=== PATIENT | female | born 1940 | race Caucasian/White ===

== ENCOUNTER 2019-05-25 12:08 | Outpatient (CLI) | payer MEDICARE, SELFPAY ==
[2019-05-25 13:06] LABS: Basophils # 0.1 10^3/uL (0.0-0.1); Basophils % 0.7 %; Eosinophils # 0.2 10^3/uL (0.0-0.8); Eosinophils % 2.3 %; Hematocrit 44.3 % (37.0-47.0); Hemoglobin 14.4 g/dL (11.5-15.3); Lymphocytes # 1.8 10^3/uL (0.8-4.8); Lymphocytes % 23.7 %; Mean Corpuscular HGB Conc 32.5 g/dL (30.0-36.0); Mean Corpuscular Hemoglobin 28.6 pg (28.0-34.0); Mean Corpuscular Volume 88.1 fL (81-99); Monocytes # 0.6 10^3/uL (0.2-0.9); Monocytes % 8.7 %; Neutrophils # 4.8 10^3/uL (1.8-7.7); Neutrophils % 64.3 %; Nucleated Red Blood Cells % 0 %; Platelet Count 372 10^3/cmm (130-400); Red Blood Count 5.03 10^6/uL (4.1-5.3); Red Cell Distribution Width 14.5 % (12.1-15.1); White Blood Count 7.4 10^3/uL (4.0-10.0)
[2019-05-25 13:36] LABS: Alanine Aminotransferase 22 U/L (0-33); Albumin Level 4.2 g/dL (3.5-5.2); Alkaline Phosphatase 81 IU/L (35-105); Anion Gap 18.3 (5-19); Aspartate Amino Transferase 21 U/L (0-32); Blood Urea Nitrogen 23 mg/dL (8-23); Calcium 10.7 mg/dL (8.5-10.5); Carbon Dioxide 26 mmol/L (22-29); Chloride 97 mmol/L (98-107); Globulin 3.7 g/dL (1.3-4.6); Glucose 126 mg/dL (65-115); Potassium 4.3 mmol/L (3.5-5.1); Sodium 137 mmol/L (136-145); Total Bilirubin 0.3 mg/dL (0.15-1.2); Total Protein 7.9 g/dL (6.6-8.7)
[2019-05-25 14:44] LABS: 25 Hydroxy Vitamin D > 100 ng/mL (30-100)
--- NOTE | 2019-05-28 07:16 | ONC FU_ITS ---
Dr. Valdes Patient Follow-Up Note Patient: Zee Vaca Unit #: [id number]: [id number] Dicatated By: Otoniel Valdes M.D.Date of Visit:May 25, 2019 Onc Med Follow-up/Prog Note Chief Complaint: Breast cancer. 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 She had presented in May 2010 with an abnormal screening mammogram. She underwent excisional biopsy on 06/21/2010. Pathology showed grade 1 infiltrating ductal carcinoma measuring 0.9 x 1.0 cm. There was no involvement in the margins. The tumor was ER positive at 97% and FL positive at 89%. The HER-2/alice was 2+ by IHC, but negative by FISH with amplification ratio 1.32. She underwent axillary lymph node sampling on 06/22/2010. There was no involvement in 13 axillary lymph nodes. She had a favorable Oncotype DX with a recurrence score of 15. She completed radiation to the left breast in October 2010. She was given adjuvant hormonal therapy with Femara, which she started in January 2011. She stopped Femara in May 2016 after completing 5 years of treatment. Her other medical illnesses include hypertension, hypothyroidism, GERD, and fibromyalgia. She has mild asthma. She had evidence of osteoporosis on her Dexa scan in August 2017. During followup she has had occasional episodes of cellulitis in the left breast. There has been no evidence of recurrence of the breast cancer. She is seen for a scheduled visit. She has been feeling good generally. She has good energy, and her activity is normal. Appetite also is good. She has no fever. She has occasional hot flashes/sweating. She says her breathing could be better. She has occasional burning pain in the left chest wall area. She currently has no GI complaints, but she has had problems intermittently with diverticulitis. Bowel function has been adequate with prune juice. She has no complaints. She has no significant joint or pain. She does not complain of headaches. She has some light headedness. She had a few episodes of passing out. She thinks it was just due to dehydration. Her evaluation was unrevealing. She has no focal neurologic symptoms. Medications: ALPRAZolam 1 (0.25 mg) Tablet Oral daily PRN, Aspirin 1 (81 mg) Tablet Oral daily, Cinnamon 1 (500 mg) Tablet Oral daily, Co Q10 1 (100 mg) Tablet Oral daily, Fish Oil 1 (1000 mg) Capsule Oral daily, Levothyroxine Sodium 1 (100 mcg) Tablet Oral daily, Melatonin 1 (3 mg) Capsule Oral at bedtime, Multi-Vitamin 1 Tablet Oral daily, Norvasc 1 (10 mg) Tablet Oral daily, Restoril 1 (15 mg) Capsule Oral at bedtime, Spironolactone 1 (25 mg) Tablet Oral daily, Triamterene-HCTZ 1 (37.5-25 mg) Tablet Oral daily, Vitamin D3 1 (2500 IU) Tablet Oral b.i.d., Vitamin K2 1 (100 mcg) Capsule Oral daily Allergies: MSG, Tenormin, and Vicodin. Review of Systems: Constitutional - Her energy is pretty good generally. She has normal activity. Her appetite is good and her weight is up about 5 pounds. No fever or chills. She has occasional hot flashes and night sweats. ECOG score is 0, ENMT - No sinus congestion/drainage. No mouth sores. No sore throat or difficulty swallowing, Hematologic/Lymphatic - No abnormal bruising or bleeding, Respiratory - She has some shortness of breath with activity. No cough. No pleuritic pain or hemoptysis, Cardiovascular - She has sharp burning pain in her chest at times. No palpitations, Gastrointestinal - No nausea or vomiting. No heartburn or acid reflux. She has had problems with diverticulitis. She uses prune juice to help with her constipation. No blood in the stool or black stools, Genitourinary (F) - No dysuria or hematuria. No urinary frequency. No urgency or incontinence, Musculoskeletal - No joint or bone pain, Integumentary - No skin complications, Neurologic - No headache. She has some dizziness when she stands up too quickly. At one point she was having some spells where she was passing out. Her evaluation was unrevealing. She has no numbness/paresthesias or other focal neurologic symptoms, Psychiatric - She has some anxiety and depression. She uses a sleep aid at night. Vital Signs: Performed on May 25, 2019 13:51 Height - 61.00 in Weight - 173.2 lbs (HIGH) BSA - 1.78 sq.m BMI - 32.73 (HIGH) Temperature - 98.2 F (LOW) Pulse - 70 /min Respiration - 24 /min BP - 148/68 mm(hg) (HIGH) O2 Sat - 96 % Pain - 0 Physical Examination: Constitutional - She looks good generally, Eyes - Sclerae nonicteric. Conjunctivae clear, ENMT - No lesions noted in the oral cavity, Hematologic/Lymphatic - No cervical or clavicular adenopathy, Respiratory - Lungs sound clear, Cardiovascular - Heart rhythm is regular. There is a II/ systolic murmur. There is no gallop or rub noted, Breasts - There are no breast masses noted. There is no axillary adenopathy, Abdomen - Soft. Liver and spleen are not enlarged. There is no abdominal mass or ascites noted and there is no inguinal adenopathy, Extremities - No edema, Neurologic - No focal neurologic deficits noted. Lab/Imaging: Test performed on May 25, 2019 12:40 Sodium 137 mmol/L Vitamin D (25-Hydroxy), Total > 100 ng/mL Potassium 4.3 mmol/L Chloride 97 mmol/L CO2 26 mmol/L Anion Gap 18.3 BUN 23 mg/dL Creatinine 0.7 mg/dL Cr Clearance (Est) 83.47 mL/min Glucose 126 mg/dL Calcium 10.7 mg/dL Protein, Total 7.9 g/dL Albumin 4.2 g/dL Globulin 3.7 g/dL Bilirubin, Total 0.3 mg/dL ALT (SGPT) 22 U/L AST (SGOT) 21 U/L Alkaline Phosphatase 81 IU/L WBC 7.4 10 3/uL RBC 5.03 10 6/uL HGB 14.4 g/dL HCT 44.3 % MCV 88.1 fL MCH 28.6 pg MCHC 32.5 g/dL RDW 14.5 % Platelet Count 372 10 3/cmm MPV 10.0 fL Neutrophils 4.8 10 3/uL Lymphocytes 1.8 10 3/uL Monocytes 0.6 10 3/uL Eosinophils 0.2 10 3/uL Basophils 0.1 10 3/uL Neutrophil % 64.3 % Lymphocyte % 23.7 % Monocyte % 8.7 % Eosinophil % 2.3 % Basophils % 0.7 % Impression: 1. Patient with grade 1 infiltrating ductal carcinoma of the left breast, stage IA, ER/FL positive and HER-2/alice negative. Oncotype DX was favorable with a recurrence score of 15. 2. Her treatment included lumpectomy/axillary lymph node sampling and radiation, which she completed in October 2010. 3. She was then given adjuvant hormonal therapy with Femara. She stopped Femara as of May 2016 after completing 5 years of treatment. 4. During followup she has had several episodes of cellulitis in the left breast. Her other medical illnesses include: 5. Hypertension. 6. Hypothyroidism. 7. GERD. 8. Fibromyalgia. 9. Osteoporosis. 10. She has history of diverticulitis. Overall, she has been doing well. Thus far there has been no evidence of recurrence of her breast cancer. Plan: She remains on observation for the breast cancer. I will see her again in one year, or sooner as needed. Signed By: Otoniel Valdes M.D. <<Signature on File>>
== END 2019-05-25 12:09 | disposition home or self-care (01) ==
LOC: ONCMED 12:11
PROVIDERS: Family Provider Family Medicine; PCP Family Medicine; Visit Provider Internal Medicine Medical Oncology
DX: Z08 Encounter for follow-up examination after completed treatment for malignant neoplasm (principal); Z85.3 Personal history of malignant neoplasm of breast; I10 Essential (primary) hypertension; E03.9 Hypothyroidism, unspecified; K21.9 Gastro-esophageal reflux disease without esophagitis; M79.7 Fibromyalgia; M81.0 Age-related osteoporosis without current pathological fracture; J45.20 Mild intermittent asthma, uncomplicated; Z79.82 Long term (current) use of aspirin; Z79.899 Other long term (current) drug therapy; Z92.3 Personal history of irradiation; Z92.23 Personal history of estrogen therapy
CPT/HCPCS: 80053; 82306; 85025; G0463

== ENCOUNTER → 2019-09-23 09:21 | Outpatient (BNVA) | payer MEDICARE, SELFPAY | PROVIDERS: Family Provider Family Medicine; PCP Family Medicine; Referring Provider Family Medicine; Visit Provider Podiatrist Foot & Ankle Surgery | DX: M21.961 Unspecified acquired deformity of right lower leg (principal); M21.962 Unspecified acquired deformity of left lower leg | CPT/HCPCS: 73630 ==

== ENCOUNTER 2019-09-30 11:04 | Outpatient (CLI) | payer MEDICARE, SELFPAY ==
--- NOTE | 2019-09-30 11:47 | MM_ITS ---
WS: [id number] BILATERAL DIGITAL DIAGNOSTIC MAMMOGRAM MAMMOGRAPHY WITH CAD CLINICAL INFORMATION: HX OF BREAST CA COMPARISON: August 18, 2018 TECHNIQUE: Bilateral CC, MLO, and ML views. FINDINGS: Scattered fibroglandular densities bilaterally. Postoperative lumpectomy left breast parenchymal scar ring. Volume loss left breast. Treatment-related changes left breast with skin thickening. Right marie st is stable in appearance and unremarkable. Stable punctate and dystrophic calcifications left breas t. MM/[id number] IMPRESSION: BI-RADS: 2-Benign FOLLOW UP: 1 Year Follow-up Recommend return to annual diagnostic mammography.
== END 2019-09-30 11:05 | disposition home or self-care (01) ==
LOC: RADSHAW 11:13
PROVIDERS: PCP Family Medicine; Visit Provider Family Medicine
DX: Z85.3 Personal history of malignant neoplasm of breast (principal)
CPT/HCPCS: 77066

== ENCOUNTER 2019-10-27 13:08 | Outpatient (CLI) | payer MEDICARE, SELFPAY ==
--- NOTE | 2019-10-27 13:13 | XRR_ITS ---
PROCEDURE INFORMATION: Exam: XR Left Knee Exam date and time: 10/27/2019 1:32 PM Age: 79 years old Clinical indication: Condition or disease; Other: Folllow up with ortho; Patient HX: C/O left knee pain. HX of bunion surgery many years ago TECHNIQUE: Imaging protocol: XR Left knee. Views: 1 or 2 views. COMPARISON: CR Knee 3 views, LEFT* [id number] 05/10/2014 1:59 PM FINDINGS: Bones/joints: There is joint space narrowing in the medial compartment of the left knee. There is a small posterior osteophyte off the superior left patella. There is no evidence for acute fracture or malalignment. Soft tissues: Normal. XR/XR knees AP WB w LT lmt ORTH IMPRESSION: There is left knee osteoarthritis.
== END 2019-10-27 13:09 | disposition home or self-care (01) ==
PROVIDERS: PCP Family Medicine; Visit Provider Specialist
DX: M25.562 Pain in left knee (principal); M17.12 Unilateral primary osteoarthritis, left knee
CPT/HCPCS: 73560; 73565

== ENCOUNTER 2019-12-16 10:53 | Outpatient (RCR) | payer MEDICARE, SELFPAY | END 2020-01-12 23:59 | disposition home or self-care (01) | LOC: SPT 10:53 | PROVIDERS: PCP Family Medicine; Referring Provider Family Medicine; Visit Provider Family Medicine | DX: G89.29 Other chronic pain (principal); M54.2 Cervicalgia | CPT/HCPCS: 97110; 97161 ==

== ENCOUNTER 2020-01-13 06:00 | Outpatient (RCR) | payer MEDICARE, SELFPAY | END 2020-02-12 23:59 | disposition home or self-care (01) | LOC: SPT 06:00 | PROVIDERS: PCP Family Medicine; Referring Provider Family Medicine; Visit Provider Family Medicine | DX: G89.29 Other chronic pain (principal); M54.2 Cervicalgia | CPT/HCPCS: 97110 ==

== ENCOUNTER 2020-02-13 06:00 | Outpatient (RCR) | payer MEDICARE, SELFPAY | END 2020-03-13 23:59 | disposition home or self-care (01) | LOC: SPT 06:00 | PROVIDERS: PCP Family Medicine; Referring Provider Family Medicine; Visit Provider Family Medicine | DX: M54.2 Cervicalgia (principal); G89.29 Other chronic pain | CPT/HCPCS: 97110 ==

== ENCOUNTER 2020-06-15 10:29 | Outpatient (CLI) | payer MEDICARE, SELFPAY ==
--- NOTE | 2020-06-18 10:19 | ONC FU_ITS ---
Dr. Valdes Patient Follow-Up Note Patient: Zee Vaca Unit #: [id number]: [id number] Dicatated By: Otoniel Valdes M.D.Date of Visit:Jun 15, 2020 Onc Med Follow-up/Prog Note Chief Complaint: Breast cancer. History of Present Illness: This is a 79 year-old woman with grade 1 infiltrating ductal carcinoma of the left breast, stage IA (T1b, N0, M0), ER/CT positive and HER-2/alice negative. She had presented in May 2010 with an abnormal screening mammogram. She underwent excisional biopsy on 06/21/2010. Pathology showed grade 1 infiltrating ductal carcinoma measuring 0.9 x 1.0 cm. There was no involvement in the margins. The tumor was ER positive at 97% and CT positive at 89%. The HER-2/alice was 2+ by IHC, but negative by FISH with amplification ratio 1.32. She underwent axillary lymph node sampling on 06/22/2010. There was no involvement in 13 axillary lymph nodes. She had a favorable Oncotype DX with a recurrence score of 15. She completed radiation to the left breast in October 2010. She was given adjuvant hormonal therapy with letrozole 2.5 mg dialy, which she started in January 2011. She stopped letrozole in May 2016 after completing 5 years of treatment. Her other medical illnesses include hypertension, hypothyroidism, GERD, and fibromyalgia. She has mild asthma. She had evidence of osteoporosis on her Dexa scan in August 2017. During followup she has had occasional episodes of cellulitis in the left breast. There has been no evidence of recurrence of the breast cancer. She is seen for a scheduled visit. She has been feeling fairly good, though she has had some decline in her activity tolerance. Her ECOG score is 1. She has good appetite. She has not had fever or night sweats. She has just a little bit of hot flashes now. Her main complaint is that she recently has had a flareup of pain in her left wrist, which she thinks is gout. She has a little sinus drainage and cough. She does not complain of shortness of breath. She has had some soreness in her left rib area and in the left parasternal area, which I suspect is related to her previous breast radiation. She otherwise does not have chest pain. She has mild constipation, which he manages adequately with prune juice. She has no other GI or complaints. She currently is not having any other joint or bone pain. She does not complain of headache. She does complain that she has had a tendency to be off balance. She has no focal neurologic symptoms. Medications: ALPRAZolam 1 (0.25 mg) Tablet Oral daily PRN, Aspirin 1 (81 mg) Tablet Oral daily, Cinnamon 1 (500 mg) Tablet Oral daily, Co Q10 1 (100 mg) Tablet Oral daily, Fish Oil 1 (1000 mg) Capsule Oral daily, Levothyroxine Sodium 1 (100 mcg) Tablet Oral daily, Melatonin 1 (3 mg) Capsule Oral at bedtime, Multi-Vitamin 1 Tablet Oral daily, Norvasc 1 (10 mg) Tablet Oral daily, Restoril 1 (15 mg) Capsule Oral at bedtime, Spironolactone 1 (25 mg) Tablet Oral daily, Triamterene-HCTZ 1 (37.5-25 mg) Tablet Oral daily, Vitamin D3 1 (2500 IU) Tablet Oral b.i.d., Vitamin K2 1 (100 mcg) Capsule Oral daily Allergies: MSG, Tenormin, and Vicodin. Vital Signs: Performed on Jun 15, 2020 10:40 Height - 61.00 in Weight - 179.8 lbs (HIGH) BSA - 1.81 sq.m BMI - 33.97 (HIGH) Temperature - 98.2 F (LOW) Pulse - 86 /min Respiration - 18 /min BP - 151/88 mm(hg) (HIGH) O2 Sat - 97 % Pain - 7 Fatigue - 0 Physical Examination: Constitutional - She looks good generally, Eyes - Sclerae nonicteric. Conjunctivae clear, ENMT - No lesions noted in the oral cavity, Hematologic/Lymphatic - No cervical or clavicular adenopathy, Respiratory - Lungs sound clear, Cardiovascular - Heart rhythm is regular. There is a II/ systolic murmur. There is no gallop or rub noted, Breasts - There are no breast masses noted. There is no axillary adenopathy, Abdomen - Soft. Liver and spleen are not enlarged. There is no abdominal mass or ascites noted and there is no inguinal adenopathy, Extremities - No edema, Neurologic - No focal neurologic deficits noted. Problem List: 1. Grade 1 infiltrating ductal carcinoma of the left breast, stage IA, ER/CT positive and HER-2/alice negative. Oncotype DX was low risk with a recurrence score of 15. 2. During followup she has had several episodes of cellulitis in the left breast. 3. Hypertension. 4. Hypothyroidism. 5. GERD. 6. Fibromyalgia. 7. Osteoporosis. 9. She has history of diverticulitis. 10. History of gout. Problems Addressed with this Encounter and Plan: 1. Patient with grade 1 infiltrating ductal carcinoma of the left breast, stage IA, ER/CT positive and HER-2/alice negative. Oncotype DX was favorable with a recurrence score of 15. Her treatment included lumpectomy/axillary lymph node sampling and radiation, which she completed in October 2010. She was then given adjuvant hormonal therapy with letrolzole. She stopped the letrozole as of May 2016 after completing 5 years of treatment. During follow-up there has been no evidence of recurrence of the breast cancer. Overall, she appears to be doing well clinicallyWith no evidence of recurrence of the breast cancer. She remains on observation for the breast cancer. She will continue her yearly surveillance with diagnostic mammograms, which are due in September. She will be scheduled for a follow-up visit in 1 year. 2. She has had a recent flareup of pain in the left wrist, she thinks is due to gout. She is recommended to try Voltaren gel topically. If this is not effective, she is to let me know or contact Dr. Soto. Signed By: Otoniel Valdes M.D. <<Signature on File>>
== END 2020-06-15 10:30 | disposition home or self-care (01) ==
PROVIDERS: PCP Family Medicine; Visit Provider Internal Medicine Medical Oncology
DX: Z08 Encounter for follow-up examination after completed treatment for malignant neoplasm (principal); Z85.3 Personal history of malignant neoplasm of breast; M25.532 Pain in left wrist; Z92.23 Personal history of estrogen therapy; Z92.3 Personal history of irradiation
CPT/HCPCS: 99214

== ENCOUNTER 2020-10-02 12:16 | Outpatient (CLI) | payer MEDICARE, SELFPAY ==
--- NOTE | 2020-10-02 13:05 | MM_ITS ---
WS: [id number] DIAGNOSTIC BILATERAL DIGITAL MAMMOGRAM WITH CAD HISTORY: HX OF BR CA COMPARISON: 09/30/2019, 08/18/2018 and 08/14/2017 TECHNIQUE: Bilateral craniocaudad, mediolateral oblique, and mediolateral views are submitted. Comput er aided detection utilized. Breast composition: There are scattered areas of fibroglandular density. Volume loss and postsurgical changes in the LEFT breast. There is a new 6 mm asymmetry seen only on the LEFT CC projection anteri elvin. Otherwise benign dystrophic calcifications. RIGHT breast is negative. MM/[id number] IMPRESSION: BI-RADS: 0-Incomplete: Need additional imaging evaluation FOLLOW UP: Need Additional Imaging LEFT breast: Spot compression views (CC and MLO). True ML. Ultrasound to follow if abnormality persists.
== END 2020-10-02 12:17 | disposition home or self-care (01) ==
LOC: RADSHAW 12:21
PROVIDERS: PCP Family Medicine; Visit Provider Internal Medicine Medical Oncology
DX: Z85.3 Personal history of malignant neoplasm of breast (principal)
CPT/HCPCS: 77066

== ENCOUNTER 2020-10-10 12:22 | Outpatient (CLI) | payer MEDICARE, SELFPAY ==
--- NOTE | 2020-10-10 12:45 | US_ITS ---
WS: [id number] ADDITIONAL VIEWS LEFT MAMMOGRAM LEFT BREAST ULTRASOUND HISTORY: ABNORMAL MAMMO COMPARISON: 10/02/2020, 09/30/2019, 08/18/2018 LEFT MAMMOGRAM: Spot compression views and true ML. Asymmetry with central calcification persists measuring 5 mm in the medial LEFT breast. This is not i dentified on the spot compression view of the MLO. LEFT BREAST ULTRASOUND 2-D and color Doppler imaging submitted. Hypoechoic area with shadowing at 10:00, 1 cm from the nipple in the LEFT breast measures 4 x 4 x 8 m m. This probably does correspond to the abnormality in size and location. No increased vascularity. US/US breast LT limited* [id number] IMPRESSION: BI-RADS: 4-Suspicious Finding-Biopsy Should Be Considered FOLLOW UP: Biopsy Recommended Ultrasound-guided biopsy recommended of the 10:00 nodule with central calcifica tion in the LEFT breast. Notified Otoniel Valdes MD at 10/10/2020 1:51 PM. Left message with Miriam.
== END 2020-10-10 12:23 | disposition home or self-care (01) ==
PROVIDERS: PCP Family Medicine; Visit Provider Internal Medicine Medical Oncology
DX: R92.8 Other abnormal and inconclusive findings on diagnostic imaging of breast (principal); N64.89 Other specified disorders of breast
CPT/HCPCS: 76642; 77065

== ENCOUNTER 2020-10-23 12:49 | Outpatient (CLI) | payer MEDICARE, SELFPAY ==
--- NOTE | 2020-10-23 12:57 | US_ITS ---
WS: [id number] ULTRASOUND-GUIDED LEFT BREAST BIOPSY CLINICAL INFORMATION: BREAST CANCER COMPARISON: None. FINDINGS: The procedure including risks, benefits, and complications were discussed with the patient who agreed to proceed. Using sterile technique patient was prepped and draped in the usual sterile fashion. Aft er 1% lidocaine utilizing real-time ultrasound guidance 5 14-gauge cores were obtained of the left br east lesion at the 10 o'clock position. Subsequently a titanium clip was placed in the biopsy cavity. No immediate complications. Pathology demonstrates A. Breast, left breast 10 o'clock lesion, 1 cm from nipple , ultrasound-guided biopsy: -Benign breast tissue with microcalcifications, chronic inflammation and treatment-related changes. -No overt malignancy identified. US/[place] [id number] IMPRESSION: 1. Uncomplicated ultrasound-guided left breast biopsy. 2. The pathology demonstrates benign breast tissue with microcalcifications. C hronic inflammation with associated treatment-related changes. No evidence of m alignancy. BI-RADS: 2-Benign FOLLOW UP: 1 Year Follow-up
== END 2020-10-23 12:50 | disposition home or self-care (01) ==
LOC: RAD 12:52
PROVIDERS: PCP Family Medicine; Visit Provider Internal Medicine Medical Oncology
DX: C50.212 Malignant neoplasm of upper-inner quadrant of left female breast (principal)
CPT/HCPCS: 19083; 88305

== ENCOUNTER 2021-07-16 13:55 | Outpatient (CLI) | payer MEDICARE, SELFPAY ==
--- NOTE | 2021-07-19 12:07 | ONC FU_ITS ---
Dr. Valdes Patient Follow-Up Note Patient: Zee Vaca Unit #: [id number]: [id number] Dicatated By: Otoniel Valdes M.D.Date of Visit:Jul 16, 2021 Onc Med Follow-up/Prog Note Chief Complaint: Breast cancer. History of Present Illness: This is a 80 year-old woman with grade 1 infiltrating ductal carcinoma of the left breast, stage IA (T1b, N0, M0), ER/NE positive and HER-2/alice negative. She had presented in May 2010 with an abnormal screening mammogram. She underwent excisional biopsy on 06/21/2010. Pathology showed grade 1 infiltrating ductal carcinoma measuring 0.9 x 1.0 cm. There was no involvement in the margins. The tumor was ER positive at 97% and NE positive at 89%. The HER-2/alice was 2+ by IHC, but negative by FISH with amplification ratio 1.32. She underwent axillary lymph node sampling on 06/22/2010. There was no involvement in 13 axillary lymph nodes. She had a favorable Oncotype DX with a recurrence score of 15. She completed radiation to the left breast in October 2010. She was given adjuvant hormonal therapy with letrozole 2.5 mg dialy, which she started in January 2011. She stopped letrozole in May 2016 after completing 5 years of treatment. During follow-up she had occasionally episodes of cellulitis in the left breast, requiring antibiotic therapy. As of her visit in June 2020 there was no evidence of recurrence of the breast cancer. She continued expectant management. Her other medical illnesses include hypertension, hypothyroidism, GERD, and fibromyalgia. She has mild asthma. She had evidence of osteoporosis on her Dexa scan in August 2017. She had smoked in the past, but she quit more than 20 years ago. INTERIM HISTORY: Her diagnostic mammogram on 10/02/2020 was BI-RADS 0 with finding of a new 6 mm asymmetry in the left breast. Additional mammogram views and left breast ultrasound on 10/10/2021 were BI-RADS 4, suspicious. She underwent ultrasound directed biopsy on 10/23/2020. Pathology showed benign breast tissue with microcalcifications, chronic inflammation, and treatment related changes. There was no malignancy identified. She is seen for a scheduled visit. She has not been feeling as good lately. Her energy has not been as good, and she has not been as active. She is still doing some light work. ECOG score is 1. She has good appetite. She has not had fever or hot flashes, but she for the past 3 to 4 months she has occasionally been waking up sweaty. She has not had sore mouth or throat. She has some cough in the morning associated with sinus drainage. She occasionally cannot get her breath. She sometimes has heart racing. She does not complain of chest pain. She occasionally has nausea. Her acid reflux is adequately managed. She has chronic constipation she has occasional episodes of diverticulitis. Bladder function has been okay, but recently she has noticed a foul odor. She has some lower back pain. She does not complain of headache. She sometimes has dizziness and she occasionally has numbness in her feet. Medications: ALPRAZolam 1 (0.25 mg) Tablet Oral daily PRN, Aspirin 1 (81 mg) Tablet Oral daily, Cinnamon 1 (500 mg) Tablet Oral daily, Co Q10 1 (100 mg) Tablet Oral daily, Fish Oil 1 (1000 mg) Capsule Oral daily, Levothyroxine Sodium 1 (100 mcg) Tablet Oral daily, Melatonin 1 (3 mg) Capsule Oral at bedtime, Multi-Vitamin 1 Tablet Oral daily, Norvasc 1 (10 mg) Tablet Oral daily, Restoril 1 (15 mg) Capsule Oral at bedtime, Spironolactone 1 (25 mg) Tablet Oral daily, Triamterene-HCTZ 1 (37.5-25 mg) Tablet Oral daily, Vitamin D3 1 (2500 IU) Tablet Oral b.i.d., Vitamin K2 1 (100 mcg) Capsule Oral daily Allergies: MSG, Tenormin, and Vicodin. Vital Signs: Performed on Jul 16, 2021 14:08 Height - 61.00 in Weight - 178.0 lbs (LOW) BSA - 1.80 sq.m BMI - 33.63 (HIGH) Temperature - 97.4 F (LOW) Pulse - 84 /min Respiration - 19 /min BP - 157/73 mm(hg) (HIGH) O2 Sat - 97 % Pain - 0 Fatigue - 4 Physical Examination: Constitutional - She looks good generally, Eyes - Sclerae nonicteric. Conjunctivae clear, ENMT - No lesions noted in the oral cavity, Hematologic/Lymphatic - No cervical or clavicular adenopathy, Respiratory - Lungs sound clear, Cardiovascular - Heart rhythm is regular. There is a II/ systolic murmur. There is no gallop or rub noted, Breasts - There is mild induration in the left breast, but there are no breast masses noted. There is tenderness in the medial left chest wall, which I suspect may be due to costochondritis. There is no axillary adenopathy noted, Abdomen - Soft. Liver and spleen are not enlarged. There is no abdominal mass or ascites noted and there is no inguinal adenopathy, Extremities - No edema, Neurologic - No focal neurologic deficits noted. Problem List: 1. Grade 1 infiltrating ductal carcinoma of the left breast, stage IA, ER/NE positive and HER-2/alice negative. Oncotype DX was low risk with a recurrence score of 15. 2. During followup she has had several episodes of cellulitis in the left breast. 3. Hypertension. 4. Hypothyroidism. 5. GERD. 6. Fibromyalgia. 7. Osteoporosis. 9. She has history of diverticulitis. 10. History of gout. Problems Addressed with this Encounter and Plan: 1. Patient with grade 1 infiltrating ductal carcinoma of the left breast, stage IA, ER/NE positive and HER-2/alice negative. Oncotype DX was favorable with a recurrence score of 15. Her treatment included lumpectomy/axillary lymph node sampling and radiation, which she completed in October 2010. She was then given adjuvant hormonal therapy with letrolzole. She stopped the letrozole as of May 2016 after completing 5 years of treatment. During follow-up there has been no evidence of recurrence of the breast cancer. Overall, she has been doing well clinically with no evidence of recurrence of the breast cancer. She remains on expectant management. At this point she is recommended to continue her regular follow-up with Dr. Soto. She is aware that she also needs to continue her yearly surveillance with diagnostic bilateral mammogram. I will plan to see her again only as needed. 2. Recently she has been having some pain in the chest area. There is tenderness in the medial left chest wall, which appears consistent with costochondritis. She will initially try treating it with Voltaren gel. She is let me know if it is not getting better. Signed By: Otoniel Valdes M.D. <<Signature on File>>
== END 2021-07-16 13:56 | disposition home or self-care (01) ==
PROVIDERS: PCP Family Medicine; Visit Provider Internal Medicine Medical Oncology
DX: Z08 Encounter for follow-up examination after completed treatment for malignant neoplasm (principal); Z85.3 Personal history of malignant neoplasm of breast; N61.0 Mastitis without abscess; I10 Essential (primary) hypertension; E03.9 Hypothyroidism, unspecified; K21.9 Gastro-esophageal reflux disease without esophagitis; M79.7 Fibromyalgia; M81.0 Age-related osteoporosis without current pathological fracture; M94.0 Chondrocostal junction syndrome [Tietze]; Z87.19 Personal history of other diseases of the digestive system; Z87.2 Personal history of diseases of the skin and subcutaneous tissue; Z79.899 Other long term (current) drug therapy
CPT/HCPCS: 99214

== ENCOUNTER → 2021-08-02 09:50 | Outpatient (BNVA) | payer MEDICARE, SELFPAY | PROVIDERS: PCP Family Medicine; Visit Provider Podiatrist Foot & Ankle Surgery | DX: L60.0 Ingrowing nail (principal); L60.3 Nail dystrophy; Z87.891 Personal history of nicotine dependence | CPT/HCPCS: 11750 ==

== ENCOUNTER → 2021-08-28 12:00 | Outpatient (BNVA) | payer MEDICARE, SELFPAY | PROVIDERS: PCP Family Medicine; Visit Provider Family Medicine | DX: I10 Essential (primary) hypertension (principal); E03.9 Hypothyroidism, unspecified; E78.5 Hyperlipidemia, unspecified; I11.0 Hypertensive heart disease with heart failure | CPT/HCPCS: 80053; 80061; 84443; 85025 ==

== ENCOUNTER → 2021-08-28 14:42 | Outpatient (BNVA) | payer MEDICARE, SELFPAY | PROVIDERS: PCP Family Medicine; Visit Provider Podiatrist Foot & Ankle Surgery | DX: L60.3 Nail dystrophy (principal); M79.672 Pain in left foot | CPT/HCPCS: 99213 ==

== ENCOUNTER 2021-10-31 11:06 | Outpatient (RCR) | payer MEDICARE, SELFPAY | END 2021-11-11 23:59 | disposition home or self-care (01) | LOC: SPT 11:06 | PROVIDERS: PCP Family Medicine; Referring Provider Family Medicine; Visit Provider Family Medicine | DX: R07.81 Pleurodynia (principal) | CPT/HCPCS: 97110; 97161 ==

== ENCOUNTER 2021-11-09 10:12 | Outpatient (CLI) | payer MEDICARE, SELFPAY ==
--- NOTE | 2021-11-09 10:37 | MM_ITS ---
WS: [id number] BILATERAL DIAGNOSTIC DIGITAL BREAST TOMOSYNTHESIS MAMMOGRAM WITH CAD HISTORY: HX OF BREAST CA COMPARISON: 10/10/2020, 10/02/2020, 09/30/2019 Bilateral CC, ML and MLO views with tomosynthesis and synthetic mammography submitted. Computer aided detection analyzed. Breast composition: There are scattered areas of fibroglandular density. No suspicious masses, microc alcifications or architectural distortion. Postsurgical changes in the anterior LEFT breast are stabl e. There are dystrophic calcifications with distortion of the soft tissues. MM/[id number] IMPRESSION: BI-RADS: 2-Benign FOLLOW UP: 1 Year Follow-up
== END 2021-11-09 10:13 | disposition home or self-care (01) ==
LOC: RAD 10:18
PROVIDERS: PCP Family Medicine; Visit Provider Family Medicine
DX: Z85.3 Personal history of malignant neoplasm of breast (principal)
CPT/HCPCS: 77062

== ENCOUNTER 2021-11-12 06:00 | Outpatient (RCR) | payer MEDICARE, SELFPAY | END 2021-12-12 23:59 | disposition home or self-care (01) | LOC: SPT 06:00 | PROVIDERS: PCP Family Medicine; Visit Provider Family Medicine | DX: R07.81 Pleurodynia (principal) | CPT/HCPCS: 97110 ==

== ENCOUNTER 2021-12-13 06:00 | Outpatient (RCR) | payer MEDICARE, SELFPAY | END 2022-01-11 23:59 | disposition home or self-care (01) | LOC: SPT 06:00 | PROVIDERS: PCP Family Medicine; Visit Provider Family Medicine | DX: R07.81 Pleurodynia (principal) | CPT/HCPCS: 97110 ==

== ENCOUNTER → 2022-02-12 11:10 | Outpatient (BNVA) | payer MEDICARE, SELFPAY | PROVIDERS: PCP Family Medicine; Visit Provider Family Medicine | DX: E78.5 Hyperlipidemia, unspecified (principal); I10 Essential (primary) hypertension; K57.92 Diverticulitis of intestine, part unspecified, without perforation or abscess without bleeding; L60.3 Nail dystrophy; Z00.00 Encounter for general adult medical examination without abnormal findings | CPT/HCPCS: 80053; 80061; 84443; 85025 ==

== ENCOUNTER 2022-04-22 14:35 | Outpatient (CLI) | payer MEDICARE, SELFPAY ==
--- NOTE | 2022-04-22 16:00 | CTR_ITS ---
PROCEDURE INFORMATION: Exam: CT Chest Without Contrast; Diagnostic Exam date and time: 04/22/2022 4:27 PM Age: 81 years old Clinical indication: Prior oncological treatment - HX of breast CA, cough and left abd pain x 3 wks. Abdominal pain; Left-sided; Prior surgery; Surgery date: 6+ months; Surgery type: Breast, hysterectomy; Additional info: Cough/ abd pain TECHNIQUE: Imaging protocol: Diagnostic computed tomography of the chest without contrast. Radiation optimization: All CT scans at this facility use at least one of these dose optimization techniques: automated exposure control; mA and/or kV adjustment per patient size (includes targeted exams where dose is matched to clinical indication); or iterative reconstruction. COMPARISON: CR XR chest 2V* [id number] 01/04/2019 12:04 PM RADIATION DOSE METRICS: Total DLP (mGy-cm): 1204.6 FINDINGS: Lungs: Unremarkable. No consolidation. No masses. Pleural spaces: Unremarkable. No pneumothorax. No pleural effusion. Heart: Heart is not significantly enlarged. There are moderate calcifications of the coronary artery. No significant pericardial effusion. Lymph nodes: Unremarkable. No enlarged lymph nodes. Vasculature: There are scattered atherosclerotic changes of the thoracic aorta. There is no aortic aneurysm. Diaphragm: Small hiatal hernia. Bones/joints: Mild-moderate degenerative changes throughout the thoracic spine. No suspicious bone lesions are acute fractures detected. Soft tissues: Unremarkable. PROCEDURE INFORMATION: Exam: CT Abdomen And Pelvis Without Contrast Exam date and time: 04/22/2022 4:27 PM Age: 81 years old Clinical indication: Prior oncological treatment - HX of breast CA, cough and left abd pain x 3 wks. Abdominal pain; Left-sided; Prior surgery; Surgery date: 6+ months; Surgery type: Breast, hysterectomy; Additional info: Cough/ abd pain TECHNIQUE: Imaging protocol: Computed tomography of the abdomen and pelvis without contrast. Radiation optimization: All CT scans at this facility use at least one of these dose optimization techniques: automated exposure control; mA and/or kV adjustment per patient size (includes targeted exams where dose is matched to clinical indication); or iterative reconstruction. COMPARISON: CT abdomen pelvis wo con [id number] 02/16/2016 8:55 AM RADIATION DOSE METRICS: Total DLP (mGy-cm): 1201.6 FINDINGS: Lungs: Lung bases are clear. Liver: Normal. No mass. Gallbladder and bile ducts: Gallbladder has contracted limiting assessment. Pancreas: Unremarkable. Main pancreatic duct is not significantly dilated. Spleen: Normal. No splenomegaly. Adrenal glands: Normal. No mass. Kidneys and ureters: Normal. No hydronephrosis. Stomach and bowel: Moderate degree of retained stool throughout the large bowel likely reflecting some degree of constipation. Numerous diverticuli throughout the large bowel without evidence of acute diverticulitis. Appendix: No evidence of appendicitis. Intraperitoneal space: Unremarkable. No free air. No significant fluid collection. Vasculature: Abdominal aorta and iliac vessels are diffusely calcified. There is no aortic aneurysm. Lymph nodes: Unremarkable. No enlarged lymph nodes. Urinary bladder: Unremarkable as visualized. Reproductive: Uterus has been removed. Bones/joints: Mild scoliosis with multilevel asymmetric degenerative changes right of midline throughout the lumbar spine. There is a bipolar right hip prosthesis present. No suspicious bone lesions detected. Soft tissues: Unremarkable. CT/[place] [id number] IMPRESSION: No evidence of intrathoracic malignancy or metastatic disease within the chest. IMPRESSION: 1. No evidence of metastatic disease within the abdomen or pelvis. 2. Diffuse colonic diverticulosis. No evidence of acute diverticulitis. 3. Moderate degree of retained stool throughout the large bowel. Please correlate for constipation. 4. Additional nonemergent findings as above.
[2022-04-22] MEDS: iohexol 350 mg/mL 100 mL Btl PO (16:22)
== END 2022-04-22 14:36 | disposition home or self-care (01) ==
PROVIDERS: PCP Family Medicine; Visit Provider Family Medicine
DX: K57.92 Diverticulitis of intestine, part unspecified, without perforation or abscess without bleeding (principal); R05.9 Cough, unspecified; R06.00 Dyspnea, unspecified
CPT/HCPCS: 71250; 74176; Q9967

== ENCOUNTER 2022-06-24 14:13 | Outpatient (CLI) | payer MEDICARE, SELFPAY ==
--- NOTE | 2022-06-24 14:30 | XR_ITS ---
WS: [id number] SCREENING DEXA SCAN [employer] CLINICAL INFORMATION: screening COMPARISON: FINDINGS: The L1-L4 bone mineral density measures 1.43. This corresponds to a T score score of 2.1 and Z score of 3.4. Left femoral neck bone mineral density measures 0.69. This corresponds to a T score of -2.5 and Z sco re of -0.8. XR/XR DEXA axial skeleton* [id number] IMPRESSION: Normal bone mineralization lumbar spine although likely spuriously elevated due to endplate sclerosis. Osteoporosis LEFT femoral neck. Patient's FRAX calculated 10 year probability for major osteoporotic fracture i s 23.0 % and osteoporotic hip fracture is 9.1%. Bone mineral density in the lumbar spine has increased 8.3% since 2018 Bone mineral density in the LEFT femoral neck has decreased -0.9% since 2018
== END 2022-06-24 14:14 | disposition home or self-care (01) ==
PROVIDERS: PCP Family Medicine; Visit Provider Family Medicine
DX: Z13.820 Encounter for screening for osteoporosis (principal); M85.852 Other specified disorders of bone density and structure, left thigh
CPT/HCPCS: 77080

== ENCOUNTER 2022-07-29 15:40 | Outpatient (CLI) | payer MEDICARE, SELFPAY ==
--- NOTE | 2022-07-29 16:01 | XR_ITS ---
WS: [id number] KUB, AP view, 07/29/2022 Clinical Data: constipation Comparison: KUB, 03/03/2019 Findings: No abnormal intraabdominal masses are seen. There is no dilatated small bowel or evidence of obstruct ion. Or calcifications to the left of the L4 vertebral body which appear to be mesenteric. There is a mode rate amount of fecal material throughout the colon. 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 The re is a right hip arthroplasty. XR/XR KUB [id number] Impression: Moderate amount of fecal material in the colon.
== END 2022-07-29 15:41 | disposition home or self-care (01) ==
LOC: RAD 15:45
PROVIDERS: PCP Family Medicine; Visit Provider Family Medicine
DX: K59.00 Constipation, unspecified (principal)
CPT/HCPCS: 74018

== ENCOUNTER 2022-08-30 18:58 | Inpatient (IN) | payer MEDICARE, SELFPAY ==
[2022-08-30] VITALS (21 sets, daily range): BP systolic 142–205; BP diastolic 74–106; PULSE 66–83; RESP 13–29; TEMP 36.8; O2SAT 16–97; BMI 36.7; BMI 34.2
--- NOTE | 2022-08-30 19:04 | ED_ITS ---
HPI - Neuro Symptoms/Deficit General: Chief Complaint: Neuro Symptoms/Deficit Stated Complaint: STROKE Time Seen by Provider: 08/30/22 19:04 History of Present Illness: Ms. Vaca is an 82-year-old lady with history of hypertension, hyperlipidemia, thyroid disorder, remote history of breast cancer status postresection presenting to the emergency department for stroke activation. She presents via EMS. Onset of symptoms was approximately 530 or 540. Apparently she was in her bedroom and then came out and was able to put together some food in the kitchen when she had sudden onset of abnormal feeling. Her friend and roommate noted at that time some weakness in the left, slurred speech, facial droop. Patient also reported headache. She had difficulty walking with some degree of ataxia however no falls. Overall intensity of symptoms is moderate. Course has persisted. Denies similar episodes in the past. Patient lives independently Last Observed Normal: 17:40 Timing confirmed by: other (Friend/roommate) Location: speech, left face, left arm and left leg History of same: No Severity: moderate Quality: weak and numb Relieving factors: none Exacerbating factors: none On Anticoagulants: No Associated symptoms: Reports malaise Review of Systems General: Reports: 10 or more systems reviewed and unremarkable except in HPI and below Const: Reports: malaise PFSH ED PFSH: Medical History (Updated 09/01/22 @ 13:01 by Osmani De Dios MD) Diverticulitis Fibromyalgia Hiatal hernia History of left breast cancer 2010 Hyperlipidemia Hypertension Hypoglycemia Hypothyroid Surgical History History of right hip replacement History of tonsillectomy Family History Father Lung cancer Mother Stroke Social History Smoking and tobacco status: never smoked Alcohol intake: never Substance/Drug Use: never Marital status: NIH stroke score NIHSS: Level Of Consciousness - 1a: 0 Level Of Consciousness Questions - 1b: Both Correct Level Of Consciousness Commands - 1c: Both Correct Best Gaze - 2: Partial Gaze Palsy Visual Snow - 3: Complete Hemianopia Facial Palsy - 4: Normal Motor Arm Right - 5: No Drift Motor Arm Left - 5: No Drift Motor Leg Right - 6: No Drift Motor Leg Left - 6: No Drift Limb Ataxia - 7: Absent Sensory - 8: Mild To Moderate Loss Best Language - 9: No Aphasia Dysarthia - 10: Normal Extinction And Inattention - 11: 1 Score: Total Score: 5 Physical Exam Const: COMMON NORMALS: alert GENERAL APPEARANCE: cooperative and well d eveloped HENMT: COMMON NORMALS: normocephalic and atraumatic HEAD & SCALP: normocephalic and atraumatic Eye: COMMON NORMALS: conjunctivae normal CONJUNCTIVA: Yes conjunctivae normal SCLERA: sclerae normal Neck/C-Spine: COMMON NORMALS: supple GENERAL: Yes trachea midline Resp: COMMON NORMALS: clear to auscultation bilaterally EFFORT & INSPECTION: Yes able to speak in complete sentences AUSCULTATION: clear to auscultation bilaterally Cardio: COMMON NORMALS: regular rate and regular rhythm RATE: regular rate RHYTHM: regular rhythm GI: COMMON NORMALS: Soft to palpation PALPATION: Yes Soft to palpation and No Tenderness to palpation present (GI) Extremity: GENERAL: Yes normal exam except as noted and No edema Neuro: COMMON NORMALS: moves all extremities SENSORIUM/ORIENTATION: Yes alert and No Orientation impaired Psych: COMMON NORMALS: mental status grossly normal and Normal thought process present THOUGHT PROCESS: Normal thought process present Course Vital Signs: Vital signs: Vital Signs Temperature 98.8 F 09/02/22 03:32 Pulse Rate 80 09/02/22 11:08 Respiratory Rate 16 09/02/22 11:08 Blood Pressure 139/60 09/02/22 11:08 Pulse Oximetry 95 09/02/22 11:08 Oxygen Delivery Me thod Room Air 09/02/22 09:48 MDM - Neuro Symptoms/Deficit Medical Decision Making 82-year-old lady presenting for strokelike symptoms. Patient primarily has s ensory and visual disturbance. NIHSS of [address] scanner hand no evidence of acute hemorrhage. Glucose normal. Discussed with Surendra on-call for stroke. Patient is appropriate for tPA. Wing garcia consented and tPA administered with improvement. Labs with no leukocytosis, metabolic panel without acute derangement to explain symptoms. No UTI. Patient reported increased headache and repeat CT without evidence of post tPA hemorrhage. During ED course patient also treated with antihypertensive and analgesia. Most likely etiology of symptoms is ischemic posterior circulation stroke with tPA administered. Patient has allergy listed to iodinated contrast and given likely location of stroke would not be amenable to endovascular retrieval if LVO is present. Therefore, I will defer CTA at this time. The results of ED evaluation were discussed with the patient including plan for admission due to requirement for level of care not available if discharged to prevent significant worsening/deterioration. Patient agreeable with plan. Discussed with hospitalist service who was agreeable to admit patient. Medical Records I reviewed the patient's medical records. Lab Data I reviewed the patient's lab results. 09/02/22 04:19 09/02/22 04:19 Radiology Impressions Carotid Doppler Study 08/31/22 06:00 IMPRESSION: 1. 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 2. No sign of hemodynamically significant stenosis in the right internal carotid artery. 3. Images demonstrate abnormal waveform and retrograde flow in the right vertebral artery. However, the auto air conditioning installer reports antegrade flow. Recommend repeat evaluation of the left vertebral artery with attention to direction of flow. 4. Mildly elevated velocity in the right proximal common carotid artery. Possible stenosis at the origin. REFERENCES: SRU CRITERIA. The degree of internal carotid artery stenosis is based on criteria defined by the Society of Radiologists in Ultrasound (SRU). Normal is no stenosis. Mild is less than 50% stenosis. Moderate is 50-69% stenosis. Severe is greater than 69% stenosis to near occlusion. Near occlusion is a markedly narrowed lumen. Total occlusion is no detectable patent lumen. Head CT 09/02/22 08:29 IMPRESSION: 1. No evidence of intracranial hemorrhage 2. 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 No evidence of significant mass effect or midline shift. 3. Moderate small vessel changes with moderate parenchymal volume loss worse in the frontal lobes. 4. Vascular calcification. 5. No other significant changes Laboratory Results WBC 8.3 10^3/uL (4.0-10.0) 08/30/22 19:32 RBC 5.27 10^6/uL (4.1-5.3) 08/30/22 19:32 Hgb 15.5 g/dL (11.5-15.3) H 08/30/22 19:32 Hct 47.1 % (37.0-47.0) H 08/30/22 19:32 MCV 89.4 fl (81-99) 08/30/22 19:32 MCH 29.4 pg (28.0-34.0) 08/30/22: MCHC 32.9 g/dL (30.0-36.0) 08/30/22: RDW 14.6 % (12.1-15.1) 08/30/22: Plt Count 357 10^3/cmm (130-400) 08/30/22: MPV 9.4 fL (7.4-10.4) 08/30/22: Neut % (Auto) 67.9 % 08/30/22: Lymph % (Auto) 20.8 % 08/30/22: [place] % (Auto) 8.1 % 08/30/22: Eos % (Auto) 2.4 % 08/30/22 Baso % (Auto) 0.6 % 08/30/22 Neut # (Auto) 5.64 10^3/uL (1.8-7.7) 08/30/22 Lymph # (Auto) 1.7 10^3/uL (0.8-4.8) 08/30/22: [place] # (Auto) 0.7 10^3/uL (0.2-0.9) 08/30/22: Eos # (Auto) 0.2 10^3/uL (0.0-0.8) 08/30/22 Baso # (Auto) 0.1 10^3/uL (0.0-0.1) 08/30/22 Nucleated RBC % (auto) 0 % 08/30/22 Nucleated RBCs # 0.0 /100WBC 08/30/22 PT 12.20 SECONDS (12.1-14.9) 08/30/22 INR 0.88 (0.8-1.2) 08/30/22 APTT 25.3 SECONDS (23.9-36.7) 08/30/22: Sodium 137 mmol/L (136-145) 08/30/22: Potassium 3.3 mmol/L (3.5-5.1) L 08/30/22 Chloride 97 mmol/L (98-107) L 08/30/22 19:32 Carbon Dioxide 28 mmol/L (22-29) 08/30/22 19:32 Anion Gap 15.3 (5-19) 08/30/22 19:32 BUN 18 mg/dL (8-23) 08/30/22 19:32 Creatinine 0.7 mg/dL (0.5-0.9) 08/30/22 19:32 GFR Calculation Not Reportable 08/30/22 19:32 Glucose 149 mg/dL (65-115) H 08/30/22 19:32 POC Glucose 145 mg/dL (70-110) H 08/30/22 19:11 Calculated Osmolality 289 mOsm/kg (285-295) 08/30/22 19:32 Calcium 9.8 mg/dL (8.5-10.5) 08/30/22 19:32 Total Bilirubin 0.3 mg/dL (0.15-1.2) 08/30/22 19:32 AST 22 U/L (0-32) 08/30/22 19:32 ALT 31 U/L (0-33) 08/30/22 19:32 Alkaline Phosphatase 83 U/L (35-105) 08/30/22 19:32 Total Protein 7.7 g/dL (6.6-8.7) 08/30/22 19:32 Albumin 4.5 g/dL (3.5-5.2) 08/30/22 19:32 Globulin 3.2 g/dL (1.3-4.6) 08/30/22 19:32 Urine Color Colorless (Yellow) 08/30/22 19:31 Urine Appearance Clear (CLEAR) 08/30/22 19:31 Urine pH 6 (5-7) 08/30/22 19:31 Ur Specific [place] 1.010 (1.005-1.030) 08/30/22 19:31 Urine Protein Neg (Negative) 08/30/22 19:31 Urine Glucose (UA) Norm (Normal) 08/30/22 19:31 Urine Ketones Negative (Negative) 08/30/22 19:31 Urine Blood Neg (Negative) 08/30/22 19:31 Urine Nitrate Negative (Negative) 08/30/22 19: Urine Bilirubin Neg (Negative) 08/30/22 19: Urine Urobilinogen Norm mg/dL (Negative) 08/30/22 19:31 Ur Leukocyte Esterase Negative (Negative) 08/30/22 19:31 Urine Opiates Screen Negative ng/mL (Negative) 08/30/22 19:31 Ur Barbiturates Screen Negative ng/mL (Negative) 08/30/22 19:31 Ur Phencyclidine Scrn Negative ng/mL (Negative) 08/30/22 19:31 Ur Amphetamines Screen Negative ng/mL (Negative) 08/30/22 19:31 U Benzodiazepines Scrn Positive ng/mL (Negative) H 08/30/22 19:31 Urine Cocaine Screen Negative ng/mL (Negative) 08/30/22 19:31 U Marijuana (THC) Screen Negative ng/mL (Negative) 08/30/22 19:31 Critical Care Time Critical Care Time: Critical Care Time: Yes Total Critical Care Time: 50 Attestation: Due to a high probability of clinically significant, possibly life threatening deterioration, the patient required my highest level of attention and preparedness to intervene emergently and I personally spent this critical care time directly and personally managing the patient. This critical care time included obtaining a history; examining the patient; pulse oximetry; ordering and review of laboratory and imaging studies; arranging urgent treatment with development of a management plan; evaluation of patient's response to treatment; frequent reassessment; and, discussions with other providers as applicable. It was exclusive of separately billable procedures. Primary system involved is neurovascular. Discharge Plan Discharge Patient Disposition: Admitted As Inpatient Admit Provider: Bria Bojorquez Clinical Impression: Cerebrovascular accident Condition: Stable Discharge Diet: Cardiac Discharge Activity: Resume usual activity Coding Level of Care Code ED Brick Pointer for Amor Alcantara
--- NOTE | 2022-08-30 19:05 | CTR_ITS ---
PROCEDURE INFORMATION: Exam: CT Head Without Contrast Exam date and time: 08/30/2022 7:00 PM Age: 82 years old Clinical indication: Stroke-like symptoms; Left upper extremity numbness/paresthesia; Additional info: Symptoms of acute stroke TECHNIQUE: Imaging protocol: Computed tomography of the head without contrast. Radiation optimization: All CT scans at this facility use at least one of these dose optimization techniques: automated exposure control; mA and/or kV adjustment per patient size (includes targeted exams where dose is matched to clinical indication); or iterative reconstruction. Other technique: STROKE PROTOCOL was implemented. REPORTING DATA: Count of CT and Cardiac NM exams in prior 12 months: This patient has received [address] and 0 known cardiac nuclear medicine studies in the 12 months prior to the current study. COMPARISON: MR cervical spin wo con* [id number] 09/20/2015 3:27 PM RADIATION DOSE METRICS: Total DLP (mGy-cm): 1205.79 FINDINGS: Brain: There is age-related volume loss. There is mild periventricular white matter lucency consistent with chronic microvascular disease. There are old subinsular lacunar infarcts. No acute infarct is identified. There is no hemorrhage or extra-axial collection. There is no mass. Cerebral ventricles: No ventriculomegaly. Paranasal sinuses: Visualized sinuses are unremarkable. No fluid levels. Mastoid air cells: Visualized mastoid air cells are well aerated. Bones/joints: There is severe degenerative change of the left TM joint. No fracture. Soft tissues: Unremarkable. CT/CT head thrombolytic [id number] IMPRESSION: 1. Mild chronic microvascular disease. 2. No acute intracranial lesion or injury ASSESSMENT: ASPECTS ([place] Stroke Program Early CT Score) is 10.
--- NOTE | 2022-08-30 19:12 | ECG_ITS ---
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 Measurements Intervals [place] Rate: 82 P: 69 CA: 155 QRS: 3 QRSD: 96 T: 108 QT: 370 QTc: 434 Interpretive Statements SINUS RHYTHM SEPTAL MYOCARDIAL INFARCTION , PROBABLY OLD [40+ ms Q WAVE IN V1/V2] MODERATE T-WAVE ABNORMALITY, CONSIDER LATERAL ISCHEMIA [-0.1+ mV T-WAVE IN I/aVL/V5/V6] Compared to ECG 12/30/2018 11:32:26 Myocardial infarct finding now present Atrial fibrillation no longer present T-wave abnormality still present Possible ischemia still present Electronically Signed On 08-31-2022 5:56:04 CDT by Seble Yen M.D. [email or web address]
[2022-08-30] MEDS: labetalol 5 mg/mL SDV 20mL 10 MG IV (19:19)
[2022-08-30 19:38] LABS: Basophils # 0.1 10^3/uL (0.0-0.1); Basophils % 0.6 %; Eosinophils # 0.2 10^3/uL (0.0-0.8); Eosinophils % 2.4 %; Hematocrit 47.1 % (37.0-47.0); Hemoglobin 15.5 g/dL (11.5-15.3); Lymphocytes # 1.7 10^3/uL (0.8-4.8); Lymphocytes % 20.8 %; Mean Corpuscular HGB Conc 32.9 g/dL (30.0-36.0); Mean Corpuscular Hemoglobin 29.4 pg (28.0-34.0); Mean Corpuscular Volume 89.4 fl (81-99); Mean Platelet Volume 9.4 fL (7.4-10.4); Monocytes # 0.7 10^3/uL (0.2-0.9); Monocytes % 8.1 %; Neutrophils # 5.64 10^3/uL (1.8-7.7); Neutrophils % 67.9 %; Nucleated Red Blood Cells % 0 %; Platelet Count 357 10^3/cmm (130-400); Red Blood Count 5.27 10^6/uL (4.1-5.3); Red Cell Distribution Width 14.6 % (12.1-15.1); White Blood Count 8.3 10^3/uL (4.0-10.0)
[2022-08-30] MEDS: labetalol 5 mg/mL SDV 20mL 10 MG IVP (19:47)
[2022-08-30 19:50] LABS: INR 0.88 (0.8-1.2)
[2022-08-30 19:51] LABS: Partial Thromboplastin Time 25.3 SECONDS (23.9-36.7)
[2022-08-30 19:54] LABS: Add Urine Microscopic? NO; Charge for UA Resulting for Rev
[2022-08-30 19:55] LABS: Alanine Aminotransferase 31 U/L (0-33); Albumin Level 4.5 g/dL (3.5-5.2); Alkaline Phosphatase 83 U/L (35-105); Anion Gap 15.3 (5-19); Aspartate Amino Transferase 22 U/L (0-32); Blood Urea Nitrogen 18 mg/dL (8-23); Calcium 9.8 mg/dL (8.5-10.5); Carbon Dioxide 28 mmol/L (22-29); Chloride 97 mmol/L (98-107); Globulin 3.2 g/dL (1.3-4.6); Glucose 149 mg/dL (65-115); Osmolality Calculated 289 mOsm/kg (285-295); Potassium 3.3 mmol/L (3.5-5.1); Sodium 137 mmol/L (136-145); Total Bilirubin 0.3 mg/dL (0.15-1.2); Total Protein 7.7 g/dL (6.6-8.7)
[2022-08-30] MEDS: fentaNYL 50 mcg/mL INJ 2mL IVP (19:59)
[2022-08-30 20:06] LABS: Bilirubin Urine Neg (Negative); Blood Urine Neg (Negative); Glucose Urine UA Norm (Normal); Ketones Urine Negative (Negative); Leukocyte Esterase Urine Negative (Negative); Nitrate Urine Negative (Negative); Protein Urine Neg (Negative); Urine Appearance Clear (CLEAR); Urine Color Colorless (Yellow); Urobilinogen Urine Norm (Negative); pH Urine 6 (5-7)
[2022-08-30] MEDS: sodium chloride 0.9% 50 ML 200 ML IV (20:07)
[2022-08-30 20:11] LABS: Amphetamines Screen Urine Negative (Negative); Barbiturates Screen Urine Negative (Negative); Benzodiazepines Screen Urine Positive (Negative); Cocaine Screen Urine Negative (Negative); Opiate Screen Urine Negative (Negative); PCP Screen Urine Negative (Negative); THC Screen Urine Negative (Negative)
--- NOTE | 2022-08-30 20:37 | CTR_ITS ---
PROCEDURE INFORMATION: Exam: CT Head Without Contrast Exam date and time: 08/30/2022 9:15 PM Age: 82 years old Clinical indication: Pain; Headache; Other: Post tpa; Additional info: Worsening headache post tpa TECHNIQUE: Imaging protocol: Computed tomography of the head without contrast. Radiation optimization: All CT scans at this facility use at least one of these dose optimization techniques: automated exposure control; mA and/or kV adjustment per patient size (includes targeted exams where dose is matched to clinical indication); or iterative reconstruction. REPORTING DATA: Count of CT and Cardiac NM exams in prior 12 months: This patient has received [address] and 0 known cardiac nuclear medicine studies in the 12 months prior to the current study. COMPARISON: CT head thrombolytic [id number] 08/30/2022 7:00 PM RADIATION DOSE METRICS: Total DLP (mGy-cm): 1182.8 FINDINGS: Brain: There is volume loss. There is white matter lucency consistent with chronic microvascular disease. There are small old subinsular lacunar infarcts. No evidence of acute infarct. No hemorrhage or extra-axial collection. No subarachnoid hemorrhage. No cerebral edema. No mass. Cerebral ventricles: No ventriculomegaly. No intraventricular hemorrhage. Paranasal sinuses: Visualized sinuses are unremarkable. No fluid levels. Mastoid air cells: Visualized mastoid air cells are well aerated. Bones/joints: Severe degenerative changes of the left TM joint.. No acute fracture. Soft tissues: Unremarkable. CT/CT head wo con* [id number] IMPRESSION: 1. Stable chronic microvascular disease. 2. No acute intracranial lesion or injury . No change from prior scan
[2022-08-30] MEDS: morphine 4 mg/mL SDV 1 mL IVP ×2 (20:43→22:10)
--- NOTE | 2022-08-30 22:51 | P.HP_ITS ---
Providers/Chief Complaint Admitting Physician: Bria Bojorquez MD Primary Care Provider: Gio Soto MD Chief Complaint: STROKE History of Present Illness Zee Vaca is a 82 year old female with history of hypertension, hyperlipidemia,hypothyroidism, remote history of breast cancer who presented to the emergency room today with strokelike symptoms. Patient states that she was getting a food tray in her kitchen at around 5:30 PM this evening when suddenly her left arm started to feel extremely numb. States that she had never had such a sensation before. She was still able to move this left arm and able to carry and hides inspector food with the left hand. At the same time she also felt numbness over her face. Her friend who was present during the event stated that patient appeared to be ataxic and more unsteady. She reported having a headache, predominantly right side. At baseline patient has unsteady gait related to her arthritis, however she was noted to be more unsteady than usual. She also complained of headache involving mostly the right side of her face. Patient states that her symptoms were nearly resolved by the time she came into the emergency room. NIH stroke scale was 10 upon admission. Of note, patient has a recent history of shingles however at that time her rash was localized to her right axilla and right shoulder. She was prescribed Valtrex and prednisone, of which she only took the prednisone. Her rash is now completely resolved. She presented within the tPA window and after discussion with [facility] neurology, patient received tPA at 8 PM this evening. Her symptoms are currently completely resolved. Her chief complaint at this present time is a persisting headache and dry mouth. Her speech is noted to be slightly slurred, however per patient she feels her speech is at baseline since getting her new dentures a few months ago. She received 2 doses of IV labetalol 10 mg as her blood pressure was greater than systolic 180. She has also received fentanyl 50 mics IV push and morphine 4 mg IV push x2 for her headache. Review of Systems General: Reports: 10 or more systems reviewed and unremarkable except in HPI and below Const: Denies: fever(s), chills or body aches Eyes: Denies: change in vision, blurry vision or photophobia ENMT: Reports: hoarseness; Denies: throat pain, enlarged tonsils, odynophagia or nasal congestion Card: Denies: chest pain, palpitations, irregular heart rhythm, edema, swelling of feet/ankles, lightheadedness, pre-syncope, dyspnea on exertion or orthopnea Resp: Denies: dyspnea, productive cough, non-productive cough, wheezing, stridor, pain on inspiration, change in phlegm color, hemoptysis or chest congestion GI: Denies: abdominal pain, nausea, vomiting, hematemesis, coffee ground emesis, dysphagia, heartburn, diarrhea, constipation, GI cramping, change in stool character, hematochezia or melena : Denies: flank pain, difficulty voiding, dysuria, urinary frequency, urinary urgency, urinary hesitancy or hematuria Musc: Denies: neck pain, back pain, extremity pain, joint swelling, joint warmth or deformity Neuro: Denies: headache(s), numbness in extremities, weakness in extremities, sensory changes, difficulty walking, frequent falls, dizziness, vertigo, behavioral changes, Slurred speech present or seizure-like activity Psych: Denies: anxiety, depression, suicidal ideation or homicidal ideation Endo: Denies: polyuria, polydipsia, tired all the time, cold intolerance or hot flashes Shane/Lymph: Denies: easy bruising or easy bleeding Medications/Allergies Home Medications Medication Instructions Recorded Confirmed Last Taken Type acetaminophen 300 mg-codeine 30 mg 1 tab PO BID PRN 09/23/19 08/08/22 Unknown History tablet (Tylenol-Codeine #3) amlodipine 10 mg tablet (Norvasc) 10 mg PO DAILY 09/23/19 08/08/22 Unknown History carvedilol 3.125 mg tablet (Coreg) 3.125 mg PO BID 09/23/19 08/08/22 Unknown History cholecalciferol (vitamin D3) 1,250 PO 09/23/19 08/08/22 Unknown History mcg (50,000 unit) capsule ciclopirox 1 % shampoo topical 09/23/19 08/08/22 Unknown History ciclopirox 1 % shampoo (Loprox) topical 09/23/19 08/08/22 Unknown History cyclobenzaprine 10 mg tablet 10 mg PO TID 09/23/19 08/08/22 Unknown History cyclobenzaprine 5 mg tablet 5 mg PO TID PRN 09/23/19 08/08/22 Unknown History esomeprazole magnesium 20 mg 20 mg PO DAILY 09/23/19 08/08/22 Unknown History capsule,delayed release (Nexium 24HR) fluticasone propionate 100 1 inh inhalation BID 09/23/19 08/08/22 Unknown History mcg/actuation blister powder for inhalation (Flovent Diskus) ipratropium 20 mcg-albuterol 100 1 puff inhalation Q6H 09/23/19 08/08/22 Unknown History mcg/actuation mist for inhalation (Combivent Respimat) omega-3 fatty acids 1,000 mg 1,000 mg PO DAILY 09/23/19 08/08/22 Unknown History capsule (Fish Oil Concentrate) mupirocin 2 % topical ointment 1 applic topical BID 2 weeks #22 07/12/21 08/08/22 Unknown Rx grams silver sulfadiazine 1 % topical 1 applic topical BID 2 weeks #50 08/02/21 08/08/22 Unknown Rx cream grams ciclopirox 1 % shampoo 5 ml topical .three times weekly 11/22/21 08/08/22 Unknown Rx #120 mL ketoconazole 2 % topical cream 1 applic topical BID #60 grams 11/22/21 08/08/22 Unknown Rx eflornithine 13.9 % topical cream 1 applic topical BID #45 grams 12/03/21 08/08/22 Unknown Rx (Vaniqa) levothyroxine 100 mcg tablet 100 mcg PO DAILY #30 tabs 01/09/22 08/08/22 Unknown Rx (Synthroid) alprazolam 0.25 mg tablet (Xanax) 0.25 mg PO TID PRN anxiety #60 tabs 02/12/22 08/08/22 Unknown Rx spironolactone 25 mg tablet 25 mg PO DAILY #90 tabs 07/16/22 08/08/22 Unknown Rx triamterene 37.5 1 cap PO DAILY #90 caps 07/16/22 08/08/22 Unknown Rx mg-hydrochlorothiazide 25 mg capsule prednisone 20 mg tablet 20 mg PO DAILY #5 tabs 08/08/22 08/08/22 Unknown Rx valacyclovir 1 gram tablet 1,000 mg PO Q8H #21 tabs 08/08/22 08/08/22 Unknown Rx (Valtrex) temazepam 30 mg capsule 30 mg PO .qhs #30 caps 08/30/22 Unknown Rx Allergies Allergy/AdvReac Type Severity Reaction Status Date / Time acetaminophen [From Vicodin] Allergy Unknown Verified 08/30/22 19:12 hydrocodone [From Vicodin] Allergy Unknown Verified 08/30/22 19:12 Iodinated Contrast Media Allergy Unknown Verified 08/30/22 19:12 levofloxacin [From Levaquin] Allergy Unknown Verified 08/30/22 19:12 oxycodone [From Percocet] Allergy Unknown Verified 08/30/22 19:12 simvastatin Allergy Unknown Verified 08/30/22 19:12 sulfamethoxazole Allergy Unknown Verified 08/30/22 19:12 [From Bactrim] trimethoprim [From Bactrim] Allergy Unknown Verified 08/30/22 19:12 PFSH Acute PFSH: Medical History Diverticulitis Fibromyalgia Hiatal hernia History of left breast cancer 2009 Hyperlipidemia Hypertension Hypoglycemia Hypothyroid Surgical History History of right hip replacement History of tonsillectomy Family History Father Lung cancer Mother Stroke Social History Smoking and tobacco status: never smoked Alcohol intake: never Substance/Drug Use: never Marital status: Vitals/I&O/Wt Last Vital Signs Temp 98.2 F 08/30/22 18:58 Pulse 72 08/30/22 22:24 Resp 16 08/30/22 22:24 BP 147/90 08/30/22 22:24 Pulse Ox 96 08/30/22 22:24 O2 Del Method Room Air 08/30/22 21:30 08/30/22 08/30/22 08/30/22 06:59 14:59 22:59 Intake Total Balance / Weight last 48 hrs Weight 87.634 kg Weight 85.275 kg Physical Exam Narrative: General: No acute distress, AO x1 HEENT: PERRLA, pupils bilaterally equal and reactive, pallors not present Chest: Normal vesicular breath sounds, no added sounds, equal good air entry bilaterally CVS: S1-S2 regular, no murmurs, no tachycardia, no gallops, no rubs Abdomen: Soft, nontender, no organomegaly, bowel sounds present Neuro: No focal deficits, no facial deformity, AO x3, power 5/5 in all limbs Extremities: Healthy surgical dressing present on the right hip, mild tenderness, soft no erythema. Urinary Catheter Management: Gates: Cath Placed During This Visit: yes Urinary Catheter Date of Insertion: 08/30/22 Urinary Catheter Time of Insertion: 19:10 Data 08/30/22 19:32 08/30/22 19:32 Other Labs: Radiology Impressions Head CT 08/30/22 20:37 IMPRESSION: 1. Stable chronic microvascular disease. 2. No acute intracranial lesion or injury . No change from prior scan Laboratory Results WBC 8.3 10^3/uL (4.0-10.0) 08/30/22 19: RBC 5.27 10^6/uL (4.1-5.3) 08/30/22 19:32 Hgb 15.5 g/dL (11.5-15.3) H 08/30/22 19:32 Hct 47.1 % (37.0-47.0) H 08/30/22 19:32 MCV 89.4 fl (81-99) 08/30/22 19: MCH 29.4 pg (28.0-34.0) 08/30/22 19: MCHC 32.9 g/dL (30.0-36.0) 08/30/22 19: RDW 14.6 % (12.1-15.1) 08/30/22 19:32 Plt Count 357 10^3/cmm (130-400) 08/30/22 19: MPV 9.4 fL (7.4-10.4) 08/30/22 19:32 Neut % (Auto) 67.9 % 08/30/22 19: Lymph % (Auto) 20.8 % 08/30/22 19:32 [place] % (Auto) 8.1 % 08/30/22 19:32 Eos % (Auto) 2.4 % 08/30/22 19:32 Baso % (Auto) 0.6 % 08/30/22 19:32 Neut # (Auto) 5.64 10^3/uL (1.8-7.7) 08/30/22 19:32 Lymph # (Auto) 1.7 10^3/uL (0.8-4.8) 08/30/22 19:32 [place] # (Auto) 0.7 10^3/uL (0.2-0.9) 08/30/22 19:32 Eos # (Auto) 0.2 10^3/uL (0.0-0.8) 08/30/22 19:32 Baso # (Auto) 0.1 10^3/uL (0.0-0.1) 08/30/22 19:32 Nucleated RBC % (auto) 0 % 08/30/22 19: Nucleated RBCs # 0.0 /100WBC 08/30/22 19:32 PT 12.20 SECONDS (12.1-14.9) 08/30/22 19:32 INR 0.88 (0.8-1.2) 08/30/22 19:32 APTT 25.3 SECONDS (23.9-36.7) 08/30/22 19:32 Sodium 137 mmol/L (136-145) 08/30/22 19:32 Potassium 3.3 mmol/L (3.5-5.1) L 08/30/22 19:32 Chloride 97 mmol/L (98-107) L 08/30/22 19:32 Carbon Dioxide 28 mmol/L (22-29) 08/30/22 19:32 Anion Gap 15.3 (5-19) 08/30/22 19:32 BUN 18 mg/dL (8-23) 08/30/22 19:32 Creatinine 0.7 mg/dL (0.5-0.9) 08/30/22 19:32 GFR Calculation Not Reportable 08/30/22 19:32 Glucose 149 mg/dL (65-115) H 08/30/22 19:32 POC Glucose 145 mg/dL (70-110) H 08/30/22 19:11 Calculated Osmolality 289 mOsm/kg (285-295) 08/30/22 19:32 Calcium 9.8 mg/dL (8.5-10.5) 08/30/22 19:32 Total Bilirubin 0.3 mg/dL (0.15-1.2) 08/30/22 19:32 AST 22 U/L (0-32) 08/30/22 19:32 ALT 31 U/L (0-33) 08/30/22 19:32 Alkaline Phosphatase 83 U/L (35-105) 08/30/22 19:32 Total Protein 7.7 g/dL (6.6-8.7) 08/30/22 19:32 Albumin 4.5 g/dL (3.5-5.2) 08/30/22 19:32 Globulin 3.2 g/dL (1.3-4.6) 08/30/22 19:32 Urine Color Colorless (Yellow) 08/30/22 19:31 Urine Appearance Clear (CLEAR) 08/30/22 19:31 Urine pH 6 (5-7) 08/30/22: Ur Specific [place] 1.010 (1.005-1.030) 08/30/22 19:31 Urine Protein Neg (Negative) 08/30/22 19:31 Urine Glucose (UA) Norm (Normal) 08/30/22: Urine Ketones Negative (Negative) 08/30/22: Urine Blood Neg (Negative) 08/30/22 19:31 Urine Nitrate Negative (Negative) 08/30/22 19:31 Urine Bilirubin Neg (Negative) 08/30/22 19:31 Urine Urobilinogen Norm mg/dL (Negative) 08/30/22 19:31 Ur Leukocyte Esterase Negative (Negative) 08/30/22 19:31 Urine Opiates Screen Negative ng/mL (Negative) 08/30/22 19:31 Ur Barbiturates Screen Negative ng/mL (Negative) 08/30/22: Ur Phencyclidine Scrn Negative ng/mL (Negative) 08/30/22: Ur Amphetamines Screen Negative ng/mL (Negative) 08/30/22 19:31 U Benzodiazepines Scrn Positive ng/mL (Negative) H 08/30/22 19:31 Urine Cocaine Screen Negative ng/mL (Negative) 08/30/22: U Marijuana (THC) Screen Negative ng/mL (Negative) 08/30/22 19:31 A&P Assessment and plan (1) Cerebrovascular accident: Admit to ICU in view of CVA status post tPA which she received at 8 PM. Symptoms at time of presentation were left hand arm and face numbness, headache and ataxic gait. Her symptoms are currently improved. She is only complaining of a persisting headache at this time. Also appears to have mild slurred speech, however patient does not seem to think this is out of the ordinary at this time. Admitted to ICU for post tPA monitoring. Monitor serial neurochecks every hour for 4 hours and then every 2 hours. Blood pressure goal to be less than 180/100 mmHg N.p.o. until speech therapy assessment. Okay to have ice chips and medications after passing nursing dysphagia screen. Pt/OT evaluation Check echocardiogram and carotid artery duplex, continuous telemetry monitoring. Aspirin to start 24 hours post tPA administration Reported allergy to statins, patient reports myalgias after having tried multiple statins in the past. She may be willing to try Lipitor however wishes to think about this overnight. Stressed the importance of starting statins for secondary prevention. Continue amlodipine 10 mg daily, spironolactone 25 mg p.o. daily and carvedilol 3.[address] head 24 hrs post Tpa Tylenol prn for headache management. Attestations Medical Necessity Statement*: > 2 mdinight stay anticipated for CVA , post tPa monitoring Coding Level of Care Code Acute Code for [facility] Diagnoses Cerebrovascular accident I63.9
[2022-08-30 23:05] LABS: Glucose Point of Care 145 mg/dL (70-110)
[2022-08-30] MEDS: acetaminophen 1,000 MG/100 ML PIGGYBACK 400 MG IV (23:05)
[2022-08-31] VITALS (60 sets, daily range): BP systolic 126–166; BP diastolic 59–99; PULSE 61–91; RESP 16–29; TEMP 36.6; O2SAT 90–98
--- NOTE | 2022-08-31 06:00 | USR_ITS ---
PROCEDURE INFORMATION: Exam: US Duplex Bilateral Extracranial Arteries; Complete; Carotid Arteries Exam date and time: 08/31/2022 12:25 PM Age: 82 years old Clinical indication: Other: Numbness in extremities; Additional info: Stroke TECHNIQUE: Imaging protocol: Real-time duplex ultrasound scan of the bilateral extracranial arteries combining hendrix scale, color Doppler and spectral waveform analysis with image documentation. Complete exam. Exam focused on the carotid arteries. COMPARISON: 1. CT head wo con* [id number] 08/30/2022 9:[address] [place] [id number] 04/22/2022 4:27 PM FINDINGS: Right common carotid artery: Normal waveform. Peak velocity 160/16 cm/s proximally. 114/15 cm/s in the midportion and 110/15 cm/s at the bulb. There is focal plaque at the bulb with less than 50% visible luminal narrowing. Right internal carotid artery: There is focal plaque at the origin with less than 50% visible luminal narrowing. Normal waveform. Peak velocity 103/16 cm/s at the origin, 76/15 cm/s in the midportion, and 110/36 cm/s distally. Right ICA/CCA ratio: 0.7 Right external carotid artery: Normal waveform. Peak velocity 193 cm/second. There is focal calcific plaque at the origin with less than 50% visible luminal narrowing. Right vertebral artery: High resistance low velocity retrograde flow is demonstrated. Left common carotid artery: Focal plaque at the bulb with less than 50% visible luminal narrowing. Normal waveform. Peak velocity 113/12 cm/s at the origin, 100/21 cm/s in the midportion, and 95/18 cm/s distally. Left internal carotid artery: Left internal carotid artery. Mild plaque at the origin without visible luminal narrowing. Normal waveform at the origin with peak velocity of 108/20 cm/s. Morphologically normal waveform with spectral aliasing in the mid left internal carotid artery with peak velocity of 155/43 cm/s. A similar waveform is seen distally with peak velocity of 131/23 cm/s. Left ICA/CCA ratio: 1.4 Left external carotid artery: Normal waveform. Peak velocity 156 cm/s. No visible plaque or luminal narrowing. Left vertebral artery: Normal waveform. Antegrade flow. US/CV carotid duplex BI* [id number] IMPRESSION: 1. 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 2. No sign of hemodynamically significant stenosis in the right internal carotid artery. 3. Images demonstrate abnormal waveform and retrograde flow in the right vertebral artery. However, the enrolled agent reports antegrade flow. Recommend repeat evaluation of the left vertebral artery with attention to direction of flow. 4. Mildly elevated velocity in the right proximal common carotid artery. Possible stenosis at the origin. REFERENCES: SRU CRITERIA. The degree of internal carotid artery stenosis is based on criteria defined by the Society of Radiologists in Ultrasound (SRU). Normal is no stenosis. Mild is less than 50% stenosis. Moderate is 50-69% stenosis. Severe is greater than 69% stenosis to near occlusion. Near occlusion is a markedly narrowed lumen. Total occlusion is no detectable patent lumen.
--- NOTE | 2022-08-31 06:00 | USCV_ITS ---
Zee Vaca Age: 82 Gender: F : 1940 Exam Date: 08/31/2022 11:56 Ordering Phys: Bria Bojorquez MD Technologist: TY Exam Location: [facility] [place] Indication: cva BP: / HR: 57 Rhythm: Sinus Technical Quality: Adequate MEASUREMENTS (Male / Female) Normal Values 2D ECHO LV Diastolic Diameter PLAX 5.5 cm 4.2 - 5.9 / 3.9 - 5.3 cm LV Systolic Diameter PLAX 3.6 cm IVS Diastolic Thickness 1.0 cm 0.6 - 1.0 / 0.6 - 0.9 cm IVS Systolic Thickness 1.2 cm LVPW Diastolic Thickness 0.9 cm 0.6 - 1.0 / 0.6 - 0.9 cm LVPW Systolic Thickness 1.2 cm LVOT Diameter 1.9 cm LV Ejection Fraction 2D Teich 63.0 % LV Ejection Fraction MOD 2C 51.3 % LV Ejection Fraction 2C AL 52.9 % LA Diameter 3.5 cm IVC Diameter 1.6 cm M-MODE Aortic Annulus Diameter 2.3 cm LA Ao Ratio MM 1.9 MV E Point Septal Separation 0.3 cm DOPPLER AV Peak Velocity 160.0 cm/s LVOT Peak Velocity 100.0 cm/s AV Area Cont Eq vti 1.9 cm squared AV Area Cont Eq pk 1.8 cm squared MV Area PHT 3.5 cm squared Mitral E to A Ratio 0.8 MV E' Velocity 41.0 cm/s Mitral E to MV E' Ratio 9.7 Mitral E to LV E' Lateral Ratio 8.7 Mitral E to LV E' Septal Ratio 11.0 TR Peak Velocity 281.3 cm/s TR Peak Gradient 31.7 mmHg TV Peak E Velocity 47.0 cm/s Right Atrial Pressure 6.0 mmHg Pulmonary Artery Systolic Pressu 37.7 mmHg PV Peak Velocity 75.0 cm/s FINDINGS Left Ventricle LV systolic function is normal with EF of 55-60%. No regional wall motion normalities are seen. Grade 1 diastolic dysfunction Right Ventricle Normal in size and function Right Atrium Normal size Left Atrium Normal in size Mitral Valve Structurally normal mitral valve. Mild mitral regurgitation. Aortic Valve Aortic valve is thickened. No significant stenosis or regurgitation seen. Tricuspid Valve Mild tricuspid regurgitation. RVSP is 40 to 45 mmHg. This is consistent with mild pulmonary hypertension. Pulmonic Valve Not well visualized. Mild pulmonic regurgitation. Pericardium Normal Aorta Normal in size IVC Appears to be normal CONCLUSIONS LV systolic function is normal with EF 55-60%. Grade 1 diastolic dysfunction Mild mitral regurgitation Mild tricuspid regurgitation. Mild pulmonary hypertension Mild pulmonic regurgitation Compared to prior echocardiogram from 2019, patient now has mild pulmonary hypertension. Joce Marshall MD (Electronically Signed) Final Date: 31 Aug 2022 13:40 S
[2022-08-31] MEDS: lidocaine 1% 5 ML in potassium chloride premix 100 ML 52.5 ML IV (08:14)
[2022-08-31] MEDS: pantoprazole DR 40 mg Tablet PO (08:15)
[2022-08-31] MEDS: amlodipine 10 mg Tablet PO (08:15)
[2022-08-31] MEDS: levothyroxine 100 mcg Tablet PO (08:15)
[2022-08-31] MEDS: spironolactone 25 mg Tablet PO (08:15)
[2022-08-31] MEDS: carvedilol 3.125 mg Tablet PO ×2 (08:15→17:34)
[2022-08-31 08:46] LABS: Basophils % 0.4 %; Eosinophils # 0.1 10^3/uL (0.0-0.8); Eosinophils % 0.8 %; Hematocrit 42.9 % (37.0-47.0); Hemoglobin 13.9 g/dL (11.5-15.3); Lymphocytes # 1.6 10^3/uL (0.8-4.8); Mean Corpuscular HGB Conc 32.4 g/dL (30.0-36.0); Mean Corpuscular Hemoglobin 29.8 pg (28.0-34.0); Mean Corpuscular Volume 92.1 fl (81-99); Mean Platelet Volume 9.3 fL (7.4-10.4); Monocytes # 0.7 10^3/uL (0.2-0.9); Monocytes % 6.6 %; Neutrophils # 8.06 10^3/uL (1.8-7.7); Neutrophils % 76.9 %; Nucleated Red Blood Cells % 0 %; Platelet Count 321 10^3/cmm (130-400); Red Blood Count 4.66 10^6/uL (4.1-5.3); Red Cell Distribution Width 15.1 % (12.1-15.1); White Blood Count 10.5 10^3/uL (4.0-10.0)
[2022-08-31] MEDS: diphenhydrAMINE 50 mg/mL SDV 1mL 25 MG IVP (09:02)
[2022-08-31] MEDS: metoclopramide 5 mg/mL SDV 2 mL IVP (09:02)
[2022-08-31 09:06] LABS: Anion Gap 13.6 (5-19); Blood Urea Nitrogen 13 mg/dL (8-23); Calcium 9.2 mg/dL (8.5-10.5); Carbon Dioxide 25 mmol/L (22-29); Chloride 100 mmol/L (98-107); Chol HDL Ratio 2.96 mg/dL (0.0-4.40); Cholesterol 160 mg/dL (0-200); Creatinine Clr Calc Pharmacy 57.8933; Glucose 115 mg/dL (65-115); HDL Cholesterol 54 mg/dL (60-100); LDL Cholesterol Calculated 83 mg/dL (50-129); LDL HDL Ratio 1.54 RATIO (0.00-3.22); Osmolality Calculated 281 mOsm/kg (285-295); Potassium 3.6 mmol/L (3.5-5.1); Sodium 135 mmol/L (136-145); Triglycerides 114 mg/dL (0-150)
[2022-08-31 09:15] LABS: Estmated Average Glucose 120; Hemoglobin A1C 5.8 % (4.0-6.0)
[2022-08-31] MEDS: potassium chloride ER 20 mEq Tablet PO (10:45)
--- NOTE | 2022-08-31 13:12 | P.PN_ITS ---
Subjective Subjective: Patient was seen this morning, her friend is at bedside, she denies any residual weakness, no facial droop no slurring of words, she passed her bedside swallow evaluation, no visual deficits, no focal weakness, no paresthesias, she tells me that she did have an event monitor placed by her primary care a few years ago due to chest palpitations she was having, she is not exactly sure what it show ed, she continues to complain of intermittent chest palpitations that happen for a few seconds and then go on the way on their own, but they never sustained, she is never been told she has A-fib, she is never had anemia, she is never had a stroke before Vitals/I&O/Wt Last Vital Signs Temp 98.2 F 08/30/22 22:26 Pulse 62 08/31/22 11:00 Resp 18 08/31/22 11:00 BP 149/63 08/31/22 11:00 Pulse Ox 96 08/31/22 08:07 O2 Del Method Room Air 08/31/22 08:07 08/30/22 08/31/22 08/31/22 22:59 06:59 14:59 Intake Total / 100 / 177 204.25 / 204.25 Output Total 750 / 750 Balance -650 / -573 204.25 / 204.25 Weight last 48 hrs Weight 87.634 kg Weight 85.275 kg Physical Exam Const: COMMON NORMALS: no acute distress and patient oriented x3 Resp: COMMON NORMALS: normal respiratory effort, No retractions, No use of accessory muscles and clear to auscultation bilaterally AUSCULTATION: clear to auscultation bilaterally Cardio: COMMON NORMALS: regular rate, regular rhythm, S1 normal heart sound present and S2 normal heart sound present RATE: regular rate RHYTHM: regular rhythm HEART SOUNDS: S1 normal heart sound present and S2 normal heart sound present GI: COMMON NORMALS: Normal to inspection, nondistended, normoactive bowel sounds present and non-tender Extremity: COMMON NORMALS: no pedal edema Neuro: COMMON NORMALS: patient oriented x3 Psych: COMMON NORMALS: mental status grossly normal Urinary Catheter Management: Gates: Cath Placed During This Visit: yes Reason for Continuing Indwelling Catheter: Accurate Measurement of Urinary Output in Critically Ill Patients Urinary Catheter Date of Insertion: 08/30/22 Urinary Catheter Time of Insertion: 19:10 Data 08/31/22 08:35 08/31/22 08:35 A&P Assessment and plan (1) Cerebrovascular accident: Admit to ICU in view of CVA status post tPA which she received at 8 PM. Symptoms at time of presentation were left hand arm and face numbness, headache and ataxic gait. Her symptoms are currently improved. She is only complaining of a persisting headache at this time. Also appears to have mild slurred speech, however patient does not seem to think this is out of the ordinary at this time. Admitted to ICU for post tPA monitoring. Monitor serial neurochecks every hour for 4 hours and then every 2 hours. Blood pressure goal to be less than 180/100 mmHg N.p.o. until speech therapy assessment. Okay to have ice chips and medications after passing nursing dysphagia screen. Pt/OT evaluation Check echocardiogram and carotid artery duplex, continuous telemetry monitoring. Aspirin to start 24 hours post tPA administration Reported allergy to statins, patient reports myalgias after having tried multiple statins in the past. She may be willing to try Lipitor however wishes to think about this overnight. Stressed the importance of starting statins for secondary prevention. Continue amlodipine 10 mg daily, spironolactone 25 mg p.o. daily and carvedilol 3.[address] head 24 hrs post Tpa Tylenol prn for headache management. Reviewed her chart in detail, she does have paroxysmal A-fib 1.? The baseline rhythm was found to be normal sinus with occasional episodes of atrial fibrillation with? rapid ventricular rate.? Patient was found to be in sinus rhythm, 96% of the times.? Occasional short runs of nonsustained ventricular tachycardia's were noted-the longest one being of 7 beats. 2.? No symptoms are mentioned with any of the recordings. 3.? No previous similar studies, available for comparison -Thus the question is is that is this episode of CVA and embolic event associated with paroxysmal atrial fibrillation -She will likely require anticoagulation, will have to discuss with Surendra when to start her on anticoagulation (2) Hypertension: (3) Hyperlipidemia: (4) Hypothyroid: (5) History of left breast cancer: Plan Plan for today, continue to monitor, PT OT, speech therapy above, monitor blood pressures, telemetry monitoring, monitor for atrial fibrillation, spoke to nursing staff, spoke to patient, spoke to patient's family members, spent over 60 minutes in discussion with patient's family and coordinating care Attestations Medical Necessity Statement*: Patient requires hospitalization, inpatient, greater than 2 midnights, for acute CVA, status post tPA Coding Level of Care Code 41209 High Time for a total of 60 minutes, includes reviewing past or interval history, examining/interviewing patient, placing orders, counseling patient/family/other support, updating patient/family/other support, discussing plan of care with staff, communicating with other healthcare providers, documenting encounter and coordinating care Diagnoses Cerebrovascular accident I63.9 Hypertension I10 Hyperlipidemia E78.5 Hypothyroid E03.9 History of left breast cancer Z85.3
--- NOTE | 2022-08-31 13:52 | PC.OT ---
Occupational therapy orders received. Will hold today due to TPA given late yesterday
[2022-08-31] MEDS: acetaminophen 500 mg Tablet 650 MG PO (17:49)
--- NOTE | 2022-08-31 18:27 | PC.NURSE ---
Patient resting in bed, visitors at bedside, AAOx4, BP elevated with remaining VSS. OOBTC, tolerating diet, minimal c/o sinus headaches throughout shift and relieved with PRN meds per JUN. No new events, room clean and clutter free with call light within reach.
--- NOTE | 2022-08-31 20:00 | CTR_ITS ---
PROCEDURE INFORMATION: Exam: CT Head Without Contrast Exam date and time: 08/31/2022 2:52 PM Age: 82 years old Clinical indication: Other: S/P tpa TECHNIQUE: Imaging protocol: Computed tomography of the head without contrast. Radiation optimization: All CT scans at this facility use at least one of these dose optimization techniques: automated exposure control; mA and/or kV adjustment per patient size (includes targeted exams where dose is matched to clinical indication); or iterative reconstruction. REPORTING DATA: Count of CT and Cardiac NM exams in prior 12 months: This patient has received 3 known CTs and 0 known cardiac nuclear medicine studies in the 12 months prior to the current study. COMPARISON: CT head wo con* [id number] 08/30/2022 9:15 PM RADIATION DOSE METRICS: Total DLP (mGy-cm): 1229.74 FINDINGS: Brain: There is age-related volume loss. There is mild periventricular white matter lucency consistent with chronic microvascular disease. There are small old subinsular lacunar infarcts. There is a new right occipital cortical infarct which was not present on the prior scan. No hemorrhage or extra-axial collection. No mass. Cerebral ventricles: No ventriculomegaly. Paranasal sinuses: Visualized sinuses are unremarkable. No fluid levels. Mastoid air cells: Visualized mastoid air cells are well aerated. Bones/joints: Unremarkable. No acute fracture. Soft tissues: Unremarkable. CT/CT head wo con* [id number] IMPRESSION: New, acute to subacute, right occipital infarct in the distribution of the right posterior cerebral artery. This was not visible on the prior scan.
[2022-08-31] MEDS: atorvastatin 40 mg Tablet 20 MG PO (21:23)
[2022-08-31] MEDS: temazepam 15 mg Capsule 30 MG PO (23:12)
[2022-09-01] VITALS (27 sets, daily range): BP systolic 97–176; BP diastolic 50–95; PULSE 58–84; RESP 13–33; TEMP 36.6–37.1; O2SAT 91–99
[2022-09-01 03:52] LABS: Basophils # 0.1 10^3/uL (0.0-0.1); Basophils % 0.6 %; Eosinophils # 0.3 10^3/uL (0.0-0.8); Eosinophils % 3.3 %; Hematocrit 41.8 % (37.0-47.0); Hemoglobin 13.4 g/dL (11.5-15.3); Lymphocytes # 2.5 10^3/uL (0.8-4.8); Lymphocytes % 28.3 %; Mean Corpuscular HGB Conc 32.1 g/dL (30.0-36.0); Mean Corpuscular Hemoglobin 29.7 pg (28.0-34.0); Mean Corpuscular Volume 92.7 fl (81-99); Mean Platelet Volume 9.8 fL (7.4-10.4); Monocytes # 0.8 10^3/uL (0.2-0.9); Monocytes % 9.2 %; Neutrophils # 5.05 10^3/uL (1.8-7.7); Neutrophils % 58.4 %; Nucleated Red Blood Cells % 0 %; Platelet Count 301 10^3/cmm (130-400); Red Blood Count 4.51 10^6/uL (4.1-5.3); Red Cell Distribution Width 15.2 % (12.1-15.1); White Blood Count 8.7 10^3/uL (4.0-10.0)
[2022-09-01 04:26] LABS: Alanine Aminotransferase 22 U/L (0-33); Albumin Level 3.4 g/dL (3.5-5.2); Alkaline Phosphatase 61 U/L (35-105); Anion Gap 11.9 (5-19); Aspartate Amino Transferase 16 U/L (0-32); Blood Urea Nitrogen 13 mg/dL (8-23); Calcium 8.9 mg/dL (8.5-10.5); Carbon Dioxide 24 mmol/L (22-29); Chloride 106 mmol/L (98-107); Creatinine Clr Calc Pharmacy 57.8933; Globulin 2.4 g/dL (1.3-4.6); Glucose 86 mg/dL (65-115); Magnesium 2.1 mg/dL (1.7-2.3); Osmolality Calculated 285 mOsm/kg (285-295); Phosphorus 2.5 mg/dL (2.5-4.5); Potassium 3.9 mmol/L (3.5-5.1); Sodium 138 mmol/L (136-145); Total Bilirubin 0.3 mg/dL (0.15-1.2); Total Protein 5.8 g/dL (6.6-8.7)
[2022-09-01] MEDS: acetaminophen 325 mg Tablet 650 MG PO ×2 (09:39→19:35)
[2022-09-01] MEDS: amlodipine 10 mg Tablet PO (09:41)
[2022-09-01] MEDS: pantoprazole DR 40 mg Tablet PO (09:41)
[2022-09-01] MEDS: spironolactone 25 mg Tablet PO (09:41)
[2022-09-01] MEDS: aspirin 81 mg EC Tablet PO (09:42)
[2022-09-01] MEDS: carvedilol 3.125 mg Tablet PO ×2 (09:42→19:16)
[2022-09-01] MEDS: levothyroxine 100 mcg Tablet PO (09:43)
--- NOTE | 2022-09-01 12:56 | P.PN_ITS ---
Subjective Subjective: Patient was seen this morning, friend at bedside, she denies any chest pain, no palpitations, no headache, blurry vision, no nausea, no vomiting, no focal neurologic deficits, no choking, no coughing no trouble swallowing, no paresthesias, I had extensive discussion with her about her event monitor findings in the past, my concerns for embolic event associated with her paroxysmal atrial fibrillation, discussed my discussion with Surendra, however her repeat CT scan New, acute to subacute, right occipital infarct in the distribution of the right posterior cerebral artery. This was not visible on the prior scan. -She is relatively asymptomatic from this, I did visual field testing's, she had intact visual solorzano, no changes in her visual field -I discussed keeping her here in the hospital for further monitoring monitor for hemorrhagic transformation we will continue to hold anticoagulation given CT findings, concerns for hemorrhagic transformation, will discuss with neurology in a.m. Vitals/I&O/Wt Last Vital Signs Temp 98 F 09/01/22 04:00 Pulse 69 09/01/22 06:00 Resp 16 09/01/22 06:00 BP 158/72 09/01/22 06:00 Pulse Ox 95 09/01/22 06:00 O2 Del Method Room Air 08/31/22 08:07 08/31/22 09/01/22 09/01/22 22:59 06:59 14:59 Intake Total 540 / 744.25 200 / 944.25 720 / 720 Output Total 1450 / 1450 300 / 1750 450 / 450 Balance -910 / -705.75 -100 / -805.75 270 / 270 Weight last 48 hrs Weight 87.634 kg Weight 85.275 kg Physical Exam Const: COMMON NORMALS: no acute distress and patient oriented x3 Eye: COMMON NORMALS: Equal, round and reactive pupils present and EOMs intact bilaterally PUPIL: Yes Equal, round and reactive pupils present Resp: COMMON NORMALS: normal respiratory effort, No retractions, No use of accessory muscles and clear to auscultation bilaterally AUSCULTATION: clear to auscultation bilaterally Cardio: COMMON NORMALS: regular rate, regular rhythm, S1 normal heart sound present and S2 normal heart sound present RATE: regular rate RHYTHM: regular rhythm HEART SOUNDS: S1 normal heart sound present and S2 normal heart sound present GI: COMMON NORMALS: Normal to inspection, nondistended, normoactive bowel sounds present and non-tender Extremity: COMMON NORMALS: no pedal edema Neuro: COMMON NORMALS: patient oriented x3, CN's II-XII intact bilaterally, moves all extremities and no sensory deficits noted Psych: COMMON NORMALS: mental status grossly normal Urinary Catheter Management: Gates: Cath Placed During This Visit: yes Reason for Continuing Indwelling Catheter: Accurate Measurement of Urinary Output in Critically Ill Patients Urinary Catheter Date of Insertion: 08/30/22 Urinary Catheter Time of Insertion: 19:10 Data 09/01/22 02:56 09/01/22 02:56 A&P Assessment and plan (1) Cerebrovascular accident: Admit to ICU in view of CVA status post tPA which she received at 8 PM. Symptoms at time of presentation were left hand arm and face numbness, headache and ataxic gait. Her symptoms are currently improved. She is only complaining of a persisting headache at this time. Also appears to have mild slurred speech, however patient does not seem to think this is out of the ordinary at this time. Admitted to ICU for post tPA monitoring. Monitor serial neurochecks every hour for 4 hours and then every 2 hours. Blood pressure goal to be less than 180/100 mmHg N.p.o. until speech therapy assessment. Okay to have ice chips and medications after passing nursing dysphagia screen. Pt/OT evaluation Check echocardiogram and carotid artery duplex, continuous telemetry monitoring. Aspirin to start 24 hours post tPA administration Reported allergy to statins, patient reports myalgias after having tried multiple statins in the past. She may be willing to try Lipitor however wishes to think about this overnight. Stressed the importance of starting statins for secondary prevention. Continue amlodipine 10 mg daily, spironolactone 25 mg p.o. daily and carvedilol 3.125 twice daily. Tylenol prn for headache management. Reviewed her chart in detail, she does have paroxysmal A-fib 1.? The baseline rhythm was found to be normal sinus with occasional episodes of atrial fibrillation with? rapid ventricular rate.? Patient was found to be in sinus rhythm, 96% of the times.? Occasional short runs of nonsustained ventricular tachycardia's were noted-the longest one being of 7 beats. 2.? No symptoms are mentioned with any of the recordings. 3.? No previous similar studies, available for comparison -Thus the question is is that is this episode of CVA and embolic event associated with paroxysmal atrial fibrillation -She will likely require anticoagulation, will have to discuss with Surendra, they recommended 48 hours to a week depending on clinical progress Carotid artery ultrasound 1. ? 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 2. ? No sign of hemodynamically significant stenosis in the right internal carotid artery. 3. ? Images demonstrate abnormal waveform and retrograde flow in the right vertebral artery. However, the funeral limousine driver reports antegrade flow. Recommend repeat evaluation of the left vertebral artery with attention to direction of flow. 4. ? Mildly elevated velocity in the right proximal common carotid artery. Possible stenosis at the origin. Cardiac echo ?LV systolic function is normal with EF 55-60%. ?Grade 1 diastolic dysfunction ?Mild mitral regurgitation ?Mild tricuspid regurgitation. ?Mild pulmonary hypertension ?Mild pulmonic regurgitation ?Compared to prior echocardiogram from 2019, patient now has mild ?pulmonary hypertension. Head CT New, acute to subacute, right occipital infarct in the distribution of the right posterior cerebral artery. This was not visible on the prior scan. We will continue to monitor for the next 24 hours- -hold off on anticoagulation for at least a week Repeat CT head or MRI tomorrow depending on discussion with neurology ? (2) Hypertension: (3) Hyperlipidemia: (4) Hypothyroid: (5) History of left breast cancer: (6) Paroxysmal atrial fibrillation: Plan Plan for today, continue to monitor, PT OT, speech therapy above, monitor blood pressures, telemetry monitoring, monitor for atrial fibrillation, spoke to nursing staff, spoke to patient, spoke to patient's family members, will continue to monitor as she has findings of acute to subacute right a septal infarct, spoke with patient, family, nursing staff, spent over 60 minutes in patient care Attestations Medical Necessity Statement*: Patient requires hospitalization for CVA status post tPA, now with findings of acute to subacute right a occipital infarct Coding Level of Care Code 03436 High Time for a total of 60 minutes, includes reviewing past or interval history, examining/interviewing patient, placing orders, counseling patient/family/other support, updating patient/family/other support, discussing plan of care with staff, documenting encounter and coordinating care Diagnoses Cerebrovascular accident I63.9 Hypertension I10 Hyperlipidemia E78.5 Hypothyroid E03.9 History of left breast cancer Z85.3 Paroxysmal atrial fibrillation I48.0
[2022-09-01] MEDS: atorvastatin 40 mg Tablet 20 MG PO (20:31)
[2022-09-01] MEDS: temazepam 15 mg Capsule 30 MG PO (20:31)
[2022-09-02 03:32] VITALS: BP 165/78; PULSE 74; RESP 19; TEMP 37.1; O2SAT 95
[2022-09-02 04:39] VITALS: PULSE 67
[2022-09-02 04:49] LABS: Basophils % 0.5 %; Eosinophils # 0.5 10^3/uL (0.0-0.8); Eosinophils % 5.1 %; Hematocrit 41.6 % (37.0-47.0); Hemoglobin 13.1 g/dL (11.5-15.3); Lymphocytes # 1.8 10^3/uL (0.8-4.8); Lymphocytes % 20.2 %; Mean Corpuscular HGB Conc 31.5 g/dL (30.0-36.0); Mean Corpuscular Hemoglobin 29.4 pg (28.0-34.0); Mean Corpuscular Volume 93.3 fl (81-99); Mean Platelet Volume 9.8 fL (7.4-10.4); Monocytes # 0.8 10^3/uL (0.2-0.9); Neutrophils # 5.68 10^3/uL (1.8-7.7); Nucleated Red Blood Cells % 0 %; Platelet Count 290 10^3/cmm (130-400); Red Blood Count 4.46 10^6/uL (4.1-5.3); White Blood Count 8.8 10^3/uL (4.0-10.0)
[2022-09-02 05:02] LABS: Alanine Aminotransferase 19 U/L (0-33); Albumin Level 3.2 g/dL (3.5-5.2); Alkaline Phosphatase 57 U/L (35-105); Anion Gap 12.8 (5-19); Aspartate Amino Transferase 16 U/L (0-32); Blood Urea Nitrogen 14 mg/dL (8-23); Calcium 8.8 mg/dL (8.5-10.5); Carbon Dioxide 22 mmol/L (22-29); Chloride 106 mmol/L (98-107); Creatinine Clr Calc Pharmacy 57.8933; Globulin 2.6 g/dL (1.3-4.6); Glucose 141 mg/dL (65-115); Osmolality Calculated 287 mOsm/kg (285-295); Phosphorus 2.4 mg/dL (2.5-4.5); Potassium 3.8 mmol/L (3.5-5.1); Sodium 137 mmol/L (136-145); Total Bilirubin 0.3 mg/dL (0.15-1.2); Total Protein 5.8 g/dL (6.6-8.7)
[2022-09-02 08:00] VITALS: BP 150/67; PULSE 71; RESP 18; O2SAT 97
--- NOTE | 2022-09-02 08:29 | CT_ITS ---
WS: [id number] CT HEAD TECHNIQUE: Noncontrast CT of the head obtained from the skullbase to the vertex. CLINICAL INFORMATION: hemorhagic transformation COMPARISON: None. DLP: 1046.[address] scans at [facility] use at least one of these dose optimization techniques: automated e xposure control; mA and/or kV adjustment per patient size (includes targeted exams where dose is matc hed to clinical indication); or iterative reconstruction. FINDINGS: No evidence of intracranial hemorrhage or mass effect. Expected evolution of the RIGHT suspected occi pital infarct in the RIGHT BUYER AGENT territory. This is similar in appearance to August 31, 2022 with minimal progression. No evidence of hemorrhage. No significant mass effect or midline shift. Moderate small vessel changes. Moderate parenchymal volume loss. Paranasal sinuses and mastoid air ce lls well aerated. CT/CT head wo con* [id number] IMPRESSION: 1. No evidence of intracranial hemorrhage 2. Previously described presumed RIGHT [employer]ER [employer]ENT subacute infarct with expected evol ution. No evidence of significant mass effect or midline shift. 3. Moderate small vessel changes with moderate parenchymal volume loss worse i n the frontal lobes. 4. Vascular calcification. 5. No other significant changes
[2022-09-02] MEDS: pantoprazole DR 40 mg Tablet PO (09:25)
[2022-09-02] MEDS: carvedilol 3.125 mg Tablet PO (09:25)
[2022-09-02] MEDS: levothyroxine 100 mcg Tablet PO (09:25)
[2022-09-02] MEDS: amlodipine 10 mg Tablet PO (09:25)
[2022-09-02] MEDS: aspirin 81 mg EC Tablet PO (09:25)
[2022-09-02] MEDS: spironolactone 25 mg Tablet PO (09:25)
[2022-09-02] MEDS: acetaminophen 325 mg Tablet 650 MG PO (09:27)
[2022-09-02 09:48] VITALS: PULSE 74; RESP 18; O2SAT 98
[2022-09-02] MEDS: apixaban 5 mg Tablet PO (10:40)
--- NOTE | 2022-09-02 11:03 | PM.DCS ---
Discharge Providers Date of Admission: 08/30/22 20:35 Date of Discharge: September 02, 2022 Attending Provider at Admission: Bria Bojorquez MD Attending Provider at Discharge: Osmani De Dios MD Primary Care Provider: Gio Soto MD Diagnoses at Discharge Discharge Diagnosis (1) Cerebrovascular accident: Status: Acute (2) Hypertension: Status: Acute (3) Hyperlipidemia: Status: Acute (4) Hypothyroid: Status: Acute (5) History of left breast cancer: Status: Acute Permanent problem details: 2009 (6) Paroxysmal atrial fibrillation: Status: Acute Reason for Visit Reason for Visit: STROKE Hospital Course Hospital Course Zee Vaca is a 82 year old female with history of hypertension, hyperlipidemia,hypothyroidism, remote history of breast cancer who presented to the emergency room today with strokelike symptoms.? Patient states that she was getting a food tray in her kitchen at around 5:30 PM this evening when suddenly her left arm started to feel extremely numb.? States that she had never had such a sensation before.? 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 At the same time she also felt numbness over her face.? Her friend who was present during the event stated that patient appeared to be ataxic and more unsteady.? She reported having a headache, predominantly right side.? At baseline patient has unsteady gait related to her arthritis, however she was noted to be more unsteady than usual.? She also complained of headache involving mostly the right side of her face.? Patient states that her symptoms were nearly resolved by the time she came into the emergency room.? NIH stroke scale was 10 upon admission.? Of note, patient has a recent history of shingles however at that time her rash was localized to her right axilla and right shoulder. She was prescribed Valtrex and prednisone, of which she only took the prednisone. Her rash is now completely resolved. She presented within the tPA window and after discussion with [facility] neurology, patient received tPA at 8 PM this evening. Her symptoms are currently completely resolved.? Her chief complaint at this present time is a persisting headache and dry mouth.? Her speech is noted to be slightly slurred, however per patient she feels her speech is at baseline since getting her new dentures a few months ago. She received 2 doses of IV labetalol 10 mg as her blood pressure was greater than systolic 180.? She has also received fentanyl 50 mics IV push and morphine 4 mg IV push x2 for her headache. Patient was admitted to [facility] for acute CVA, status post tPA, clinically monitored overall she clinically improved, no residual neurologic deficits, she was moved to [facility], worked with physical therapy speech therapy, no residual deficits, she did have a repeat CT of her head which showed right occipital lobe infarct in the distribution of the right posterior cerebral artery, she was monitored for another 24 hours, repeat CT of the head showed no radiographic evidence of hemorrhagic transformation, spoke to neurology, given her paroxysmal atrial fibrillation, discussed about starting anticoagulation, its been about 72 hours since her stroke episode, agreed on starting on anticoagulation today. I discussed anticoagulation in detail with patient, risks and benefits of anticoagulation, given her stroke, she voiced understanding, all questions answered, agreed to proceed. Will discharge on Eliquis 5 mg twice daily, atorvastatin 40 mg once daily aspirin 81 mg, follow-up with neurology, follow-up with cardiology, follow-up with primary care provider for blood pressure check 1) Cerebrovascular accident: Admit to ICU in view of CVA status post tPA which she received at 8 PM. Symptoms at time of presentation were left hand arm and face numbness, headache and ataxic gait. Her symptoms are currently improved. She is only complaining of a persisting headache at this time.? Also appears to have mild slurred speech, however patient does not seem to think this is out of the ordinary at this time. Admitted to ICU for post tPA monitoring. Monitor serial neurochecks every hour for 4 hours and then every 2 hours. Blood pressure goal to be less than 180/100 mmHg N.p.o. until speech therapy assessment.? Okay to have ice chips and medications after passing nursing dysphagia screen. Pt/OT evaluation Check echocardiogram and carotid artery duplex, continuous telemetry monitoring. Aspirin to start 24 hours post tPA administration Reported allergy to statins, patient reports myalgias after having tried multiple statins in the past.? She may be willing to try Lipitor however wishes to think about this overnight.? Stressed the importance of starting statins for secondary prevention. Continue amlodipine 10 mg daily, spironolactone 25 mg p.o. daily and carvedilol 3.125 twice daily. Tylenol prn for headache management. Reviewed her chart in detail, she does have paroxysmal A-fib 1.? The baseline rhythm was found to be normal sinus with occasional episodes of atrial fibrillation with? rapid ventricular rate.? Patient was found to be in sinus rhythm, 96% of the times.? Occasional short runs of nonsustained ventricular tachycardia's were noted-the longest one being of 7 beats. 2.? No symptoms are mentioned with any of the recordings. 3.? No previous similar studies, available for comparison -Thus the question is is that is this episode of CVA and embolic event associated with paroxysmal atrial fibrillation -She will likely require anticoagulation, will have to?discuss with Surendra, they recommended 48 hours to a week depending on clinical progress Carotid artery ultrasound 1. ? 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 2. ? No sign of hemodynamically significant stenosis in the right internal carotid artery. 3. ? Images demonstrate abnormal waveform and retrograde flow in the right vertebral artery. However, the dynamite packing machine feeder reports antegrade flow. Recommend repeat evaluation of the left vertebral artery with attention to direction of flow. 4. ? Mildly elevated velocity in the right proximal common carotid artery. Possible stenosis at the origin. Cardiac echo ?LV systolic function is normal with EF 55-60%. ?Grade 1 diastolic dysfunction ?Mild mitral regurgitation ?Mild tricuspid regurgitation. ?Mild pulmonary hypertension ?Mild pulmonic regurgitation ?Compared to prior echocardiogram from 2019, patient now has mild ?pulmonary hypertension. Head CT New, acute to subacute, right occipital infarct in the distribution of the right posterior cerebral artery. This was not visible on the prior scan. We will continue to monitor for the next 24 hours- Repeat head CT 09/02/2022 1.? No evidence of intracranial hemorrhage 2.? 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 No evidence of significant mass effect or midline shift. 3.? Moderate small vessel changes with moderate parenchymal volume loss worse in the frontal lobes. 4.? Vascular calcification. 5.? No other significant changes Physical Exam Const: COMMON NORMALS: no acute distress and patient oriented x3 Resp: COMMON NORMALS: normal respiratory effort, No retractions, No use of accessory muscles and clear to auscultation bilaterally AUSCULTATION: clear to auscultation bilaterally Cardio: COMMON NORMALS: regular rate, regular rhythm, S1 normal heart sound present and S2 normal heart sound present RATE: regular rate RHYTHM: regular rhythm HEART SOUNDS: S1 normal heart sound present and S2 normal heart sound present GI: COMMON NORMALS: Normal to inspection, nondistended, normoactive bowel sounds present and non-tender Extremity: COMMON NORMALS: no pedal edema Neuro: COMMON NORMALS: patient oriented x3, CN's II-XII intact bilaterally, moves all extremities and no focal motor deficits Psych: COMMON NORMALS: mental status grossly normal Urinary Catheter Management: Gates: Cath Placed During This Visit: yes, but has since been removed by the nurse Reason for Continuing Indwelling Catheter: Accurate Measurement of Urinary Output in Critically Ill Patients Urinary Catheter Date of Insertion: 08/30/22 Urinary Catheter Time of Insertion: 19:10 Date Urinary Catheter Removed: 09/01/22 Time Urinary Catheter Discontinued: 10:00 Discharge Data Studies Completed and Pending Completed Studies During Hospitalization Category Date Time Status CT head thrombolytic [id number] Stat Cat Scan 08/30/22 19:[address] head wo con* [id number] Routine Cat Scan 08/31/22 20:[address] head wo con* [id number] Stat Cat Scan 08/30/22 20:[address] head wo con* [id number] Stat Cat Scan 09/02/22 08:29 Completed CV carotid duplex BI* [id number] Routine Ultrasound 08/31/22 06:00 Completed CV. echo complete* [id number] Routine Ultrasound 08/31/22 06:00 Completed Pending at discharge Category Date Time Status Complete Blood Count w/Auto AM LABS Lab 09/03/22 04:00 Ordered Comprehensive Metabolic Panel AM LABS Lab 09/03/22 04:00 Ordered Magnesium AM LABS Lab 09/03/22 04:00 Ordered Phosphorus AM LABS Lab 09/03/22 04:00 Ordered Radiology Impressions Carotid Doppler Study 08/31/22 06:00 IMPRESSION: 1. 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 2. No sign of hemodynamically significant stenosis in the right internal carotid artery. 3. Images demonstrate abnormal waveform and retrograde flow in the right vertebral artery. However, the dynamite packing machine feeder reports antegrade flow. Recommend repeat evaluation of the left vertebral artery with attention to direction of flow. 4. Mildly elevated velocity in the right proximal common carotid artery. Possible stenosis at the origin. REFERENCES: SRU CRITERIA. The degree of internal carotid artery stenosis is based on criteria defined by the Society of Radiologists in Ultrasound (SRU). Normal is no stenosis. Mild is less than 50% stenosis. Moderate is 50-69% stenosis. Severe is greater than 69% stenosis to near occlusion. Near occlusion is a markedly narrowed lumen. Total occlusion is no detectable patent lumen. Head CT 09/02/22 08:29 IMPRESSION: 1. No evidence of intracranial hemorrhage 2. 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 No evidence of significant mass effect or midline shift. 3. Moderate small vessel changes with moderate parenchymal volume loss worse in the frontal lobes. 4. Vascular calcification. 5. No other significant changes Laboratory Results WBC 8.8 10^3/uL (4.0-10.0) 09/02/22 04:19 RBC 4.46 10^6/uL (4.1-5.3) 09/02/22 04:19 Hgb 13.1 g/dL (11.5-15.3) 09/02/22 04:19 Hct 41.6 % (37.0-47.0) 09/02/22 04:19 MCV 93.3 fl (81-99) 09/02/22 04:19 MCH 29.4 pg (28.0-34.0) 09/02/22 04:19 MCHC 31.5 g/dL (30.0-36.0) 09/02/22 04:19 RDW 15.0 % (12.1-15.1) 09/02/22 04:19 Plt Count 290 10^3/cmm (130-400) 09/02/22 04:19 MPV 9.8 fL (7.4-10.4) 09/02/22 04:19 Neut % (Auto) 65.0 % 09/02/22 04:19 Lymph % (Auto) 20.2 % 09/02/22 04:19 [place] % (Auto) 9.0 % 09/02/22 04:19 Eos % (Auto) 5.1 % 09/02/22 04:19 Baso % (Auto) 0.5 % 09/02/22 04:19 Neut # (Auto) 5.68 10^3/uL (1.8-7.7) 09/02/22 04:19 Lymph # (Auto) 1.8 10^3/uL (0.8-4.8) 09/02/22 04:19 [place] # (Auto) 0.8 10^3/uL (0.2-0.9) 09/02/22 04:19 Eos # (Auto) 0.5 10^3/uL (0.0-0.8) 09/02/22 04:19 Baso # (Auto) 0.0 10^3/uL (0.0-0.1) 09/02/22 04:19 Nucleated RBC % (auto) 0 % 09/02/22 04:19 Nucleated RBCs # 0.0 /100WBC 09/02/22 04:19 PT 12.20 SECONDS (12.1-14.9) 08/30/22 19:32 INR 0.88 (0.8-1.2) 08/30/22 19:32 APTT 25.3 SECONDS (23.9-36.7) 08/30/22 19:32 Sodium 137 mmol/L (136-145) 09/02/22 04:19 Potassium 3.8 mmol/L (3.5-5.1) 09/02/22 04:19 Chloride 106 mmol/L (98-107) 09/02/22 04:19 Carbon Dioxide 22 mmol/L (22-29) 09/02/22 04:19 Anion Gap 12.8 (5-19) 09/02/22 04:19 BUN 14 mg/dL (8-23) 09/02/22 04:19 Creatinine 0.6 mg/dL (0.5-0.9) 09/02/22 04:19 GFR Calculation Not Reportable 09/02/22 04:19 Glucose 141 mg/dL (65-115) H 09/02/22 04:19 POC Glucose 145 mg/dL (70-110) H 08/30/22 19:11 Estimat Average Glucose 120 08/31/22 08:35 Hemoglobin A1c 5.8 % (4.0-6.0) 08/31/22 08:35 Calculated Osmolality 287 mOsm/kg (285-295) 09/02/22 04:19 Calcium 8.8 mg/dL (8.5-10.5) 09/02/22 04:19 Phosphorus 2.4 mg/dL (2.5-4.5) L 09/02/22 04:19 Magnesium 2.0 mg/dL (1.7-2.3) 09/02/22 04:19 Total Bilirubin 0.3 mg/dL (0.15-1.2) 09/02/22 04:19 AST 16 U/L (0-32) 09/02/22 04:19 ALT 19 U/L (0-33) 09/02/22 04:19 Alkaline Phosphatase 57 U/L (35-105) 09/02/22 04:19 Total Protein 5.8 g/dL (6.6-8.7) L 09/02/22 04:19 Albumin 3.2 g/dL (3.5-5.2) L 09/02/22 04:19 Globulin 2.6 g/dL (1.3-4.6) 09/02/22 04:19 Triglycerides 114 mg/dL (0-150) 08/31/22 08:35 Cholesterol 160 mg/dL (0-200) 08/31/22 08:35 LDL Cholesterol, Calc 83 mg/dL (50-129) 08/31/22 08:35 HDL Cholesterol 54 mg/dL (60-100) L 08/31/22 08:35 LDL/HDL Ratio 1.54 RATIO (0.00-3.22) 08/31/22 08:35 Cholesterol/HDL Ratio 2.96 mg/dL (0.0-4.40) 08/31/22 08:35 Urine Color Colorless (Yellow) 08/30/22 19:31 Urine Appearance Clear (CLEAR) 08/30/22 19:31 Urine pH 6 (5-7) 08/30/22 19:31 Ur Specific [place] 1.010 (1.005-1.030) 08/30/22 19:31 Urine Protein Neg (Negative) 08/30/22 19:31 Urine Glucose (UA) Norm (Normal) 08/30/22 19:31 Urine Ketones Negative (Negative) 08/30/22 19:31 Urine Blood Neg (Negative) 08/30/22 19: Urine Nitrate Negative (Negative) 08/30/22 19: Urine Bilirubin Neg (Negative) 08/30/22 19:31 Urine Urobilinogen Norm mg/dL (Negative) 08/30/22 19:31 Ur Leukocyte Esterase Negative (Negative) 08/30/22 19: Urine Opiates Screen Negative ng/mL (Negative) 08/30/22 19: Ur Barbiturates Screen Negative ng/mL (Negative) 08/30/22 19:31 Ur Phencyclidine Scrn Negative ng/mL (Negative) 08/30/22 19:31 Ur Amphetamines Screen Negative ng/mL (Negative) 08/30/22 19:31 U Benzodiazepines Scrn Positive ng/mL (Negative) H 08/30/22 19:31 Urine Cocaine Screen Negative ng/mL (Negative) 08/30/22 19:31 U Marijuana (THC) Screen Negative ng/mL (Negative) 08/30/22 19:31 Vitals Last Vital Signs Temp 98.8 F 09/02/22 03:32 Pulse 74 09/02/22 09:48 Resp 18 09/02/22 09:48 BP 150/67 09/02/22 08:00 Pulse Ox 98 09/02/22 09:48 O2 Del Method Room Air 09/02/22 09:48 Discharge Plan Discharge Condition: Stable Prescriptions: New aspirin 81 mg Tablet,Delayed Release (Dr/Ec) 81 mg PO DAILY 30 Days Qty: 30 0RF carvedilol 3.125 mg Tablet 3.125 mg PO BID 30 Days Qty: 60 0RF atorvastatin 40 mg Tablet 40 mg PO BEDTIME 30 Days Qty: 30 0RF Eliquis 5 mg tablet 5 mg PO BID 30 Days Qty: 60 0RF Continued cyclobenzaprine 5 mg tablet 5 mg PO TID PRN (Reason: Muscle Pain) esomeprazole magnesium [Nexium 24HR] 20 mg capsule,delayed release(DR/EC) 20 mg PO DAILY acetaminophen-codeine [Tylenol-Codeine #3] 300-30 mg tablet 1 tab PO BID PRN (Reason: Pain) amlodipine [Norvasc] 10 mg tablet 10 mg PO DAILY omega-3 fatty acids [Fish Oil Concentrate] 1,000 mg capsule 1,000 mg PO DAILY Combivent Respimat 20-100 mcg/actuation mist 1 puff INHALATION Q6H PRN (Reason: Shortness Of Breath) mupirocin 2 % ointment 1 applic topical BID 14 Days Qty: 22 0RF ketoconazole 2 % cream 1 applic topical BID Qty: 60 1RF Rx Instructions: To read affected areas abdominal folds and under breasts for 2 weeks then as needed for flares ciclopirox 1 % shampoo 5 ml topical .three times weekly Qty: 120 4RF Rx Instructions: Apply to scalp 3 times weekly. Allow to to sit 5 min. then rinse. alprazolam [Xanax] 0.25 mg tablet 0.25 mg PO TID PRN (Reason: anxiety) Qty: 60 5RF silver sulfadiazine 1 % cream 1 applic topical BID 14 Days Qty: 50 2RF Rx Instructions: apply a 1.5 mm thickness levothyroxine [Synthroid] 100 mcg tablet 100 mcg PO DAILY Qty: 30 11RF spironolactone 25 mg tablet 25 mg PO DAILY Qty: 90 11RF triamterene-hydrochlorothiazid 37.5-25 mg capsule 1 cap PO DAILY Qty: 90 3RF temazepam 30 mg capsule 30 mg PO .qhs Qty: 30 5RF Vitamin D3 25 mcg (1,000 unit) Capsule 25 mcg PO DAILY Discharge Orders: Discharge Order (Routine); Ordered 09/02/22 Ordered By: Osmani De Dios Referrals: Hermelinda Pool MD [Physician] - 2 weeks (cva) Seble Yen MD [Physician] - 2 weeks (afib) Gio Soto MD [Primary Care Provider] - 09/03/22 12:40 pm (Please follow-up with Dr. Soto tomorrow at 12:40P.M. If you have any questions or need to reschedule. Please call ) Discharge Diet: Cardiac Discharge Activity: Resume usual activity Patient Instructions: Aspirin (By mouth), Atorvastatin (By mouth) (Lipitor), Carvedilol (By mouth) (Coreg, Coreg CR, Hypertenevide-12.5), Apixaban (By mouth) (Eliquis), A-fib (Atrial Fibrillation) (DC), Hypertension (DC), Stroke (DC), Opioid Safety Activity Restrictions/Additional Instructions: - If you develop bloody or black stools, or lightheadedness go to the emergency room -If you have recurrent strokelike symptoms please call [phone] -Please take Eliquis as prescribed -Please see your primary care provider for recheck hemoglobin, repeat blood work -See cardiology for atrial fibrillation, if you have chest pain, palpitations go to emergency room -See neurology in 2 weeks Discharge Attestations Time Spent in Discharge Care*: greater than 30 min Quality Metrics Clinical Quality Measures [ Cerebrovascular Accident { Contraindication to Antithrombotic: None; antithrombotic prescribed; Contraindication to Anticoagulation: None; anticoagulation prescribed; Contraindication to Statin: None; Statin prescribed;}] Coding Level of Care Code 76487 Total time (in minutes) for Discharge: 45 Diagnoses Cerebrovascular accident I63.9 Hypertension I10 Hyperlipidemia E78.5 Hypothyroid E03.9 History of left breast cancer Z85.3 Paroxysmal atrial fibrillation I48.0
[2022-09-02 11:08] VITALS: BP 139/60; PULSE 80; RESP 16; O2SAT 95
--- NOTE | 2022-09-02 12:35 | PC.SOCIAL ---
IMM Update pg 2 of IMM updated and reviewed w/ patient. Copy provided and copy dated, initialed and placed in chart.
--- NOTE | 2022-09-02 13:02 | PC.NURSE ---
Patients IV removed at 12:50, tolerated well. Patient given new prescriptions at bedside. Patient and family given verbal and written discharge instructions, verbalized understanding. Patient taken out to vehicle via wheelchair. Patient left facility with family.
== END 2022-09-02 12:58 | disposition home or self-care (01) | DRG 62 ==
LOC: ER 20:36 → ICU 21:19 → CSU 09-01 07:25
PROVIDERS: Admitting Provider Student in an Organized Health Care Education/Training Program; Emergency Provider Emergency Medicine; PCP Family Medicine; Visit Provider Family Medicine
DX: I63.9 Cerebral infarction, unspecified (principal); G81.94 Hemiplegia, unspecified affecting left nondominant side; R26.0 Ataxic gait; R29.810 Facial weakness; R47.81 Slurred speech; R29.705 NIHSS score 5; I10 Essential (primary) hypertension; E78.5 Hyperlipidemia, unspecified; E03.9 Hypothyroidism, unspecified; Z85.3 Personal history of malignant neoplasm of breast; I48.0 Paroxysmal atrial fibrillation; M79.7 Fibromyalgia; Z96.641 Presence of right artificial hip joint
CPT/HCPCS: 36415; 36416; 51702; 70450; 80048; 80053; 80061; 80306; 81003; 82962; 83036; 83735; 84100; 84443; 85025; 85610; 85730; 92507; 92523; 92610; 93005; 93306; 93880; 96365; 96367; 96375; 96376; 97161; 97165; 97530; 99291; J0131; J1200; J2270; J2765; J2997; J3010; J3480; J3490

== ENCOUNTER 2022-11-13 12:36 | Outpatient (CLI) | payer MEDICARE, SELFPAY ==
--- NOTE | 2022-11-13 13:04 | MM_ITS ---
WS: [id number] BILATERAL 3D TOMOSYNTHESIS DIGITAL DIAGNOSTIC MAMMOGRAPHY WITH CAD CLINICAL INFORMATION: ANNUAL - HX BR CA HISTORY: History of LEFT breast cancer. COMPARISON: November 09, 2021 TECHNIQUE: Bilateral CC, MLO, and ML views. FINDINGS: Scattered fibroglandular densities bilaterally. Coarse calcifications LEFT breast. Incidental punctat e calcifications. Postoperative changes LEFT lumpectomy with parenchymal scarring. No suspicious focal mass, asymmetry, calcifications, or architectural distortion. No evidence of yazan gnancy. MM/[place] [id number] IMPRESSION: BI-RADS: 2-Benign FOLLOW UP: 1 Year Follow-up Recommend return to annual diagnostic mammography.
== END 2022-11-13 12:37 | disposition home or self-care (01) ==
PROVIDERS: PCP Family Medicine; Visit Provider Family Medicine
DX: Z85.3 Personal history of malignant neoplasm of breast (principal)
CPT/HCPCS: 77062; G0279

== ENCOUNTER 2022-11-15 12:18 | Outpatient (RCR) | payer MEDICARE, SELFPAY | END 2022-12-12 23:59 | disposition home or self-care (01) | LOC: SPT 12:18 | PROVIDERS: PCP Family Medicine; Visit Provider Family Medicine | DX: M54.2 Cervicalgia (principal); M25.59 Pain in other specified joint; M25.519 Pain in unspecified shoulder | CPT/HCPCS: 97110; 97161 ==

== ENCOUNTER 2022-12-12 13:49 | Outpatient (CLI) | payer MEDICARE, SELFPAY ==
--- NOTE | 2022-12-12 14:30 | CT_ITS ---
WS: [id number] CT ABDOMEN AND PELVIS NONCONTRAST HISTORY: diverticulitis TECHNIQUE: Imaging performed through the abdomen and pelvis. Coronal and sagittal reformats are submi tted. All CT scans at [facility] use at least one of these dose optimization techniques: auto mated exposure control; mA and/or kV adjustment per patient size (includes targeted exams where dose is matched to clinical indication); or iterative reconstruction. DLP: 511.33 mGy.cm COMPARISON: 04/22/2022 Lower thorax: Lung bases are clear. Visualized heart is normal. Small hiatal hernia. Liver: Normal size liver. No mass or bile duct dilatation. Gallbladder: Normal gallbladder. No pericholecystic fluid or cholelithiasis. No gallbladder wall thic kening. Pancreas: Moderate diffuse fatty replacement. No mass. Spleen: Normal. Adrenal glands: Normal. No mass. Right kidney: Normal size kidney with no mass or hydronephrosis. Left kidney: Normal size kidney with no mass or hydronephrosis. Aorta: Moderate to severe atherosclerosis abdominal aorta. No aneurysm. Atherosclerosis continues int o the common iliac arteries. No free fluid, intraperitoneal air or significant lymphadenopathy. GI tract: Nondistended stomach. No small bowel obstruction. Moderate diffuse constipation. Innumerabl e diverticula throughout the colon. Increasing diverticular burden towards the sigmoid. Circumferenti al thickening of the sigmoid mucosa. No acute diverticulitis. Normal appendix. Abdominal wall: Small ventral abdominal wall hernia containing fat. Pelvis: No free fluid or adenopathy in the pelvis. Prior hysterectomy. Osseous structures: RIGHT hip arthroplasty. Moderate narrowing of the LEFT hip joint. Degenerative LE FT curvature lumbar spine with advanced degenerative disc space narrowing and desiccation. IMPRESSION: 1. Diffuse pandiverticulosis. Extensive diverticular burden, most significant in the sigmoid colon w ith tortuosity and mild narrowing of the lumen. No obstruction. 2. Normal appendix. 3. Moderate atherosclerosis aorta. 4. Prior hysterectomy. 5. Moderate pancreatic fatty replacement.
== END 2022-12-12 13:50 | disposition home or self-care (01) ==
PROVIDERS: PCP Family Medicine; Visit Provider Family Medicine
DX: K57.50 Diverticulosis of both small and large intestine without perforation or abscess without bleeding (principal); Z90.710 Acquired absence of both cervix and uterus
CPT/HCPCS: 74176; 80053; 80061; 84443; 85025

== ENCOUNTER 2022-12-13 06:00 | Outpatient (RCR) | payer MEDICARE, SELFPAY | END 2023-01-11 23:59 | disposition home or self-care (01) | LOC: SPT 06:00 | PROVIDERS: PCP Family Medicine; Visit Provider Family Medicine | DX: M25.559 Pain in unspecified hip (principal); M25.519 Pain in unspecified shoulder; M54.2 Cervicalgia | CPT/HCPCS: 97110 ==

== ENCOUNTER 2023-01-12 06:00 | Outpatient (RCR) | payer MEDICARE, SELFPAY | END 2023-02-11 23:59 | disposition home or self-care (01) | LOC: SPT 06:00 | PROVIDERS: PCP Family Medicine; Visit Provider Family Medicine | DX: M54.2 Cervicalgia (principal); M25.559 Pain in unspecified hip; M25.519 Pain in unspecified shoulder | CPT/HCPCS: 97110 ==

== ENCOUNTER → 2023-02-04 13:12 | Outpatient (BNVA) | payer MEDICARE, SELFPAY | PROVIDERS: PCP Family Medicine; Visit Provider Podiatrist Foot & Ankle Surgery | DX: M20.41 Other hammer toe(s) (acquired), right foot (principal); M20.42 Other hammer toe(s) (acquired), left foot; L60.3 Nail dystrophy | CPT/HCPCS: 99213 ==

== ENCOUNTER 2023-02-12 06:00 | Outpatient (RCR) | payer MEDICARE, SELFPAY | END 2023-03-03 23:59 | disposition home or self-care (01) | LOC: SPT 06:00 | PROVIDERS: PCP Family Medicine; Visit Provider Family Medicine | DX: M62.81 Muscle weakness (generalized) (principal) | CPT/HCPCS: 97110 ==

== ENCOUNTER → 2023-02-21 11:03 | Outpatient (BNVA) | payer MEDICARE, SELFPAY | PROVIDERS: PCP Family Medicine; Visit Provider Family Medicine | DX: E03.9 Hypothyroidism, unspecified (principal); I10 Essential (primary) hypertension; I48.0 Paroxysmal atrial fibrillation | CPT/HCPCS: 80053 ==

== ENCOUNTER 2023-10-15 10:04 | Outpatient (CLI) | payer MEDICARE, SELFPAY ==
--- NOTE | 2023-10-15 10:08 | XRR_ITS ---
PROCEDURE INFORMATION: Exam: XR Chest Exam date and time: 10/15/2023 10:19 AM Age: 83 years old Clinical indication: Prior surgery; Surgery date: 6+ months; Surgery type: Lumpectomy on the L breast; Patient HX: 2 weeks ago cp started and cough. Wheezing. HX of breast cancer TECHNIQUE: Imaging protocol: Radiologic exam of the chest. Views: 2 views. COMPARISON: [place] [id number] 04/22/2022 4:27 PM FINDINGS: Lungs: Unremarkable. No consolidation. Pleural spaces: Unremarkable. No pleural effusion. No pneumothorax. Heart/Mediastinum: The heart is normal in size. There is calcified plaque involving the aorta. Bones/joints: There are degenerative changes as well as scoliotic changes involving the thoracolumbar spine. XR/XR chest 2V* [id number] IMPRESSION: No acute findings.
== END 2023-10-15 10:05 | disposition home or self-care (01) ==
LOC: RAD 10:05
PROVIDERS: PCP Family Medicine; Visit Provider Family Medicine
DX: J18.9 Pneumonia, unspecified organism (principal); M41.9 Scoliosis, unspecified
CPT/HCPCS: 71046; 80053; 80061; 83880; 84443; 85025

== ENCOUNTER 2023-11-03 09:46 | Outpatient (CLI) | payer MEDICARE, SELFPAY ==
--- NOTE | 2023-11-03 09:48 | XR_ITS ---
WS: [id number] XR chest 2V* [id number] REASON FOR EXAM: short of breath FINDINGS: The chest is unchanged compared to 10/15/2023. There is marked ectasia and tortuosity of the thoracic aorta with a heart at the upper limits of norm al in size. There is calcified granulomatous disease bilaterally. No acute pulmonary parenchymal or pleural abnor mality is identified. Complete rotator cuff tear in the left shoulder, chronic. Severe degenerative spondylosis in the mid and lower thoracic spine. XR/XR chest 2V* [id number] IMPRESSION: Stable chest without acute abnormality.
--- NOTE | 2023-11-03 11:00 | NM_ITS ---
WS: [id number] NUCLEAR MEDICINE LUNG VENTILATION AND PERFUSION CLINICAL INFORMATION: r/o PE TECHNIQUE: Ventilation/perfusion lung scan with 31.2 mCi technetium 99m DTPA. 5.1 mCi technetium 99m MAA COMPARISON: 2019 FINDINGS: Recent chest radiograph reviewed. Cardiomegaly with chronic emphysematous changes on the radiograph. Patchy and central radiotracer deposition on the ventilatory images with deposition along the trachea and central bronchi. Relatively normal perfusion imaging considering emphysematous change with no mismatched ventilation/p erfusion defects to indicate pulmonary embolus. NM/NM pul vent and perfus* [id number] IMPRESSION: 1. Low probability for pulmonary embolus.
== END 2023-11-03 09:47 | disposition home or self-care (01) ==
LOC: RAD 09:46
PROVIDERS: PCP Family Medicine; Visit Provider Family Medicine
DX: R06.00 Dyspnea, unspecified (principal); I51.7 Cardiomegaly; J43.9 Emphysema, unspecified; I77.810 Thoracic aortic ectasia; D71 Functional disorders of polymorphonuclear neutrophils; M75.122 Complete rotator cuff tear or rupture of left shoulder, not specified as traumatic; M47.814 Spondylosis without myelopathy or radiculopathy, thoracic region
CPT/HCPCS: 71046; 78014; A9540; A9567

== ENCOUNTER 2023-11-11 13:35 | Outpatient (CLI) | payer MEDICARE, SELFPAY ==
--- NOTE | 2023-11-11 13:45 | USCV_ITS ---
Zee Vaca Age: 83 Gender: F : 1940 Exam Date: 11/11/2023 14:02 Ordering Phys: Gio Soto MD Technologist: [place] [facility] [place]: BP: 110 / 64 HR: 62 Rhythm: Atrial fibrillation Technical Quality: Adequate MEASUREMENTS (Male / Female) Normal Values 2D ECHO LVOT Diameter 2.0 cm LV Ejection Fraction MOD 4C 48.3 % LV Ejection Fraction MOD 2C 40.9 % LV Ejection Fraction 2C AL 40.7 % LA Diameter 4.1 cm RA Systolic Volume 4C AL 61.8 ml RA Systolic Volume 4C MOD 61.8 ml LA Sys Volume AL 66.8 cm cubed LA Sys Volume Index AL 34.9 cm cubed/m squared Aorta at Sinotubular Diameter 2.0 cm M-MODE LA Ao Ratio MM 2.0 AV Cusp Separation MM 1.5 cm DOPPLER AV Peak Velocity 139.0 cm/s LVOT Peak Velocity 73.0 cm/s AV Area Cont Eq vti 1.7 cm squared AV Area Cont Eq pk 1.7 cm squared MV Peak Velocity 110.0 cm/s MV Area PHT 4.5 cm squared Mitral E to A Ratio 34.3 TV Peak Velocity 247.0 cm/s TR Peak Velocity 274.0 cm/s TR Peak Gradient 30.0 mmHg TV Peak E Velocity 90.0 cm/s Right Atrial Pressure 3.0 mmHg Pulmonary Artery Systolic Pressu 33.0 mmHg PV Peak Velocity 75.0 cm/s FINDINGS Left Ventricle Normal LV size and ejection fraction 55% (visual). No gross wall motion normalities. Right Ventricle Mildly dilated right ventricle with a normal ejection fraction Right Atrium Moderately increased right atrial size. Left Atrium Moderately increased left atrial size. Mitral Valve Moderate mitral valve regurgitation. Aortic Valve Thickened aortic valve. Tricuspid Valve Moderate tricuspid valve regurgitation. Estimated pulmonary artery peak systolic pressure 33 mmHg Pulmonic Valve Mild pulmonary valve regurgitation. Pericardium No pericardial effusion. Aorta Normal aortic annulus size. IVC Inferior vena cava not visualized. CONCLUSIONS Normal LV size and ejection fraction 55% (visual). No gross wall motion normalities. Mildly dilated right ventricle with a normal ejection fraction. Moderate biatrial enlargement.Moderate mitral valve regurgitation. Thickened aortic valve. Moderate tricuspid valve regurgitation. Mild pulmonary valve regurgitation. Estimated pulmonary artery peak systolic pressure 33 mmHg There is no pericardial effusion. There are no intracardiac masses. Compared to the study from 08/31/2022, there is biatrial enlargement and worsening of the mitral and tricuspid regurgitation Dr Tevin Soria MD FAC (Electronically Signed) Final Date: 12 November 2023 00:25 S
== END 2023-11-11 13:36 | disposition home or self-care (01) ==
LOC: RAD 13:36
PROVIDERS: PCP Family Medicine; Visit Provider Family Medicine
DX: I10 Essential (primary) hypertension (principal); R60.9 Edema, unspecified; R06.00 Dyspnea, unspecified; I48.91 Unspecified atrial fibrillation; I08.3 Combined rheumatic disorders of mitral, aortic and tricuspid valves
CPT/HCPCS: 93306

== ENCOUNTER 2023-11-18 06:26 | Outpatient (CLI) | payer MEDICARE, SELFPAY ==
[2023-11-18 06:57] VITALS: BMI 25.1
--- NOTE | 2023-11-18 07:00 | ECG_ITS ---
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 Interpretive Statements NAME OF STUDY: LEXISCAN SESTAMIBI STRESS TEST INDICATION: [Chest Pain; Dyspnea] Procedure: At the baseline, the blood pressure was 118/82 mmHg with a heart rate of 83 bpm. The electrocardiogram showed atrial fibrillation normal axis with normal ST and T's. The Lexiscan was infused over a period of 20 seconds. A total of 0.4 mg of Lexiscan was infused. The stress phase was continued for a total of 5 minutes. Heart rate was at the end of stress phase was 77 bpm and a blood pressure of 119/66 mmHg. The EKG at the peak infusion revealed atrial fibrillation with no significant ST-T wave changes. Sestamibi was injected 20 seconds after the Lexiscan infusion. Blood pressure at the end of recovery phase was 123/76 mmHg with a heart rate of 98 bpm. Conclusion: 1. Normal EKG response to Lexiscan infusion 2. No Lexiscan induced chest pain or cardiac arrhythmia. 3. Normal blood pressure and heart rate response. 4. Sestamibi/sestamibi perfusion scan pending; see separate report. Electronically Signed On 11-23-2023 21:06:11 CDT by Joce Marshall M.D. [email or web address]
--- NOTE | 2023-11-18 07:00 | NMCV_ITS ---
NM aby perf SPECT r/s* [id number] Zee Vaca Age: 83 Gender: F : 1940 Exam Date: 11/18/2023 07:00 Ordering Phys: Gio Soto MD Technologist: ERIC Rivers Exam Location: [facility] [address] Indications: CP, dyspnea STRESS TEST Please see separate stress test report in [facility] for full findings IMAGE PROTOCOL Rest/Stress 1 Lexiscan Day Radiopharmaceutical Dose (mCi) Administration Site Administered by Rest: Tc-99m 10.8 IV ERIC Rivers Stress:Tc-99m 32.6 IV ERIC Rivers Rest: 18-Nov-2023 60 Discovery 630 Stress: 18-Nov-2023 30 Discovery 630 0.4mg Lexiscan. Supine position only as patient was unable to lay prone. SPECT RESULTS Technical Quality: Good Raw Data Analysis: Normal Image Corrections: No attenuation or motion correction applied Summed Stress Score: 0 Summed Rest Score: 0 Summed Difference Score: 0 PERFUSION FINDINGS SPECT images demonstrate homogeneous tracer distribution throughout the myocardium. FUNCTIONAL RESULTS (calculated via Gated SPECT) Stress Image LV EF (%): 76 Stress EDV (mL):51 TID: 1.25 Stress ESV (mL):12 FUNCTIONAL FINDINGS: There is normal left ventricular systolic function. TID ratio is elevated. IMPRESSIONS 1. Normal myocardial perfusion imaging with no evidence of ischemia. 2. LV systolic function is normal. 3. TID ratio is elevated. However in the absence of any significant perfusion defect, significance of this finding is equivocal. Joce Marshall MD (Electronically Signed) Final Date: 18 November 2023 17:51 S
[2023-11-18] MEDS: regadenoson 0.4 Mg/5 ml Syringe IVP (08:30)
[2023-11-18 08:45] VITALS: BP 141/76; PULSE 62
== END 2023-11-18 06:27 | disposition home or self-care (01) ==
LOC: CDL 06:27
PROVIDERS: PCP Family Medicine; Visit Provider Family Medicine
DX: R06.00 Dyspnea, unspecified (principal); I10 Essential (primary) hypertension
CPT/HCPCS: 36415; 78452; 93017; 96374; A9500; J2785

== ENCOUNTER 2023-12-02 12:55 | Outpatient (CLI) | payer MEDICARE, SELFPAY ==
--- NOTE | 2023-12-02 13:00 | CTR_ITS ---
PROCEDURE INFORMATION: Exam: CT Chest Without Contrast; Diagnostic Exam date and time: 12/02/2023 1:10 PM Age: 83 years old Clinical indication: Dyspnea; Prior surgery; Surgery date: 6+ months; Surgery type: Lumpectomy; Patient HX: HX of breast cancer; Additional info: Severe dyspnea, pa approved- # [id number] exp 12/24/2023 TECHNIQUE: Imaging protocol: Diagnostic computed tomography of the chest without contrast. Total images: 551 Radiation optimization: All CT scans at this facility use at least one of these dose optimization techniques: automated exposure control; mA and/or kV adjustment per patient size (includes targeted exams where dose is matched to clinical indication); or iterative reconstruction. COMPARISON: [place] [id number] 04/22/2022 4:27 PM RADIATION DOSE METRICS: Total DLP (mGy-cm): 402.68 FINDINGS: Lungs: Trace atelectasis or scar noted in the right middle lobe and lung base. Pleural spaces: Unremarkable. No pneumothorax. No pleural effusion. Heart: Unremarkable. No cardiomegaly. No pericardial effusion. Coronary arteries: Moderate coronary arterial calcification, indicating the presence of coronary artery disease. Lymph nodes: Unremarkable. No enlarged lymph nodes. Vasculature: Unremarkable. No aortic aneurysm. Bones/joints: Severe degenerative changes of the right shoulder are noted. Severe degenerative changes of the left shoulder are noted. Multilevel degenerative disc disease is noted with vacuum phenomenon. Osteophytes are noted extending from the vertebrae. No acute spinal pathology is detected. Soft tissues: Unremarkable. Other findings: Moderate atherosclerotic disease burden is evident. CT/CT chest wo con [id number] IMPRESSION: 1. Trace atelectasis or scar noted in the right middle lobe and lung base. 2. Moderate coronary arterial calcification, indicating the presence of coronary artery disease. If the patient has associated symptoms recommend management as per chest pain guidelines. If the patient is asymptomatic consider reviewing modifiable cardiovascular risk factors and managing as per guidelines for primary prevention.
== END 2023-12-02 12:56 | disposition home or self-care (01) ==
LOC: RAD 12:55
PROVIDERS: PCP Family Medicine; Visit Provider Family Medicine
DX: R06.00 Dyspnea, unspecified (principal); R05.9 Cough, unspecified; I25.10 Atherosclerotic heart disease of native coronary artery without angina pectoris
CPT/HCPCS: 71250

== ENCOUNTER 2023-12-03 12:41 | Outpatient (CLI) | payer MEDICARE, SELFPAY ==
--- NOTE | 2023-12-03 12:47 | MM_ITS ---
WS: [id number] BILATERAL 3D TOMOSYNTHESIS DIGITAL DIAGNOSTIC MAMMOGRAPHY WITH CAD CLINICAL INFORMATION: hx of breast cancer HISTORY: LEFT lumpectomy for breast cancer COMPARISON: 11/13/2022 TECHNIQUE: Bilateral CC, MLO, and ML views. FINDINGS: Scattered fibroglandular densities bilaterally. Stable dystrophic calcifications LEFT breast. Few inc idental punctate calcifications. Stable postoperative changes LEFT breast with parenchymal scarring a nd slight parenchymal volume loss. This is similar to previous. No suspicious focal mass, asymmetry, calcifications, or architectural distortion. No evidence of yazan gnancy. MM/[place] [id number] IMPRESSION: BI-RADS: 2-Benign FOLLOW UP: 1 Year Follow-up Recommend return to annual diagnostic mammography.
== END 2023-12-03 12:42 | disposition home or self-care (01) ==
PROVIDERS: PCP Family Medicine; Visit Provider Family Medicine
DX: Z85.3 Personal history of malignant neoplasm of breast (principal); R92.323 Mammographic fibroglandular density, bilateral breasts; R92.1 Mammographic calcification found on diagnostic imaging of breast; Z98.890 Other specified postprocedural states
CPT/HCPCS: 77062; G0279

== ENCOUNTER 2023-12-30 12:39 | Outpatient (CLI) | payer MEDICARE, SELFPAY ==
[2023-12-30 13:02] VITALS: PULSE 68; RESP 16; O2SAT 95
[2023-12-30] MEDS: albuterol 2.5 mg/3 mL Neb INHALATION (13:02)
[2023-12-30 13:06] VITALS: PULSE 69
== END 2023-12-30 12:40 | disposition home or self-care (01) ==
PROVIDERS: PCP Family Medicine; Visit Provider Family Medicine
DX: R06.00 Dyspnea, unspecified (principal); R05.9 Cough, unspecified
CPT/HCPCS: 94060; 94729; J7613

== ENCOUNTER 2024-01-05 09:01 | Outpatient (CLI) | payer MEDICARE, SELFPAY ==
--- NOTE | 2024-01-05 09:15 | CTR_ITS ---
PROCEDURE INFORMATION: Exam: CT Abdomen And Pelvis Without Contrast Exam date and time: 01/05/2024 10:04 AM Age: 83 years old Clinical indication: Abdominal pain; Localized; Left lower quadrant (llq); Prior surgery; Surgery date: 6+ months; Surgery type: Hyst, RT hip; Patient HX: Llq pain x 1 month ago. PT states pain started after stress test. Difficulty having a bowel movement without laxatives. HX of diverticulitis , history of breast cancer; Additional info: Abd pain. HX of diverticulitis TECHNIQUE: Imaging protocol: Computed tomography of the abdomen and pelvis without contrast. Radiation optimization: All CT scans at this facility use at least one of these dose optimization techniques: automated exposure control; mA and/or kV adjustment per patient size (includes targeted exams where dose is matched to clinical indication); or iterative reconstruction. COMPARISON: CT abdomen pelvis wo con [id number] 12/12/2022 3:37 PM RADIATION DOSE METRICS: Total DLP (mGy-cm): 592.1 FINDINGS: Lungs: Mild interstitial edema and small right-sided pleural effusion. Diaphragm: No evidence of diaphragmatic defect. Liver: Lobulated and mildly nodular liver contour compatible with hepatic cirrhosis. There is small free fluid/ascites. Gallbladder and biliary ducts: Mild gallbladder wall thickening, nonspecific in the setting of hepatic cirrhosis. Gallbladder is otherwise grossly unremarkable. No evidence of intra-hepatic or extra-hepatic biliary dilatation. Pancreas: Mildly atrophic. Otherwise grossly unremarkable. Spleen: Grossly unremarkable. Adrenal glands: Grossly unremarkable. Kidneys and ureters: No gross renal parenchymal abnormality. No evidence of hydronephrosis or ureteral stone. Stomach and bowel: Extensive colonic diverticulosis without evidence of acute diverticulitis. No bowel obstruction or perienteric inflammatory changes. There is wall thickening of the sigmoid colon, possibly secondary to a recent/subacute bout of diverticulitis. Consider correlation with follow-up colonoscopy to exclude an underlying mucosal lesion. Appendix: Normal appendix. Intraperitoneal space: No evidence of free air or fluid collection. Vasculature: Extensive atherosclerosis without evidence of aneurysmal dilitation of abdominal aorta. Lymph nodes: No evidence of adenopathy. Urinary bladder: Grossly unremarkable. Reproductive: Prior hysterectomy. Bones/joints: No evidence of acute fracture or aggresive osseous lesion. Severe multilevel spondylosis of the lumbar spine with facet arthrosis, osteophytosis and endplate degeneration. Mild levoscoliosis centered at L3. Severe right-sided foraminal stenosis at L4-L5. Consider correlation with follow-up outpatient MRI to evaluate for neural impingement. Total right hip arthroplasty without evidence of acute complication within the field of view. Severe osteoarthritis of the left hip. Soft tissues: Mild diffuse superficial soft tissue edema. No evidence of fluid collection or hematoma in the superficial soft tissues. CT/CT abdomen pelvis wo con [id number] IMPRESSION: 1. Extensive colonic diverticulosis without evidence of acute diverticulitis. There is wall thickening of the sigmoid colon, possibly secondary to a recent/subacute bout of diverticulitis. 2. Hepatic cirrhosis with small free fluid/ascites.
[2024-01-05] MEDS: barium sulfate 450 mL Oral Susp PO (10:31)
== END 2024-01-05 09:02 | disposition home or self-care (01) ==
LOC: RAD 09:01
PROVIDERS: PCP Family Medicine; Visit Provider Family Medicine
DX: K57.90 Diverticulosis of intestine, part unspecified, without perforation or abscess without bleeding (principal); J90 Pleural effusion, not elsewhere classified; Z90.710 Acquired absence of both cervix and uterus; M47.896 Other spondylosis, lumbar region; M99.63 Osseous and subluxation stenosis of intervertebral foramina of lumbar region; Z96.641 Presence of right artificial hip joint; M16.12 Unilateral primary osteoarthritis, left hip; K74.60 Unspecified cirrhosis of liver
CPT/HCPCS: 74176

== ENCOUNTER → 2024-01-06 13:59 | Outpatient (BNVA) | payer MEDICARE, SELFPAY | PROVIDERS: PCP Family Medicine; Visit Provider Family Medicine | DX: K74.60 Unspecified cirrhosis of liver (principal); I48.0 Paroxysmal atrial fibrillation | CPT/HCPCS: 82728; 86705; 86706; 86709; 86803; 87340 ==

== ENCOUNTER 2024-01-28 12:17 | Outpatient (CLI) | payer MEDICARE, SELFPAY | END 2024-01-28 12:18 | disposition home or self-care (01) | LOC: SLEEP 12:20 | PROVIDERS: PCP Family Medicine; Visit Provider Family Medicine | DX: G47.33 Obstructive sleep apnea (adult) (pediatric) (principal); G47.36 Sleep related hypoventilation in conditions classified elsewhere | CPT/HCPCS: G0399 ==

== ENCOUNTER → 2024-02-09 14:46 | Outpatient (BNVA) | payer MEDICARE, SELFPAY | PROVIDERS: PCP Family Medicine; Visit Provider Internal Medicine Cardiovascular Disease | DX: I21.09 ST elevation (STEMI) myocardial infarction involving other coronary artery of anterior wall (principal); R94.31 Abnormal electrocardiogram [ECG] [EKG]; I48.91 Unspecified atrial fibrillation; R07.9 Chest pain, unspecified | CPT/HCPCS: 93005 ==

== ENCOUNTER 2024-02-09 16:54 | Inpatient (IN) | payer MEDICARE, SELFPAY ==
[2024-02-09 18:07] VITALS: BMI 33.8
[2024-02-09] MEDS: enoxaparin 80 mg/0.8 mL Syringe SUBCUT (18:21)
[2024-02-09] MEDS: FUROsemide 10 mg/mL SDV 10mL 60 MG IVP (18:21)
[2024-02-09] MEDS: carvedilol 6.25 mg Tablet PO (18:21)
[2024-02-09] MEDS: potassium chloride ER 20 mEq Tablet PO (18:21)
[2024-02-09 18:32] LABS: Basophils # 0.1 10^3/uL (0.0-0.1); Basophils % 0.6 %; Eosinophils # 0.2 10^3/uL (0.0-0.8); Eosinophils % 1.7 %; Hematocrit 48.4 % (36-47); Lymphocytes # 1.1 10^3/uL (0.8-4.8); Lymphocytes % 10.7 %; Mean Corpuscular HGB Conc 33.9 g/dL (30-55); Mean Corpuscular Hemoglobin 29.3 pg (27-33); Mean Corpuscular Volume 86.6 fl (85-98); Monocytes # 0.8 10^3/uL (0.2-0.9); Monocytes % 7.7 %; Neutrophils # 7.83 10^3/uL (1.8-7.7); Neutrophils % 78.8 %; Nucleated Red Blood Cells % 0 %; Platelet Count 304 10^3/cmm (157-399); Red Blood Count 5.59 10^6/uL (3.85-5.65); Red Cell Distribution Width 16.6 % (12.1-15.1); White Blood Count 9.93 10^3/uL (3.29-11.43)
[2024-02-09 19:00] VITALS: BP 134/68; PULSE 72; RESP 17; TEMP 36.3; O2SAT 94
[2024-02-09 19:31] VITALS: BP 145/88; PULSE 81; RESP 19; O2SAT 92
--- NOTE | 2024-02-09 20:12 | P.HP_ITS ---
Providers/Chief Complaint 2 Admitting Physician: Petra Villafana MD Primary Care Provider: Gio Soto MD Chief Complaint: IV Hydration History of Present Illness Zee Vaca is a 83 year old female past medical history significant for atrial fibrillation hypertension hyperlipidemia she came to my clinic today with worsening of shortness of breath PND orthopnea, she was not able to sleep in the night. She also remains fatigue, recent echocardiogram was suggestive of normal ejection fraction elevated left ventricular end-diastolic pressure moderate mitral and tricuspid valve regurgitation with elevated pulmonary pressures. She denies any chest pain but admits to chest pressure. She has been taking diuretics and Aldactone along with beta-andrew, it has not improved her and now she is to the extent that she cannot do anything productive it is hindering her lifestyle. She can barely walk few steps not even to the restroom. Twelve-lead EKG showed atrial fibrillation otherwise no significant ST's ST changes suggestive of ischemia. Medications/Allergies Home Medications Medication Instructions Recorded Confirmed Last Taken Type omega-3 fatty acids 1,000 mg 1,000 mg PO DAILY 09/23/19 02/09/24 Unknown History capsule (Fish Oil Concentrate) cholecalciferol (vitamin D3) 25 25 mcg PO DAILY 08/31/22 02/09/24 Unknown History mcg (1,000 unit) capsule (Vitamin D3) levothyroxine 100 mcg tablet 100 mcg PO DAILY #90 tabs 02/24/23 02/09/24 Unknown Rx (Synthroid) cyclobenzaprine 5 mg tablet See Rx Instructions .Route 04/04/23 02/09/24 Unknown Rx .COMPLEX #30 tabs ipratropium 20 mcg-albuterol 100 1 puff inhalation Q6H PRN 08/26/23 02/09/24 Unknown Rx mcg/actuation mist for inhalation Shortness Of Breath #4 grams (Combivent Respimat) amlodipine 10 mg tablet See Rx Instructions .Route 09/09/23 02/09/24 Unknown Rx .COMPLEX #90 tabs apixaban 5 mg tablet (Eliquis) See Rx Instructions .Route 10/13/23 02/09/24 Unknown Rx .COMPLEX #180 tabs carvedilol 6.25 mg tablet See Rx Instructions .Route 11/20/23 02/09/24 Unknown Rx .COMPLEX #180 tabs spironolactone 25 mg tablet See Rx Instructions .Route 12/17/23 02/09/24 Unknown Rx .COMPLEX #90 tabs triamterene 37.5 See Rx Instructions .Route 01/22/24 02/09/24 Unknown Rx mg-hydrochlorothiazide 25 mg .COMPLEX #90 caps capsule alprazolam 0.25 mg tablet (Xanax) 0.25 mg PO TID PRN anxiety #60 tabs 02/03/24 02/09/24 Unknown Rx zolpidem 5 mg tablet (Ambien) 5 mg PO .QHS #30 tabs 02/03/24 02/03/24 Unknown Rx furosemide 40 mg tablet 20 mg PO DAILY 02/09/24 Unknown History magnesium 200 mg tablet 400 mg PO DAILY 02/09/24 02/09/24 Unknown History mecobalamin (vitamin B12) 1,000 1,000 mcg PO DAILY 02/09/24 02/09/24 Unknown History mcg lozenges multivitamin 1 tab PO DAILY 02/09/24 02/09/24 Unknown History temazepam 15 mg capsule mg PO .hs PRN 02/09/24 02/09/24 Unknown History Allergies Allergy/AdvReac Type Severity Reaction Status Date / Time Iodinated Contrast Media Allergy Mild possibly Verified 02/09/24 15:10 had chest pain with it but not sure acetaminophen [From Vicodin] Allergy Unknown Verified 02/09/24 15:10 hydrocodone [From Vicodin] Allergy Unknown Verified 02/09/24 15:10 levofloxacin [From Levaquin] Allergy Unknown Verified 02/09/24 15:10 oxycodone [From Percocet] Allergy Unknown Verified 02/09/24 15:10 simvastatin Allergy Unknown Verified 02/09/24 15:10 sulfamethoxazole Allergy Unknown Verified 02/09/24 15:10 [From Bactrim] trimethoprim [From Bactrim] Allergy Unknown Verified 02/09/24 15:10 PFSH Acute 2 PFSH: Medical History (Updated 02/09/24 @ 20:20 by Petra Villafana MD) Tricuspid valve regurgitation Atrial fibrillation, chronic Insomnia temazepam not effective, ambien caused side effects, trazodone caused dizziness, Risperdal kept her awake Diverticulitis Fibromyalgia Hypertension Hyperlipidemia Hypothyroid Hypoglycemia History of left breast cancer 2010 Hiatal hernia Surgical History History of right hip replacement History of tonsillectomy Family History Father Lung cancer Mother Stroke Social History (Updated 02/09/24 @ 15:17 by Edna Barrow LPN) Smoking and tobacco/nicotine status: former use of tobacco/nicotine Alcohol intake: never Substance/Drug Use: never Marital status: Vitals/I&O/Wt Last Vital Signs Pulse 81 02/09/24 19:31 Resp 19 H 02/09/24 19:31 BP 145/88 02/09/24 19:31 Pulse Ox 92 02/09/24 19:31 O2 Del Method Nasal Cannula 02/09/24 19:31 Weight last 48 hrs Weight 191 lb 1 oz Physical Exam 2 Const: OTHER: GENERAL: Patient is alert, awake and oriented x3. HEART: Irregularly irregular S1 and S2. 2/6 systolic murmur radiating to left axilla no rub gallop LUNGS: Decreased breath sounds with basal and expiratory. CENTRAL NERVOUS SYSTEM: Grossly nonfocal. EXTREMITIES: Lower extremities with trace edema Data 02/09/24 18:20 02/09/24 19:01 A&P Assessment and plan (1) CHF (NYHA class IV, ACC/AHA stage D): It appeared to me that patient has not diastolic decompensated heart failure, at this point I will stop home medication and start patient with diuresis using IV Lasix 60 mg twice daily, potassium will be replenished. Once euvolemic will optimize medication by introducing Entresto beta-andrew and oral diuretics. (2) Atrial fibrillation, chronic: From tomorrow morning I will start patient on IV amiodarone with intention to proceed with JAMES guided cardioversion if does not convert on its own, will switch patient to Lovenox (3) Hypertension: Well-controlled continue meds Qualifiers: Hypertension type: primary hypertension Qualified Code(s): I10 - Essential (primary) hypertension (4) Mitral regurgitation: Moderate mitral regurgitation by 2D echo, it is possible patient may have more than moderate and severe mitral regurgitation once we will reduce left ventricular end-diastolic pressure and patient becomes euvolemic we will proceed with transesophageal echocardiogram which will also give me insight of how bad the mitral valve is leaking and is she a candidate for mitral valve repair versus replacement versus mitral valve clipping depending upon patient frailty level and risk factor for surgery. Qualifiers: Cardiac valve disease etiology: nonrheumatic Qualified Code(s): I34.0 - Nonrheumatic mitral (valve) insufficiency (5) Tricuspid valve regurgitation: Secondary to mitral valve, hopefully by reducing mitral valve regurg it will get better Qualifiers: Cardiac valve disease etiology: nonrheumatic Qualified Code(s): I36.1 - Nonrheumatic tricuspid (valve) insufficiency Attestations 2 Medical Necessity Statement*: I am expecting her stay to cross more than 2 midnights. Patient is admitted for decompensated diastolic heart failure and atrial fibrillation and moderate to severe mitral regurgitation Coding Level of Care Code Acute [facility] Diagnoses CHF (NYHA class IV, ACC/AHA stage D) I50.84 Atrial fibrillation, chronic I48.20 Primary hypertension I10 Hypertension type: primary hypertension Nonrheumatic mitral valve regurgitation I34.0 Cardiac valve disease etiology: nonrheumatic Nonrheumatic tricuspid valve regurgitation I36.1 Cardiac valve disease etiology: nonrheumatic
[2024-02-09 20:32] LABS: Alanine Aminotransferase 19 U/L (0-33); Albumin Level 4.1 g/dL (3.5-5.2); Alkaline Phosphatase 118 U/L (35-105); Anion Gap 15.6 (5-19); Aspartate Amino Transferase 22 U/L (0-32); Blood Urea Nitrogen 21 mg/dL (8-23); Calcium 9.3 mg/dL (8.5-10.5); Carbon Dioxide 27 mmol/L (22-29); Chloride 94 mmol/L (98-107); Globulin 2.9 g/dL (1.3-4.6); Glucose 152 mg/dL (65-115); NT Pro B Type Natriuretic Pept 1956 pg/mL (0-450); Osmolality Calculated 282 mOsm/kg (285-295); Potassium 3.6 mmol/L (3.5-5.1); Sodium 133 mmol/L (136-145); Total Bilirubin 1.1 mg/dL (0.15-1.2)
[2024-02-09] MEDS: zolpidem 5 mg Tablet PO (21:01)
[2024-02-09 21:38] VITALS: PULSE 69; RESP 17; O2SAT 96
[2024-02-09] MEDS: ipratropium-albuterol 3 mL Neb INHALATION (21:38)
[2024-02-09 21:45] VITALS: PULSE 73
[2024-02-09 22:00] VITALS: PULSE 65
[2024-02-10] VITALS (59 sets, daily range): BP systolic 103–128; BP diastolic 67–92; PULSE 52–79; RESP 12–34; TEMP 36.6–37.1; O2SAT 86–96; BMI 31.5
[2024-02-10 04:05] LABS: Basophils # 0.1 10^3/uL (0.0-0.1); Basophils % 0.8 %; Eosinophils # 0.1 10^3/uL (0.0-0.8); Eosinophils % 1.5 %; Hematocrit 41.7 % (36-47); Lymphocytes # 0.9 10^3/uL (0.8-4.8); Lymphocytes % 11.7 %; Mean Corpuscular HGB Conc 33.6 g/dL (30-55); Mean Corpuscular Hemoglobin 29.1 pg (27-33); Mean Corpuscular Volume 86.7 fl (85-98); Mean Platelet Volume 9.1 fL (7.4-10.4); Monocytes # 0.8 10^3/uL (0.2-0.9); Monocytes % 10.5 %; Neutrophils # 5.96 10^3/uL (1.8-7.7); Neutrophils % 75.1 %; Nucleated Red Blood Cells % 0 %; Platelet Count 226 10^3/cmm (157-399); Red Blood Count 4.81 10^6/uL (3.85-5.65); Red Cell Distribution Width 16.5 % (12.1-15.1); White Blood Count 7.93 10^3/uL (3.29-11.43)
[2024-02-10 04:30] LABS: Anion Gap 14.6 (5-19); Blood Urea Nitrogen 21 mg/dL (8-23); Carbon Dioxide 27 mmol/L (22-29); Chloride 95 mmol/L (98-107); Creatinine Clr Calc Pharmacy 48.5456; Glucose 117 mg/dL (65-115); Osmolality Calculated 280 mOsm/kg (285-295); Potassium 3.6 mmol/L (3.5-5.1); Sodium 133 mmol/L (136-145)
[2024-02-10] MEDS: FUROsemide 10 mg/mL SDV 10mL 60 MG IVP ×2 (05:09→17:53)
[2024-02-10] MEDS: enoxaparin 80 mg/0.8 mL Syringe SUBCUT ×2 (05:09→17:52)
[2024-02-10] MEDS: ipratropium-albuterol 3 mL Neb INHALATION (07:31)
--- NOTE | 2024-02-10 08:08 | PC.PHAR ---
Pt states stopped Temazepam 15mg and started taking Zolpidem 5mg at bedtime.
[2024-02-10] MEDS: magnesium oxide 400 mg tablet PO (08:51)
[2024-02-10] MEDS: levothyroxine 100 mcg Tablet PO (08:51)
[2024-02-10] MEDS: amlodipine 10 mg Tablet PO (08:51)
[2024-02-10] MEDS: multivitamin therapeutic Tablet 1 TAB PO (08:51)
[2024-02-10] MEDS: cholecalciferol (vitamin D3) 1,000 unit Tablet 1000 UNIT PO (08:51)
[2024-02-10] MEDS: potassium chloride ER 20 mEq Tablet PO (08:51)
[2024-02-10] MEDS: carvedilol 6.25 mg Tablet PO ×2 (08:51→17:53)
--- NOTE | 2024-02-10 09:24 | PC.CHAP ---
Pastoral Care Encounter/Spiritual Assessment Type of Contact [] Declined sod farmer visit [] Patient/Family/Request visit [] Outpatient visit [] Follow-up visit [] Physician referral [] Code/Alert [x] Routine visit [] Staff referral [] Actively dying [] Patient sleeping [] Family support [] [] Out of room [] Palliative care [] [] Receiving care in room [] Pre-surgical visit [] Trauma [] Long length of stay [] ICU visit [] Other: Relational/Emotional Strength [x] Patient feels connected with others/family/visitors/staff [] Distress [] Loneliness/isolation [] Abandonment Spirituality of Patient [] Person of Jaclyn [] Attends Latter Day of their Jaclyn [] Believes in Prayer [] Reads Bible or Sabianist materials [x] There are Spiritual issues to be addressed Pharmacy Scheduler Interventions [] Prayer [x] Active listening [x] Non-anxious presence [x] Spiritual/emotional support [] Crisis/trauma care [] Spiritual counseling [] Bereavement support [] Provided bereavement packet [] Provided Bible/devotional materials [] Provided toy/stuffed animal, coloring book to patient or family member [] Provided Communion [] Anointing/[place] [] Salvation [x] Completed spiritual assessment [x] Other: Declined prayer. Impact on Illness or Injury [] Angry [] Fearful [] Anxious [] Often cries [] Exhaustion [] Unable to work [] Unable to attend confucianism [] Unable to walk/stand [] Unable to read [] Unable to drive [] Unable to eat/drink [] Unable to sleep [] Unable to be with family [] Patient intubated [] Other: Summary Time spent with patient 5 min
[2024-02-10] MEDS: amiodarone 150 MG/100 ML PREMIX 400 MG IV (10:56)
--- NOTE | 2024-02-10 12:41 | P.PN_ITS ---
Subjective 2 Subjective: Patient states she struggled to sleep last night. Reports shortness of breath is slightly improved. Patient had 500 out over 12 hours. Creatinine is stable at 0.9. O2 saturation 96% on 1.5 L/min. Blood pressure stable at 128/85. Medications: Reviewed: Yes Vitals/I&O/Wt Last Vital Signs Temp 98.3 F 02/10/24 11:45 Pulse 68 02/10/24 11:45 Resp 20 H 02/10/24 11:45 BP 103/69 02/10/24 11:45 Pulse Ox 90 02/10/24 11:45 O2 Del Method Room Air 02/10/24 11:45 O2 Flow Rate 1.5 02/10/24 07:32 02/09/24 02/10/24 02/10/24 22:59 06:59 14:59 Intake Total 400 / 400 460 / 460 Output Total 300 / 300 200 / 500 300 / 300 Balance -300 / -300 200 / -100 160 / 160 Weight last 48 hrs Weight 178 lb 6 oz Weight 178 lb 1.6 oz Weight 178 lb 1.6 oz Weight 178 lb 9.6 oz Weight 178 lb 6.4 oz Weight 191 lb 1 oz Physical Exam 2 Narrative: General: No apparent distress, healthy appearing, well nourished HENMT: normoceophalic Eye: PERRL Neck: No carotid bruit bilaterally Muskuloskeletal: Full ROM Lymphatic: no lymphedema noted Respiratory: Normal respiratory effort, fine crackles bilateral lower lobes, no use of accessory muscles Cardio: No JVD, regular rate, regular rhythm, S1 S2 normal, no murmurs, peripheral pulses 2+ throughout GI: Normal to inspection, nondistended Extremities: Full ROM, normal, normal capillary refill, trace edema bilaterally Neuro: Alert and oriented x4, no focal motor deficits Psych: Affect normal, denies suicidal ideation, mental status grossly normal Skin: No rashes or lesions noted, no wounds Data 02/10/24 03:07 02/10/24 03:07 A&P Assessment and plan (1) CHF (NYHA class IV, ACC/AHA stage D): It appeared to me that patient has not diastolic decompensated heart failure, at this point continue IV Lasix 60 mg twice daily, potassium will be replenished. This is stable at 3.6. Patient's only had about 500 out over the last 12 hours. Will add metolazone for increase in diuretic therapy at 2.5 mg twice daily. Once euvolemic will optimize medication by introducing Entresto beta-andrwe and oral diuretics. Symptoms have slightly improved. (2) Atrial fibrillation, chronic: Will start IV amiodarone today with intention to proceed with JAMES guided cardioversion if does not convert on its own, continue to hold Eliquis, continue lovenox. (3) Hypertension: Well-controlled continue meds Qualifiers: Hypertension type: primary hypertension Qualified Code(s): I10 - Essential (primary) hypertension (4) Mitral regurgitation: Moderate mitral regurgitation by 2D echo, it is possible patient may have more than moderate and severe mitral regurgitation once we will reduce left ventricular end-diastolic pressure and patient becomes euvolemic we will proceed with transesophageal echocardiogram which will also give me insight of how bad the mitral valve is leaking and is she a candidate for mitral valve repair versus replacement versus mitral valve clipping depending upon patient frailty level and risk factor for surgery. On today's visit dated 02/10/2024 patient is somewhat feeling better, continues to diurese Qualifiers: Cardiac valve disease etiology: nonrheumatic Qualified Code(s): I34.0 - Nonrheumatic mitral (valve) insufficiency (5) Tricuspid valve regurgitation: Secondary to mitral valve, hopefully by reducing mitral valve regurg it will get better Qualifiers: Cardiac valve disease etiology: nonrheumatic Qualified Code(s): I36.1 - Nonrheumatic tricuspid (valve) insufficiency Plan Plan is to increase diuresis add metolazone 2.5 mg twice daily, will initiate trazodone for patient's insomnia. Will initiate IV amiodarone today for A-fib in hopes of conversion. Attestations 2 Medical Necessity Statement*: Patient require continuation of hospitalization for above defined care Coding Level of Care Code Acute Code for [facility] Fwd Diagnoses CHF (NYHA class IV, ACC/AHA stage D) I50.84 Atrial fibrillation, chronic I48.20 Primary hypertension I10 Hypertension type: primary hypertension Nonrheumatic mitral valve regurgitation I34.0 Cardiac valve disease etiology: nonrheumatic Nonrheumatic tricuspid valve regurgitation I36.1 Cardiac valve disease etiology: nonrheumatic
[2024-02-10] MEDS: potassium chloride ER 10 mEq Tablet 30 MEQ PO (17:53)
[2024-02-10] MEDS: metOLazone 5 MG Tablet 2.5 MG PO (17:54)
--- NOTE | 2024-02-10 20:58 | PC.NURSE ---
Patient refusing 2100 dose of Trazadone. She stated she has taken it in the past and it caused her to have visual hallucinations.
[2024-02-10] MEDS: ALPRAZolam 0.5 mg Tablet 0.25 MG PO (21:13)
[2024-02-10] MEDS: zolpidem 5 mg Tablet PO (21:13)
[2024-02-11] VITALS (10 sets, daily range): BP systolic 103–131; BP diastolic 63–83; PULSE 54–88; RESP 16–25; TEMP 36.4–37.1; O2SAT 90–98
[2024-02-11] MEDS: enoxaparin 80 mg/0.8 mL Syringe SUBCUT ×2 (05:34→17:32)
[2024-02-11] MEDS: FUROsemide 10 mg/mL SDV 10mL 60 MG IVP ×3 (05:34→20:38)
[2024-02-11] MEDS: potassium chloride ER 10 mEq Tablet 30 MEQ PO (08:45)
[2024-02-11] MEDS: cholecalciferol (vitamin D3) 1,000 unit Tablet 1000 UNIT PO (08:46)
[2024-02-11] MEDS: metOLazone 5 MG Tablet 2.5 MG PO ×2 (08:46→17:31)
[2024-02-11] MEDS: carvedilol 6.25 mg Tablet PO ×2 (08:46→17:31)
[2024-02-11] MEDS: multivitamin therapeutic Tablet 1 TAB PO (08:46)
[2024-02-11] MEDS: magnesium oxide 400 mg tablet PO (08:47)
[2024-02-11] MEDS: amlodipine 10 mg Tablet PO (08:47)
[2024-02-11] MEDS: levothyroxine 100 mcg Tablet PO (08:47)
[2024-02-11 09:41] LABS: Basophils # 0.1 10^3/uL (0.0-0.1); Basophils % 1.1 %; Eosinophils # 0.1 10^3/uL (0.0-0.8); Eosinophils % 1.4 %; Lymphocytes # 0.9 10^3/uL (0.8-4.8); Lymphocytes % 14.4 %; Mean Corpuscular HGB Conc 33.8 g/dL (30-55); Mean Corpuscular Hemoglobin 29.9 pg (27-33); Mean Corpuscular Volume 88.5 fl (85-98); Mean Platelet Volume 9.2 fL (7.4-10.4); Monocytes # 0.6 10^3/uL (0.2-0.9); Monocytes % 10.1 %; Neutrophils # 4.57 10^3/uL (1.8-7.7); Neutrophils % 72.5 %; Nucleated Red Blood Cells % 0 %; Platelet Count 249 10^3/cmm (157-399); Red Blood Count 5.31 10^6/uL (3.85-5.65); Red Cell Distribution Width 17.2 % (12.1-15.1); White Blood Count 6.31 10^3/uL (3.29-11.43)
[2024-02-11 09:56] LABS: Anion Gap 17.9 (5-19); Blood Urea Nitrogen 23 mg/dL (8-23); Calcium 9.4 mg/dL (8.5-10.5); Carbon Dioxide 26 mmol/L (22-29); Chloride 90 mmol/L (98-107); Creatinine Clr Calc Pharmacy 43.8028; Glucose 176 mg/dL (65-115); Osmolality Calculated 280 mOsm/kg (285-295); Sodium 131 mmol/L (136-145)
[2024-02-11 10:00] LABS: Potassium 2.9 mmol/L (3.5-5.1)
--- NOTE | 2024-02-11 11:29 | P.PN_ITS ---
Subjective 2 Subjective: Patient doing well this morning. She states she did sleep really well last night although she stated this morning she was a bit groggy. She states she did like getting sleep and would like to continue the trazodone. Lung sounds are improving but patient still needs some diuresis. Potassium was low at 2.9. Oxygen saturation 90% on nasal cannula. Vital signs are stable. Heart rate stable but patient is still in atrial fibrillation. Medications: Reviewed: Yes Vitals/I&O/Wt Last Vital Signs Temp 97.8 F 02/11/24 07:03 Pulse 67 02/11/24 08:04 Resp 16 02/11/24 08:04 BP 131/83 02/11/24 07:03 Pulse Ox 98 02/11/24 08:04 O2 Del Method Nasal Cannula 02/11/24 08:04 O2 Flow Rate 1 02/11/24 08:04 02/10/24 02/11/24 02/11/24 22:59 06:59 14:59 Intake Total 440 / 900 600 / 1500 360 / 360 Output Total 400 / 700 600 / 1300 550 / 550 Balance 40 / 200 0 / 200 -190 / -190 Weight last 48 hrs Weight 179 lb 4.8 oz Weight 178 lb 6 oz Weight 178 lb 1.6 oz Weight 178 lb 1.6 oz Weight 178 lb 9.6 oz Weight 178 lb 6.4 oz Weight 191 lb 1 oz Physical Exam 2 Narrative: General: No apparent distress, healthy appearing, well nourished HENMT: normoceophalic Eye: PERRL Neck: No carotid bruit bilaterally Muskuloskeletal: Full ROM Lymphatic: no lymphedema noted Respiratory: Normal respiratory effort, fine crackles bilateral lower lobes, no use of accessory muscles Cardio: No JVD, regular rate, regular rhythm, S1 S2 normal, no murmurs, peripheral pulses 2+ throughout GI: Normal to inspection, nondistended Extremities: Full ROM, normal, normal capillary refill, trace edema bilaterally Neuro: Alert and oriented x4, no focal motor deficits Psych: Affect normal, denies suicidal ideation, mental status grossly normal Skin: No rashes or lesions noted, no wounds Data 02/11/24 09:23 02/11/24 09:23 A&P Assessment and plan (1) CHF (NYHA class IV, ACC/AHA stage D): It appeared to me that patient is on diastolic decompensated heart failure, at this point only -450 of fluids. Increase lasix to 60 mg TID, potassium will be replenished with 40 meq TID. This is stable low at 2.9. Will check mag as well. Output slightly improved at -550 over 12 hours. Will continue metalazone for increase in diuretic therapy at 2.5 mg twice daily. Once euvolemic will optimize medication by introducing Entresto beta-andrew and oral diuretics. Symptoms have slightly improved. (2) Atrial fibrillation, chronic: Amio bolus with drip was unsuccessful at cardioverting the patient . Will plan to proceed with JAMES guided cardioversion, continue to hold Eliquis, continue lovenox. (3) Hypertension: Well-controlled continue meds Qualifiers: Hypertension type: primary hypertension Qualified Code(s): I10 - Essential (primary) hypertension (4) Mitral regurgitation: Moderate mitral regurgitation by 2D echo, it is possible patient may have more than moderate and severe mitral regurgitation once we will reduce left ventricular end-diastolic pressure and patient becomes euvolemic we will proceed with transesophageal echocardiogram which will also give me insight of how bad the mitral valve is leaking and is she a candidate for mitral valve repair versus replacement versus mitral valve clipping depending upon patient frailty level and risk factor for surgery. On today's visit dated 02/11/2024 patient is somewhat feeling better, continues to diurese Qualifiers: Cardiac valve disease etiology: nonrheumatic Qualified Code(s): I34.0 - Nonrheumatic mitral (valve) insufficiency (5) Tricuspid valve regurgitation: Secondary to mitral valve, hopefully by reducing mitral valve regurg it will get better Qualifiers: Cardiac valve disease etiology: nonrheumatic Qualified Code(s): I36.1 - Nonrheumatic tricuspid (valve) insufficiency Plan Plan is to increase diuresis, check mag and increase potassium level, patient would like to continue trazodone for patient's insomnia. Attestations 2 Medical Necessity Statement*: Patient require continuation of hospitalization for above defined care Coding Level of Care Code Acute Code for [facility] Fwd Diagnoses CHF (NYHA class IV, ACC/AHA stage D) I50.84 Atrial fibrillation, chronic I48.20 Primary hypertension I10 Hypertension type: primary hypertension Nonrheumatic mitral valve regurgitation I34.0 Cardiac valve disease etiology: nonrheumatic Nonrheumatic tricuspid valve regurgitation I36.1 Cardiac valve disease etiology: nonrheumatic
[2024-02-11] MEDS: ALPRAZolam 0.5 mg Tablet 0.25 MG PO ×2 (11:34→20:38)
--- NOTE | 2024-02-11 12:27 | PC.NURSE ---
hlaf dose of xanax wasted at [facility] with Samara Galvan RN. Remainder of pill put in pill destroyer.
[2024-02-11 12:40] LABS: Magnesium 2.2 mg/dL (1.7-2.3)
[2024-02-11] MEDS: potassium chloride ER 20 mEq Tablet 40 MEQ PO ×2 (17:29→20:38)
[2024-02-11] MEDS: amiodarone 200 mg Tablet 400 MG PO (17:30)
[2024-02-11] MEDS: zolpidem 5 mg Tablet PO (20:38)
[2024-02-12] VITALS (13 sets, daily range): BP systolic 106–177; BP diastolic 65–119; PULSE 47–78; RESP 18–28; TEMP 36.2–36.8; O2SAT 90–98
[2024-02-12 04:33] LABS: Anion Gap 14.9 (5-19); Blood Urea Nitrogen 25 mg/dL (8-23); Calcium 9.1 mg/dL (8.5-10.5); Carbon Dioxide 30 mmol/L (22-29); Chloride 93 mmol/L (98-107); Creatinine Clr Calc Pharmacy 43.8028; Glucose 88 mg/dL (65-115); Magnesium 2.1 mg/dL (1.7-2.3); Osmolality Calculated 284 mOsm/kg (285-295); Sodium 135 mmol/L (136-145)
[2024-02-12 04:53] LABS: Potassium 2.9 mmol/L (3.5-5.1)
[2024-02-12] MEDS: enoxaparin 80 mg/0.8 mL Syringe SUBCUT ×2 (05:48→15:39)
[2024-02-12] MEDS: lidocaine 1% 10 ML INJ 5 ML IV (09:18)
[2024-02-12] MEDS: potassium chloride premix 100 ML 25 MEQ IV (09:22)
[2024-02-12] MEDS: amiodarone 200 mg Tablet 400 MG PO (09:22)
[2024-02-12] MEDS: potassium chloride ER 20 mEq Tablet 40 MEQ PO (09:22)
[2024-02-12] MEDS: levothyroxine 100 mcg Tablet PO (09:23)
[2024-02-12] MEDS: cholecalciferol (vitamin D3) 1,000 unit Tablet 1000 UNIT PO (09:23)
[2024-02-12] MEDS: multivitamin therapeutic Tablet 1 TAB PO (09:23)
[2024-02-12] MEDS: magnesium oxide 400 mg tablet PO (09:23)
--- NOTE | 2024-02-12 10:10 | PC.NURSE ---
Patient being taken by wheelchair to GI lab for JAMES with possible cardioversion. Patient denies pain or needs.
--- NOTE | 2024-02-12 10:24 | PM.PN ---
Documented by User: Marina Queen NP 02/12/24 10:32 Subjective Subjective: Patient is doing well this morning. She states she got a good nights sleep. Denies shortness of breath, chest pain, or palpiatations. Potassium was 2.9 still despite given 80 meq potassium yesterday. She is still in afib. Plan for cardioversion today. Medications: Reviewed: Yes Vitals/I&O/Wt Last Vital Signs Temp 97.6 F 02/12/24 07:35 Pulse 78 02/12/24 10:00 Resp 18 02/12/24 10:00 BP 106/71 02/12/24 07:35 Pulse Ox 95 02/12/24 10:00 O2 Del Method Nasal Cannula 02/12/24 10:00 O2 Flow Rate 2 02/12/24 10:00 02/11/24 02/12/24 02/12/24 22:59 06:59 14:59 Intake Total 240 / 840 Output Total 1400 / 1950 500 / 500 Balance 240 / 290 -1400 / -1110 -500 / -500 Weight last 48 hrs Weight 175 lb Weight 179 lb 4.8 oz Physical Exam Narrative: General: No apparent distress, healthy appearing, well nourished HENMT: normoceophalic Eye: PERRL Neck: No carotid bruit bilaterally Muskuloskeletal: Full ROM Lymphatic: no lymphedema noted Respiratory: Normal respiratory effort, fine crackles throughout lower lobes, no use of accessory muscles Cardio: No JVD, regular rate, regular rhythm, S1 S2 normal, no murmurs, peripheral pulses 2+ throughout Extremities: Full ROM, normal, normal capillary refill, trace edema bilaterally Neuro: Alert and oriented x4, no focal motor deficits Psych: Affect normal, denies suicidal ideation, mental status grossly normal Skin: No rashes or lesions noted, no wounds Data 02/11/24 09:23 02/12/24 13:59 A&P Assessment and plan (1) CHF (NYHA class IV, ACC/AHA stage D): It appeared to me that patient is on diastolic decompensated heart failure, at this point only -1420 of fluids. Appears euvolemic. Potassium will be replenished with 40 meq PO now, then 40 IV 10 meq per hour. This is stable low at 2.9. Mag was normal. Output slightly improved at -1900 over 24 hours. Will d/c metalazone. Symptoms have improved. (2) Atrial fibrillation, chronic: Amio bolus with drip was unsuccessful at cardioverting the patient . Will plan to proceed with JAMES guided cardioversion today, continue to hold Eliquis, continue lovenox. Continue amio 400 BID for now. (3) Hypertension: Well-controlled continue meds. Will hold beta andrew and bp medications due to cardioversion this AM. Qualifiers: Hypertension type: primary hypertension Qualified Code(s): I10 - Essential (primary) hypertension (4) Mitral regurgitation: Moderate mitral regurgitation by 2D echo, it is possible patient may have more than moderate and severe mitral regurgitation once we will reduce left ventricular end-diastolic pressure and patient becomes euvolemic we will proceed with transesophageal echocardiogram which will also give me insight of how bad the mitral valve is leaking and is she a candidate for mitral valve repair versus replacement versus mitral valve clipping depending upon patient frailty level and risk factor for surgery. Qualifiers: Cardiac valve disease etiology: nonrheumatic Qualified Code(s): I34.0 - Nonrheumatic mitral (valve) insufficiency (5) Tricuspid valve regurgitation: Secondary to mitral valve, hopefully by reducing mitral valve regurg it will get better Qualifiers: Cardiac valve disease etiology: nonrheumatic Qualified Code(s): I36.1 - Nonrheumatic tricuspid (valve) insufficiency Plan Plan is cardioversion today, replenish potassium, will recheck later today, patient states she never took Trazadone and does not want it. Will d/c from med list. Coding [facility] Diagn[facility] CHF (NYHA class IV, ACC/AHA stage D) I50.84 Atrial fibrillation, chronic I48.20 Primary hypertension I10 Hypertension type: primary hypertension Nonrheumatic mitral valve regurgitation I34.0 Cardiac valve disease etiology: nonrheumatic Nonrheumatic tricuspid valve regurgitation I36.1 Cardiac valve disease etiology: nonrheumatic Documented by User: Petra Villafana MD 02/12/24 18:13 Subjective Subjective: Status post JAMES guided cardioversion which remained successful heart rate is sinus bradycardic Potassium was low Data 02/11/24 09:23 02/12/24 13:59 A&P Assessment and plan (1) CHF (NYHA class IV, ACC/AHA stage D): It appeared to me that patient is on diastolic decompensated heart failure, at this point only -1420 of fluids. Appears euvolemic. Potassium will be replenished with 40 meq PO now, then 40 IV 10 meq per hour. This is stable low at 2.9. Mag was normal. Output slightly improved at -1900 over 24 hours. Will d/c metalazone. Symptoms have improved. Potassium level has replenished patient event JAMES guided electrical successful cardioversion. Remains in sinus rhythm, will hold carvedilol today and reduce amiodarone to 200 mg once a day from tomorrow. If doing fine patient can be discharged home tomorrow on event monitor. Follow-up with cardiology nurse practitioner in 1 week. Patient will be referred to structural cardiology for possible mitral clipping as an outpatient (2) Atrial fibrillation, chronic: Successful cardioversion after JAMES guidance (3) Hypertension: Well-controlled continue meds Qualifiers: Hypertension type: primary hypertension Qualified Code(s): I10 - Essential (primary) hypertension (4) Mitral regurgitation: Severe mitral valve and moderate tricuspid valve regurgitation based upon JAMES, as an outpatient will refer patient for mitral valve clipping he may will benefit from Qualifiers: Cardiac valve disease etiology: nonrheumatic Qualified Code(s): I34.0 - Nonrheumatic mitral (valve) insufficiency (5) Tricuspid valve regurgitation: Secondary to mitral valve appeared to be moderate on JAMES Qualifiers: Cardiac valve disease etiology: nonrheumatic Qualified Code(s): I36.1 - Nonrheumatic tricuspid (valve) insufficiency Attestations Medical Necessity Statement*: patient will require continuation hospitalization for optimization of medicine possible discharge tomorrow Coding Level of Care Code Acute Code for [facility] Fwd Diagnoses CHF (NYHA class IV, ACC/AHA stage D) I50.84 Atrial fibrillation, chronic I48.20 Primary hypertension I10 Hypertension type: primary hypertension Nonrheumatic mitral valve regurgitation I34.0 Cardiac valve disease etiology: nonrheumatic Nonrheumatic tricuspid valve regurgitation I36.1 Cardiac valve disease etiology: nonrheumatic
--- NOTE | 2024-02-12 10:44 | ANES.PREANE2 ---
Pre-Anesthetic Assessment Height/Weight: Height 5 ft 3 in Weight 175 lb Temp Pulse Resp BP Pulse Ox O2 Del Method O2 Flow Rate 97.6 F 78 18 106/71 95 Nasal Cannula 2 02/12/24 07:35 02/12/24 10:00 02/12/24 10:00 02/12/24 07:35 02/12/24 10:00 02/12/24 10:00 02/12/24 10:00 Preop Diagnosis: A fib Operation Date: 02/12/24 11:00 Proposed Procedures p JAMES(Not Applicable) - Petra Villafana MD Was Beta Yarely taken within 24 hours: N/A Was Clonidine taken within 24 hours: N/A Social No alcohol and No tobacco Exam alert, oriented x 3 and clear to auscultation bilaterally Airway Submandibular: within normal limits Cervical ROM: within normal limits Mallampati: Class III Dentition: full (implants) Anesthetic Plan ASA status: 3 Anesthesia: MAC Other: No prior issues with anesthesia NPO since yesterday Chronic A-fib, here for cardioversion CHF, EF 55% with mild right ventricle dilation and moderate mitral regurg Negative stress test in November Patient states she gets very short of breath with ambulation, arrives in wheelchair Labs 02/11/2024 reviewed acceptable for procedure Chronic hypokalemia Plan for MAC anesthetic Medications/Allergies Home Medications Medication Instructions Recorded Confirmed Last Taken Type cholecalciferol (vitamin D3) 25 25 mcg PO DAILY 08/31/22 02/10/24 02/09/24 History mcg (1,000 unit) capsule (Vitamin D3) levothyroxine 100 mcg tablet 100 mcg PO DAILY #90 tabs 02/24/23 02/10/24 02/09/24 Rx (Synthroid) cyclobenzaprine 5 mg tablet See Rx Instructions .Route 04/04/23 02/10/24 Unknown Rx .COMPLEX #30 tabs ipratropium 20 mcg-albuterol 100 1 puff inhalation Q6H PRN 08/26/23 02/10/24 02/09/24 Rx mcg/actuation mist for inhalation Shortness Of Breath #4 grams (Combivent Respimat) amlodipine 10 mg tablet See Rx Instructions .Route 09/09/23 02/10/24 02/09/24 Rx .COMPLEX #90 tabs apixaban 5 mg tablet (Eliquis) See Rx Instructions .Route 10/13/23 02/10/24 Unknown Rx .COMPLEX #180 tabs carvedilol 6.25 mg tablet See Rx Instructions .Route 11/20/23 02/10/24 02/09/24 Rx .COMPLEX #180 tabs spironolactone 25 mg tablet See Rx Instructions .Route 12/17/23 02/10/24 02/09/24 Rx .COMPLEX #90 tabs alprazolam 0.25 mg tablet (Xanax) 0.25 mg PO TID PRN anxiety #60 tabs 02/03/24 02/10/24 Unknown Rx zolpidem 5 mg tablet (Ambien) 5 mg PO .QHS #30 tabs 02/03/24 02/10/24 02/08/24 Rx magnesium 200 mg tablet 400 mg PO DAILY 02/09/24 02/10/24 02/09/24 History mecobalamin (vitamin B12) 1,000 1,000 mcg PO DAILY 02/09/24 02/10/24 02/09/24 History mcg lozenges multivitamin 1 tab PO DAILY 02/09/24 02/10/24 02/09/24 History furosemide 20 mg tablet 20 mg PO DAILY 02/10/24 02/10/24 02/09/24 History omega 5-gty-bvd-fish oil 1,000 mg 1 cap PO DAILY 02/10/24 02/10/24 02/09/24 History (120 mg-180 mg) capsule (Fish Oil) triamterene 37.5 See Rx Instructions .Route 02/11/24 Unknown Rx mg-hydrochlorothiazide 25 mg .COMPLEX #90 caps capsule Allergies Allergy/AdvReac Type Severity Reaction Status Date / Time Iodinated Contrast Media Allergy Mild possibly Verified 02/09/24 15:10 had chest pain with it but not sure acetaminophen [From Vicodin] Allergy Unknown Verified 02/09/24 15:10 hydrocodone [From Vicodin] Allergy Unknown Verified 02/09/24 15:10 levofloxacin [From Levaquin] Allergy Unknown Verified 02/09/24 15:10 oxycodone [From Percocet] Allergy Unknown Verified 02/09/24 15:10 simvastatin Allergy Unknown Verified 02/09/24 15:10 sulfamethoxazole Allergy Unknown Verified 02/09/24 15:10 [From Bactrim] trimethoprim [From Bactrim] Allergy Unknown Verified 02/09/24 15:10 Current Medications Generic Name Dose Route Start Last Admin Trade Name Micheleq PRN Reason Stop Dose Admin Alprazolam 0.25 mg 02/09/24 17:29 02/11/24 20:38 Alprazolam 0.5 Mg Tablet PO 0.25 mg TID PRN Administration anxiety Amiodarone HCl 400 mg 02/11/24 18:00 02/12/24 09:22 Amiodarone 200 Mg Tablet PO 400 mg BID SHORTY Administration Amlodipine Besylate 10 mg 02/10/24 09:00 02/11/24 08:47 Amlodipine 10 Mg Tablet PO 10 mg DAILY SHORTY Administration Carvedilol 6.25 mg 02/09/24 18:00 02/11/24 17:31 Carvedilol 6.25 Mg Tablet PO 6.25 mg BID SHORTY Administration Enoxaparin Sodium 80 mg 02/09/24 18:00 02/12/24 05:48 Enoxaparin 80 Mg/0.8 Ml Syringe SUBCUT 80 mg Q12H SHORTY Administration Furosemide 60 mg 02/11/24 15:00 02/11/24 20:38 Furosemide 10 Mg/Ml Sdv 10ml IVP 60 mg TID SHORTY Administration Potassium Chloride 100 mls @ 25 mls/hr 02/12/24 08:43 02/12/24 09:22 K-Reynaldo IV 02/12/24 12:42 25 mls/hr ONCE ONE Administration Levothyroxine Sodium 100 mcg 02/10/24 09:00 02/12/24 09:23 Levothyroxine 100 Mcg Tablet PO 100 mcg DAILY SHORTY Administration Magnesium Oxide 400 mg 02/10/24 09:00 02/12/24 09:23 Magnesium Oxide 400 Mg Tablet PO 400 mg DAILY SHORTY Administration Metolazone 2.5 mg 02/10/24 18:00 02/11/24 17:31 Metolazone 5 Mg Tablet PO 2.5 mg BID SHORTY Administration Multivitamins Therapeutic 1 tab 02/10/24 09:00 02/12/24 09:23 Multivitamin Therapeutic Tablet PO 1 tab DAILY SHORTY Administration Vitamin D 1,000 unit 02/10/24 09:00 02/12/24 09:23 Cholecalciferol (Vitamin D3) 1,000 Unit Tablet PO 1,000 unit DAILY SHORTY Administration Zolpidem Tartrate 5 mg 02/09/24 21:00 02/11/24 20:38 Zolpidem 5 Mg Tablet PO 5 mg BEDTIME SHORTY Administration [facility] Anesthesia Medical History (Updated 02/09/24 @ 20:20 by Petra Villafana MD) Tricuspid valve regurgitation Atrial fibrillation, chronic Insomnia temazepam not effective, ambien caused side effects, trazodone caused dizziness, Risperdal kept her awake Diverticulitis Fibromyalgia Hypertension Hyperlipidemia Hypothyroid Hypoglycemia History of left breast cancer 2010 Hiatal hernia Surgical History History of right hip replacement History of tonsillectomy Family History Father Lung cancer Mother Stroke Social History (Updated 02/09/24 @ 15:17 by Edna Barrow LPN) Smoking and tobacco/nicotine status: former use of tobacco/nicotine Alcohol intake: never Substance/Drug Use: never Marital status: Data Anesthesia 02/11/24 09:23 02/12/24 03:22 Short CBC 02/11/24 Range/Units 09:23 WBC 6.31 (3.29-11.43) 10^3/uL Hgb 15.90 (11.27-16.99) g/dL Hct 47.0 (36-47) % MCV 88.5 (85-98) fl Plt Count 249 (157-399) 10^3/cmm Neut % (Auto) 72.5 % Neut # (Auto) 4.57 (1.8-7.7) 10^3/uL BMP 02/11/24 02/12/24 09:23 03:22 Sodium 131 L 135 L Potassium 2.9 L 2.9 L Chloride 90 L 93 L Carbon Dioxide 26 30 H BUN 23 25 H Creatinine 1.0 H 1.0 H Glucose 176 H 88 Calcium 9.4 9.1 Cardiac Studies: Echocardiogram 11/11/23 Sestamibi Stress Test (Cardiology) 11/18/23 Cardiac Event Monitor 01/15/21
--- NOTE | 2024-02-12 10:46 | ECG_ITS ---
[facility]: [facility]24[facility]12 Pat Name: Zee Vaca Department: Room: 101 Gender: Female [employer] Product Analyst: : 1940 Requested By: Petra Villafana Order Number: [id number] Tj MD: Odell Reyes M.D. Measurements Intervals [place] Rate: 71 P: 0 TX: 0 QRS: 22 QRSD: 100 T: 191 QT: 416 QTc: 455 Interpretive Statements ATRIAL FIBRILLATION LOW QRS VOLTAGE IN PRECORDIAL LEADS SEPTAL MYOCARDIAL INFARCTION , OF INDETERMINATE AGE MODERATE T-WAVE ABNORMALITY, CONSIDER LATERAL ISCHEMIA Compared to ECG 02/09/2024 14:54:37 Myocardial infarct finding still present T-wave abnormality still present Electronically Signed On 02-12-2024 12:13:55 CDT by Odell Reyes M.D. [email or web address]
--- NOTE | 2024-02-12 11:00 | USCV_ITS ---
Zee Vaca Age: 83 Gender: F : 1940 Exam Date: 02/12/2024 11:18 Ordering Phys: Petra Villafana MD ([email or web address]) Technologist: Exam Location: [facility] [place] Indication: afib BP: / HR: Rhythm: Sinus Technical Quality: Adequate MEASUREMENTS (Male / Female) Normal Values Medications Patient given IV sedation by anesthesia service, for details please refer to the anesthesia report. Complications None. Proc. Components FINDINGS Left Ventricle Normal left ventricular size, systolic function and wall thickness, with no regional wall motion abnormalities. Normal left ventricular wall thickness. Left ventricular ejection fraction is estimated at 60 %. In the absence of atrial fibrillation diastolic function cannot be measured accurately. Right Ventricle The right ventricle is normal in size and function. Right Atrium The right atrium is normal in size. Left Atrium Moderately increased left atrial size. No left atrial mass or thrombus visualized. No thrombus present in the left atrial appendage. LA Appendage The LA appendage is normal. IA Septum The interatrial septum is normal. Mitral Valve Thickened mitral valve. No mitral valve stenosis. Severe mitral valve regurgitation. Aortic Valve Thickened aortic valve. No aortic valve stenosis. Trace aortic valve regurgitation. Tricuspid Valve Structurally normal tricuspid valve without significant stenosis or regurgitation. Moderate tricuspid valve regurgitation. Pulmonic Valve Structurally normal pulmonic valve without significant stenosis. There is no pulmonic regurgitation. Pericardium Normal pericardium without effusion. Aorta Normal ascending aorta dimension. CONCLUSIONS Normal left ventricular size, systolic function and wall thickness, with no regional wall motion abnormalities. Normal left ventricular wall thickness. Left ventricular ejection fraction is estimated at 60 %. In the absence of atrial fibrillation diastolic function cannot be measured accurately. Moderately increased left atrial size. No left atrial mass or thrombus visualized. No thrombus present in the left atrial appendage. Thickened mitral valve. No mitral valve stenosis. Severe mitral valve regurgitation. Structurally normal tricuspid valve without significant stenosis or regurgitation. Moderate tricuspid valve regurgitation. There is no pericardial effusion. Petra Villafana MD (Electronically Signed) Final Date: 12 February 2024 18:04 S
[2024-02-12 11:04] LABS: ABG PCO2 38.2 mmHg (35-45); ABG PH Result 7.53 (7.35-7.45); Arterial Blood Gas Hematocrit 46.2 % (37-47); Base Excess ABG 8.3 mmol/L (-2.0-2.0); Blood Gas Allen Test Pos; Blood Gas Operator Identificat BROMA; Blood Gas Sample Site Brachial, right; Blood Gas Sample Type Arterial; HCO3 ABG 31.6 mmol/L (22-26); Oxygen Device NC; PO2 ABG 63.9 mmHg (80.0-100.0); PO2 FiO2 Ratio Arterial Blood 228
[2024-02-12 11:08] LABS: Alveolar-Arterial Oxygen Gradi 11.5 mmHg (5-10); Carboxyhemoglobin 1.1 %THgb (0.4-20.1); HGB O2 Sat 92.5 % (95-100); Ionized Calcium Level - ABG 1.2 mmol/L (1.1-1.4); Methemoglobin 0.8 % (0.4-1.5); Oxygen Saturation ABG 94.3; Potassium Level - ABG 3.8 mmol/L (3.5-5.0); Total Hemoglobin 15.1 g/dL (12-16)
[2024-02-12] MEDS: sodium chloride 0.9% 1,000 ML 30 ML IV (11:12)
--- NOTE | 2024-02-12 11:20 | W.PM.OPSUD ---
Surgery/Procedure H&P Update DATE OF PROCEDURE: February 12, 2024 DATE H&P PERFORMED: 02/12/24 H&P UPDATE INFORMATION: I have reviewed H&P completed within last 30 days, I have examined patient prior to procedure and No changes to prior documentation CHANGES TO PREVIOUS DOCUMENTATION: JAMES cardioversion, Patient consented, explained risk and benefit and alternatives, pt would like to proceed PREOP DIAGNOSIS: A fib PRIMARY INDICATION FOR PROCEDURE: afib PLANNED PROCEDURE: Operation Date: 02/12/24 11:00 Proposed Procedures p JAMES(Not Applicable) - Petra Villafana MD ADDITIONAL INFORMATION: see anesthesia
--- NOTE | 2024-02-12 12:23 | PC.NURSE ---
Patient received from GI lab. Patient aaox4. Patient ready for dinner. Denies pain or needs. Asks if she is going home today.
[2024-02-12 14:28] LABS: Anion Gap 16.1 (5-19); Blood Urea Nitrogen 26 mg/dL (8-23); Calcium 9.1 mg/dL (8.5-10.5); Carbon Dioxide 26 mmol/L (22-29); Chloride 95 mmol/L (98-107); Creatinine Clr Calc Pharmacy 48.0763; Glucose 182 mg/dL (65-115); Osmolality Calculated 285 mOsm/kg (285-295); Potassium 4.1 mmol/L (3.5-5.1); Sodium 133 mmol/L (136-145)
[2024-02-12] MEDS: amlodipine 10 mg Tablet PO (15:39)
[2024-02-12] MEDS: FUROsemide 10 mg/mL SDV 10mL 60 MG IVP (15:39)
[2024-02-12] MEDS: ALPRAZolam 0.5 mg Tablet 0.25 MG PO (22:19)
[2024-02-12] MEDS: zolpidem 5 mg Tablet PO (22:19)
[2024-02-13 04:00] VITALS: BP 92/49; PULSE 61; RESP 26; TEMP 36.4; O2SAT 93
[2024-02-13 04:44] LABS: Basophils # 0.1 10^3/uL (0.0-0.1); Basophils % 0.6 %; Eosinophils # 0.2 10^3/uL (0.0-0.8); Eosinophils % 2.1 %; Hematocrit 38.8 % (36-47); Lymphocytes % 12.7 %; Mean Corpuscular HGB Conc 33.5 g/dL (30-55); Mean Corpuscular Hemoglobin 29.3 pg (27-33); Mean Corpuscular Volume 87.6 fl (85-98); Mean Platelet Volume 9.3 fL (7.4-10.4); Monocytes # 0.8 10^3/uL (0.2-0.9); Monocytes % 10.4 %; Neutrophils % 73.9 %; Nucleated Red Blood Cells % 0 %; Platelet Count 197 10^3/cmm (157-399); Red Blood Count 4.43 10^6/uL (3.85-5.65); Red Cell Distribution Width 16.7 % (12.1-15.1); White Blood Count 7.98 10^3/uL (3.29-11.43)
[2024-02-13 05:02] LABS: Anion Gap 13.7 (5-19); Blood Urea Nitrogen 29 mg/dL (8-23); Calcium 8.8 mg/dL (8.5-10.5); Carbon Dioxide 31 mmol/L (22-29); Chloride 95 mmol/L (98-107); Creatinine Clr Calc Pharmacy 43.3432; Glucose 100 mg/dL (65-115); Osmolality Calculated 290 mOsm/kg (285-295); Sodium 137 mmol/L (136-145)
[2024-02-13] MEDS: enoxaparin 80 mg/0.8 mL Syringe SUBCUT (05:06)
[2024-02-13 05:12] LABS: Potassium 2.7 mmol/L (3.5-5.1)
--- NOTE | 2024-02-13 05:46 | PC.NURSE ---
Patient potassium was 2.7. Notified Dr Lara, orders to hold 60mg lasix and give 40meq q4h x 3 doses.
[2024-02-13 06:00] VITALS: PULSE 61
[2024-02-13] MEDS: potassium chloride ER 20 mEq Tablet 40 MEQ PO ×3 (06:05→11:55)
[2024-02-13 07:40] VITALS: BP 118/64; PULSE 67; RESP 21; TEMP 36.6; O2SAT 93
[2024-02-13] MEDS: amiodarone 200 mg Tablet PO (08:39)
[2024-02-13] MEDS: cholecalciferol (vitamin D3) 1,000 unit Tablet 1000 UNIT PO (08:40)
[2024-02-13] MEDS: amlodipine 10 mg Tablet PO (08:40)
[2024-02-13] MEDS: magnesium oxide 400 mg tablet PO (08:40)
[2024-02-13] MEDS: multivitamin therapeutic Tablet 1 TAB PO (08:40)
[2024-02-13] MEDS: levothyroxine 100 mcg Tablet PO (08:40)
[2024-02-13 08:47] LABS: Anion Gap 14.9 (5-19); Blood Urea Nitrogen 27 mg/dL (8-23); Calcium 9.5 mg/dL (8.5-10.5); Carbon Dioxide 32 mmol/L (22-29); Chloride 94 mmol/L (98-107); Creatinine Clr Calc Pharmacy 43.3432; Glucose 95 mg/dL (65-115); Osmolality Calculated 291 mOsm/kg (285-295); Sodium 138 mmol/L (136-145)
[2024-02-13 08:49] LABS: Potassium 2.9 mmol/L (3.5-5.1)
[2024-02-13 09:25] VITALS: PULSE 65; RESP 16; O2SAT 93
--- NOTE | 2024-02-13 11:14 | PM.DCS ---
Discharge Providers Date of Admission: 02/09/24 17:11 Date of Discharge: February 13, 2024 Attending Provider at Admission: Petra Villafana MD Attending Provider at Discharge: Petra Villafana MD Primary Care Provider: Gio Soto MD Diagnoses at Discharge Discharge Diagnosis (1) CHF (NYHA class IV, ACC/AHA stage D): Status: Acute (2) Atrial fibrillation, chronic: Status: Acute (3) Hypertension: Status: Acute Qualifiers: Hypertension type: primary hypertension Qualified Code(s): I10 - Essential (primary) hypertension (4) Mitral regurgitation: Status: Acute Qualifiers: Cardiac valve disease etiology: nonrheumatic Qualified Code(s): I34.0 - Nonrheumatic mitral (valve) insufficiency (5) Tricuspid valve regurgitation: Status: Acute Qualifiers: Cardiac valve disease etiology: nonrheumatic Qualified Code(s): I36.1 - Nonrheumatic tricuspid (valve) insufficiency Reason for Visit Reason for Visit: IV Hydration Hospital Course Hospital Course This is a 83-year-old female patient with a known history of atrial fibrillation, congestive heart failure and mitral regurgitation. She was admitted with a symptomatic heart failure symptoms. Clinically she improved with the diuresis. Considering ongoing recurrent heart failure symptoms in the setting of A-fib, plan for cardioversion under JAMES guidance. Yesterday she was successfully cardioverted to normal sinus rhythm. However early this morning she went back to atrial fibrillation with a rate controlled. Currently she is overall stable with atrial fibrillation rate controlled. Her heart failure symptoms have improved after diuresis. Currently she is euvolemic. Plan her to discharge home on A-fib rate control management plan. Her medications adjusted and she will continue her coagulation which was she was already on, Eliquis 5 mg twice a day. Physical Exam Narrative: Sitting comfortably. No respiratory distress. Const: COMMON NORMALS: no acute distress, patient oriented x3 and alert HENMT: OTHER: Unremarkable. Resp: OTHER: Good air entry bilaterally. Minimal rales at the left base. Cardio: OTHER: Normal first and second heart sounds. Mild murmur of Atrial fibrillation rate controlled. No lower extremity edema. GI: OTHER: Abdominal soft nontender bowel sounds audible and normal. Extremity: OTHER: No lower extremity edema. Neuro: COMMON NORMALS: patient oriented x3 SENSORIUM/ORIENTATION: Yes alert Skin: OTHER: Skin warm and dry. Discharge Data Studies Completed and Pending Completed Studies During Hospitalization Category Date [place] [id number] Routine Ultrasound 02/12/24 11:00 Completed Pending at discharge Category Date Time Status BMP [Basic Metabolic Panel] Timed Lab 02/13/24 12:00 Ordered Laboratory Results WBC 7.98 10^3/uL (3.29-11.43) 02/13/24 04:26 RBC 4.43 10^6/uL (3.85-5.65) 02/13/24 04:26 Hgb 13.00 g/dL (11.27-16.99) 02/13/24 04:26 Hct 38.8 % (36-47) 02/13/24 04:26 MCV 87.6 fl (85-98) 02/13/24 04:26 MCH 29.3 pg (27-33) 02/13/24 04:26 MCHC 33.5 g/dL (30-55) 02/13/24 04:26 RDW 16.7 % (12.1-15.1) H 02/13/24 04:26 Plt Count 197 10^3/cmm (157-399) 02/13/24 04:26 MPV 9.3 fL (7.4-10.4) 02/13/24 04:26 Neut % (Auto) 73.9 % 02/13/24 04:26 Lymph % (Auto) 12.7 % 02/13/24 04:26 [place] % (Auto) 10.4 % 02/13/24 04:26 Eos % (Auto) 2.1 % 02/13/24 04:26 Baso % (Auto) 0.6 % 02/13/24 04:26 Neut # (Auto) 5.90 10^3/uL (1.8-7.7) 02/13/24 04:26 Lymph # (Auto) 1.0 10^3/uL (0.8-4.8) 02/13/24 04:26 [place] # (Auto) 0.8 10^3/uL (0.2-0.9) 02/13/24 04:26 Eos # (Auto) 0.2 10^3/uL (0.0-0.8) 02/13/24 04:26 Baso # (Auto) 0.1 10^3/uL (0.0-0.1) 02/13/24 04:26 Nucleated RBC % (auto) 0 % 02/13/24 04:26 Nucleated RBCs # 0.0 /100WBC 02/13/24 04:26 Specimen Type Arterial 02/12/24 10:54 Sample Site Brachial, right 02/12/24 10:54 ABG pH 7.53 (7.35-7.45) H 02/12/24 10:54 ABG pCO2 38.2 mmHg (35-45) 02/12/24 10:54 ABG pO2 63.9 mmHg (80.0-100.0) L 02/12/24 10:54 ABG PO2/FiO2 Ratio 228 02/12/24 10:54 ABG HCO3 31.6 mmol/L (22-26) H 02/12/24 10:54 ABG O2 Saturation 94.3 02/12/24 10:54 ABG Base Excess 8.3 mmol/L (-2.0-2.0) H 02/12/24 10:54 Robbie Test Pos 02/12/24 10:54 A-a O2 Gradient 11.5 mmHg (5-10) H 02/12/24 10:54 Hematocrit 46.2 % (37-47) 02/12/24 10:54 Hgb O2 Saturation 92.5 % (95-100) L 02/12/24 10:54 Carboxyhemoglobin 1.1 %THgb (0.4-20.1) 02/12/24 10:54 Methemoglobin 0.8 % (0.4-1.5) 02/12/24 10:54 Total Hemoglobin 15.1 g/dL (12-16) 02/12/24 10:54 Sodium 135.0 mmol/L (131-143) 02/12/24 10:54 Potassium 3.8 mmol/L (3.5-5.0) 02/12/24 10:54 Glucose 104.0 mg/dL (70-115) 02/12/24 10:54 Ionized Calcium 1.2 mmol/L (1.1-1.4) 02/12/24 10:54 O2 Delivery Device Nc 02/12/24 10:54 O2 Liters/Min 2.0 % 02/12/24 10:54 FiO2 28.0 % 02/12/24 10:54 Advanced Practice Professional ID Tanvi 02/12/24 10:54 Sodium 138 mmol/L (136-145) 02/13/24 07:53 Potassium 2.9 mmol/L (3.5-5.1) L 02/13/24 07:53 Chloride 94 mmol/L (98-107) L 02/13/24 07:53 Carbon Dioxide 32 mmol/L (22-29) H 02/13/24 07:53 Anion Gap 14.9 (5-19) 02/13/24 07:53 BUN 27 mg/dL (8-23) H 02/13/24 07:53 Creatinine 1.0 mg/dL (0.5-0.9) H 02/13/24 07:53 GFR Calculation Not Reportable 02/13/24 07:53 Glucose 95 mg/dL (65-115) 02/13/24 07:53 Calculated Osmolality 291 mOsm/kg (285-295) 02/13/24 07:53 Calcium 9.5 mg/dL (8.5-10.5) 02/13/24 07:53 Magnesium 2.1 mg/dL (1.7-2.3) 02/12/24 03:22 Total Bilirubin 1.1 mg/dL (0.15-1.2) 02/09/24 19:01 AST 22 U/L (0-32) 02/09/24 19:01 ALT 19 U/L (0-33) 02/09/24 19:01 Alkaline Phosphatase 118 U/L (35-105) H 02/09/24 19:01 NT-Pro-B Natriuret Pep 1956 pg/mL (0-450) H 02/09/24 19:01 Total Protein 7.0 g/dL (6.6-8.7) 02/09/24 19:01 Albumin 4.1 g/dL (3.5-5.2) 02/09/24 19:01 Globulin 2.9 g/dL (1.3-4.6) 02/09/24 19:01 Vitals Last Vital Signs Temp 97.8 F 02/13/24 07:40 Pulse 65 02/13/24 09:25 Resp 16 02/13/24 09:25 BP 118/64 02/13/24 07:40 Pulse Ox 93 02/13/24 09:25 O2 Del Method Room Air 02/13/24 09:25 O2 Flow Rate 2 02/12/24 16:05 Discharge Plan Discharge Patient Disposition: Home Condition: Stable Prescriptions: New amiodarone [Pacerone] 200 mg Tablet 200 mg PO DAILY Qty: 30 3RF potassium chloride [Klor-Con M20] 20 mEq Tablet,Er Particles/Crystals 40 meq PO BID Qty: 20 2RF carvedilol 3.125 mg tablet 3.125 mg PO BID Qty: 60 6RF Rx Instructions: must administer with a meal/food furosemide [Lasix] 40 mg tablet 40 mg PO DAILY Qty: 30 3RF Continued levothyroxine [Synthroid] 100 mcg tablet 100 mcg PO DAILY Qty: 90 11RF multivitamin Tablet 1 tab PO DAILY magnesium 200 mg tablet 400 mg PO DAILY mecobalamin (vitamin B12) 1,000 mcg lozenge 1,000 mcg PO DAILY Rx Instructions: allow to dissolve in mouth OR may chew lightly before swallowing Combivent Respimat 20-100 mcg/actuation mist 1 puff INHALATION Q6H PRN (Reason: Shortness Of Breath) Qty: 4 3RF zolpidem [Ambien] 5 mg tablet 5 mg PO .QHS Qty: 30 5RF cyclobenzaprine 5 mg tablet See Rx Instructions .ROUTE .COMPLEX Qty: 30 11RF Dose Instruction: TAKE 1 TABLET BY MOUTH THREE TIMES A DAY NEEDED FOR MUSCLE PAIN Rx Instructions: TAKE 1 TABLET BY MOUTH THREE TIMES A DAY NEEDED FOR MUSCLE PAIN amlodipine 10 mg tablet See Rx Instructions .ROUTE .COMPLEX Qty: 90 3RF Dose Instruction: TAKE 1 TABLET DAILY Rx Instructions: TAKE 1 TABLET DAILY Eliquis 5 mg tablet See Rx Instructions .ROUTE .COMPLEX Qty: 180 3RF Dose Instruction: TAKE 1 TABLET BY MOUTH TWICE DAILY Rx Instructions: TAKE 1 TABLET BY MOUTH TWICE DAILY spironolactone 25 mg tablet See Rx Instructions .ROUTE .COMPLEX Qty: 90 3RF Dose Instruction: TAKE 1 TABLET BY MOUTH DAILY Rx Instructions: TAKE 1 TABLET BY MOUTH DAILY alprazolam [Xanax] 0.25 mg tablet 0.25 mg PO TID PRN (Reason: anxiety) Qty: 60 5RF cholecalciferol (vitamin D3) [Vitamin D3] 25 mcg (1,000 unit) Capsule 25 mcg PO DAILY omega 1-wlz-ghm-fish oil [Fish Oil] 1,000 (120-180) mg Capsule 1 cap PO DAILY Discontinued carvedilol 6.25 mg tablet See Rx Instructions .ROUTE .COMPLEX Qty: 180 11RF Dose Instruction: TAKE 1 TABLET BY MOUTH TWICE DAILY Rx Instructions: TAKE 1 TABLET BY MOUTH TWICE DAILY triamterene-hydrochlorothiazid 37.5-25 mg capsule See Rx Instructions .ROUTE .COMPLEX Qty: 90 3RF Dose Instruction: TAKE 1 CAPSULE BY MOUTH DAILY Rx Instructions: TAKE 1 CAPSULE BY MOUTH DAILY furosemide 20 mg tablet 20 mg PO DAILY Discharge Orders: Discharge Order (Routine); Ordered 02/13/24 Ordered By: Odell Reyes Patient Instructions: Opioid Safety, GI Post Anesthesia Care Discharge Attestations Time Spent in Discharge Care*: greater than 30 min Quality Metrics Clinical Quality Measures [ No reported AMI, CVA or VTE this stay] Coding Level of Care Code 33605 Total time (in minutes) for Discharge: 35 Diagnoses CHF (NYHA class IV, ACC/AHA stage D) I50.84 Atrial fibrillation, chronic I48.20 Primary hypertension I10 Hypertension type: primary hypertension Nonrheumatic mitral valve regurgitation I34.0 Cardiac valve disease etiology: nonrheumatic Nonrheumatic tricuspid valve regurgitation I36.1 Cardiac valve disease etiology: nonrheumatic Time Spent (min) 35
--- NOTE | 2024-02-13 11:32 | PC.NURSE ---
New Rx called into [facility] pharmacy due to transmission error.
[2024-02-13 11:39] VITALS: BP 122/59; PULSE 67; RESP 18; TEMP 36.7; O2SAT 94
[2024-02-13 11:43] VITALS: BP 122/59; PULSE 83; RESP 26; TEMP 36.7; O2SAT 92
--- NOTE | 2024-02-13 12:26 | PC.NURSE ---
Patient discharged to home. Instruction provided regarding follow up needs, new medications and CHF. Stoplight provided and discussed as well. Patient and friend all verbalized complete understanding. IV removed. KCl administered as ordered prior to discharge. Patient taken by wheelchair to private vehicle. Denies pain or needs. No distress observed.
== END 2024-02-13 12:29 | disposition home or self-care (01) | DRG 291 ==
PROVIDERS: Nurse Practitioner Family; Admitting Provider Internal Medicine Cardiovascular Disease; PCP Family Medicine; Visit Provider Internal Medicine Cardiovascular Disease
PROC: B24BZZZ Ultrasonography of Heart with Aorta (ICD-10-PCS; CPT 93312; principal; 2024-02-12 11:00)
PROC: 5A2204Z Restoration of Cardiac Rhythm, Single (ICD-10-PCS; 2024-02-12 11:00)
DX: I11.0 Hypertensive heart disease with heart failure (principal); I50.33 Acute on chronic diastolic (congestive) heart failure; I48.20 Chronic atrial fibrillation, unspecified; E78.5 Hyperlipidemia, unspecified; I08.1 Rheumatic disorders of both mitral and tricuspid valves; M79.7 Fibromyalgia; E03.9 Hypothyroidism, unspecified; G47.00 Insomnia, unspecified; Z79.01 Long term (current) use of anticoagulants; Z96.641 Presence of right artificial hip joint; Z85.3 Personal history of malignant neoplasm of breast; Z87.891 Personal history of nicotine dependence
CPT/HCPCS: 12345; 36415; 80048; 80051; 80053; 82330; 82803; 82805; 83735; 83880; 85025; 92960; 93005; 93312; 93320; 93325; 94640; 96372; 96376; 99214; G0378; G0379; J0283; J1650; J1940; J2704; J3480; J7030

== ENCOUNTER → 2024-02-25 17:47 | Outpatient (BNVA) | payer MEDICARE, SELFPAY | PROVIDERS: PCP Family Medicine; Visit Provider Nurse Practitioner Family | DX: I48.0 Paroxysmal atrial fibrillation (principal); I34.0 Nonrheumatic mitral (valve) insufficiency; E87.70 Fluid overload, unspecified; G47.00 Insomnia, unspecified | CPT/HCPCS: 36415; 80048; 83880 ==

== ENCOUNTER 2024-03-07 13:17 | Inpatient (IN) | payer MEDICARE, SELFPAY ==
[2024-03-07] VITALS (8 sets, daily range): BP systolic 113–132; BP diastolic 76–90; PULSE 60–75; RESP 18–22; TEMP 36.4–36.6; O2SAT 91–97; BMI 34.2; BMI 34.9
--- NOTE | 2024-03-07 13:31 | XRR_ITS ---
PROCEDURE INFORMATION: Exam: XR Chest Exam date and time: 03/07/2024 1:52 PM Age: 83 years old Clinical indication: Cough and dyspnea; Additional info: Dyspnea/cough TECHNIQUE: Imaging protocol: Radiologic exam of the chest. Views: 1 view. COMPARISON: CT chest con [id number] 12/02/2023 1:10 PM FINDINGS: Lungs: Atelectasis in lung bases and right mid lung. Pleural spaces: Small pleural effusion suspected. No pneumothorax. Heart/Mediastinum: Stable cardiomegaly. Bones/joints: Stable spondylotic changes of the spine and arthritic changes of shoulders. XR/XR chest 1V portable [id number] IMPRESSION: Atelectatic changes in lung bases and right mid lung. Developing pneumonia cannot be excluded.
--- NOTE | 2024-03-07 13:31 | ECG_ITS ---
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1940 Requested By: Moses Hung Order Number: [id number] Reading MD: PEDRO SAHU Measurements Intervals [place] Rate: 65 P: 51 OH: 232 QRS: 64 QRSD: 98 T: 228 QT: 431 QTc: 451 Interpretive Statements Atrial fibrillation INDETERMINATE AXIS LOW QRS VOLTAGE IN PRECORDIAL LEADS [QRS DEFLECTION < 1.0 mV IN CHEST LEADS] SEPTAL MYOCARDIAL INFARCTION , OF INDETERMINATE AGE [40+ ms Q WAVE IN V1/V2] MODERATE T-WAVE ABNORMALITY, CONSIDER ANTEROLATERAL ISCHEMIA [-0.1+ mV T-WAVE IN V3-V6] MODERATE T-WAVE ABNORMALITY, CONSIDER INFERIOR ISCHEMIA [-0.1+ mV T-WAVE IN II/aVF] Compared to ECG 02/12/2024 10:46:41 there is no change Electronically Signed On 03-08-2024 19:25:26 PASTEURIZER HELPER by PEDRO SAHU [email or web address]
--- NOTE | 2024-03-07 13:39 | ED_ITS ---
HPI - SOB/Dyspnea 2 General: Chief Complaint: Shortness of Breath/Dyspnea Stated Complaint: sob Time Seen by Provider: 03/07/24 13:30 History of Present Illness: HPI Narrative: 83-year-old female presents emergency ro om via EMS complaining of shortness of breath began suddenly about 2 hours ago. EMS reports patient had sats in the low 80s at home on room air on arrival here she was on 4 L however when I went to the room she was not on any oxygen and was satting in the low 90s consistently without any tachycardia. She denies any chest pain she has noticed significant shortness of breath that began this afternoon. She has not had any chest pain she did not had any trauma she is on apixaban 5 mg twice a day for atrial fibrillation. No history of coronary artery disease knows previous stents she does currently have a Holter monitor on the retail pos specialist placed Associated symptoms: Deny abdominal pain, chest pain or fever(s) Related Data Home Medications Medication Instructions Recorded Confirmed cholecalciferol (vitamin D3) 25 25 mcg PO DAILY 08/31/22 02/25/24 mcg (1,000 unit) capsule (Vitamin D3) magnesium 200 mg tablet 400 mg PO DAILY 02/09/24 02/25/24 mecobalamin (vitamin B12) 1,000 1,000 mcg PO DAILY 02/09/24 02/25/24 mcg lozenges multivitamin 1 tab PO DAILY 02/09/24 02/25/24 omega 5-uus-vfm-fish oil 1,000 mg 1 cap PO DAILY 02/10/24 02/25/24 (120 mg-180 mg) capsule (Fish Oil) Previous Rx's Medication Instructions Recorded cyclobenzaprine 5 mg tablet See Rx Instructions .Route 04/04/23 .COMPLEX #30 tabs ipratropium 20 mcg-albuterol 100 1 puff inhalation Q6H PRN 08/26/23 mcg/actuation mist for inhalation Shortness Of Breath #4 grams (Combivent Respimat) amlodipine 10 mg tablet See Rx Instructions .Route 09/09/23 .COMPLEX #90 tabs apixaban 5 mg tablet (Eliquis) See Rx Instructions .Route 10/13/23 .COMPLEX #180 tabs spironolactone 25 mg tablet See Rx Instructions .Route 12/17/23 .COMPLEX #90 tabs alprazolam 0.25 mg tablet (Xanax) 0.25 mg PO TID PRN anxiety #60 tabs 02/03/24 amiodarone 200 mg tablet (Pacerone) 200 mg PO DAILY #30 tabs 02/13/24 carvedilol 3.125 mg tablet 3.125 mg PO BID #60 tabs 02/13/24 C-pap auto titrating 6-12 #1 ea 02/19/24 potassium chloride 20 mEq/15 mL 20 meq (15 mL) PO DAILY #450 mL 02/19/24 oral liquid furosemide 80 mg tablet 80 mg PO BID #60 tabs 02/26/24 zolpidem 10 mg tablet 10 mg PO .QHS #30 tabs 02/26/24 levothyroxine 100 mcg tablet See Rx Instructions .Route 03/01/24 .COMPLEX #90 tabs Allergies Allergy/AdvReac Type Severity Reaction Status Date / Time Iodinated Contrast Media Allergy Mild possibly Verified 03/07/24 13:30 had chest pain with it but not sure acetaminophen [From Vicodin] Allergy Unknown Verified 03/07/24 13:30 hydrocodone [From Vicodin] Allergy Unknown Verified 03/07/24 13:30 levofloxacin [From Levaquin] Allergy Unknown Verified 03/07/24 13:30 oxycodone [From Percocet] Allergy Unknown Verified 03/07/24 13:30 simvastatin Allergy Unknown Verified 03/07/24 13:30 sulfamethoxazole Allergy Unknown Verified 03/07/24 13:30 [From Bactrim] trimethoprim [From Bactrim] Allergy Unknown Verified 03/07/24 13:30 Review of Systems 2 Const: Denies: fever(s) or chills Card: Denies: chest pain Resp: Denies: dyspnea GI: Denies: abdominal pain : Denies: dysuria, urinary frequency or urinary urgency Musc: Denies: neck pain or back pain Skin/Breast: Denies: rash PFSH ED 2 PFSH: Medical History Tricuspid valve regurgitation CHF (NYHA class IV, ACC/AHA stage D) Mitral regurgitation Atrial fibrillation, chronic Insomnia temazepam not effective, ambien caused side effects, trazodone caused dizziness, Risperdal kept her awake Diverticulitis Fibromyalgia Hypertension Hyperlipidemia Hypothyroid Hypoglycemia History of left breast cancer 2009 Hiatal hernia Surgical History History of right hip replacement History of tonsillectomy Family History Father Lung cancer Mother Stroke Social History Smoking and tobacco/nicotine status: never used tobacco/nicotine Alcohol intake: never Substance/Drug Use: never Marital status: Physical Exam 2 Const: GENERAL APPEARANCE: cooperative ORIENTATION/CONSCIOUSNESS: Yes awake, Yes oriented to person, Yes oriented to place and Yes oriented to time HENMT: COMMON NORMALS: normocephalic, atraumatic and hearing grossly normal bilaterally HEAD & SCALP: normocephalic and atraumatic Resp: COMMON NORMALS: normal respiratory effort, No retractions and No use of accessory muscles AUSCULTATION: crackles Cardio: COMMON NORMALS: regular rate and No murmurs present (Cardio) RATE: regular rate RHYTHM: abnormal rhythm irregularly irregular GI: COMMON NORMALS: Soft to palpation and No hepatosplenomegaly present A USCULTATION: Yes normoactive bowel sounds PALPATION: Yes Soft to palpation, No Tenderness to palpation present (GI), No Guarding due to palpation present (GI) and Yes No hepatosplenomegaly present Extremity: COMMON NORMALS: capillary refill normal and no calf tenderness G ENERAL: Yes edema (+1) Neuro: SENSORIUM/ORIENTATION: Yes oriented to person, Yes oriented to place and Yes oriented to time Skin: COMMON NORMALS: no rashes or lesions noted GENERAL SKIN EXAM: no rashes or lesions noted Course 2 Vital Signs: Vital signs: Vital Signs Temperature 97.6 F 03/07/24 13:18 Pulse Rate 67 03/07/24 15:43 Respiratory Rate 19 H 03/07/24 13:18 Blood Pressure 113/76 03/07/24 14:01 Pulse Oximetry 92 03/07/24 15:43 Oxygen Delivery Me thod Room Air 03/07/24 14:01 MDM - SOB/Dyspnea Medical Decision Making Patient requiring oxygen placed on 2 L at times while sitting up she is a D satting below 90. She is normally not on oxygen at home she does appear to be fluid overloaded CTA did not show any pulmonary emboli she was given 60 of IV Lasix most recent echo document in the chart was from August 2022 showed relatively normal ejection fraction at 55 to 60% with mild diastolic dysfunction she has some mitral and tricuspid regurg on that as well. Discussed with hospitalist orders written will admit to observation for exacerbation COPD Lab Data 03/07/24 13:36 03/07/24 13:36 Labs/Radiology: Radiology Impressions Chest X-Ray 03/07/24 13:31 IMPRESSION: Atelectatic changes in lung bases and right mid lung. Developing pneumonia cannot be excluded. Chest CTA 03/07/24 14:49 IMPRESSION: 1. Congestive heart failure with a pulmonary edema suspected. [id number] right and very small left pleural effusion with loculations. Atelectatic changes also noted. 2. No acute pulmonary embolism identified. Limited opacification of upper lobe segmental and subsegmental branches and lower lobe subsegmental branches. Chronic pulmonary embolism sequelae possible. Laboratory Results WBC 8.06 10^3/uL (3.29-11.43) 03/07/24 13:36 RBC 4.93 10^6/uL (3.85-5.65) 03/07/24 13:36 Hgb 14.60 g/dL (11.27-16.99) 03/07/24 13:36 Hct 44.7 % (36-47) 03/07/24 13:36 MCV 90.7 fl (85-98) 03/07/24 13:36 MCH 29.6 pg (27-33) 03/07/24 13:36 MCHC 32.7 g/dL (30-55) 03/07/24 13:36 RDW 18.1 % (12.1-15.1) H 03/07/24 13:36 Plt Count 249 10^3/cmm (157-399) 03/07/24 13:36 MPV 9.2 fL (7.4-10.4) 03/07/24 13:36 Neut % (Auto) 74.4 % 03/07/24 13:36 Lymph % (Auto) 12.8 % 03/07/24 13:36 [place]s % (Auto) 9.8 % 03/07/24 13:36 Eos % (Auto) 1.6 % 03/07/24 13:36 Baso % (Auto) 1.0 % 03/07/24 13:36 Neut # (Auto) 6.00 10^3/uL (1.8-7.7) 03/07/24 13:36 Lymph # (Auto) 1.0 10^3/uL (0.8-4.8) 03/07/24 13:36 [place]s # (Auto) 0.8 10^3/uL (0.2-0.9) 03/07/24 13:36 Eos # (Auto) 0.1 10^3/uL (0.0-0.8) 03/07/24 13:36 Baso # (Auto) 0.1 10^3/uL (0.0-0.1) 03/07/24 13:36 Nucleated RBC % (auto) 0 % 03/07/24 13:36 Nucleated RBCs # 0.0 /100WBC 03/07/24 13:36 Specimen Type Arterial 03/07/24 13:42 Sample Site Brachial, right 03/07/24 13:42 ABG pH 7.50 (7.35-7.45) H 03/07/24 13:42 ABG pCO2 36.2 mmHg (35-45) 03/07/24 13:42 ABG pO2 57.8 mmHg (80.0-100.0) L 03/07/24 13:42 ABG PO2/FiO2 Ratio 275 03/07/24 13:42 ABG HCO3 28.3 mmol/L (22-26) H 03/07/24 13:42 ABG O2 Saturation 91.6 03/07/24 13:42 ABG Base Excess 5.1 mmol/L (-2.0-2.0) H 03/07/24 13:42 Robbie Test N/a 03/07/24 13:42 A-a O2 Gradient 5.9 mmHg (5-10) 03/07/24 13:42 Hematocrit 45.7 % (37-47) 03/07/24 13:42 Hgb O2 Saturation 89.5 % (95-100) L 03/07/24 13:42 Carboxyhemoglobin 1.4 %THgb (0.4-20.1) 03/07/24 13:42 Methemoglobin 0.9 % (0.4-1.5) 03/07/24 13:42 Total Hemoglobin 14.9 g/dL (12-16) 03/07/24 13:42 Sodium 138.0 mmol/L (131-143) 03/07/24 13:42 Potassium 3.8 mmol/L (3.5-5.0) 03/07/24 13:42 Glucose 164.0 mg/dL (70-115) H 03/07/24 13:42 Ionized Calcium 1.2 mmol/L (1.1-1.4) 03/07/24 13:42 O2 Delivery Device Room air 03/07/24 13:42 FiO2 21.0 % 03/07/24 13:42 Driver Medic ID glc 03/07/24 13:42 Sodium 137 mmol/L (136-145) 03/07/24 13:36 Potassium 4.0 mmol/L (3.5-5.1) 03/07/24 13:36 Chloride 98 mmol/L (98-107) 03/07/24 13:36 Carbon Dioxide 25 mmol/L (22-29) 03/07/24 13:36 Anion Gap 18.0 (5-19) 03/07/24 13:36 BUN 20 mg/dL (8-23) 03/07/24 13:36 Creatinine 1.1 mg/dL (0.5-0.9) H 03/07/24 13:36 GFR Calculation Not Reportable 03/07/24 13:36 Glucose 163 mg/dL (65-115) H 03/07/24 13:36 Calculated Osmolality 290 mOsm/kg (285-295) 03/07/24 13:36 Calcium 9.5 mg/dL (8.5-10.5) 03/07/24 13:36 Total Bilirubin 1.6 mg/dL (0.15-1.2) H 03/07/24 13:36 AST 22 U/L (0-32) 03/07/24 13:36 ALT 16 U/L (0-33) 03/07/24 13:36 Alkaline Phosphatase 98 U/L (35-105) 03/07/24 13:36 Troponin T Baseline 18 ng/L (0-10) H 03/07/24 13:36 Troponin T 120 Minute 17.36 ng/L (0-10) H 03/07/24 15:39 Delta Troponin T -0.64 ABS# (0-10) L 03/07/24 15:39 Total Protein 6.3 g/dL (6.6-8.7) L 03/07/24 13:36 Albumin 4.0 g/dL (3.5-5.2) 03/07/24 13:36 Globulin 2.3 g/dL (1.3-4.6) 03/07/24 13:36 Urine Color Yellow (Yellow) 03/07/24 16:00 Urine Appearance Clear (CLEAR) 03/07/24 16:00 Urine pH 5.0 (5-7) 03/07/24 16:00 Ur Specific [place] 1.029 (1.005-1.030) 03/07/24 16:00 Urine Protein Negative (Negative) 03/07/24 16:00 Urine Glucose (UA) Negative (Normal) 03/07/24 16:00 Urine Ketones Negative (Negative) 03/07/24 16:00 Urine Blood Negative (Negative) 03/07/24 16:00 Urine Nitrate Negative (Negative) 03/07/24 16:00 Urine Bilirubin Negative (Negative) 03/07/24 16:00 Urine Urobilinogen 1.0 mg/dL (Negative) 03/07/24 16:00 Ur Leukocyte Esterase Negative (Negative) 03/07/24 16:00 Urine RBC 0-2 /hpf (0-2) 03/07/24 16:00 Urine WBC 0-5 /hpf (0-5) 03/07/24 16:00 Ur Squamous Epith Cells 0-5 /hpf (0-5) 03/07/24 16:00 Amorphous Sediment Not Reportable 03/07/24 16:00 Urine Bacteria None seen /hpf (NONE) 03/07/24 16:00 Hyaline Casts 4.95 /lpf 03/07/24 16:00 All radiology interpretation(s) finalized by discharge Discharge Plan Discharge Patient Disposition: Placed in Observation Clinical Impression: Acute exacerbation of CHF (congestive heart failure) Condition: Stable Prescriptions: No Action multivitamin Tablet 1 tab PO DAILY magnesium 200 mg tablet 400 mg PO DAILY mecobalamin (vitamin B12) 1,000 mcg lozenge 1,000 mcg PO DAILY Rx Instructions: allow to dissolve in mouth OR may chew lightly before swallowing potassium chloride 20 mEq/15 mL liquid 20 meq PO DAILY Qty: 450 11RF (DME) C-pap auto titrating 6-12 See Rx Instructions .Route .MEDSUPPLY Qty: 1 0RF Rx Instructions: mask and supplies as needed Combivent Respimat 20-100 mcg/actuation mist 1 puff INHALATION Q6H PRN (Reason: Shortness Of Breath) Qty: 4 3RF zolpidem 10 mg tablet 10 mg PO .QHS Qty: 30 5RF furosemide 80 mg tablet 80 mg PO BID Qty: 60 11RF cyclobenzaprine 5 mg tablet See Rx Instructions .ROUTE .COMPLEX Qty: 30 11RF Dose Instruction: TAKE 1 TABLET BY MOUTH THREE TIMES A DAY NEEDED FOR MUSCLE PAIN Rx Instructions: TAKE 1 TABLET BY MOUTH THREE TIMES A DAY NEEDED FOR MUSCLE PAIN amlodipine 10 mg tablet See Rx Instructions .ROUTE .COMPLEX Qty: 90 3RF Dose Instruction: TAKE 1 TABLET DAILY Rx Instructions: TAKE 1 TABLET DAILY Eliquis 5 mg tablet See Rx Instructions .ROUTE .COMPLEX Qty: 180 3RF Dose Instruction: TAKE 1 TABLET BY MOUTH TWICE DAILY Rx Instructions: TAKE 1 TABLET BY MOUTH TWICE DAILY spironolactone 25 mg tablet See Rx Instructions .ROUTE .COMPLEX Qty: 90 3RF Dose Instruction: TAKE 1 TABLET BY MOUTH DAILY Rx Instructions: TAKE 1 TABLET BY MOUTH DAILY alprazolam [Xanax] 0.25 mg tablet 0.25 mg PO TID PRN (Reason: anxiety) Qty: 60 5RF levothyroxine 100 mcg tablet See Rx Instructions .ROUTE .COMPLEX Qty: 90 11RF Dose Instruction: TAKE 1 TABLET BY MOUTH EVERY DAY Rx Instructions: TAKE 1 TABLET BY MOUTH EVERY DAY cholecalciferol (vitamin D3) [Vitamin D3] 25 mcg (1,000 unit) Capsule 25 mcg PO DAILY omega 5-ppi-hvl-fish oil [Fish Oil] 1,000 (120-180) mg Capsule 1 cap PO DAILY amiodarone [Pacerone] 200 mg Tablet 200 mg PO DAILY Qty: 30 3RF carvedilol 3.125 mg tablet 3.125 mg PO BID Qty: 60 6RF Rx Instructions: must administer with a meal/food Referrals: Gio Soto MD [Primary Care Provider] - Patient Instructions: Opioid Safety, Pain Management Coding Level of Care Code ED Flush Tester for Amor Alcantara
[2024-03-07 13:47] LABS: Basophils # 0.1 10^3/uL (0.0-0.1); Eosinophils # 0.1 10^3/uL (0.0-0.8); Eosinophils % 1.6 %; Hematocrit 44.7 % (36-47); Lymphocytes % 12.8 %; Mean Corpuscular HGB Conc 32.7 g/dL (30-55); Mean Corpuscular Hemoglobin 29.6 pg (27-33); Mean Corpuscular Volume 90.7 fl (85-98); Mean Platelet Volume 9.2 fL (7.4-10.4); Monocytes # 0.8 10^3/uL (0.2-0.9); Monocytes % 9.8 %; Neutrophils % 74.4 %; Nucleated Red Blood Cells % 0 %; Platelet Count 249 10^3/cmm (157-399); Red Blood Count 4.93 10^6/uL (3.85-5.65); Red Cell Distribution Width 18.1 % (12.1-15.1); White Blood Count 8.06 10^3/uL (3.29-11.43)
[2024-03-07 13:52] LABS: ABG PCO2 36.2 mmHg (35-45); Alveolar-Arterial Oxygen Gradi 5.9 mmHg (5-10); Arterial Blood Gas Hematocrit 45.7 % (37-47); Base Excess ABG 5.1 mmol/L (-2.0-2.0); Blood Gas Operator Identificat glc; Blood Gas Sample Site Brachial, right; Blood Gas Sample Type Arterial; Carboxyhemoglobin 1.4 %THgb (0.4-20.1); HCO3 ABG 28.3 mmol/L (22-26); HGB O2 Sat 89.5 % (95-100); Ionized Calcium Level - ABG 1.2 mmol/L (1.1-1.4); Methemoglobin 0.9 % (0.4-1.5); Oxygen Device ROOM AIR; Oxygen Saturation ABG 91.6; PO2 ABG 57.8 mmHg (80.0-100.0); PO2 FiO2 Ratio Arterial Blood 275; Potassium Level - ABG 3.8 mmol/L (3.5-5.0); Total Hemoglobin 14.9 g/dL (12-16)
[2024-03-07 14:03] LABS: Alanine Aminotransferase 16 U/L (0-33); Alkaline Phosphatase 98 U/L (35-105); Aspartate Amino Transferase 22 U/L (0-32); Blood Urea Nitrogen 20 mg/dL (8-23); Calcium 9.5 mg/dL (8.5-10.5); Carbon Dioxide 25 mmol/L (22-29); Chloride 98 mmol/L (98-107); Creatinine Clr Calc Pharmacy 36.7581; Globulin 2.3 g/dL (1.3-4.6); Glucose 163 mg/dL (65-115); Osmolality Calculated 290 mOsm/kg (285-295); Sodium 137 mmol/L (136-145); Total Bilirubin 1.6 mg/dL (0.15-1.2); Total Protein 6.3 g/dL (6.6-8.7)
[2024-03-07 14:04] LABS: Troponin(5th) Baseline 18 ng/L (0-10)
--- NOTE | 2024-03-07 14:49 | CTR_ITS ---
PROCEDURE INFORMATION: Exam: CTA Chest With Contrast Exam date and time: 03/07/2024 3:16 PM Age: 83 years old Clinical indication: Shortness of breath; Additional info: Sudden onset dyspnea TECHNIQUE: Imaging protocol: Computed tomographic angiography of the chest with contrast. Exam focused on the arteries. 3D rendering (Not supervised by radiologist): MIP and/or 3D reconstructed images were created by the technologist. Radiation optimization: All CT scans at this facility use at least one of these dose optimization techniques: automated exposure control; mA and/or kV adjustment per patient size (includes targeted exams where dose is matched to clinical indication); or iterative reconstruction. Contrast material: OMNI 350; Contrast volume: 76 ml; Contrast route: INTRAVENOUS (IV); COMPARISON: CT chest wo con [id number] 12/02/2023 1:10 PM RADIATION DOSE METRICS: Total DLP (mGy-cm): 395.34 FINDINGS: Pulmonary arteries: Limited contrast opacification of upper lobe segmental and subsegmental branches. Limited opacification of lower lobe subsegmental branches. Apparent vague linear density seen in left lower lobe subsegmental branches. These findings could be sequelae of chronic pulmonary embolism. There is no evidence of acute pulmonary embolism. Aorta: Atherosclerotic calcifications throughout. Calcifications in the coronary arteries. No aortic aneurysm. No aortic dissection. Lungs: Alveolar and interstitial edema bilaterally. Atelectatic changes in right middle lobe medial segment, lingula and lung bases, right more than left. No definite focal infiltrate. Pleural spaces: Xpbeo-yu-cjrrfbbr right pleural effusion with minimal fluid in interlobar fissure and loculations. Very small left pleural effusion with minimal loculations. Heart: Cardiomegaly. No pericardial effusion. Lymph nodes: No enlarged lymph nodes. Bones/joints: Spondylotic changes. No acute fracture. Soft tissues: Ascites in the visualized upper abdomen. CT/CT angio chest PE protcl [id number] IMPRESSION: 1. Congestive heart failure with a pulmonary edema suspected. Xqqwx-rs-[id number] right and very small left pleural effusion with loculations. Atelectatic changes also noted. 2. No acute pulmonary embolism identified. Limited opacification of upper lobe segmental and subsegmental branches and lower lobe subsegmental branches. Chronic pulmonary embolism sequelae possible.
[2024-03-07] MEDS: diphenhydrAMINE 50 mg/mL SDV 1mL IVP (15:08)
[2024-03-07] MEDS: methylPREDNISolone sod succ 40 mg/mL INJ IVP (15:09)
[2024-03-07] MEDS: iohexol 350 mg/mL 500 mL Btl (per mL) IV (15:18)
--- NOTE | 2024-03-07 15:31 | ECG_ITS ---
[facility] Date: 2024-[facility]07 Pat Name: Zee Vaca Department: Room: Gender: Female Stroke Coordinator: : 1940 Requested By: Moses Hung Order Number: [id number] Reading MD: PEDRO SAHU Measurements Intervals [place] Rate: 72 P: 0 FL: 0 QRS: 72 QRSD: 101 T: 218 QT: 394 QTc: 432 Interpretive Statements ATRIAL FIBRILLATION INDETERMINATE AXIS LOW QRS VOLTAGE IN PRECORDIAL LEADS [QRS DEFLECTION < 1.0 mV IN CHEST LEADS] SEPTAL MYOCARDIAL INFARCTION , PROBABLY OLD [40+ ms Q WAVE IN V1/V2] Compared to ECG 03/07/2024 13:30:48 Sinus rhythm no longer present First degree AV block no longer present T-wave abnormality no longer present Possible ischemia no longer present Myocardial infarct finding still present Electronically Signed On 03-08-2024 19:30:26 EXECUTIVE DIRECTOR [employer]ET[employer] by PEDRO SAHU [email or web address]
[2024-03-07 16:06] LABS: Troponin 5 2HR 17.36 ng/L (0-10)
[2024-03-07 16:07] LABS: Troponin 5 2HR Delta -0.64 ABS# (0-10)
[2024-03-07 16:08] LABS: Bilirubin Urine Negative (Negative); Blood Urine Negative (Negative); Glucose Urine UA Negative (Normal); Ketones Urine Negative (Negative); Leukocyte Esterase Urine Negative (Negative); Nitrate Urine Negative (Negative); Protein Urine Negative (Negative); Specific Gravity, Urine 1.029 (1.005-1.030); Urine Appearance Clear (CLEAR); Urine Color Yellow (Yellow)
[2024-03-07 16:14] LABS: Add Urine Microscopic? YES; Bacteria Urine None Seen /hpf; Hyaline Casts Urine 4.95 /lpf; RBC Urine 0-2 /hpf (0-2); Squamous Epithelial Cell Urine 0-5 /hpf (0-5); WBC Urine 0-5 /hpf (0-5)
[2024-03-07] MEDS: FUROsemide 10 mg/mL SDV 10mL 60 MG IVP (16:43)
--- NOTE | 2024-03-07 17:11 | P.HP_ITS ---
Providers/Chief Complaint 2 Admitting Physician: Kandi Forbes MD Primary Care Provider: Gio Soto MD Chief Complaint: sob History of Present Illness Zee Vaca is a 83 year old female with past medical history of congestive heart failure, atrial fibrillation on chronic anticoagulation, fibromyalgia, hypertension, hyperlipidemia, hypothyroidism presented with complaint of feeling weakness, tiredness and shortness of breath since few days. As per the patient she has been feeling short of breath, not able to sleep and walk around without support. Denies any history of fever, cough, chest pain, palpitations, dizziness, nausea/vomiting/diarrhea or urinary complaints. Denies any history of sick contact or recent travel. She was recently admitted to the hospital and discharged on 02/12 for congestive heart failure. Considering ongoing recurrent heart failure symptoms in the setting of atrial fibrillation she had a JAMES guided cardioversion and was successfully converted to normal sinus rhythm. However next day she went into atrial fibrillation with rate controlled. Review of Systems 2 General: Reports: 10 or more systems reviewed and unremarkable except in HPI and below Medications/Allergies Home Medications Medication Instructions Recorded Confirmed Last Taken Type cholecalciferol (vitamin D3) 25 25 mcg PO DAILY 08/31/22 02/25/24 02/09/24 History mcg (1,000 unit) capsule (Vitamin D3) cyclobenzaprine 5 mg tablet See Rx Instructions .Route 04/04/23 02/25/24 Unknown Rx .COMPLEX #30 tabs ipratropium 20 mcg-albuterol 100 1 puff inhalation Q6H PRN 08/26/23 02/25/24 02/09/24 Rx mcg/actuation mist for inhalation Shortness Of Breath #4 grams (Combivent Respimat) amlodipine 10 mg tablet See Rx Instructions .Route 09/09/23 02/25/24 02/09/24 Rx .COMPLEX #90 tabs apixaban 5 mg tablet (Eliquis) See Rx Instructions .Route 10/13/23 02/25/24 Unknown Rx .COMPLEX #180 tabs spironolactone 25 mg tablet See Rx Instructions .Route 12/17/23 02/25/24 02/09/24 Rx .COMPLEX #90 tabs alprazolam 0.25 mg tablet (Xanax) 0.25 mg PO TID PRN anxiety #60 tabs 02/03/24 02/25/24 Unknown Rx magnesium 200 mg tablet 400 mg PO DAILY 02/09/24 02/25/24 02/09/24 History mecobalamin (vitamin B12) 1,000 1,000 mcg PO DAILY 02/09/24 02/25/24 02/09/24 History mcg lozenges multivitamin 1 tab PO DAILY 02/09/24 02/25/24 02/09/24 History omega 1-tbo-cec-fish oil 1,000 mg 1 cap PO DAILY 02/10/24 02/25/24 02/09/24 History (120 mg-180 mg) capsule (Fish Oil) amiodarone 200 mg tablet (Pacerone) 200 mg PO DAILY #30 tabs 02/13/24 02/25/24 Unknown Rx carvedilol 3.125 mg tablet 3.125 mg PO BID #60 tabs 02/13/24 02/25/24 Unknown Rx C-pap auto titrating 6-12 #1 ea 02/19/24 02/25/24 Unknown Rx potassium chloride 20 mEq/15 mL 20 meq (15 mL) PO DAILY #450 mL 02/19/24 02/25/24 Unknown Rx oral liquid furosemide 80 mg tablet 80 mg PO BID #60 tabs 02/26/24 02/26/24 Unknown Rx zolpidem 10 mg tablet 10 mg PO .QHS #30 tabs 02/26/24 02/26/24 Unknown Rx levothyroxine 100 mcg tablet See Rx Instructions .Route 03/01/24 Unknown Rx .COMPLEX #90 tabs Allergies Allergy/AdvReac Type Severity Reaction Status Date / Time Iodinated Contrast Media Allergy Mild possibly Verified 03/07/24 13:30 had chest pain with it but not sure acetaminophen [From Vicodin] Allergy Unknown Verified 03/07/24 13:30 hydrocodone [From Vicodin] Allergy Unknown Verified 03/07/24 13:30 levofloxacin [From Levaquin] Allergy Unknown Verified 03/07/24 13:30 oxycodone [From Percocet] Allergy Unknown Verified 03/07/24 13:30 simvastatin Allergy Unknown Verified 03/07/24 13:30 sulfamethoxazole Allergy Unknown Verified 03/07/24 13:30 [From Bactrim] trimethoprim [From Bactrim] Allergy Unknown Verified 03/07/24 13:30 PFSH Acute 2 PFSH: Medical History Tricuspid valve regurgitation CHF (NYHA class IV, ACC/AHA stage D) Mitral regurgitation Atrial fibrillation, chronic Insomnia temazepam not effective, ambien caused side effects, trazodone caused dizziness, Risperdal kept her awake Diverticulitis Fibromyalgia Hypertension Hyperlipidemia Hypothyroid Hypoglycemia History of left breast cancer 2010 Hiatal hernia Surgical History History of right hip replacement History of tonsillectomy Family History Father Lung cancer Mother Stroke Social History Smoking and tobacco/nicotine status: never used tobacco/nicotine Alcohol intake: never Substance/Drug Use: never Marital status: Vitals/I&O/Wt Last Vital Signs Temp 97.6 F 03/07/24 13:18 Pulse 67 03/07/24 15:43 Resp 19 H 03/07/24 13:18 BP 113/76 03/07/24 14:01 Pulse Ox 92 03/07/24 15:43 O2 Del Method Room Air 03/07/24 14:01 Weight last 48 hrs Weight 79.379 kg Physical Exam 2 Narrative: She is alert awake oriented x 3, in moderate respiratory distress, unable to speak in full sentences due to shortness of breath. Chest bilateral basal crackles present Cardiovascular normal heart sounds, irregular rhythm Abdomen soft nontender nondistended normal bowel sounds Extremities bilateral lower extremity pitting edema present left more than right. Data 03/07/24 13:36 03/07/24 13:36 A&P Assessment and plan (1) Acute exacerbation of CHF (congestive heart failure): (2) Hypothyroid: (3) Hyperlipidemia: (4) Atrial fibrillation: (5) Hypertension: Plan Zee Vaca is a 83 year old female with past medical history of congestive heart failure, atrial fibrillation on chronic anticoagulation, fibromyalgia, hypertension, hyperlipidemia, hypothyroidism presented with complaint of feeling weakness, tiredness and shortness of breath since few days, found to have BNP of 2000, hypoxic likely secondary to CHF exacerbation #Acute on chronic congestive heart failure- EKG showed atrial fibrillation, rate controlled 2 sets of troponins 18, 17 ABG showed 7.5/36/57/275/91% on 3 L nasal cannula Chest x-ray consistent with fluid overload CTA chest negative for PE Last 2D echo was 02/04 showed EF of 60%, moderately increased LA size Stress test in 12/05 was normal Will do IV Lasix 40 mg twice daily Daily weight Strict I's and O's Fluid restriction to 1.5 L Continue supplemental oxygen to keep saturation more than 90% DuoNebs every 6 hours as needed Continue [employer] spironolactone Atrial fibrillation-rate controlled Continue [employer] Eliquis Hypertension-continue [employer] amlodipine Hypothyroidism-continue [employer] levothyroxine DVT prophylaxis, already on Eliquis GI prophylaxis with IV Pepcid twice daily CODE STATUS discussed with patient, she is full code for now Attestations 2 Medical Necessity Statement*: She needs continued hospitalization probably crossing 2 midnights for management of acute on chronic congestive heart failure and hypoxia Time Spent in Patient Care: 40-minute Coding Level of Care Code Acute Code for Chg Fwd Diagnoses Acute exacerbation of CHF (congestive heart failure) I50.9 Hypothyroid E03.9 Hyperlipidemia E78.5 Atrial fibrillation I48.91 Hypertension I10 Time Spent (min) 40
[2024-03-07] MEDS: famotidine 20 mg/2 mL INJ IVP (18:23)
[2024-03-07] MEDS: carvedilol 3.125 mg Tablet PO (18:23)
[2024-03-07] MEDS: apixaban 5 mg Tablet PO (18:23)
--- NOTE | 2024-03-07 19:31 | ECG_ITS ---
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: : 1940 Requested By: Moses Hung Order Number: [id number] Reading MD: PEDRO SAHU Measurements Intervals [place] Rate: 70 P: 0 MT: 0 QRS: 70 QRSD: 105 T: 180 QT: 387 QTc: 420 Interpretive Statements ATRIAL FIBRILLATION ANTEROSEPTAL MYOCARDIAL INFARCTION , OF INDETERMINATE AGE [40+ ms Q WAVE IN V1-V4] MODERATE T-WAVE ABNORMALITY, CONSIDER LATERAL ISCHEMIA [-0.1+ mV T-WAVE IN I/aVL/V5/V6] Compared to ECG 03/07/2024 16:14:08 T-wave abnormality now present Possible ischemia now present Indeterminate axis no longer present Myocardial infarct finding still present Electronically Signed On 03-08-2024 19:30:16 TIRE CLASSIFIER by PEDRO SAHU [email or web address]
[2024-03-07 20:40] LABS: Troponin 5 6HR 15.92 ng/L (0-10)
[2024-03-07 20:45] LABS: Troponin 5 6HR Delta -2.08 ng/L (0-12)
[2024-03-07] MEDS: zolpidem 5 mg Tablet 10 MG PO (21:40)
[2024-03-08] VITALS (10 sets, daily range): BP systolic 111–136; BP diastolic 64–87; PULSE 63–88; RESP 16–20; TEMP 36.3–36.6; O2SAT 92–98
[2024-03-08 04:36] LABS: Basophils % 0.2 %; Hematocrit 42.6 % (36-47); Lymphocytes # 0.6 10^3/uL (0.8-4.8); Mean Corpuscular HGB Conc 32.6 g/dL (30-55); Mean Corpuscular Hemoglobin 29.4 pg (27-33); Mean Corpuscular Volume 90.1 fl (85-98); Mean Platelet Volume 9.6 fL (7.4-10.4); Monocytes # 0.1 10^3/uL (0.2-0.9); Monocytes % 2.2 %; Neutrophils # 5.56 10^3/uL (1.8-7.7); Neutrophils % 88.3 %; Nucleated Red Blood Cells % 0 %; Platelet Count 253 10^3/cmm (157-399); Red Blood Count 4.73 10^6/uL (3.85-5.65)
[2024-03-08] MEDS: famotidine 20 mg/2 mL INJ IVP ×2 (04:57→17:36)
[2024-03-08] MEDS: FUROsemide 10 mg/mL SDV 4mL 40 MG IVP ×2 (04:57→15:44)
[2024-03-08 05:02] LABS: Alanine Aminotransferase 16 U/L (0-33); Albumin Level 3.6 g/dL (3.5-5.2); Alkaline Phosphatase 84 U/L (35-105); Aspartate Amino Transferase 22 U/L (0-32); Blood Urea Nitrogen 24 mg/dL (8-23); Calcium 9.7 mg/dL (8.5-10.5); Carbon Dioxide 26 mmol/L (22-29); Chloride 100 mmol/L (98-107); Globulin 2.7 g/dL (1.3-4.6); Glucose 137 mg/dL (65-115); Magnesium 2.4 mg/dL (1.7-2.3); Osmolality Calculated 290 mOsm/kg (285-295); Sodium 137 mmol/L (136-145); Thyroid Stimulating Hormone 2.63 uIU/mL (0.27-4.20); Total Bilirubin 1.3 mg/dL (0.15-1.2); Total Protein 6.3 g/dL (6.6-8.7)
[2024-03-08] MEDS: magnesium oxide 400 mg tablet PO (08:42)
[2024-03-08] MEDS: amlodipine 10 mg Tablet PO (08:42)
[2024-03-08] MEDS: carvedilol 3.125 mg Tablet PO ×2 (08:42→17:36)
[2024-03-08] MEDS: apixaban 5 mg Tablet PO ×2 (08:42→17:36)
[2024-03-08] MEDS: levothyroxine 100 mcg Tablet PO (08:42)
[2024-03-08] MEDS: amiodarone 200 mg Tablet PO (08:42)
[2024-03-08] MEDS: spironolactone 25 mg Tablet PO (08:42)
[2024-03-08] MEDS: multivitamin therapeutic Tablet 1 TAB PO (08:42)
[2024-03-08] MEDS: potassium chloride oral liq 20 mEq/15 mL UDC PO (08:45)
--- NOTE | 2024-03-08 09:37 | PC.CHAP ---
Pastoral Care Encounter/Spiritual Assessment Type of Contact [] Declined rattan worker visit [] Patient/Family/Request visit [] Outpatient visit [] Follow-up visit [] Physician referral [] Code/Alert [x] Routine visit [] Staff referral [] Actively dying [] Patient sleeping [x] Family support [] [] Out of room [] Palliative care [] [] Receiving care in room [] Pre-surgical visit [] Trauma [] Long length of stay [] ICU visit [] Other: Relational/Emotional Strength [] Patient feels connected with others/family/visitors/staff [] Distress [] Loneliness/isolation [] Abandonment Spirituality of Patient [x] Person of Jaclyn [] Attends Hinduism of their Jaclyn [x] Believes in Prayer [] Reads Bible or Hindu materials [] There are Spiritual issues to be addressed Blade Grinder Interventions [x] Prayer [x] Active listening [] Non-anxious presence [] Spiritual/emotional support [] Crisis/trauma care [] Spiritual counseling [] Bereavement support [] Provided bereavement packet [x] Provided Bible/devotional materials [] Provided toy/stuffed animal, coloring book to patient or family member [] Provided Communion [] Anointing/[place] [] Salvation [x] Completed spiritual assessment [] Other: Impact on Illness or Injury [] Angry [] Fearful [] Anxious [] Often cries [] Exhaustion [] Unable to work [] Unable to attend voodoo [] Unable to walk/stand [] Unable to read [] Unable to drive [] Unable to eat/drink [] Unable to sleep [] Unable to be with family [] Patient intubated [] Other: Summary Time spent with patient 5 min
--- NOTE | 2024-03-08 14:11 | P.PN_ITS ---
Subjective 2 Subjective: No acute overnight events noted. Seen her at bedside this morning, still complaint of shortness of breath but denies any chest pain or palpitations Medications: Reviewed: Yes Vitals/I&O/Wt Last Vital Signs Temp 97.9 F 03/08/24 12:00 Pulse 70 03/08/24 13:50 Resp 16 03/08/24 12:00 BP 116/76 03/08/24 13:50 Pulse Ox 93 03/08/24 13:50 O2 Del Method Nasal Cannula 03/08/24 13:50 O2 Flow Rate 2 03/08/24 13:50 03/07/24 03/08/24 03/08/24 22:59 06:59 14:59 Intake Total 0 / 0 400 / 400 804 / 804 Output Total 450 / 450 400 / 850 600 / 600 Balance -450 / -450 0 / -450 204 / 204 Weight last 48 hrs Weight 81.873 kg Weight 81.193 kg Weight 79.379 kg Physical Exam 2 Narrative: She is alert awake oriented x 3, in moderate respiratory distress, unable to speak in full sentences due to shortness of breath. Chest bilateral basal crackles present Cardiovascular normal heart sounds, irregular rhythm Abdomen soft nontender nondistended normal bowel sounds Extremities bilateral lower extremity pitting edema present left more than right. Data 03/08/24 03:21 03/08/24 03:21 A&P Assessment and plan (1) Acute exacerbation of CHF (congestive heart failure): (2) Hypothyroid: (3) Hyperlipidemia: (4) Atrial fibrillation: (5) Hypertension: Plan Zee Vaca is a 83 year old female with past medical history of congestive heart failure, atrial fibrillation on chronic anticoagulation, fibromyalgia, hypertension, hyperlipidemia, hypothyroidism presented with complaint of feeling weakness, tiredness and shortness of breath since few days, found to have BNP of 2000, hypoxic likely secondary to CHF exacerbation #Acute on chronic congestive heart failure- EKG showed atrial fibrillation, rate controlled 2 sets of troponins 18, 17 ABG showed 7.5/36/57/275/91% on 3 L nasal cannula Chest x-ray consistent with fluid overload CTA chest negative for PE Last 2D echo was 02/04 showed EF of 60%, moderately increased LA size Stress test in 12/05 was normal Will do IV Lasix 40 mg twice daily Daily weight Strict I's and O's Fluid restriction to 1.5 L Continue supplemental oxygen to keep saturation more than 90% DuoNebs every 6 hours as needed 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 Creatinine 1.2. Continue current management, spironolactone and magnesium on hold. Follow-up labs in a.m. Continue to monitor in CSU Attestations 2 Medical Necessity Statement*: She needs continued hospitalization probably crossing 2 midnights for management of acute on chronic congestive heart failure and hypoxia Time Spent in Patient Care: 20-minute Coding Level of Care Code Acute Code for Chg Fwd Diagnoses Acute exacerbation of CHF (congestive heart failure) I50.9 Hypothyroid E03.9 Hyperlipidemia E78.5 Atrial fibrillation I48.91 Hypertension I10 Time Spent (min) 20
[2024-03-08] MEDS: lactulose oral liq 20 gm/30 mL UDC 30 GM PO (15:44)
[2024-03-08] MEDS: polyethylene glycol 3350 Pkt 17 gm PO (17:36)
[2024-03-08] MEDS: zolpidem 5 mg Tablet 10 MG PO (21:07)
[2024-03-09] VITALS (11 sets, daily range): BP systolic 106–133; BP diastolic 57–79; PULSE 57–97; RESP 12–22; TEMP 36.4–37; O2SAT 88–97
[2024-03-09 04:17] LABS: Basophils % 0.2 %; Eosinophils % 0.2 %; Hematocrit 40.6 % (36-47); Lymphocytes % 8.2 %; Mean Corpuscular HGB Conc 33.7 g/dL (30-55); Mean Corpuscular Hemoglobin 29.9 pg (27-33); Mean Corpuscular Volume 88.6 fl (85-98); Mean Platelet Volume 9.5 fL (7.4-10.4); Monocytes # 0.9 10^3/uL (0.2-0.9); Neutrophils % 84.1 %; Nucleated Red Blood Cells % 0 %; Platelet Count 245 10^3/cmm (157-399); Red Blood Count 4.58 10^6/uL (3.85-5.65); Red Cell Distribution Width 18.1 % (12.1-15.1); White Blood Count 12.62 10^3/uL (3.29-11.43)
[2024-03-09 04:43] LABS: Alanine Aminotransferase 21 U/L (0-33); Albumin Level 3.8 g/dL (3.5-5.2); Alkaline Phosphatase 83 U/L (35-105); Anion Gap 14.1 (5-19); Aspartate Amino Transferase 25 U/L (0-32); Blood Urea Nitrogen 28 mg/dL (8-23); Calcium 9.7 mg/dL (8.5-10.5); Carbon Dioxide 27 mmol/L (22-29); Chloride 97 mmol/L (98-107); Creatinine Clr Calc Pharmacy 37.3791; Globulin 2.5 g/dL (1.3-4.6); Glucose 110 mg/dL (65-115); Magnesium 2.5 mg/dL (1.7-2.3); Osmolality Calculated 284 mOsm/kg (285-295); Potassium 4.1 mmol/L (3.5-5.1); Sodium 134 mmol/L (136-145); Total Bilirubin 1.1 mg/dL (0.15-1.2); Total Protein 6.3 g/dL (6.6-8.7)
[2024-03-09] MEDS: famotidine 20 mg/2 mL INJ IVP ×2 (04:56→17:48)
[2024-03-09] MEDS: FUROsemide 10 mg/mL SDV 4mL 40 MG IVP ×2 (04:56→17:14)
[2024-03-09] MEDS: carvedilol 3.125 mg Tablet PO ×2 (08:35→17:48)
[2024-03-09] MEDS: apixaban 5 mg Tablet PO ×2 (08:35→17:48)
[2024-03-09] MEDS: potassium chloride oral liq 20 mEq/15 mL UDC PO (08:35)
[2024-03-09] MEDS: amlodipine 10 mg Tablet PO (08:35)
[2024-03-09] MEDS: docusate sodium 100 mg Capsule PO ×2 (08:36→17:48)
[2024-03-09] MEDS: amiodarone 200 mg Tablet PO (08:36)
[2024-03-09] MEDS: multivitamin therapeutic Tablet 1 TAB PO (08:36)
[2024-03-09] MEDS: levothyroxine 100 mcg Tablet PO (08:36)
[2024-03-09] MEDS: polyethylene glycol 3350 Pkt 17 gm PO (08:38)
--- NOTE | 2024-03-09 14:00 | PM.PN ---
Subjective Subjective: No acute overnight events noted. Seen her at bedside this morning, states feeling much better. Medications: Reviewed: Yes Vitals/I&O/Wt Last Vital Signs Temp 97.5 F L 03/09/24 11:50 Pulse 63 03/09/24 11:50 Resp 20 H 03/09/24 11:50 BP 133/78 03/09/24 11:50 Pulse Ox 94 03/09/24 11:50 O2 Del Method Nasal Cannula 03/09/24 11:50 O2 Flow Rate 2 03/09/24 11:50 03/08/24 03/09/24 03/09/24 22:59 06:59 14:59 Intake Total 480 / 1284 640 / 1924 240 / 240 Output Total 650 / 1310 400 / 1710 100 / 100 Balance -170 / -26 240 / 214 140 / 140 Weight last 48 hrs Weight 81.873 kg Weight 81.873 kg Weight 81.193 kg Physical Exam Narrative: She is alert awake oriented x 3, sitting comfortably in bed Chest clear to auscultation bilaterally Cardiovascular normal heart sounds, irregular rhythm Abdomen soft nontender nondistended normal bowel sounds Extremities bilateral lower extremity pitting edema present left more than right. Data 03/09/24 03:36 03/09/24 03:36 A&P Assessment and plan (1) Acute exacerbation of CHF (congestive heart failure): (2) Hypothyroid: (3) Hyperlipidemia: (4) Atrial fibrillation: (5) Hypertension: Plan Zee Vcaa is a 83 year old female with past medical history of congestive heart failure, atrial fibrillation on chronic anticoagulation, fibromyalgia, hypertension, hyperlipidemia, hypothyroidism presented with complaint of feeling weakness, tiredness and shortness of breath since few days, found to have BNP of 2000, hypoxic likely secondary to CHF exacerbation #Acute on chronic diastolic, preserved EF congestive heart failure- EKG showed atrial fibrillation, rate controlled 2 sets of troponins 18, 17 ABG showed 7.5/36/57/275/91% on 3 L nasal cannula Chest x-ray consistent with fluid overload CTA chest negative for PE Last 2D echo was 02/04 showed EF of 60%, moderately increased LA size Stress test in 12/05 was normal Will do IV Lasix 40 mg twice daily Daily weight Strict I's and O's Fluid restriction to 1.5 L Continue supplemental oxygen to keep saturation more than 90% DuoNebs every 6 hours as needed 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 Creatinine 1.2. Continue current management, spironolactone and magnesium on hold. Follow-up labs in a.m. Continue to monitor in CSU 03/09/24 WBC count 12.6 today, electrolytes normal, creatinine trending down to 1.1. Leukocytosis likely secondary to stress induced, will hold off on antibiotics for today. Recheck CBC in a.m. She did qualify for 2 L of home oxygen therapy and has to use CPAP at night. Follow-up PT recommendations. Anticipating discharge in a.m. Attestations Medical Necessity Statement*: Anticipating discharge in a.m. Time Spent in Patient Care: 15 minutes Coding Level of Care Code Acute Code for g Fwd Diagnoses Acute exacerbation of CHF (congestive heart failure) I50.9 Hypothyroid E03.9 Hyperlipidemia E78.5 Atrial fibrillation I48.91 Hypertension I10 Time Spent (min) 15
[2024-03-09] MEDS: ALPRAZolam 0.5 mg Tablet 0.25 MG PO (17:49)
--- NOTE | 2024-03-09 21:00 | PC.NURSE ---
dexcom reading at 2029 was 325, when checked again at 2129 dexcom reading was 199. pt refused insulin for the night
[2024-03-09] MEDS: zolpidem 5 mg Tablet 10 MG PO (21:39)
[2024-03-10] VITALS (7 sets, daily range): BP systolic 90–116; BP diastolic 59–81; PULSE 64–81; RESP 12–19; TEMP 36.6–37.2; O2SAT 96–98
[2024-03-10 04:17] LABS: Basophils # 0.1 10^3/uL (0.0-0.1); Basophils % 0.5 %; Eosinophils # 0.1 10^3/uL (0.0-0.8); Eosinophils % 1.3 %; Hematocrit 40.6 % (36-47); Lymphocytes # 1.2 10^3/uL (0.8-4.8); Lymphocytes % 11.5 %; Mean Corpuscular HGB Conc 33.5 g/dL (30-55); Mean Corpuscular Volume 89.4 fl (85-98); Mean Platelet Volume 9.6 fL (7.4-10.4); Monocytes # 0.9 10^3/uL (0.2-0.9); Neutrophils # 7.92 10^3/uL (1.8-7.7); Neutrophils % 77.1 %; Nucleated Red Blood Cells % 0 %; Platelet Count 251 10^3/cmm (157-399); Red Blood Count 4.54 10^6/uL (3.85-5.65); Red Cell Distribution Width 17.9 % (12.1-15.1); White Blood Count 10.26 10^3/uL (3.29-11.43)
[2024-03-10 04:38] LABS: Alanine Aminotransferase 20 U/L (0-33); Albumin Level 3.8 g/dL (3.5-5.2); Alkaline Phosphatase 83 U/L (35-105); Anion Gap 16.1 (5-19); Aspartate Amino Transferase 19 U/L (0-32); Blood Urea Nitrogen 25 mg/dL (8-23); Calcium 9.1 mg/dL (8.5-10.5); Carbon Dioxide 27 mmol/L (22-29); Chloride 99 mmol/L (98-107); Globulin 2.3 g/dL (1.3-4.6); Glucose 112 mg/dL (65-115); Magnesium 2.4 mg/dL (1.7-2.3); Osmolality Calculated 291 mOsm/kg (285-295); Potassium 4.1 mmol/L (3.5-5.1); Sodium 138 mmol/L (136-145); Total Bilirubin 1.3 mg/dL (0.15-1.2); Total Protein 6.1 g/dL (6.6-8.7)
[2024-03-10] MEDS: FUROsemide 10 mg/mL SDV 4mL 40 MG IVP ×2 (04:57→08:39)
[2024-03-10] MEDS: famotidine 20 mg/2 mL INJ IVP (04:57)
--- NOTE | 2024-03-10 06:10 | PC.NURSE ---
dexcom reading this am is 261
[2024-03-10] MEDS: multivitamin therapeutic Tablet 1 TAB PO (08:39)
[2024-03-10] MEDS: carvedilol 3.125 mg Tablet PO (08:39)
[2024-03-10] MEDS: levothyroxine 100 mcg Tablet PO (08:39)
[2024-03-10] MEDS: potassium chloride oral liq 20 mEq/15 mL UDC PO (08:39)
[2024-03-10] MEDS: apixaban 5 mg Tablet PO (08:39)
[2024-03-10] MEDS: docusate sodium 100 mg Capsule PO (08:39)
[2024-03-10] MEDS: amiodarone 200 mg Tablet PO (08:39)
[2024-03-10] MEDS: amlodipine 10 mg Tablet PO (08:39)
--- NOTE | 2024-03-10 11:35 | PM.DCS ---
Discharge Providers Date of Admission: 03/07/24 16:27 Date of Discharge: March 10, 2024 Attending Provider at Admission: Kandi Forbes MD Attending Provider at Discharge: Kandi Forbes MD Primary Care Provider: Gio Soto MD Diagnoses at Discharge Discharge Diagnosis (1) Acute exacerbation of CHF (congestive heart failure): Status: Acute (2) Hypothyroid: Status: Acute (3) Hyperlipidemia: Status: Acute (4) Atrial fibrillation: Status: Acute (5) Hypertension: Status: Acute Reason for Visit Reason for Visit: sob Brief History: Zee Vaca is a 83 year old female with past medical history of congestive heart failure, atrial fibrillation on chronic anticoagulation, fibromyalgia, hypertension, hyperlipidemia, hypothyroidism presented with complaint of feeling weakness, tiredness and shortness of breath since few days. As per the patient she has been feeling short of breath, not able to sleep and walk around without support. Denies any history of fever, cough, chest pain, palpitations, dizziness, nausea/vomiting/diarrhea or urinary complaints. Denies any history of sick contact or recent travel. She was recently admitted to the hospital and discharged on 02/12 for congestive heart failure. Considering ongoing recurrent heart failure symptoms in the setting of atrial fibrillation she had a JAMES guided cardioversion and was successfully converted to normal sinus rhythm. However next day she went into atrial fibrillation with rate controlled. Physical Exam Narrative: She is alert awake oriented x 3, sitting comfortably in bed Chest clear to auscultation bilaterally Cardiovascular normal heart sounds, irregular rhythm Abdomen soft nontender nondistended normal bowel sounds Extremities bilateral lower extremity pitting edema present left more than right. Discharge Data Studies Completed and Pending Completed Studies During Hospitalization Category Date Time Status CT angio chest PE protcl [id number] Stat Cat Scan 03/07/24 14:49 Completed XR chest 1V portable [id number] Stat Exams 03/07/24 13:31 Completed Radiology Impressions Chest X-Ray 03/07/24 13:31 IMPRESSION: Atelectatic changes in lung bases and right mid lung. Developing pneumonia cannot be excluded. Chest CTA 03/07/24 14:49 IMPRESSION: 1. Congestive heart failure with a pulmonary edema suspected. [id number] right and very small left pleural effusion with loculations. Atelectatic changes also noted. 2. No acute pulmonary embolism identified. Limited opacification of upper lobe segmental and subsegmental branches and lower lobe subsegmental branches. Chronic pulmonary embolism sequelae possible. Laboratory Results WBC 10.26 10^3/uL (3.29-11.43) 03/10/24 03:59 RBC 4.54 10^6/uL (3.85-5.65) 03/10/24 03:59 Hgb 13.60 g/dL (11.27-16.99) 03/10/24 03:59 Hct 40.6 % (36-47) 03/10/24 03:59 MCV 89.4 fl (85-98) 03/10/24 03:59 MCH 30.0 pg (27-33) 03/10/24 03:59 MCHC 33.5 g/dL (30-55) 03/10/24 03:59 RDW 17.9 % (12.1-15.1) H 03/10/24 03:59 Plt Count 251 10^3/cmm (157-399) 03/10/24 03:59 MPV 9.6 fL (7.4-10.4) 03/10/24 03:59 Neut % (Auto) 77.1 % 03/10/24 03:59 Lymph % (Auto) 11.5 % 03/10/24 03:59 [place] % (Auto) 9.0 % 03/10/24 03:59 Eos % (Auto) 1.3 % 03/10/24 03:59 Baso % (Auto) 0.5 % 03/10/24 03:59 Neut # (Auto) 7.92 10^3/uL (1.8-7.7) H 03/10/24 03:59 Lymph # (Auto) 1.2 10^3/uL (0.8-4.8) 03/10/24 03:59 [place] # (Auto) 0.9 10^3/uL (0.2-0.9) 03/10/24 03:59 Eos # (Auto) 0.1 10^3/uL (0.0-0.8) 03/10/24 03:59 Baso # (Auto) 0.1 10^3/uL (0.0-0.1) 03/10/24 03:59 Nucleated RBC % (auto) 0 % 03/10/24 03:59 Nucleated RBCs # 0.0 /100WBC 03/10/24 03:59 Specimen Type Arterial 03/07/24 13:42 Sample Site Brachial, right 03/07/24 13:42 ABG pH 7.50 (7.35-7.45) H 03/07/24 13:42 ABG pCO2 36.2 mmHg (35-45) 03/07/24 13:42 ABG pO2 57.8 mmHg (80.0-100.0) L 03/07/24 13:42 ABG PO2/FiO2 Ratio 275 03/07/24 13:42 ABG HCO3 28.3 mmol/L (22-26) H 03/07/24 13:42 ABG O2 Saturation 91.6 03/07/24 13:42 ABG Base Excess 5.1 mmol/L (-2.0-2.0) H 03/07/24 13:42 Robbie Test N/a 03/07/24 13:42 A-a O2 Gradient 5.9 mmHg (5-10) 03/07/24 13:42 Hematocrit 45.7 % (37-47) 03/07/24 13:42 Hgb O2 Saturation 89.5 % (95-100) L 03/07/24 13:42 Carboxyhemoglobin 1.4 %THgb (0.4-20.1) 03/07/24 13:42 Methemoglobin 0.9 % (0.4-1.5) 03/07/24 13:42 Total Hemoglobin 14.9 g/dL (12-16) 03/07/24 13:42 Sodium 138.0 mmol/L (131-143) 03/07/24 13:42 Potassium 3.8 mmol/L (3.5-5.0) 03/07/24 13:42 Glucose 164.0 mg/dL (70-115) H 03/07/24 13:42 Ionized Calcium 1.2 mmol/L (1.1-1.4) 03/07/24 13:42 O2 Delivery Device Room air 03/07/24 13:42 FiO2 21.0 % 03/07/24 13:42 Order Processing Specialist ID [email or web address] 03/07/24 13:42 Sodium 138 mmol/L (136-145) 03/10/24 03:59 Potassium 4.1 mmol/L (3.5-5.1) 03/10/24 03:59 Chloride 99 mmol/L (98-107) 03/10/24 03:59 Carbon Dioxide 27 mmol/L (22-29) 03/10/24 03:59 Anion Gap 16.1 (5-19) 03/10/24 03:59 BUN 25 mg/dL (8-23) H 03/10/24 03:59 Creatinine 1.0 mg/dL (0.5-0.9) H 03/10/24 03:59 GFR Calculation Not Reportable 03/10/24 03:59 Glucose 112 mg/dL (65-115) 03/10/24 03:59 Calculated Osmolality 291 mOsm/kg (285-295) 03/10/24 03:59 Calcium 9.1 mg/dL (8.5-10.5) 03/10/24 03:59 Magnesium 2.4 mg/dL (1.7-2.3) H 03/10/24 03:59 Total Bilirubin 1.3 mg/dL (0.15-1.2) H 03/10/24 03:59 AST 19 U/L (0-32) 03/10/24 03:59 ALT 20 U/L (0-33) 03/10/24 03:59 Alkaline Phosphatase 83 U/L (35-105) 03/10/24 03:59 Troponin T Baseline 18 ng/L (0-10) H 03/07/24 13:36 Troponin T 120 Minute 17.36 ng/L (0-10) H 03/07/24 15:39 Delta Troponin T -0.64 ABS# (0-10) L 03/07/24 15:39 Troponin T Hi Sens 6Hr 15.92 ng/L (0-10) H 03/07/24 20:18 Troponin T Hi Sens 6Hr Delta -2.08 ng/L (0-12) L 03/07/24 20:18 Total Protein 6.1 g/dL (6.6-8.7) L 03/10/24 03:59 Albumin 3.8 g/dL (3.5-5.2) 03/10/24 03:59 Globulin 2.3 g/dL (1.3-4.6) 03/10/24 03:59 TSH 2.63 uIU/mL (0.27-4.20) 03/08/24 03:21 Urine Color Yellow (Yellow) 03/07/24 16:00 Urine Appearance Clear (CLEAR) 03/07/24 16:00 Urine pH 5.0 (5-7) 03/07/24 16:00 Ur Specific [place] 1.029 (1.005-1.030) 03/07/24 16:00 Urine Protein Negative (Negative) 03/07/24 16:00 Urine Glucose (UA) Negative (Normal) 03/07/24 16:00 Urine Ketones Negative (Negative) 03/07/24 16:00 Urine Blood Negative (Negative) 03/07/24 16:00 Urine Nitrate Negative (Negative) 03/07/24 16:00 Urine Bilirubin Negative (Negative) 03/07/24 16:00 Urine Urobilinogen 1.0 mg/dL (Negative) 03/07/24 16:00 Ur Leukocyte Esterase Negative (Negative) 03/07/24 16:00 Urine RBC 0-2 /hpf (0-2) 03/07/24 16:00 Urine WBC 0-5 /hpf (0-5) 03/07/24 16:00 Ur Squamous Epith Cells 0-5 /hpf (0-5) 03/07/24 16:00 Amorphous Sediment Not Reportable 03/07/24 16:00 Urine Bacteria None seen /hpf (NONE) 03/07/24 16:00 Hyaline Casts 4.95 /lpf 03/07/24 16:00 Vitals Last Vital Signs Temp 97.9 F 03/10/24 11:27 Pulse 66 03/10/24 11:27 Resp 19 H 03/10/24 11:27 BP 98/72 03/10/24 11:27 Pulse Ox 98 03/10/24 11:27 O2 Del Method Nasal Cannula 03/10/24 11:27 O2 Flow Rate 2 03/10/24 10:00 Discharge Plan Discharge Patient Disposition: Home Condition: Stable Prescriptions: New docusate sodium 100 mg Capsule 100 mg PO BID 7 Days Qty: 14 0RF furosemide [Lasix] 40 mg tablet 40 mg PO BID Qty: 30 0RF Continued multivitamin Tablet 1 tab PO DAILY mecobalamin (vitamin B12) 1,000 mcg lozenge 1,000 mcg PO DAILY Rx Instructions: allow to dissolve in mouth OR may chew lightly before swallowing potassium chloride 20 mEq/15 mL liquid 20 meq PO DAILY Qty: 450 11RF Combivent Respimat 20-100 mcg/actuation mist 1 puff INHALATION Q6H PRN (Reason: Shortness Of Breath) Qty: 4 3RF zolpidem 10 mg tablet 10 mg PO .QHS Qty: 30 5RF cyclobenzaprine 5 mg tablet See Rx Instructions .ROUTE .COMPLEX Qty: 30 11RF Dose Instruction: TAKE 1 TABLET BY MOUTH THREE TIMES A DAY NEEDED FOR MUSCLE PAIN Rx Instructions: TAKE 1 TABLET BY MOUTH THREE TIMES A DAY NEEDED FOR MUSCLE PAIN amlodipine 10 mg tablet See Rx Instructions .ROUTE .COMPLEX Qty: 90 3RF Dose Instruction: TAKE 1 TABLET DAILY Rx Instructions: TAKE 1 TABLET DAILY Eliquis 5 mg tablet See Rx Instructions .ROUTE .COMPLEX Qty: 180 3RF Dose Instruction: TAKE 1 TABLET BY MOUTH TWICE DAILY Rx Instructions: TAKE 1 TABLET BY MOUTH TWICE DAILY spironolactone 25 mg tablet See Rx Instructions .ROUTE .COMPLEX Qty: 90 3RF Dose Instruction: TAKE 1 TABLET BY MOUTH DAILY Rx Instructions: TAKE 1 TABLET BY MOUTH DAILY alprazolam [Xanax] 0.25 mg tablet 0.25 mg PO TID PRN (Reason: anxiety) Qty: 60 5RF levothyroxine 100 mcg tablet See Rx Instructions .ROUTE .COMPLEX Qty: 90 11RF Dose Instruction: TAKE 1 TABLET BY MOUTH EVERY DAY Rx Instructions: TAKE 1 TABLET BY MOUTH EVERY DAY cholecalciferol (vitamin D3) [Vitamin D3] 25 mcg (1,000 unit) Capsule 25 mcg PO DAILY omega 1-msb-lgp-fish oil [Fish Oil] 1,000 (120-180) mg Capsule 1 cap PO DAILY amiodarone [Pacerone] 200 mg Tablet 200 mg PO DAILY Qty: 30 3RF carvedilol 3.125 mg tablet 3.125 mg PO BID Qty: 60 6RF Rx Instructions: must administer with a meal/food Held magnesium 200 mg tablet 400 mg PO DAILY Hold Instructions: Elevated magnesium level Discontinued furosemide 80 mg tablet 80 mg PO BID Qty: 60 11RF No Action (DME) C-pap auto titrating 6-12 See Rx Instructions .Route .MEDSUPPLY Qty: 1 0RF Rx Instructions: mask and supplies as needed Discharge Orders: Discharge Order (Routine); Ordered 03/10/24 Ordered By: Kandi Forbes Other Ambulatory Orders: DME: Oxygen (Order) Location: None Selected Ordered By: Kandi Forbes Physical Therapy Eval and Treat Outpatient (Order) Timeframe: 3 Days Facility: [facility] - Location: Physical Therapy [place] Ordered By: Kandi Forbes Referrals: Gio Soto MD [Primary Care Provider] - 03/15/24 11:00 am Discharge Diet: Cardiac Discharge Activity: Increase activity as tolerated Patient Instructions: Using Oxygen at Home (DC), Low-Sodium Diet (DC), CHF Stoplight, Opioid Safety, Pain Management Discharge Attestations Time Spent in Discharge Care*: less than 30 min Quality Metrics Clinical Quality Measures [ No reported AMI, CVA or VTE this stay] Coding Level of Care Code Acute Code for Chg Fwd Diagnoses Acute exacerbation of CHF (congestive heart failure) I50.9 Hypothyroid E03.9 Hyperlipidemia E78.5 Atrial fibrillation I48.91 Hypertension I10 Time Spent (min) 25
== END 2024-03-10 14:01 | disposition home or self-care (01) | DRG 291 ==
LOC: ER 16:38 → CSU 16:55
PROVIDERS: Admitting Provider Internal Medicine; Emergency Provider Family Medicine; PCP Family Medicine; Visit Provider Internal Medicine
DX: I11.0 Hypertensive heart disease with heart failure (principal); I50.33 Acute on chronic diastolic (congestive) heart failure; I48.20 Chronic atrial fibrillation, unspecified; M79.7 Fibromyalgia; E78.5 Hyperlipidemia, unspecified; E03.9 Hypothyroidism, unspecified; I08.1 Rheumatic disorders of both mitral and tricuspid valves; G47.00 Insomnia, unspecified; R09.02 Hypoxemia; Z79.01 Long term (current) use of anticoagulants; Z91.041 Radiographic dye allergy status; Z88.2 Allergy status to sulfonamides; Z88.5 Allergy status to narcotic agent; Z85.3 Personal history of malignant neoplasm of breast; Z80.1 Family history of malignant neoplasm of trachea, bronchus and lung; Z82.3 Family history of stroke
CPT/HCPCS: 36415; 36600; 71045; 71275; 80051; 80053; 81001; 82330; 82805; 83735; 84443; 84484; 85025; 93005; 94664; 94760; 96374; 96375; 96376; 97110; 97116; 97161; 99285; A9270; J1200; J1940; J2919; J3490

== ENCOUNTER → 2024-03-23 08:56 | Outpatient (BNVA) | payer MEDICARE, SELFPAY | PROVIDERS: PCP Family Medicine; Visit Provider Family Medicine | DX: I34.0 Nonrheumatic mitral (valve) insufficiency (principal); I48.0 Paroxysmal atrial fibrillation | CPT/HCPCS: 80053; 83880 ==

== ENCOUNTER → 2024-03-24 12:23 | Outpatient (BNVA) | payer MEDICARE, SELFPAY | PROVIDERS: PCP Family Medicine; Visit Provider Internal Medicine Cardiovascular Disease | DX: I11.0 Hypertensive heart disease with heart failure (principal); I50.32 Chronic diastolic (congestive) heart failure; I34.0 Nonrheumatic mitral (valve) insufficiency; I48.20 Chronic atrial fibrillation, unspecified; Z79.01 Long term (current) use of anticoagulants | CPT/HCPCS: 99204 ==

== ENCOUNTER 2024-03-25 16:28 | Inpatient (IN) | payer MEDICARE, SELFPAY ==
[2024-03-25] VITALS (9 sets, daily range): BP systolic 109–133; BP diastolic 73–85; PULSE 61–77; RESP 18–26; TEMP 36.7; O2SAT 90–95; BMI 34.3
--- NOTE | 2024-03-25 16:51 | ECG_ITS ---
[facility] Test Date: 2024-03-25 Pat Name: Zee Vaca Department: Room: EDIP Gender: Female Group Captain: : 1940 Requested By: Maria Elena Hung Order Number: [id number] Tj MD: Joce Marshall M.D. Measurements Intervals [place] Rate: 73 P: 0 MA: 0 QRS: -31 QRSD: 98 T: 205 QT: 249 QTc: 275 Interpretive Statements ATRIAL FIBRILLATION LEFT AXIS DEVIATION [QRS AXIS < -30] LOW QRS VOLTAGE IN PRECORDIAL LEADS [QRS DEFLECTION < 1.0 mV IN CHEST LEADS] ANTEROSEPTAL MYOCARDIAL INFARCTION , PROBABLY OLD [40+ ms Q WAVE IN V1-V4] Compared to ECG 03/07/2024 21:59:40 Left-axis deviation now present Low QRS voltage now present T-wave abnormality no longer present Possible ischemia no longer present Myocardial infarct finding still present Electronically Signed On 03-26-2024 09:30:57 FIGHT MANAGER by Joce Marshall M.D. [email or web address]
--- NOTE | 2024-03-25 18:12 | XRR_ITS ---
PROCEDURE INFORMATION: Exam: XR Chest Exam date and time: 03/25/2024 7:34 PM Age: 83 years old Clinical indication: Dyspnea and shortness of breath; Prior surgery; Surgery date: 6+ months; Surgery type: Lumpectomy TECHNIQUE: Imaging protocol: Radiologic exam of the chest. Views: 1 view. COMPARISON: CT angio chest PE protcl [id number] 03/07/2024 3:16 PM FINDINGS: Lungs: Right lower lobe atelectasis versus infiltrate. Pleural spaces: Small right pleural effusion. Heart/Mediastinum: Cardiomegaly. Bones/joints: Unremarkable. XR/XR chest 1V portable [id number] IMPRESSION: 1. Small right pleural effusion. 2. Right lower lobe atelectasis versus infiltrate. 3. Cardiomegaly.
--- NOTE | 2024-03-25 19:27 | ED_ITS ---
HPI - SOB/Dyspnea 2 General: Chief Complaint: Shortness of Breath/Dyspnea Stated Complaint: CHF full of fluid Time Seen by Provider: 03/25/24 19:23 History of Present Illness: HPI Narrative: 83-year-old female with a history of con gestive heart failure who presents emergency room with worsening swelling and shortness of breath. She says her extension supervisor Dr. Villafana had told her to come to the emergency room with hopes of being admitted. She has severe orthopnea and this has been going on for some time now. Swelling is gotten worse. She is taking 80 mg of Lasix twice a day and it does not seem to be working she says. Some chest tightness earlier. No chest pain at this time. No cough. No abdominal pain. No nausea or vomiting. No altered mental status. Related Data Home Medications Medication Instructions Recorded Confirmed cholecalciferol (vitamin D3) 25 25 mcg PO DAILY 08/31/22 03/24/24 mcg (1,000 unit) capsule (Vitamin D3) magnesium 200 mg tablet 400 mg PO DAILY 02/09/24 03/24/24 mecobalamin (vitamin B12) 1,000 1,000 mcg PO DAILY 02/09/24 03/24/24 mcg lozenges multivitamin 1 tab PO DAILY 02/09/24 03/24/24 omega 8-icf-uka-fish oil 1,000 mg 1 cap PO DAILY 02/10/24 03/24/24 (120 mg-180 mg) capsule (Fish Oil) Previous Rx's Medication Instructions Recorded cyclobenzaprine 5 mg tablet See Rx Instructions .Route 04/04/23 .COMPLEX #30 tabs amlodipine 10 mg tablet See Rx Instructions .Route 09/09/23 .COMPLEX #90 tabs apixaban 5 mg tablet (Eliquis) See Rx Instructions .Route 10/13/23 .COMPLEX #180 tabs spironolactone 25 mg tablet See Rx Instructions .Route 12/17/23 .COMPLEX #90 tabs alprazolam 0.25 mg tablet (Xanax) 0.25 mg PO TID PRN anxiety #60 tabs 02/03/24 amiodarone 200 mg tablet (Pacerone) 200 mg PO DAILY #30 tabs 02/13/24 carvedilol 3.125 mg tablet 3.125 mg PO BID #60 tabs 02/13/24 C-pap auto titrating 6-12 #1 ea 02/19/24 zolpidem 10 mg tablet 10 mg PO .QHS #30 tabs 02/26/24 levothyroxine 100 mcg tablet See Rx Instructions .Route 03/01/24 .COMPLEX #90 tabs furosemide 40 mg tablet (Lasix) 80 mg (2 x 40 mg) PO BID #120 tabs 03/15/24 potassium chloride 20 mEq/15 mL 20 meq (15 mL) PO DAILY #450 mL 03/15/24 oral liquid ipratropium 20 mcg-albuterol 100 1 puff inhalation Q6H PRN 03/16/24 mcg/actuation mist for inhalation Shortness Of Breath #4 grams (Combivent Respimat) wheelchair with leg rests #1 ea 03/18/24 Allergies Allergy/AdvReac Type Severity Reaction Status Date / Time Iodinated Contrast Media Allergy Mild possibly Verified 03/25/24 16:58 had chest pain with it but not sure acetaminophen [From Vicodin] Allergy Unknown Verified 03/25/24 16:58 hydrocodone [From Vicodin] Allergy Unknown Verified 03/25/24 16:58 levofloxacin [From Levaquin] Allergy Unknown Verified 03/25/24 16:58 oxycodone [From Percocet] Allergy Unknown Verified 03/25/24 16:58 simvastatin Allergy Unknown Verified 03/25/24 16:58 sulfamethoxazole Allergy Unknown Verified 03/25/24 16:58 [From Bactrim] trimethoprim [From Bactrim] Allergy Unknown Verified 03/25/24 16:58 Review of Systems 2 Narrative: Constitutional symptoms: Negative except as documented in HPI. Skin symptoms: Negative except as documented in HPI. Eye symptoms: Negative except as documented in HPI. ENMT symptoms: Negative except as documented in HPI. Respiratory symptoms: Negative except as documented in HPI. Cardiovascular symptoms: Negative except as documented in HPI. Gastrointestinal symptoms: Negative except as documented in HPI. Genitourinary symptoms: Negative except as documented in HPI. Musculoskeletal symptoms: Negative except as documented in HPI. Neurologic symptoms: Negative except as documented in HPI. Psychiatric symptoms: Negative except as documented in HPI. Endocrine symptoms: Negative except as documented in HPI. PFSH ED 2 PFSH: Medical History Severe mitral regurgitation Hypertension Atrial fibrillation Tricuspid valve regurgitation CHF (NYHA class IV, ACC/AHA stage D) Mitral regurgitation Atrial fibrillation, chronic Insomnia temazepam not effective, ambien caused side effects, trazodone caused dizziness, Risperdal kept her awake Diverticulitis Fibromyalgia Hypertension Hyperlipidemia Hypothyroid Hypoglycemia History of left breast cancer 2010 Hiatal hernia Surgical History History of right hip replacement History of tonsillectomy Family History Father Lung cancer Mother Stroke Social History Smoking and tobacco/nicotine status: unknown if used tobacco/nicotine Alcohol intake: never Substance/Drug Use: never Marital status: Physical Exam 2 Narrative: EXAM NARRATIVE: General: Alert, no acute distress. Skin: Warm, dry. Head: Normocephalic, atraumatic. Neck: Supple, trachea midline. Eye: Extraocular movements are intact. Ears, nose, mouth and throat: mucosa moist. Cardiovascular: Regular, Normal peripheral perfusion. 3+ pitting edema of the tibia. And feet. Respiratory: Coarse breath sounds, mild tachypnea, when patient was laid down she became extremely short of breath extremely quickly. Gastrointestinal: Soft, Nontender, Non distended Musculoskeletal: Normal ROM, no deformity. Neurological: Alert and oriented, No focal neurological deficit observed. Psychiatric: Cooperative, appropriate mood & affect. Course 2 Vital Signs: Vital signs: Vital Signs Temperature 98.0 F 03/25/24 16:45 Pulse Rate 77 03/25/24 20:30 Respiratory Rate 20 H 03/25/24 20:30 Blood Pressure 127/79 03/25/24 20:30 Pulse Oximetry 92 03/25/24 20:30 Oxygen Delivery Me thod Room Air 03/25/24 16:45 MDM - SOB/Dyspnea Medical Decision Making Medical decision making: Differential diagnosis including but not limited to and based on the above HPI, review of systems and physical exam: for patient with edema: Congestive heart failure. Kidney failure. DVT / Pulmonary embolism. Protein malnutrition. Cirrhosis. Chest x-ray: Small right pleural effusion, right lower lobe atelectasis versus infiltrate. Cardiomegaly. This was reviewed and interpreted by myself the emergency room physician. I also reviewed the radiology report. Orders placed to evaluate differential diagnosis based on the above differential, HPI and physical exam Lab Review: Laboratory results were reviewed and interpreted by myself the emergency room physician. Lab work is fairly unremarkable. No leukocytosis. No anemia. No renal failure. I reviewed the patient's medical record. Consultation: I spoke with Dr. Villafana who is on-call for cardiology and who is the patient's extension supervisor. He does agree that she should be admitted for IV diuresis. Consultation: I spoke with Dr. Correia who is on-call for the hospitalist service who agrees to admission. Assessment and plan: Congestive heart failure Edema Orthopnea -I discussed the patient with the hospitalist on-call who is admitting the patient. - Discussed findings and plan with patient. Answered any questions. - All laboratory values were reviewed and interpreted personally by myself, the ER physician - All imaging was reviewed and interpreted personally by myself, the ER physician. - Evaluation and treatment of this problem were appropriate in the emergency setting Lab Data 03/25/24 20:00 03/25/24 20:00 Labs/Radiology: Radiology Impressions Chest X-Ray 03/25/24 18:12 IMPRESSION: 1. Small right pleural effusion. 2. Right lower lobe atelectasis versus infiltrate. 3. Cardiomegaly. Laboratory Results WBC 7.01 10^3/uL (3.29-11.43) 03/25/24 20:00 RBC 5.25 10^6/uL (3.85-5.65) 03/25/24 20:00 Hgb 15.80 g/dL (11.27-16.99) 03/25/24 20:00 Hct 47.3 % (36-47) H 03/25/24 20:00 MCV 90.1 fl (85-98) 03/25/24 20:00 MCH 30.1 pg (27-33) 03/25/24 20:00 MCHC 33.4 g/dL (30-55) 03/25/24 20:00 RDW 18.3 % (12.1-15.1) H 03/25/24 20:00 Plt Count 300 10^3/cmm (157-399) 03/25/24 20:00 MPV 9.2 fL (7.4-10.4) 03/25/24 20:00 Neut % (Auto) 71.7 % 03/25/24 20:00 Lymph % (Auto) 14.1 % 03/25/24 20:00 [place] % (Auto) 10.4 % 03/25/24 20:00 Eos % (Auto) 2.6 % 03/25/24 20:00 Baso % (Auto) 0.9 % 03/25/24 20:00 Neut # (Auto) 5.03 10^3/uL (1.8-7.7) 03/25/24 20:00 Lymph # (Auto) 1.0 10^3/uL (0.8-4.8) 03/25/24 20:00 [place] # (Auto) 0.7 10^3/uL (0.2-0.9) 03/25/24 20:00 Eos # (Auto) 0.2 10^3/uL (0.0-0.8) 03/25/24 20:00 Baso # (Auto) 0.1 10^3/uL (0.0-0.1) 03/25/24 20:00 Nucleated RBC % (auto) 0 % 03/25/24 20:00 Nucleated RBCs # 0.0 /100WBC 03/25/24 20:00 Sodium 137 mmol/L (136-145) 03/25/24 20:00 Carbon Dioxide 28 mmol/L (22-29) 03/25/24 20:00 BUN 20 mg/dL (8-23) 03/25/24 20:00 GFR Calculation Not Reportable 03/25/24 20:00 Glucose 105 mg/dL (65-115) 03/25/24 20:00 Calculated Osmolality 287 mOsm/kg (285-295) 03/25/24 20:00 Calcium 10.2 mg/dL (8.5-10.5) 03/25/24 20:00 AST 24 U/L (0-32) 03/25/24 20:00 ALT 17 U/L (0-33) 03/25/24 20:00 Total Protein 7.6 g/dL (6.6-8.7) 03/25/24 20:00 Albumin 4.6 g/dL (3.5-5.2) 03/25/24 20:00 Globulin 3.0 g/dL (1.3-4.6) 03/25/24 20:00 All radiology interpretation(s) finalized by discharge Discharge Plan Discharge Patient Disposition: Admitted As Inpatient Clinical Impression: Congestive heart failure, Edema, Orthopnea Condition: Stable Coding Level of Care Code ED [facility] for [facility]
[2024-03-25 20:15] LABS: Basophils # 0.1 10^3/uL (0.0-0.1); Basophils % 0.9 %; Eosinophils # 0.2 10^3/uL (0.0-0.8); Eosinophils % 2.6 %; Hematocrit 47.3 % (36-47); Lymphocytes % 14.1 %; Mean Corpuscular HGB Conc 33.4 g/dL (30-55); Mean Corpuscular Hemoglobin 30.1 pg (27-33); Mean Corpuscular Volume 90.1 fl (85-98); Mean Platelet Volume 9.2 fL (7.4-10.4); Monocytes # 0.7 10^3/uL (0.2-0.9); Monocytes % 10.4 %; Neutrophils # 5.03 10^3/uL (1.8-7.7); Neutrophils % 71.7 %; Nucleated Red Blood Cells % 0 %; Platelet Count 300 10^3/cmm (157-399); Red Blood Count 5.25 10^6/uL (3.85-5.65); Red Cell Distribution Width 18.3 % (12.1-15.1); White Blood Count 7.01 10^3/uL (3.29-11.43)
--- NOTE | 2024-03-25 20:39 | P.HP_ITS ---
Providers/Chief Complaint 2 Primary Care Provider: Gio Soto MD Chief Complaint: CHF full of fluid History of Present Illness Zee Vaca is a 83 year old female with established class IV neuro heart failure classification has been on Lasix 80 mg twice a day without significant response, came to the hospital for anasarca. She has seen Dr. Orourke who recommended her to go to the ER for further evaluation and treatment for anasarca. Patient is stating that she has gained 30 pounds, for last few months she has been noticing orthopnea PND worsening, she is not making urine as expected with high-dose Lasix. No recent chest pain, fever, nausea, vomiting or diarrhea. Currently she is living with her friend who is she thinks as a family member. Patient is not endorsing active chest pain, patient is stating that she cannot even walk from 1 room to another without help and taking breaks. She was given Lasix today I am seeing her at 10 PM and patient has not voided urine she does not want Gates catheter placement. Review of Systems 2 Const: Denies: fever(s) Eyes: Reports: eye discomfort; Denies: change in vision ENMT: Denies: throat pain Card: Reports: swelling of feet/ankles Resp: Reports: dyspnea GI: Denies: abdominal pain Medications/Allergies Home Medications Medication Instructions Recorded Confirmed Last Taken Type cholecalciferol (vitamin D3) 25 25 mcg PO DAILY 08/31/22 03/24/24 02/09/24 History mcg (1,000 unit) capsule (Vitamin D3) cyclobenzaprine 5 mg tablet See Rx Instructions .Route 04/04/23 03/24/24 Unknown Rx .COMPLEX #30 tabs amlodipine 10 mg tablet See Rx Instructions .Route 09/09/23 03/24/24 02/09/24 Rx .COMPLEX #90 tabs apixaban 5 mg tablet (Eliquis) See Rx Instructions .Route 10/13/23 03/24/24 Unknown Rx .COMPLEX #180 tabs spironolactone 25 mg tablet See Rx Instructions .Route 12/17/23 03/24/24 02/09/24 Rx .COMPLEX #90 tabs alprazolam 0.25 mg tablet (Xanax) 0.25 mg PO TID PRN anxiety #60 tabs 02/03/24 03/24/24 Unknown Rx magnesium 200 mg tablet 400 mg PO DAILY 02/09/24 03/24/24 02/09/24 History mecobalamin (vitamin B12) 1,000 1,000 mcg PO DAILY 02/09/24 03/24/24 02/09/24 History mcg lozenges multivitamin 1 tab PO DAILY 02/09/24 03/24/24 02/09/24 History omega 7-yzw-yhf-fish oil 1,000 mg 1 cap PO DAILY 02/10/24 03/24/24 02/09/24 History (120 mg-180 mg) capsule (Fish Oil) amiodarone 200 mg tablet (Pacerone) 200 mg PO DAILY #30 tabs 02/13/24 03/24/24 Unknown Rx carvedilol 3.125 mg tablet 3.125 mg PO BID #60 tabs 02/13/24 03/24/24 Unknown Rx C-pap auto titrating 6-12 #1 ea 02/19/24 03/22/24 Unknown Rx zolpidem 10 mg tablet 10 mg PO .QHS #30 tabs 02/26/24 03/24/24 03/07/24 Rx levothyroxine 100 mcg tablet See Rx Instructions .Route 03/01/24 03/24/24 Unknown Rx .COMPLEX #90 tabs furosemide 40 mg tablet (Lasix) 80 mg (2 x 40 mg) PO BID #120 tabs 03/15/24 03/24/24 Unknown Rx potassium chloride 20 mEq/15 mL 20 meq (15 mL) PO DAILY #450 mL 03/15/24 03/24/24 Unknown Rx oral liquid ipratropium 20 mcg-albuterol 100 1 puff inhalation Q6H PRN 03/16/24 03/24/24 Unknown Rx mcg/actuation mist for inhalation Shortness Of Breath #4 grams (Combivent Respimat) wheelchair with leg rests #1 ea 03/18/24 03/22/24 Unknown Rx Allergies Allergy/AdvReac Type Severity Reaction Status Date / Time Iodinated Contrast Media Allergy Mild possibly Verified 03/25/24 16:58 had chest pain with it but not sure acetaminophen [From Vicodin] Allergy Unknown Verified 03/25/24 16:58 hydrocodone [From Vicodin] Allergy Unknown Verified 03/25/24 16:58 levofloxacin [From Levaquin] Allergy Unknown Verified 03/25/24 16:58 oxycodone [From Percocet] Allergy Unknown Verified 03/25/24 16:58 simvastatin Allergy Unknown Verified 03/25/24 16:58 sulfamethoxazole Allergy Unknown Verified 03/25/24 16:58 [From Bactrim] trimethoprim [From Bactrim] Allergy Unknown Verified 03/25/24 16:58 PFSH Acute 2 PFSH: Medical History Severe mitral regurgitation Hypertension Atrial fibrillation Tricuspid valve regurgitation CHF (NYHA class IV, ACC/AHA stage D) Mitral regurgitation Atrial fibrillation, chronic Insomnia temazepam not effective, ambien caused side effects, trazodone caused dizziness, Risperdal kept her awake Diverticulitis Fibromyalgia Hypertension Hyperlipidemia Hypothyroid Hypoglycemia History of left breast cancer 2010 Hiatal hernia Surgical History History of right hip replacement History of tonsillectomy Family History Father Lung cancer Mother Stroke Social History Smoking and tobacco/nicotine status: unknown if used tobacco/nicotine Alcohol intake: never Substance/Drug Use: never Marital status: Vitals/I&O/Wt Last Vital Signs Temp 98.0 F 03/25/24 16:45 Pulse 73 03/25/24 16:45 Resp 18 03/25/24 16:45 BP 109/78 03/25/24 16:45 Pulse Ox 95 03/25/24 16:45 O2 Del Method Room Air 03/25/24 16:45 Weight last 48 hrs Weight 79.832 kg Physical Exam 2 Narrative: Signs of fluid overload present Anasarca Currently on room air GCS 15 Pleasant cooperative Nonfocal neuroexam Pansystolic murmur Lower extremity edema 3+ Abdomen distended nontender Friend at the bedside Data 03/25/24 20:00 03/25/24 20:00 A&P Assessment and plan (1) Congestive heart failure: (2) Orthopnea: (3) Severe mitral regurgitation: (4) Paroxysmal atrial fibrillation: (5) Cirrhosis of liver: Qualifiers: Hepatic cirrhosis type: unspecified hepatic cirrhosis Ascites presence: with ascites Qualified Code(s): K74.60 - Unspecified cirrhosis of liver; R18.8 - Other ascites (6) Diverticulitis: (7) Dyspnea: Qualifiers: Dyspnea type: shortness of breath Qualified Code(s): R06.02 - Shortness of breath (8) Cough: (9) Insomnia: (10) Edema: Plan Diastolic CHF exacerbation Start IV diuretics if patient is not making good urine then she probably had to switch to diuretic drip Monitor her urine output correlate with creatinine and watch for contraction alkalosis and electrolyte imbalance For now I will put her on Bumex 2 mg 3 times a day, patient is showing inadequate response to Lasix Patient has mitral and tricuspid valve regurgitation, she may benefit from mitral valve surgery, this was mentioned by Dr. Orourke as well in the past, please consult cardiology in the morning patient has not seen anyone at [facility] for her mitral valve surgery yet Sleep apnea: Uses 2 L of oxygen at nighttime Insomnia: Takes Ambien A-fib: Continue anticoagulation and AV devin blocking agent monitor blood pressure Full code Cardiac diet Attestations 2 Medical Necessity Statement*: Anticipating discharge within 48 hours Diagnoses Congestive heart failure I50.9 Orthopnea R06.01 Severe mitral regurgitation I34.0 Paroxysmal atrial fibrillation I48.0 Cirrhosis of liver with ascites, unspecified hepatic cirrhosis type K74.60; R18.8 Hepatic cirrhosis type: unspecified hepatic cirrhosis Ascites presence: with ascites Diverticulitis K57.92 Shortness of breath R06.02 Dyspnea type: shortness of breath Cough R05.9 Insomnia G47.00 Edema R60.9
[2024-03-25 20:42] LABS: Troponin(5th) Baseline 22 ng/L (0-10)
[2024-03-25 20:51] LABS: Alanine Aminotransferase 17 U/L (0-33); Albumin Level 4.6 g/dL (3.5-5.2); Alkaline Phosphatase 143 U/L (35-105); Aspartate Amino Transferase 24 U/L (0-32); Blood Urea Nitrogen 20 mg/dL (8-23); Calcium 10.2 mg/dL (8.5-10.5); Carbon Dioxide 28 mmol/L (22-29); Chloride 96 mmol/L (98-107); Glucose 105 mg/dL (65-115); Magnesium 2.4 mg/dL (1.7-2.3); NT Pro B Type Natriuretic Pept 2673 pg/mL (0-450); Osmolality Calculated 287 mOsm/kg (285-295); Sodium 137 mmol/L (136-145); Total Bilirubin 1.7 mg/dL (0.15-1.2); Total Protein 7.6 g/dL (6.6-8.7)
[2024-03-25 21:00] LABS: Anion Gap 16.5 (5-19); Potassium 3.5 mmol/L (3.5-5.1)
[2024-03-25 23:09] LABS: Troponin 5 2HR 19.68 ng/L (0-10)
[2024-03-25 23:14] LABS: Troponin 5 2HR Delta -2.32 ABS# (0-10)
[2024-03-26] VITALS (11 sets, daily range): BP systolic 109–137; BP diastolic 71–92; PULSE 63–80; RESP 16–19; TEMP 36.3–36.5; O2SAT 90–96
[2024-03-26] MEDS: zolpidem 5 mg Tablet PO ×2 (01:29→20:40)
[2024-03-26] MEDS: bumetanide 0.25 mg/mL SDV 10 mL 2 MG IVP ×4 (01:29→23:43)
[2024-03-26] MEDS: potassium chloride ER 20 mEq Tablet 40 MEQ PO ×3 (01:29→23:44)
[2024-03-26] MEDS: carvedilol 3.125 mg Tablet PO ×3 (01:54→18:33)
[2024-03-26] MEDS: apixaban 5 mg Tablet PO ×3 (01:54→18:34)
[2024-03-26 03:00] LABS: Troponin 5 6HR 22.46 ng/L (0-10); Troponin 5 6HR Delta 0.46 ng/L (0-12)
[2024-03-26 03:08] LABS: Anion Gap 16.4 (5-19); Blood Urea Nitrogen 20 mg/dL (8-23); Calcium 10.2 mg/dL (8.5-10.5); Carbon Dioxide 28 mmol/L (22-29); Chloride 92 mmol/L (98-107); Glucose 162 mg/dL (65-115); Magnesium 2.4 mg/dL (1.7-2.3); Osmolality Calculated 282 mOsm/kg (285-295); Potassium 3.4 mmol/L (3.5-5.1); Sodium 133 mmol/L (136-145)
[2024-03-26 03:24] LABS: Vitamin B12 1571 pg/mL (232-1245)
[2024-03-26] MEDS: levothyroxine 100 mcg Tablet PO (05:45)
[2024-03-26] MEDS: amiodarone 200 mg Tablet PO (09:05)
[2024-03-26 13:43] LABS: Blood Urea Nitrogen 19 mg/dL (8-23); Calcium 9.8 mg/dL (8.5-10.5); Carbon Dioxide 23 mmol/L (22-29); Chloride 98 mmol/L (98-107); Creatinine Clr Calc Pharmacy 34.1816; Glucose 174 mg/dL (65-115); Osmolality Calculated 286 mOsm/kg (285-295); Sodium 135 mmol/L (136-145)
[2024-03-26 13:48] LABS: Anion Gap 18.2 (5-19); Potassium 4.2 mmol/L (3.5-5.1)
--- NOTE | 2024-03-26 16:28 | P.PN_ITS ---
Subjective 2 Subjective: Patient seen and examined. Continues to have lower extremity edema. Thus far urine output is at 500 cc during the day. Medications: Reviewed: Yes Vitals/I&O/Wt Last Vital Signs Temp 97.4 F L 03/26/24 15:32 Pulse 73 03/26/24 15:32 Resp 18 03/26/24 09:19 BP 137/79 03/26/24 15:32 Pulse Ox 91 03/26/24 15:32 O2 Del Method Room Air 03/26/24 15:32 03/26/24 03/26/24 03/26/24 06:59 14:59 22:59 Intake Total 360 / 360 Output Total 300 / 300 Balance -300 / -300 360 / 360 Weight last 48 hrs Weight 81.511 kg Weight 81.511 kg Weight 79.832 kg Physical Exam 2 Narrative: General: No acute distress, AO x3 HEENT: PERRLA, pupils bilaterally equal and reactive, pallors not present Chest: Normal vesicular breath sounds, no added sounds, equal good air entry bilaterally CVS: S1-S2 regular, no murmurs, no tachycardia, no gallops, no rubs Abdomen: Soft, nontender, no organomegaly, bowel sounds present Neuro: No focal deficits, no facial deformity, AO x3, power 5/5 in all limbs Extremities: 3+ pitting edema bilaterally Data 03/25/24 20:00 03/26/24 12:32 A&P Assessment and plan (1) Congestive heart failure: (2) Orthopnea: (3) Severe mitral regurgitation: (4) Paroxysmal atrial fibrillation: (5) Cirrhosis of liver: Qualifiers: Hepatic cirrhosis type: unspecified hepatic cirrhosis Ascites presence: with ascites Qualified Code(s): K74.60 - Unspecified cirrhosis of liver; R18.8 - Other ascites (6) Diverticulitis: (7) Dyspnea: Qualifiers: Dyspnea type: shortness of breath Qualified Code(s): R06.02 - Shortness of breath (8) Cough: (9) Insomnia: (10) Edema: Plan Diastolic CHF exacerbation Start IV diuretics if patient is not making good urine then she probably had to switch to diuretic drip Monitor her urine output correlate with creatinine and watch for contraction alkalosis and electrolyte imbalance For now I will put her on Bumex 2 mg 3 times a day, patient is showing inadequate response to Lasix Patient has mitral and tricuspid valve regurgitation, she may benefit from mitral valve surgery, this was mentioned by Dr. Orourke as well in the past, please consult cardiology in the morning patient has not seen anyone at [facility] for her mitral valve surgery yet Sleep apnea: Uses 2 L of oxygen at nighttime Insomnia: Takes Ambien A-fib: Continue anticoagulation and AV devin blocking agent monitor blood pressure Full code Cardiac diet March 26, 2024 Patient continues to be on Bumex 2 mg IV every 8 hours. Urine output thus far 500 cc. Cardiology consult for management of acute on chronic CHF, poor response to diuresis. Additionally patient noted to have severe mitral valve regurgitation on most recent JAMES. Will likely require mitral valve intervention procedure, cardiology consult additionally to help decide timing of appropriate referrals. Continue to monitor kidney function creatinine every 12 hours Attestations 2 Medical Necessity Statement*: Continued need for IV diuresis Coding Level of Care Code Acute Code for Chg Fwd Moderate MDM includes number and complexity of problems actively addressed during encounter, amount and/or complexity of data reviewed/ordered and described risk of complication, morbidity or mortality of management as documented Diagnoses Congestive heart failure I50.9 Orthopnea R06.01 Severe mitral regurgitation I34.0 Paroxysmal atrial fibrillation I48.0 Cirrhosis of liver with ascites, unspecified hepatic cirrhosis type K74.60; R18.8 Hepatic cirrhosis type: unspecified hepatic cirrhosis Ascites presence: with ascites Diverticulitis K57.92 Shortness of breath R06.02 Dyspnea type: shortness of breath Cough R05.9 Insomnia G47.00 Edema R60.9
--- NOTE | 2024-03-26 16:37 | P.CONIM_ITS ---
Providers/Reason For Consult 2 Consulting Physician/Specialty*: BRENDA Soria MD/cardiology Reason for Consult*: Patient with progressive shortness of breath/peripheral edema. History of atrial fibrillation and congestive heart failure Requesting Physician: Dr Bryn Bojorquez Attending Physician: Bria Bojorquez MD Primary Care Provider: Gio Soto MD History of Present Illness History of Present Illness Zee Vaca is a 83 year old female presenting with progressive shortness of breath and bilateral leg swelling. She reports significant worsening of these symptoms over the past few months. She states that her usual weight is between 168 and 170 pounds, but she was recently weighed at 191 pounds, indicating a significant weight gain in the last six months. She also mentions increased difficulty in breathing while lying flat, leading her to use two to three pillows at night compared to one previously. No chest pain or palpitations have been noted. Additionally, the patient has a longstanding history of essential hypertension and hyperlipidemia, both for over 20 years. Two years ago, she suffered a cerebrovascular accident (CVA) and has been on anticoagulation therapy since then. There is no known history of rheumatic fever, and the presence of a heart murmur was noticed post-CVA. She also was found to have carotid artery stenosis of 50 to 69% on the left side and less than 50% on the right side. She has successfully quit smoking approximately 25 years ago after a smoking history of two decades. There is a significant family history of strokes in her mother and grandmother, but no known familial heart problems. She denies any fever, chills or cough. No January of this year, she had a transesophageal echocardiogram by Dr. Craig. She was found to have severe mitral regurgitation. The plan was to send her to possible valve surgery. According the patient, she been getting progressively weak and tired. Even with minimal activities, she will extremely short of breath and fatigued. Never had any chest pain no palpitations or syncopal episodes. She was recently diagnosed with sleep apnea. She is very further CPAP machine. Review of Systems 2 Narrative: CONSTITUTIONAL: No fever or chills. Generalized weakness/fatigue EYES: No blurring of vision or other visual disturbances lately. ENT: No hoarseness of voice, auditory disturbances or sore throat. CARDIOVASCULAR: As mentioned above. RESPIRATORY: No significant cough. GASTROINTESTINAL: No hematemesis or melena. GENITOURINARY: No dysuria or hematuria. INTEGUMENTARY: No skin rashes or history of skin cancer. NEURO: No transient ischemic attacks or amaurosis. PSYCHIATRIC: No history of psychosis or major depression. HEMATOLOGIC: No bleeding disorders or significant anemia. ENDOCRINE: No history of polyuria or polydipsia. MUSCULOSKELETAL: No recent joint pain or swelling. ALLERGY/IMMUNOLOGY: As mentioned above. Medications/Allergies Home Medications Medication Instructions Recorded Confirmed Last Taken Type cholecalciferol (vitamin D3) 25 25 mcg PO DAILY 08/31/22 03/26/24 1 Day Ago History mcg (1,000 unit) capsule (Vitamin ~03/25/24 D3) cyclobenzaprine 5 mg tablet See Rx Instructions .Route 04/04/23 03/26/24 Unknown Rx .COMPLEX #30 tabs amlodipine 10 mg tablet See Rx Instructions .Route 09/09/23 03/26/24 1 Day Ago Rx .COMPLEX #90 tabs ~03/25/24 apixaban 5 mg tablet (Eliquis) See Rx Instructions .Route 10/13/23 03/26/24 1 Day Ago Rx .COMPLEX #180 tabs ~03/25/24 spironolactone 25 mg tablet See Rx Instructions .Route 12/17/23 03/26/24 1 Day Ago Rx .COMPLEX #90 tabs ~03/25/24 alprazolam 0.25 mg tablet (Xanax) 0.25 mg PO TID PRN anxiety #60 tabs 02/03/24 03/26/24 Unknown Rx mecobalamin (vitamin B12) 1,000 1,000 mcg PO DAILY 02/09/24 03/26/24 1 Day Ago History mcg lozenges ~03/25/24 multivitamin 1 tab PO DAILY 02/09/24 03/26/24 1 Day Ago History ~03/25/24 omega 5-tzj-yzk-fish oil 1,000 mg 1 cap PO DAILY 02/10/24 03/26/24 1 Day Ago History (120 mg-180 mg) capsule (Fish Oil) ~03/25/24 amiodarone 200 mg tablet (Pacerone) 200 mg PO DAILY #30 tabs 02/13/24 03/26/24 1 Day Ago Rx ~03/25/24 carvedilol 3.125 mg tablet 3.125 mg PO BID #60 tabs 02/13/24 03/26/24 1 Day Ago Rx ~03/25/24 C-pap auto titrating 6-12 #1 ea 02/19/24 03/26/24 Unknown Rx zolpidem 10 mg tablet 10 mg PO .QHS #30 tabs 02/26/24 03/26/24 2 Days Ago Rx ~03/24/24 levothyroxine 100 mcg tablet See Rx Instructions .Route 03/01/24 03/26/24 1 Day Ago Rx .COMPLEX #90 tabs ~03/25/24 furosemide 40 mg tablet (Lasix) 80 mg (2 x 40 mg) PO BID #120 tabs 03/15/24 03/26/24 1 Day Ago Rx ~03/25/24 potassium chloride 20 mEq/15 mL 20 meq (15 mL) PO DAILY #450 mL 03/15/24 03/26/24 1 Day Ago Rx oral liquid ~03/25/24 ipratropium 20 mcg-albuterol 100 1 puff inhalation Q6H PRN 03/16/24 03/26/24 Unknown Rx mcg/actuation mist for inhalation Shortness Of Breath #4 grams (Combivent Respimat) wheelchair with leg rests #1 ea 03/18/24 03/26/24 Unknown Rx Allergies Allergy/AdvReac Type Severity Reaction Status Date / Time Iodinated Contrast Media Allergy Mild possibly Verified 03/25/24 16:58 had chest pain with it but not sure acetaminophen [From Vicodin] Allergy Unknown Verified 03/25/24 16:58 hydrocodone [From Vicodin] Allergy Unknown Verified 03/25/24 16:58 levofloxacin [From Levaquin] Allergy Unknown Verified 03/25/24 16:58 oxycodone [From Percocet] Allergy Unknown Verified 03/25/24 16:58 simvastatin Allergy Unknown Verified 03/25/24 16:58 sulfamethoxazole Allergy Unknown Verified 03/25/24 16:58 [From Bactrim] trimethoprim [From Bactrim] Allergy Unknown Verified 03/25/24 16:58 Current Medications Generic Name Dose Route Start Last Admin Trade Name Freq PRN Reason Stop Dose Admin Amiodarone HCl 200 mg 03/26/24 09:00 03/26/24 09:05 Amiodarone 200 Mg Tablet PO 200 mg DAILY SHORTY Administration Apixaban 5 mg 03/26/24 01:28 03/26/24 09:05 Apixaban 5 Mg Tablet PO 5 mg BID SHORTY Administration Bumetanide 2 mg 03/26/24 00:43 03/26/24 09:05 Bumetanide 0.25 Mg/Ml Sdv 10 Ml IVP 2 mg Q8H SHORTY Administration Carvedilol 3.125 mg 03/26/24 01:32 03/26/24 09:05 Carvedilol 3.125 Mg Tablet PO 3.125 mg BID SHORTY Administration Levothyroxine Sodium 100 mcg 03/26/24 06:30 03/26/24 05:45 Levothyroxine 100 Mcg Tablet PO 100 mcg 0630 SHORTY Administration Magnesium Oxide 400 mg 03/26/24 09:00 03/26/24 09:09 Magnesium Oxide 400 Mg Tablet PO Not Given DAILY SHORTY Potassium Chloride 40 meq 03/26/24 00:43 03/26/24 11:54 Potassium Chloride Er 20 Meq Tablet PO 40 meq Q12H SHORTY Administration Zolpidem Tartrate 5 mg 03/26/24 00:43 03/26/24 01:29 Zolpidem 5 Mg Tablet PO 5 mg BEDTIME SHORTY Administration PFSH Acute 2 PFSH: Medical History (Updated 03/26/24 @ 17:28 by Tevin Soria MD) Atrial fibrillation, chronic Hypertension Hyperlipidemia Severe mitral regurgitation Hypertension Atrial fibrillation Tricuspid valve regurgitation CHF (NYHA class IV, ACC/AHA stage D) Mitral regurgitation Insomnia temazepam not effective, ambien caused side effects, trazodone caused dizziness, Risperdal kept her awake Diverticulitis Fibromyalgia Hypothyroid Hypoglycemia History of left breast cancer 2010 Hiatal hernia Surgical History History of right hip replacement History of tonsillectomy Family History Father Lung cancer Mother Stroke Social History Smoking and tobacco/nicotine status: unknown if used tobacco/nicotine Alcohol intake: never Substance/Drug Use: never Marital status: Vitals/I&O/Wt Last Vital Signs Temp 97.4 F L 03/26/24 15:32 Pulse 73 03/26/24 15:32 Resp 18 03/26/24 09:19 BP 137/79 03/26/24 15:32 Pulse Ox 91 03/26/24 15:32 O2 Del Method Room Air 03/26/24 15:32 03/26/24 03/26/24 03/26/24 06:59 14:59 22:59 Intake Total 360 / 360 Output Total 300 / 300 Balance -300 / -300 360 / 360 Weight last 48 hrs Weight 179 lb 11.2 oz Weight 179 lb 11.2 oz Weight 176 lb Physical Exam 2 Narrative: GENERAL: The patient is alert and oriented times three. Not in any acute distress. HEENT: No significant pallor, icterus or lymphadenopathy.Oral cavity: There are no mucous membrane lesions. NECK: Trachea appears to be central. No masses noted. No JVD or thyromegaly appreciated. Carotid bruit on the right side. RESPIRATORY: Chest is symmetrical. No intercostals muscle retraction or any accessory muscle activation. There is no chest wall tenderness. Breath sounds are heard bilaterally. No rales or rhonchi heard. No evidence of any consolidation. BREASTS: Deferred. HEART: The heart sounds are normal. No S3 or S4. No significant murmurs. No pericardial rub ABDOMEN: No vessel pulsations or distention. No tenderness. No organomegaly appreciated. Bowel sounds are normally heard. : Deferred. RECTAL: Deferred. LYMPHATIC: No lymphadenopathy noted in the neck. EXTREMITIES: No edema or cyanosis. No clubbing. MUSCULOSKELETAL: No acute joint deformities or swelling SKIN: There are no significant rashes or ecchymosis NEUROPSYCHIATRIC: The patient is alert and oriented x3. Appears to be in a good mood. No tremors or rigidity noted. Data 03/25/24 20:00 03/26/24 12:32 Other Labs: Laboratory Last Values WBC 7.01 10^3/uL (3.29-11.43) 03/25/24 20:00 RBC 5.25 10^6/uL (3.85-5.65) 03/25/24 20:00 Hgb 15.80 g/dL (11.27-16.99) 03/25/24 20:00 Hct 47.3 % (36-47) H 03/25/24 20:00 MCV 90.1 fl (85-98) 03/25/24 20:00 MCH 30.1 pg (27-33) 03/25/24 20:00 MCHC 33.4 g/dL (30-55) 03/25/24 20:00 RDW 18.3 % (12.1-15.1) H 03/25/24 20:00 Plt Count 300 10^3/cmm (157-399) 03/25/24 20:00 MPV 9.2 fL (7.4-10.4) 03/25/24 20:00 Neut % (Auto) 71.7 % 03/25/24 20:00 Lymph % (Auto) 14.1 % 03/25/24 20:00 [place] % (Auto) 10.4 % 03/25/24 20:00 Eos % (Auto) 2.6 % 03/25/24 20:00 Baso % (Auto) 0.9 % 03/25/24 20:00 Neut # (Auto) 5.03 10^3/uL (1.8-7.7) 03/25/24 20:00 Lymph # (Auto) 1.0 10^3/uL (0.8-4.8) 03/25/24 20:00 [place] # (Auto) 0.7 10^3/uL (0.2-0.9) 03/25/24 20:00 Eos # (Auto) 0.2 10^3/uL (0.0-0.8) 03/25/24 20:00 Baso # (Auto) 0.1 10^3/uL (0.0-0.1) 03/25/24 20:00 Nucleated RBC % (auto) 0 % 03/25/24 20:00 Nucleated RBCs # 0.0 /100WBC 03/25/24 20:00 Sodium 135 mmol/L (136-145) L 03/26/24 12:32 Potassium 4.2 mmol/L (3.5-5.1) 03/26/24 12:32 Chloride 98 mmol/L (98-107) 03/26/24 12:32 Carbon Dioxide 23 mmol/L (22-29) 03/26/24 12:32 Anion Gap 18.2 (5-19) 03/26/24 12:32 BUN 19 mg/dL (8-23) 03/26/24 12:32 Creatinine 1.2 mg/dL (0.5-0.9) H 03/26/24 12:32 GFR Calculation Not Reportable 03/26/24 12:32 Glucose 174 mg/dL (65-115) H 03/26/24 12:32 Calculated Osmolality 286 mOsm/kg (285-295) 03/26/24 12:32 Calcium 9.8 mg/dL (8.5-10.5) 03/26/24 12:32 Magnesium 2.4 mg/dL (1.7-2.3) H 03/26/24 02:17 Total Bilirubin 1.7 mg/dL (0.15-1.2) H 03/25/24 20:00 AST 24 U/L (0-32) 03/25/24 20:00 ALT 17 U/L (0-33) 03/25/24 20:00 Alkaline Phosphatase 143 U/L (35-105) H 03/25/24 20:00 Troponin T Baseline 22 ng/L (0-10) H 03/25/24 20:00 Troponin T 120 Minute 19.68 ng/L (0-10) H 03/25/24 22:16 Delta Troponin T -2.32 ABS# (0-10) L 03/25/24 22:16 Troponin T Hi Sens 6Hr 22.46 ng/L (0-10) H 03/26/24 02:17 Troponin T Hi Sens 6Hr Delta 0.46 ng/L (0-12) 03/26/24 02:17 NT-Pro-B Natriuret Pep 2673 pg/mL (0-450) H 03/25/24 20:00 Total Protein 7.6 g/dL (6.6-8.7) 03/25/24 20:00 Albumin 4.6 g/dL (3.5-5.2) 03/25/24 20:00 Globulin 3.0 g/dL (1.3-4.6) 03/25/24 20:00 Vitamin B12 1571 pg/mL (232-1245) H 03/26/24 02:17 Other data: Myocardial perfusion imaging in November of this year 1. Normal myocardial perfusion imaging with no evidence of ischemia. 2. LV systolic function is normal. 3. TID ratio is elevated. However in the absence of any significant perfusion defect, significance of this finding is equivocal. JAMES on 02/12/2024 Normal left ventricular size, systolic function and wall thickness, with no regional wall motion abnormalities. Normal left ventricular wall thickness. Left ventricular ejection fraction is estimated at 60 %. In the absence of atrial fibrillation diastolic function cannot be measured accurately. Moderately increased left atrial size. No left atrial mass or thrombus visualized. No thrombus present in the left atrial appendage. Thickened mitral valve. No mitral valve stenosis. Severe mitral valve regurgitation. Structurally normal tricuspid valve without significant stenosis or regurgitation. Moderate tricuspid valve regurgitation. There is no pericardial effusion. A&P Assessment and plan (1) Acute on chronic diastolic (congestive) heart failure: Patient's clinical features are consistent with a acute on chronic diastolic heart failure. The arrhythmia and the severe mitral regurgitation are the major contributing factors. The patient may be carefully treated with IV diuretics and other symptomatic measures. Patient may require a cardiac catheterization to further evaluate her coronary status, to decide on further management. (2) Severe mitral regurgitation: Patient may benefit from valve surgery, once the heart failure is properly treated. (3) Cerebrovascular accident: Possibly from the atrial fibrillation. Patient is on long-term oral anticoagulation. Has not had any recurrence of CVA since being on oral anticoagulant. Qualifiers: CVA mechanism: unspecified Qualified Code(s): I63.9 - Cerebral infarction, unspecified (4) Obstructive sleep apnea: Recently diagnosed. Awaiting treatment with CPAP. Cardiovascular implications of the obstructive sleep apnea were discussed with the patient (5) Hyperlipidemia: May continue on the current management. Qualifiers: Hyperlipidemia type: mixed hyperlipidemia Qualified Code(s): E78.2 - Mixed hyperlipidemia (6) Hypertension: Currently the blood pressure is in the normal range. May continue on the current medications. Qualifiers: Hypertension type: primary hypertension Qualified Code(s): I10 - Essential (primary) hypertension (7) Cirrhosis of liver: Etiology?. The liver functions are within normal limits. Qualifiers: Hepatic cirrhosis type: unspecified hepatic cirrhosis Ascites presence: with ascites Qualified Code(s): K74.60 - Unspecified cirrhosis of liver; R18.8 - Other ascites (8) Carotid artery stenosis, asymptomatic: This needs to be reevaluated. Patient had a 50 to 69% stenosis in August of last year. We may go ahead and do a repeat a duplex evaluation to follow-up on the carotid stenosis. Qualifiers: Laterality: left Qualified Code(s): I65.22 - Occlusion and stenosis of left carotid artery Plan Other problems are Acute kidney injury, possibly from low output heart failure. 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 He may be kept on the other current medications. Quadrant where Doppler examination of the carotid arteries to follow-up on the carotid stenosis. Once the heart failure is treated appropriately, need to consider a cardiac catheterization to rule out any coronary artery disease before proceeding with mitral valve intervention I will be discussing the patient's case with Dr. Villafana, who is her primary injury/safety hazard assessment and a final decision will be made regarding her valve intervention, afterwards. Thank you for the opportunity to evaluate this patient and make these recommendations Coding Level of Care Code Acute Code for Chg Fwd Diagnoses Acute on chronic diastolic (congestive) heart failure I50.33 Severe mitral regurgitation I34.0 Cerebrovascular accident (CVA), unspecified mechanism I63.9 CVA mechanism: unspecified Obstructive sleep apnea G47.33 Mixed hyperlipidemia E78.2 Hyperlipidemia type: mixed hyperlipidemia Primary hypertension I10 Hypertension type: primary hypertension Cirrhosis of liver with ascites, unspecified hepatic cirrhosis type K74.60; R18.8 Hepatic cirrhosis type: unspecified hepatic cirrhosis Ascites presence: with ascites Asymptomatic stenosis of left carotid artery I65.22 Laterality: left
[2024-03-27] VITALS (8 sets, daily range): BP systolic 119–149; BP diastolic 65–94; PULSE 67–77; RESP 14–18; TEMP 36.2–36.5; O2SAT 90–95
[2024-03-27 01:13] LABS: Blood Urea Nitrogen 20 mg/dL (8-23); Calcium 9.6 mg/dL (8.5-10.5); Carbon Dioxide 25 mmol/L (22-29); Chloride 98 mmol/L (98-107); Creatinine Clr Calc Pharmacy 34.1816; Glucose 134 mg/dL (65-115); Osmolality Calculated 283 mOsm/kg (285-295); Sodium 134 mmol/L (136-145)
[2024-03-27 01:18] LABS: Anion Gap 14.9 (5-19); Potassium 3.9 mmol/L (3.5-5.1)
[2024-03-27] MEDS: acetaminophen 500 mg Tablet PO (02:28)
[2024-03-27 05:15] LABS: Alanine Aminotransferase 13 U/L (0-33); Albumin Level 3.6 g/dL (3.5-5.2); Alkaline Phosphatase 120 U/L (35-105); Anion Gap 13.6 (5-19); Aspartate Amino Transferase 17 U/L (0-32); Blood Urea Nitrogen 19 mg/dL (8-23); Calcium 9.3 mg/dL (8.5-10.5); Carbon Dioxide 25 mmol/L (22-29); Chloride 99 mmol/L (98-107); Creatinine Clr Calc Pharmacy 34.2436; Globulin 2.5 g/dL (1.3-4.6); Glucose 104 mg/dL (65-115); Osmolality Calculated 281 mOsm/kg (285-295); Potassium 3.6 mmol/L (3.5-5.1); Sodium 134 mmol/L (136-145); Total Bilirubin 1.3 mg/dL (0.15-1.2); Total Protein 6.1 g/dL (6.6-8.7)
[2024-03-27] MEDS: levothyroxine 100 mcg Tablet PO (06:07)
--- NOTE | 2024-03-27 08:25 | P.PN_ITS ---
Subjective 2 Subjective: The shortness of breath at rest is much better. However she gets very short of breath with activities. No fever or chills. No cough. No other specific complaints. Medications: Medication Review Details: Current Medications Acetaminophen (Acetaminophen 500 Mg Tablet) 500 mg PO Q6H PRN PRN Reason: MILD PAIN OR INCREASE TEMP Last Admin: 03/27/24 02:28 Dose: 500 mg Albuterol/Ipratropium (Ipratropium-Albuterol 3 Ml Neb) 3 ml INHALATION Q6H PRN PRN Reason: SHORTNESS OF BREATH Amiodarone HCl (Amiodarone 200 Mg Tablet) 200 mg PO DAILY [facility] Last Admin: 03/26/24 09:05 Dose: 200 mg Apixaban (Apixaban 5 Mg Tablet) 5 mg PO BID [facility] Last Admin: 03/26/24 18:34 Dose: 5 mg Bumetanide (Bumetanide 0.25 Mg/Ml Sdv 10 Ml) 2 mg IVP Q8H [facility] Last Admin: 03/26/24 23:43 Dose: 2 mg Carvedilol (Carvedilol 3.125 Mg Tablet) 3.125 mg PO BID [facility] Last Admin: 03/26/24 18:33 Dose: 3.125 mg Levothyroxine Sodium (Levothyroxine 100 Mcg Tablet) 100 mcg PO 0630 [facility] Last Admin: 03/27/24 06:07 Dose: 100 mcg Magnesium Oxide (Magnesium Oxide 400 Mg Tablet) 400 mg PO DAILY [facility] Last Admin: 03/26/24 09:09 Dose: Not Given Ondansetron HCl (Ondansetron 2 Mg/Ml Sdv 2 Ml) 4 mg IVP Q6H PRN PRN Reason: NAUSEA AND VOMITING Potassium Chloride (Potassium Chloride Er 20 Meq Tablet) 40 meq PO Q12H [facility] Last Admin: 03/26/24 23:44 Dose: 40 meq Zolpidem Tartrate (Zolpidem 5 Mg Tablet) 5 mg PO BEDTIME [facility] Last Admin: 03/26/24 20:40 Dose: 5 mg Vitals/I&O/Wt Last Vital Signs Temp 97.5 F L 03/27/24 07:44 Pulse 75 03/27/24 08:21 Resp 16 03/27/24 08:21 BP 122/85 03/27/24 07:44 Pulse Ox 93 03/27/24 08:21 O2 Del Method Room Air 03/27/24 08:21 03/26/24 03/27/24 03/27/24 22:59 06:59 14:59 Intake Total 240 / 600 Output Total 150 / 150 500 / 650 Balance -150 / 210 -260 / -50 Weight last 48 hrs Weight 180 lb 4.8 oz Weight 179 lb 11.2 oz Weight 179 lb 11.2 oz Weight 176 lb Physical Exam 2 Narrative: GENERAL: The patient is alert and oriented times three. Not in any acute distress. HEENT: No significant pallor, icterus or lymphadenopathy.Oral cavity: There are no mucous membrane lesions. NECK: Trachea appears to be central. No masses noted. No JVD or thyromegaly appreciated. Carotid bruit on the right side. RESPIRATORY: Chest is symmetrical. No intercostals muscle retraction or any accessory muscle activation. There is no chest wall tenderness. Breath sounds are heard bilaterally. No rales or rhonchi heard. No evidence of any consolidation. BREASTS: Deferred. HEART: The heart sounds are normal. No S3 or S4. Systolic murmur grade 3 or 6 in the left sternal border. No pericardial rub ABDOMEN: No vessel pulsations or distention. No tenderness. No organomegaly appreciated. Bowel sounds are normally heard. : Deferred. RECTAL: Deferred. LYMPHATIC: No lymphadenopathy noted in the neck. EXTREMITIES: No edema or cyanosis. No clubbing. MUSCULOSKELETAL: No acute joint deformities or swelling SKIN: There are no significant rashes or ecchymosis NEUROPSYCHIATRIC: The patient is alert and oriented x3. Appears to be in a good mood. No tremors or rigidity noted. Data 03/25/24 20:00 03/27/24 04:14 Other Labs: Laboratory Last Values WBC 7.01 10^3/uL (3.29-11.43) 03/25/24 20:00 RBC 5.25 10^6/uL (3.85-5.65) 03/25/24 20:00 Hgb 15.80 g/dL (11.27-16.99) 03/25/24 20:00 Hct 47.3 % (36-47) H 03/25/24 20:00 MCV 90.1 fl (85-98) 03/25/24 20:00 MCH 30.1 pg (27-33) 03/25/24 20:00 MCHC 33.4 g/dL (30-55) 03/25/24 20:00 RDW 18.3 % (12.1-15.1) H 03/25/24 20:00 Plt Count 300 10^3/cmm (157-399) 03/25/24 20:00 MPV 9.2 fL (7.4-10.4) 03/25/24 20:00 Neut % (Auto) 71.7 % 03/25/24 20:00 Lymph % (Auto) 14.1 % 03/25/24 20:00 Lake % (Auto) 10.4 % 03/25/24 20:00 Eos % (Auto) 2.6 % 03/25/24 20:00 Baso % (Auto) 0.9 % 03/25/24 20:00 Neut # (Auto) 5.03 10^3/uL (1.8-7.7) 03/25/24 20:00 Lymph # (Auto) 1.0 10^3/uL (0.8-4.8) 03/25/24 20:00 Lake # (Auto) 0.7 10^3/uL (0.2-0.9) 03/25/24 20:00 Eos # (Auto) 0.2 10^3/uL (0.0-0.8) 03/25/24 20:00 Baso # (Auto) 0.1 10^3/uL (0.0-0.1) 03/25/24 20:00 Nucleated RBC % (auto) 0 % 03/25/24 20:00 Nucleated RBCs # 0.0 /100WBC 03/25/24 20:00 Sodium 134 mmol/L (136-145) L 03/27/24 04:14 Potassium 3.6 mmol/L (3.5-5.1) 03/27/24 04:14 Chloride 99 mmol/L (98-107) 03/27/24 04:14 Carbon Dioxide 25 mmol/L (22-29) 03/27/24 04:14 Anion Gap 13.6 (5-19) 03/27/24 04:14 BUN 19 mg/dL (8-23) 03/27/24 04:14 Creatinine 1.2 mg/dL (0.5-0.9) H 03/27/24 04:14 GFR Calculation Not Reportable 03/27/24 04:14 Glucose 104 mg/dL (65-115) 03/27/24 04:14 Calculated Osmolality 281 mOsm/kg (285-295) L 03/27/24 04:14 Calcium 9.3 mg/dL (8.5-10.5) 03/27/24 04:14 Magnesium 2.4 mg/dL (1.7-2.3) H 03/26/24 02:17 Total Bilirubin 1.3 mg/dL (0.15-1.2) H 03/27/24 04:14 AST 17 U/L (0-32) 03/27/24 04:14 ALT 13 U/L (0-33) 03/27/24 04:14 Alkaline Phosphatase 120 U/L (35-105) H 03/27/24 04:14 Troponin T Baseline 22 ng/L (0-10) H 03/25/24 20:00 Troponin T 120 Minute 19.68 ng/L (0-10) H 03/25/24 22:16 Delta Troponin T -2.32 ABS# (0-10) L 03/25/24 22:16 Troponin T Hi Sens 6Hr 22.46 ng/L (0-10) H 03/26/24 02:17 Troponin T Hi Sens 6Hr Delta 0.46 ng/L (0-12) 03/26/24 02:17 NT-Pro-B Natriuret Pep 2673 pg/mL (0-450) H 03/25/24 20:00 Total Protein 6.1 g/dL (6.6-8.7) L 03/27/24 04:14 Albumin 3.6 g/dL (3.5-5.2) 03/27/24 04:14 Globulin 2.5 g/dL (1.3-4.6) 03/27/24 04:14 Vitamin B12 1571 pg/mL (232-1245) H 03/26/24 02:17 A&P Assessment and plan (1) Acute on chronic diastolic (congestive) heart failure: May continue on the IV diuretics for the time being. Also may start her on a low-dose of ARB namely losartan 25 mg p.o. daily. Will be watching the blood pressure and the urine output closely. (2) Severe mitral regurgitation: Patient may benefit from valve surgery, once the heart failure is properly treated. In view of her ongoing symptoms, she may require the intervention as early as possible. (3) Cerebrovascular accident: Possibly from the atrial fibrillation. Patient is on long-term oral anticoagulation. Has not had any recurrence of CVA since being on oral anticoagulant. Qualifiers: CVA mechanism: unspecified Qualified Code(s): I63.9 - Cerebral infarction, unspecified (4) Obstructive sleep apnea: Recently diagnosed. Awaiting treatment with CPAP. Cardiovascular implications of the obstructive sleep apnea were discussed with the patient (5) Hyperlipidemia: May continue on the current management. Qualifiers: Hyperlipidemia type: mixed hyperlipidemia Qualified Code(s): E78.2 - Mixed hyperlipidemia (6) Hypertension: Currently the blood pressure is in the normal range. May continue on the current medications. Qualifiers: Hypertension type: primary hypertension Qualified Code(s): I10 - Essential (primary) hypertension (7) Cirrhosis of liver: Etiology?. The liver functions are within normal limits. Qualifiers: Hepatic cirrhosis type: unspecified hepatic cirrhosis Ascites presence: with ascites Qualified Code(s): K74.60 - Unspecified cirrhosis of liver; R18.8 - Other ascites (8) Carotid artery stenosis, asymptomatic: Patient had a carotid Doppler examination today. He was found to have mild to moderate plaques at the bifurcations. No severe stenosis. 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 Will try to optimize her medical treatment over the weekend. Consider transferring to a facility on Friday where mitral valve intervention can be performed in a timely fashion Attestations 2 Medical Necessity Statement*: Patient requires continued hospital stay for close monitoring and further management Coding Level of Care Code 63792 Diagnoses Acute on chronic diastolic (congestive) heart failure I50.33 Severe mitral regurgitation I34.0 Cerebrovascular accident (CVA), unspecified mechanism I63.9 CVA mechanism: unspecified Obstructive sleep apnea G47.33 Mixed hyperlipidemia E78.2 Hyperlipidemia type: mixed hyperlipidemia Primary hypertension I10 Hypertension type: primary hypertension Cirrhosis of liver with ascites, unspecified hepatic cirrhosis type K74.60; R18.8 Hepatic cirrhosis type: unspecified hepatic cirrhosis Ascites presence: with ascites Asymptomatic stenosis of left carotid artery I65.22 Laterality: left
[2024-03-27] MEDS: amiodarone 200 mg Tablet PO (09:45)
[2024-03-27] MEDS: carvedilol 3.125 mg Tablet PO ×2 (09:45→17:34)
[2024-03-27] MEDS: apixaban 5 mg Tablet PO ×2 (09:45→17:35)
[2024-03-27] MEDS: bumetanide 0.25 mg/mL SDV 10 mL 2 MG IVP ×2 (09:45→17:35)
[2024-03-27] MEDS: magnesium oxide 400 mg tablet PO (09:45)
[2024-03-27] MEDS: potassium chloride ER 20 mEq Tablet 40 MEQ PO (12:16)
[2024-03-27 13:20] LABS: Anion Gap 15.7 (5-19); Blood Urea Nitrogen 18 mg/dL (8-23); Calcium 9.5 mg/dL (8.5-10.5); Carbon Dioxide 24 mmol/L (22-29); Chloride 97 mmol/L (98-107); Creatinine Clr Calc Pharmacy 37.3567; Glucose 159 mg/dL (65-115); Osmolality Calculated 281 mOsm/kg (285-295); Potassium 3.7 mmol/L (3.5-5.1); Sodium 133 mmol/L (136-145)
--- NOTE | 2024-03-27 15:53 | P.PN_ITS ---
Subjective 2 Subjective: Feels slightly better. Right lower extremity swelling does proved. Kidney function is stable today. Medications: Reviewed: Yes Medication Review Details: Current Medications Acetaminophen (Acetaminophen 500 Mg Tablet) 500 mg PO Q6H PRN PRN Reason: MILD PAIN OR INCREASE TEMP Last Admin: 03/27/24 02:28 Dose: 500 mg Albuterol/Ipratropium (Ipratropium-Albuterol 3 Ml Neb) 3 ml INHALATION Q6H PRN PRN Reason: SHORTNESS OF BREATH Amiodarone HCl (Amiodarone 200 Mg Tablet) 200 mg PO DAILY [facility] Last Admin: 03/26/24 09:05 Dose: 200 mg Apixaban (Apixaban 5 Mg Tablet) 5 mg PO BID [facility] Last Admin: 03/26/24 18:34 Dose: 5 mg Bumetanide (Bumetanide 0.25 Mg/Ml Sdv 10 Ml) 2 mg IVP Q8H [facility] Last Admin: 03/26/24 23:43 Dose: 2 mg Carvedilol (Carvedilol 3.125 Mg Tablet) 3.125 mg PO BID [facility] Last Admin: 03/26/24 18:33 Dose: 3.125 mg Levothyroxine Sodium (Levothyroxine 100 Mcg Tablet) 100 mcg PO 0630 [facility] Last Admin: 03/27/24 06:07 Dose: 100 mcg Magnesium Oxide (Magnesium Oxide 400 Mg Tablet) 400 mg PO DAILY [facility] Last Admin: 03/26/24 09:09 Dose: Not Given Ondansetron HCl (Ondansetron 2 Mg/Ml Sdv 2 Ml) 4 mg IVP Q6H PRN PRN Reason: NAUSEA AND VOMITING Potassium Chloride (Potassium Chloride Er 20 Meq Tablet) 40 meq PO Q12H [facility] Last Admin: 03/26/24 23:44 Dose: 40 meq Zolpidem Tartrate (Zolpidem 5 Mg Tablet) 5 mg PO BEDTIME [facility] Last Admin: 03/26/24 20:40 Dose: 5 mg Vitals/I&O/Wt Last Vital Signs Temp 97.2 F L 03/27/24 11:59 Pulse 77 03/27/24 11:59 Resp 18 03/27/24 11:59 BP 149/65 03/27/24 11:59 Pulse Ox 94 03/27/24 11:59 O2 Del Method Room Air 03/27/24 11:59 03/27/24 03/27/24 03/27/24 06:59 14:59 22:59 Intake Total 240 / 600 800 / 800 Output Total 500 / 650 500 / 500 Balance -260 / -50 300 / 300 Weight last 48 hrs Weight 81.783 kg Weight 81.511 kg Weight 81.511 kg Weight 79.832 kg Physical Exam 2 Narrative: General: No acute distress, AO x3 HEENT: PERRLA, pupils bilaterally equal and reactive, pallors not present Chest: Normal vesicular breath sounds, no added sounds, equal good air entry bilaterally CVS: S1-S2 regular, no murmurs, no tachycardia, no gallops, no rubs Abdomen: Soft, nontender, no organomegaly, bowel sounds present Neuro: No focal deficits, no facial deformity, AO x3, power 5/5 in all limbs Extremities: 3+ pitting edema bilaterally Data 03/25/24 20:00 03/27/24 12:54 A&P Assessment and plan (1) Congestive heart failure: (2) Orthopnea: (3) Severe mitral regurgitation: (4) Paroxysmal atrial fibrillation: (5) Cirrhosis of liver: Qualifiers: Hepatic cirrhosis type: unspecified hepatic cirrhosis Ascites presence: with ascites Qualified Code(s): K74.60 - Unspecified cirrhosis of liver; R18.8 - Other ascites (6) Diverticulitis: (7) Dyspnea: Qualifiers: Dyspnea type: shortness of breath Qualified Code(s): R06.02 - Shortness of breath (8) Cough: (9) Insomnia: (10) Edema: Plan Diastolic CHF exacerbation Start IV diuretics if patient is not making good urine then she probably had to switch to diuretic drip Monitor her urine output correlate with creatinine and watch for contraction alkalosis and electrolyte imbalance For now I will put her on Bumex 2 mg 3 times a day, patient is showing inadequate response to Lasix Patient has mitral and tricuspid valve regurgitation, she may benefit from mitral valve surgery, this was mentioned by Dr. Orourke as well in the past, please consult cardiology in the morning patient has not seen anyone at [place] for her mitral valve surgery yet Sleep apnea: Uses 2 L of oxygen at nighttime Insomnia: Takes Ambien A-fib: Continue anticoagulation and AV devin blocking agent monitor blood pressure Full code Cardiac diet March 26, 2024 Patient continues to be on Bumex 2 mg IV every 8 hours. Urine output thus far 500 cc. Cardiology consult for management of acute on chronic CHF, poor response to diuresis. Additionally patient noted to have severe mitral valve regurgitation on most recent JAMES. Will likely require mitral valve intervention procedure, cardiology consult additionally to help decide timing of appropriate referrals. Continue to monitor kidney function creatinine every 12 hours 03/27/2024 net negative 100 cc last 24 hrs. Continue Bumex 2g iv every 8 hrs. appreciate cardiology recommendations. Patient will likely require transfer to higher center for mitral valve surgery Once volume optimized. Lower extremity swelling is slightly improved today. Attestations 2 Medical Necessity Statement*: Continued need for IV diuresis Coding Level of Care Code Acute Code for [facility] Fwd Moderate MDM includes number and complexity of problems actively addressed during encounter, amount and/or complexity of data reviewed/ordered and described risk of complication, morbidity or mortality of management as documented Diagnoses Congestive heart failure I50.9 Orthopnea R06.01 Severe mitral regurgitation I34.0 Paroxysmal atrial fibrillation I48.0 Cirrhosis of liver with ascites, unspecified hepatic cirrhosis type K74.60; R18.8 Hepatic cirrhosis type: unspecified hepatic cirrhosis Ascites presence: with ascites Diverticulitis K57.92 Shortness of breath R06.02 Dyspnea type: shortness of breath Cough R05.9 Insomnia G47.00 Edema R60.9
--- NOTE | 2024-03-27 17:29 | USCV_ITS ---
Zee Vaca Age: 83 Gender: F : 1940 Exam Date: 03/27/2024 08:24 Ordering Phys: Tevin Soria MD ([email or web address]) Technologist: Sundeep Cifuentes Exam Location: [facility] Indication: carotid stenosis on the left Risk Factors: Previous Vascular Surgery: Right Brachial BP: / Left Brachial BP: / Right Left Velocity (cm/s) Spectral Plaque Velocity (cm/s) Spectral Plaque Syst/Diast Broadening Syst/Diast Broadening 62.20/ 10.30 Prox CCA 56.10 / 19.00 49.40/ 11.60 Mid CCA 82.90 / 20.30 48.80/ 14.50 Distal CCA 73.20 / 25.20 52.70/ 13.40 Prox ICA 53.00 / 15.00 38.10/ 11.10 Mid ICA 77.00 / 23.90 47.00/ 11.70 Distal ICA 65.60 / 18.80 103.00 ECA 90.00 1.10 ICA/CCA 1.10 Antegrade Vertebral Antegrade 33.00/ cm/s 68.00/ cm/s Bi Subclavian Bi 70.00 76.00 FINDINGS Mild to moderate plaque at the right bifurcation and proximal intergluteal artery Mild to moderate plaque in the left bifurcation Intimal thickening in the common carotid artery and internal carotid artery. Antegrade flow in the vertebral arteries bilaterally. Normal Doppler flow velocities in the external carotid, and subclavian arteries bilaterally CONCLUSIONS Mild to moderate plaques at the bifurcations and proximal ICA bilaterally with the Doppler features suggesting less than 50% stenosis. No significant stenosis in the subclavian, vertebral and testicular arteries based on the flow velocities Dr Tevin Soria MD [facility] (Electronically Signed) Final Date: 27 March 2024 09:00 S
[2024-03-27] MEDS: ALPRAZolam 0.5 mg Tablet 0.25 MG PO (20:09)
[2024-03-27] MEDS: zolpidem 5 mg Tablet PO (21:54)
[2024-03-28] VITALS (9 sets, daily range): BP systolic 118–144; BP diastolic 78–87; PULSE 66–84; RESP 15–18; TEMP 36.3–36.7; O2SAT 92–94
[2024-03-28] MEDS: potassium chloride ER 20 mEq Tablet 40 MEQ PO ×2 (01:08→13:05)
[2024-03-28] MEDS: bumetanide 0.25 mg/mL SDV 10 mL 2 MG IVP ×3 (01:08→17:19)
[2024-03-28 04:04] LABS: Blood Urea Nitrogen 18 mg/dL (8-23); Calcium 9.7 mg/dL (8.5-10.5); Carbon Dioxide 25 mmol/L (22-29); Chloride 101 mmol/L (98-107); Creatinine Clr Calc Pharmacy 37.3567; Glucose 109 mg/dL (65-115); Osmolality Calculated 294 mOsm/kg (285-295); Sodium 141 mmol/L (136-145)
[2024-03-28] MEDS: levothyroxine 100 mcg Tablet PO (06:07)
[2024-03-28] MEDS: magnesium oxide 400 mg tablet PO (09:14)
[2024-03-28] MEDS: carvedilol 3.125 mg Tablet PO ×2 (09:14→17:19)
[2024-03-28] MEDS: apixaban 5 mg Tablet PO ×2 (09:14→17:19)
[2024-03-28] MEDS: amiodarone 200 mg Tablet PO (09:14)
[2024-03-28 13:01] LABS: Blood Urea Nitrogen 19 mg/dL (8-23); Calcium 9.8 mg/dL (8.5-10.5); Carbon Dioxide 23 mmol/L (22-29); Chloride 101 mmol/L (98-107); Creatinine Clr Calc Pharmacy 37.6953; Glucose 147 mg/dL (65-115); Osmolality Calculated 293 mOsm/kg (285-295); Sodium 139 mmol/L (136-145)
--- NOTE | 2024-03-28 16:49 | P.PN_ITS ---
Subjective 2 Subjective: No new complaints. Urine output 1600 cc. Net negative only 100 cc thus far. Creatinine continues to be stable at 1.1. Medications: Reviewed: Yes Medication Review Details: Current Medications Acetaminophen (Acetaminophen 500 Mg Tablet) 500 mg PO Q6H PRN PRN Reason: MILD PAIN OR INCREASE TEMP Last Admin: 03/27/24 02:28 Dose: 500 mg Albuterol/Ipratropium (Ipratropium-Albuterol 3 Ml Neb) 3 ml INHALATION Q6H PRN PRN Reason: SHORTNESS OF BREATH Amiodarone HCl (Amiodarone 200 Mg Tablet) 200 mg PO DAILY [facility] Last Admin: 03/26/24 09:05 Dose: 200 mg Apixaban (Apixaban 5 Mg Tablet) 5 mg PO BID [facility] Last Admin: 03/26/24 18:34 Dose: 5 mg Bumetanide (Bumetanide 0.25 Mg/Ml Sdv 10 Ml) 2 mg IVP Q8H [facility] Last Admin: 03/26/24 23:43 Dose: 2 mg Carvedilol (Carvedilol 3.125 Mg Tablet) 3.125 mg PO BID [facility] Last Admin: 03/26/24 18:33 Dose: 3.125 mg Levothyroxine Sodium (Levothyroxine 100 Mcg Tablet) 100 mcg PO 0630 [facility] Last Admin: 03/27/24 06:07 Dose: 100 mcg Magnesium Oxide (Magnesium Oxide 400 Mg Tablet) 400 mg PO DAILY [facility] Last Admin: 03/26/24 09:09 Dose: Not Given Ondansetron HCl (Ondansetron 2 Mg/Ml Sdv 2 Ml) 4 mg IVP Q6H PRN PRN Reason: NAUSEA AND VOMITING Potassium Chloride (Potassium Chloride Er 20 Meq Tablet) 40 meq PO Q12H [facility] Last Admin: 03/26/24 23:44 Dose: 40 meq Zolpidem Tartrate (Zolpidem 5 Mg Tablet) 5 mg PO BEDTIME [facility] Last Admin: 03/26/24 20:40 Dose: 5 mg Vitals/I&O/Wt Last Vital Signs Temp 97.7 F 03/28/24 16:12 Pulse 72 03/28/24 16:12 Resp 18 03/28/24 16:12 BP 134/84 03/28/24 16:12 Pulse Ox 93 03/28/24 16:12 O2 Del Method Nasal Cannula 03/28/24 16:12 03/28/24 03/28/24 03/28/24 06:59 14:59 22:59 Intake Total 240 / 1760 480 / 480 Output Total 700 / 1500 600 / 600 Balance -460 / 260 -120 / -120 Weight last 48 hrs Weight 83.143 kg Weight 81.783 kg Physical Exam 2 Narrative: General: No acute distress, AO x3 HEENT: PERRLA, pupils bilaterally equal and reactive, pallors not present Chest: Normal vesicular breath sounds, no added sounds, equal good air entry bilaterally CVS: S1-S2 regular, no murmurs, no tachycardia, no gallops, no rubs Abdomen: Soft, nontender, no organomegaly, bowel sounds present Neuro: No focal deficits, no facial deformity, AO x3, power 5/5 in all limbs Extremities: 3+ pitting edema bilaterally Data 03/25/24 20:00 03/28/24 12:18 A&P Assessment and plan (1) Congestive heart failure: (2) Orthopnea: (3) Severe mitral regurgitation: (4) Paroxysmal atrial fibrillation: (5) Cirrhosis of liver: Qualifiers: Hepatic cirrhosis type: unspecified hepatic cirrhosis Ascites presence: with ascites Qualified Code(s): K74.60 - Unspecified cirrhosis of liver; R18.8 - Other ascites (6) Diverticulitis: (7) Dyspnea: Qualifiers: Dyspnea type: shortness of breath Qualified Code(s): R06.02 - Shortness of breath (8) Cough: (9) Insomnia: (10) Edema: Plan Diastolic CHF exacerbation Start IV diuretics if patient is not making good urine then she probably had to switch to diuretic drip Monitor her urine output correlate with creatinine and watch for contraction alkalosis and electrolyte imbalance For now I will put her on Bumex 2 mg 3 times a day, patient is showing inadequate response to Lasix Patient has mitral and tricuspid valve regurgitation, she may benefit from mitral valve surgery, this was mentioned by Dr. Orourke as well in the past, please consult cardiology in the morning patient has not seen anyone at [place] for her mitral valve surgery yet Sleep apnea: Uses 2 L of oxygen at nighttime Insomnia: Takes Ambien A-fib: Continue anticoagulation and AV devin blocking agent monitor blood pressure Full code Cardiac diet March 26, 2024 Patient continues to be on Bumex 2 mg IV every 8 hours. Urine output thus far 500 cc. Cardiology consult for management of acute on chronic CHF, poor response to diuresis. Additionally patient noted to have severe mitral valve regurgitation on most recent JAMES. Will likely require mitral valve intervention procedure, cardiology consult additionally to help decide timing of appropriate referrals. Continue to monitor kidney function creatinine every 12 hours 03/27/2024 net negative 100 cc last 24 hrs. Continue Bumex 2g iv every 8 hrs. appreciate cardiology recommendations. Patient will likely require transfer to higher center for mitral valve surgery Once volume optimized. Lower extremity swelling is slightly improved today. 03/28/2024 Net -100 cc last 24 hours. Continuing Bumex 2 mg IV every 8 hours. Still with bilateral lower extremity edema. Intermittently on 2 L/min supplemental O2. Does get short of breath with exertion still. Awaiting recommendations regarding timing of mitral clipping. Attestations 2 Medical Necessity Statement*: Continued attempts at optimization of volume status with ongoing IV diuresis. Coding Level of Care Code Acute Code for [facility] Diagnoses Congestive heart failure I50.9 Orthopnea R06.01 Severe mitral regurgitation I34.0 Paroxysmal atrial fibrillation I48.0 Cirrhosis of liver with ascites, unspecified hepatic cirrhosis type K74.60; R18.8 Hepatic cirrhosis type: unspecified hepatic cirrhosis Ascites presence: with ascites Diverticulitis K57.92 Shortness of breath R06.02 Dyspnea type: shortness of breath Cough R05.9 Insomnia G47.00 Edema R60.9
--- NOTE | 2024-03-28 16:52 | PM.PN ---
Subjective Subjective: The patient is feeling better. However she continues to have significant dyspnea on exertion. The leg swelling is improving. No chest pain. No palpitations. No significant arrhythmias on the monitor. Medications: Medication Review Details: Current Medications Acetaminophen (Acetaminophen 500 Mg Tablet) 500 mg PO Q6H PRN PRN Reason: MILD PAIN OR INCREASE TEMP Last Admin: 03/27/24 02:28 Dose: 500 mg Albuterol/Ipratropium (Ipratropium-Albuterol 3 Ml Neb) 3 ml INHALATION Q6H PRN PRN Reason: SHORTNESS OF BREATH Alprazolam (Alprazolam 0.5 Mg Tablet) 0.25 mg PO TID PRN PRN Reason: ANXIETY Last Admin: 03/27/24 20:09 Dose: 0.25 mg Amiodarone HCl (Amiodarone 200 Mg Tablet) 200 mg PO DAILY [facility] Last Admin: 03/28/24 09:14 Dose: 200 mg Apixaban (Apixaban 5 Mg Tablet) 5 mg PO BID [facility] Last Admin: 03/28/24 09:14 Dose: 5 mg Bumetanide (Bumetanide 0.25 Mg/Ml Sdv 10 Ml) 2 mg IVP Q8H [facility] Last Admin: 03/28/24 09:13 Dose: 2 mg Carvedilol (Carvedilol 3.125 Mg Tablet) 3.125 mg PO BID [facility] Last Admin: 03/28/24 09:14 Dose: 3.125 mg Levothyroxine Sodium (Levothyroxine 100 Mcg Tablet) 100 mcg PO 0630 [facility] Last Admin: 03/28/24 06:07 Dose: 100 mcg Magnesium Oxide (Magnesium Oxide 400 Mg Tablet) 400 mg PO DAILY [facility] Last Admin: 03/28/24 09:14 Dose: 400 mg Ondansetron HCl (Ondansetron 2 Mg/Ml Sdv 2 Ml) 4 mg IVP Q6H PRN PRN Reason: NAUSEA AND VOMITING Potassium Chloride (Potassium Chloride Er 20 Meq Tablet) 40 meq PO Q12H [facility] Last Admin: 03/28/24 13:05 Dose: 40 meq Zolpidem Tartrate (Zolpidem 5 Mg Tablet) 5 mg PO BEDTIME [facility] Last Admin: 03/27/24 21:54 Dose: 5 mg Vitals/I&O/Wt Last Vital Signs Temp 97.7 F 03/28/24 16:12 Pulse 72 03/28/24 16:12 Resp 18 03/28/24 16:12 BP 134/84 03/28/24 16:12 Pulse Ox 93 03/28/24 16:12 O2 Del Method Nasal Cannula 03/28/24 16:12 03/28/24 03/28/24 03/28/24 06:59 14:59 22:59 Intake Total 240 / 1760 480 / 480 Output Total 700 / 1500 600 / 600 Balance -460 / 260 -120 / -120 Weight last 48 hrs Weight 183 lb 4.8 oz Weight 180 lb 4.8 oz Physical Exam Narrative: GENERAL: The patient is alert and oriented times three. Not in any acute distress. HEENT: No significant pallor, icterus or lymphadenopathy.Oral cavity: There are no mucous membrane lesions. NECK: Trachea appears to be central. No masses noted. No JVD or thyromegaly appreciated. Carotid bruit on the right side. RESPIRATORY: Chest is symmetrical. No intercostals muscle retraction or any accessory muscle activation. There is no chest wall tenderness. Breath sounds are heard bilaterally. No rales or rhonchi heard. No evidence of any consolidation. BREASTS: Deferred. HEART: The heart sounds are normal. No S3 or S4. Systolic murmur grade 3 or 6 in the left sternal border. No pericardial rub ABDOMEN: No vessel pulsations or distention. No tenderness. No organomegaly appreciated. Bowel sounds are normally heard. : Deferred. RECTAL: Deferred. LYMPHATIC: No lymphadenopathy noted in the neck. EXTREMITIES: No edema or cyanosis. No clubbing. MUSCULOSKELETAL: No acute joint deformities or swelling SKIN: There are no significant rashes or ecchymosis NEUROPSYCHIATRIC: The patient is alert and oriented x3. Appears to be in a good mood. No tremors or rigidity noted. Data 03/25/24 20:00 03/28/24 12:18 Other Labs: Laboratory Last Values WBC 7.01 10^3/uL (3.29-11.43) 03/25/24 20:00 RBC 5.25 10^6/uL (3.85-5.65) 03/25/24 20:00 Hgb 15.80 g/dL (11.27-16.99) 03/25/24 20:00 Hct 47.3 % (36-47) H 03/25/24 20:00 MCV 90.1 fl (85-98) 03/25/24 20:00 MCH 30.1 pg (27-33) 03/25/24 20:00 MCHC 33.4 g/dL (30-55) 03/25/24 20:00 RDW 18.3 % (12.1-15.1) H 03/25/24 20:00 Plt Count 300 10^3/cmm (157-399) 03/25/24 20:00 MPV 9.2 fL (7.4-10.4) 03/25/24 20:00 Neut % (Auto) 71.7 % 03/25/24 20:00 Lymph % (Auto) 14.1 % 03/25/24 20:00 [place] % (Auto) 10.4 % 03/25/24 20:00 Eos % (Auto) 2.6 % 03/25/24 20:00 Baso % (Auto) 0.9 % 03/25/24 20:00 Neut # (Auto) 5.03 10^3/uL (1.8-7.7) 03/25/24 20:00 Lymph # (Auto) 1.0 10^3/uL (0.8-4.8) 03/25/24 20:00 [place] # (Auto) 0.7 10^3/uL (0.2-0.9) 03/25/24 20:00 Eos # (Auto) 0.2 10^3/uL (0.0-0.8) 03/25/24 20:00 Baso # (Auto) 0.1 10^3/uL (0.0-0.1) 03/25/24 20:00 Nucleated RBC % (auto) 0 % 03/25/24 20:00 Nucleated RBCs # 0.0 /100WBC 03/25/24 20:00 Sodium 139 mmol/L (136-145) 03/28/24 12:18 Potassium 4.0 mmol/L (3.5-5.1) 03/28/24 12:18 Chloride 101 mmol/L (98-107) 03/28/24 12:18 Carbon Dioxide 23 mmol/L (22-29) 03/28/24 12:18 Anion Gap 19.0 (5-19) 03/28/24 12:18 BUN 19 mg/dL (8-23) 03/28/24 12:18 Creatinine 1.1 mg/dL (0.5-0.9) H 03/28/24 12:18 GFR Calculation Not Reportable 03/28/24 12:18 Glucose 147 mg/dL (65-115) H 03/28/24 12:18 Calculated Osmolality 293 mOsm/kg (285-295) 03/28/24 12:18 Calcium 9.8 mg/dL (8.5-10.5) 03/28/24 12:18 Magnesium 2.4 mg/dL (1.7-2.3) H 03/26/24 02:17 Total Bilirubin 1.3 mg/dL (0.15-1.2) H 03/27/24 04:14 AST 17 U/L (0-32) 03/27/24 04:14 ALT 13 U/L (0-33) 03/27/24 04:14 Alkaline Phosphatase 120 U/L (35-105) H 03/27/24 04:14 Troponin T Baseline 22 ng/L (0-10) H 03/25/24 20:00 Troponin T 120 Minute 19.68 ng/L (0-10) H 03/25/24 22:16 Delta Troponin T -2.32 ABS# (0-10) L 03/25/24 22:16 Troponin T Hi Sens 6Hr 22.46 ng/L (0-10) H 03/26/24 02:17 Troponin T Hi Sens 6Hr Delta 0.46 ng/L (0-12) 03/26/24 02:17 NT-Pro-B Natriuret Pep 2673 pg/mL (0-450) H 03/25/24 20:00 Total Protein 6.1 g/dL (6.6-8.7) L 03/27/24 04:14 Albumin 3.6 g/dL (3.5-5.2) 03/27/24 04:14 Globulin 2.5 g/dL (1.3-4.6) 03/27/24 04:14 Vitamin B12 1571 pg/mL (232-1245) H 03/26/24 02:17 A&P Assessment and plan (1) Acute on chronic diastolic (congestive) heart failure: Tolerating medication so far well. Continue on the current medications. (2) Severe mitral regurgitation: Patient may benefit from valve surgery, once the heart failure is properly treated. In view of her ongoing symptoms, she may require the intervention as early as possible. (3) Cerebrovascular accident: Possibly from the atrial fibrillation. Patient is on long-term oral anticoagulation. Has not had any recurrence of CVA since being on oral anticoagulant. Qualifiers: CVA mechanism: unspecified Qualified Code(s): I63.9 - Cerebral infarction, unspecified (4) Obstructive sleep apnea: Recently diagnosed. Awaiting treatment with CPAP. Cardiovascular implications of the obstructive sleep apnea were discussed with the patient (5) Hyperlipidemia: May continue on the current management. Qualifiers: Hyperlipidemia type: mixed hyperlipidemia Qualified Code(s): E78.2 - Mixed hyperlipidemia (6) Hypertension: Currently the blood pressure is in the normal range. May continue on the current medications. Qualifiers: Hypertension type: primary hypertension Qualified Code(s): I10 - Essential (primary) hypertension (7) Cirrhosis of liver: Etiology?. The liver functions are within normal limits. Qualifiers: Hepatic cirrhosis type: unspecified hepatic cirrhosis Ascites presence: with ascites Qualified Code(s): K74.60 - Unspecified cirrhosis of liver; R18.8 - Other ascites (8) Carotid artery stenosis, asymptomatic: Patient had a carotid Doppler examination today. He was found to have mild to moderate plaques at the bifurcations. No severe stenosis. 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 Villafana in the morning to decide on further management Attestations Medical Necessity Statement*: Patient requires continued hospital stay for close monitoring and further management Coding Level of Care Code 17934 Diagnoses Acute on chronic diastolic (congestive) heart failure I50.33 Severe mitral regurgitation I34.0 Cerebrovascular accident (CVA), unspecified mechanism I63.9 CVA mechanism: unspecified Obstructive sleep apnea G47.33 Mixed hyperlipidemia E78.2 Hyperlipidemia type: mixed hyperlipidemia Primary hypertension I10 Hypertension type: primary hypertension Cirrhosis of liver with ascites, unspecified hepatic cirrhosis type K74.60; R18.8 Hepatic cirrhosis type: unspecified hepatic cirrhosis Ascites presence: with ascites Asymptomatic stenosis of left carotid artery I65.22 Laterality: left
[2024-03-28] MEDS: ALPRAZolam 0.5 mg Tablet 0.25 MG PO (17:19)
[2024-03-28] MEDS: losartan 50 mg Tablet 25 MG PO (17:27)
[2024-03-28] MEDS: zolpidem 5 mg Tablet PO (21:48)
[2024-03-29] VITALS (10 sets, daily range): BP systolic 105–125; BP diastolic 67–88; PULSE 59–88; RESP 14–18; TEMP 36.4–36.7; O2SAT 91–97
[2024-03-29] MEDS: potassium chloride ER 20 mEq Tablet 40 MEQ PO ×2 (00:48→11:34)
[2024-03-29] MEDS: bumetanide 0.25 mg/mL SDV 10 mL 2 MG IVP ×3 (00:48→17:51)
[2024-03-29] MEDS: ALPRAZolam 0.5 mg Tablet 0.25 MG PO (00:48)
[2024-03-29 06:02] LABS: Basophils # 0.1 10^3/uL (0.0-0.1); Basophils % 1.1 %; Eosinophils # 0.2 10^3/uL (0.0-0.8); Eosinophils % 2.3 %; Hematocrit 43.2 % (36-47); Lymphocytes % 14.6 %; Mean Corpuscular HGB Conc 32.6 g/dL (30-55); Mean Corpuscular Hemoglobin 30.7 pg (27-33); Mean Corpuscular Volume 93.9 fl (85-98); Mean Platelet Volume 9.2 fL (7.4-10.4); Monocytes # 0.8 10^3/uL (0.2-0.9); Monocytes % 11.3 %; Neutrophils % 70.4 %; Nucleated Red Blood Cells % 0 %; Platelet Count 248 10^3/cmm (157-399); Red Cell Distribution Width 18.7 % (12.1-15.1); White Blood Count 6.66 10^3/uL (3.29-11.43)
[2024-03-29] MEDS: enoxaparin 80 mg/0.8 mL Syringe SUBCUT ×2 (06:20→17:52)
[2024-03-29] MEDS: levothyroxine 100 mcg Tablet PO (06:20)
[2024-03-29 06:25] LABS: Alanine Aminotransferase 16 U/L (0-33); Albumin Level 3.7 g/dL (3.5-5.2); Alkaline Phosphatase 118 U/L (35-105); Aspartate Amino Transferase 20 U/L (0-32); Blood Urea Nitrogen 19 mg/dL (8-23); Calcium 9.4 mg/dL (8.5-10.5); Carbon Dioxide 25 mmol/L (22-29); Chloride 101 mmol/L (98-107); Creatinine Clr Calc Pharmacy 41.0551; Globulin 2.7 g/dL (1.3-4.6); Glucose 94 mg/dL (65-115); Osmolality Calculated 292 mOsm/kg (285-295); Sodium 140 mmol/L (136-145); Total Bilirubin 1.4 mg/dL (0.15-1.2); Total Protein 6.4 g/dL (6.6-8.7)
[2024-03-29 06:27] LABS: Anion Gap 17.8 (5-19); Potassium 3.8 mmol/L (3.5-5.1)
[2024-03-29] MEDS: amiodarone 200 mg Tablet PO (09:48)
[2024-03-29] MEDS: magnesium oxide 400 mg tablet PO (09:48)
[2024-03-29] MEDS: losartan 50 mg Tablet 25 MG PO (09:49)
[2024-03-29] MEDS: carvedilol 3.125 mg Tablet PO ×2 (09:49→17:51)
--- NOTE | 2024-03-29 14:55 | P.PN_ITS ---
<Statement entered by Petra Villafana MD - 04/01/24 09:40> Patient was evaluated and cared for in conjunction with an advanced practice practitioner. I personally examined the patient and reviewed the chart and all pertinent data including imaging, telemetry, and laboratory results. I discussed the patient in detail with the advanced practice practitioner. Please see their note for complete H&P testing result and agreed upon plan of care for the patient. Continues to be short of breath with atrial fibrillation GENERAL: Patient is alert, awake and oriented x3 but short of. HEART: Irregularly irregular S1 and S2. 2/6 system murmur, no rub or gallop. LUNGS: Basal to mid crackles bilaterally. CENTRAL NERVOUS SYSTEM: Grossly nonfocal. EXTREMITIES: Lower extremities with 1+ edema bilaterally. Assessment and plan Acute decompensated diastolic heart failure Atrial fibrillation Moderate to severe mitral regurg Moderate tricuspid valve regurgitation Continue diuresis Continue optimization of medicine Documented by User: Marina Queen NP 03/29/24 15:03 Subjective 2 Subjective: Patient doing okay today. Still has significant shortness of breath on exertion and orthopnea. Has only had about 460 out for 24 hours. She is just now starting to respond to the Bumex as nursing staff just emptied over a liter from her urine cap. Medications: Reviewed: Yes Vitals/I&O/Wt Last Vital Signs Temp 97.7 F 03/29/24 11:20 Pulse 88 03/29/24 11:20 Resp 18 03/29/24 11:20 BP 120/84 03/29/24 11:20 Pulse Ox 97 03/29/24 11:20 O2 Del Method Room Air 03/29/24 11:20 03/28/24 03/29/24 03/29/24 22:59 06:59 14:59 Intake Total 720 / 1200 360 / 360 Output Total 700 / 1300 1300 / 1300 Balance 720 / 600 -700 / -100 -940 / -940 Weight last 48 hrs Weight 180 lb Weight 183 lb 4.8 oz Physical Exam 2 Narrative: General: No apparent distress, healthy appearing, well nourished HENMT: normoceophalic Eye: PERRL Neck: No carotid bruit bilaterally Muskuloskeletal: Full ROM Lymphatic: no lymphedema noted Respiratory: Normal respiratory effort, bilateral lower lung solorzano with fine basilar crackles, no use of accessory muscles Cardio: No JVD, regular rate, regular rhythm, S1 S2 normal, no murmurs, peripheral pulses 2+ throughout GI: Normal to inspection, nondistended Extremities: Full ROM, normal, normal capillary refill, no cyanosis 1+ edema bilateral lower extremities Neuro: Alert and oriented x4, no focal motor deficits Psych: Affect normal, denies suicidal ideation, mental status grossly normal Skin: No rashes or lesions noted, no wounds Data 04/01/24 04:38 04/01/24 04:38 A&P Assessment and plan (1) Acute on chronic diastolic (congestive) heart failure: Tolerating medication so far well. Continue on the current medications. She is starting to get a good response from the lasix. Will check in this afternoon to see if this continues. (2) Severe mitral regurgitation: Patient may benefit from valve surgery, once the heart failure is properly treated. We have discussed this case with surgeon Dr. Austyn Pierre, who agrees. He recommends coronary angiogram prior. (3) Cerebrovascular accident: Possibly from the atrial fibrillation. Patient is on long-term oral anticoagulation. Has not had any recurrence of CVA since being on oral anticoagulant. Currently on lovenox. Qualifiers: CVA mechanism: unspecified Qualified Code(s): I63.9 - Cerebral infarction, unspecified (4) Obstructive sleep apnea: Recently diagnosed. Awaiting treatment with CPAP. (5) Hyperlipidemia: May continue on the current management. Qualifiers: Hyperlipidemia type: mixed hyperlipidemia Qualified Code(s): E78.2 - Mixed hyperlipidemia (6) Hypertension: Currently the blood pressure is in the normal range. May continue on the current medications. Qualifiers: Hypertension type: primary hypertension Qualified Code(s): I10 - Essential (primary) hypertension (7) Carotid artery stenosis, asymptomatic: Patient had a carotid Doppler examination today. He was found to have mild to moderate plaques at the bifurcations. No severe stenosis. Qualifiers: Laterality: left Qualified Code(s): I65.22 - Occlusion and stenosis of left carotid artery Plan At this time patient needs further diuresis. Currently on Bumex 2 mg every 8 hours will continue. She still has some crackles and edema with orthopnea. She will not tolerate cardiac cath at this time. Plan is to continue diuresis and once patient is euvolemic take to the [facility] for an angiogram. The case was discussed by Dr. Villafana with Dr. Mckay Pierre who has accepted the patient for the mitral valve stenosis. Will go ahead and get an echo complete to evaluate this further and make sure that the patient has not had a drop in her EF as well. Attestations 2 Medical Necessity Statement*: Patient requires continued hospital stay for close monitoring and further management due to above defined care. Coding Level of Care Code Acute Code for [facility] F[facility] Diagnoses Acute on chronic diastolic (congestive) heart failure I50.33 Severe mitral regurgitation I34.0 Cerebrovascular accident (CVA), unspecified mechanism I63.9 CVA mechanism: unspecified Obstructive sleep apnea G47.33 Mixed hyperlipidemia E78.2 Hyperlipidemia type: mixed hyperlipidemia Primary hypertension I10 Hypertension type: primary hypertension Asymptomatic stenosis of left carotid artery I65.22 Laterality: left Documented by User: Petra Villafana MD 04/01/24 09:34 Subjective 2 Subjective: Patient doing okay today. Still has significant shortness of breath on exertion and orthopnea. Has only had about 460 out for 24 hours. She is just now starting to respond to the Bumex as nursing staff just emptied over a liter from her urine cap. Data 04/01/24 04:38 04/01/24 04:38 A&P Assessment and plan (1) Acute on chronic diastolic (congestive) heart failure: (2) Severe mitral regurgitation: (3) Cerebrovascular accident: Qualifiers: CVA mechanism: unspecified Qualified Code(s): I63.9 - Cerebral infarction, unspecified (4) Obstructive sleep apnea: (5) Hyperlipidemia: Qualifiers: Hyperlipidemia type: mixed hyperlipidemia Qualified Code(s): E78.2 - Mixed hyperlipidemia (6) Hypertension: Qualifiers: Hypertension type: primary hypertension Qualified Code(s): I10 - Essential (primary) hypertension (7) Carotid artery stenosis, asymptomatic: Qualifiers: Laterality: left Qualified Code(s): I65.22 - Occlusion and stenosis of left carotid artery Coding Level of Care Code Acute Code for Chg Fwd Diagnoses Acute on chronic diastolic (congestive) heart failure I50.33 Severe mitral regurgitation I34.0 Cerebrovascular accident (CVA), unspecified mechanism I63.9 CVA mechanism: unspecified Obstructive sleep apnea G47.33 Mixed hyperlipidemia E78.2 Hyperlipidemia type: mixed hyperlipidemia Primary hypertension I10 Hypertension type: primary hypertension Asymptomatic stenosis of left carotid artery I65.22 Laterality: left
--- NOTE | 2024-03-29 14:56 | USCV_ITS ---
Zee Vaca Age: 83 Gender: F : 1940 Exam Date: 03/29/2024 18:41 Ordering Phys: Marina Queen NP Technologist: SATYA Exam Location: [facility] [place] Indication: moderate to severe mitral valve regurgitation, History of CHF, SOB BP: 116 / 79 HR: 62 Rhythm: Atrial fibrillation Technical Quality: Adequate MEASUREMENTS (Male / Female) Normal Values 2D ECHO LV Diastolic Diameter PLAX 3.5 cm 4.2 - 5.9 / 3.9 - 5.3 cm IVS Diastolic Thickness 1.4 cm 0.6 - 1.0 / 0.6 - 0.9 cm IVS Systolic Thickness 1.9 cm LVPW Diastolic Thickness 1.0 cm 0.6 - 1.0 / 0.6 - 0.9 cm LVPW Systolic Thickness 1.7 cm LVOT Diameter 1.8 cm LV Ejection Fraction 2D Teich 57.7 % LV Ejection Fraction MOD 4C 53.2 % LV Ejection Fraction MOD 2C 44.4 % LV Ejection Fraction 2C AL 40.5 % LA Diameter 4.9 cm Aorta at Sinotubular Diameter 2.7 cm IVC Diameter 1.5 cm M-MODE LA Ao Ratio MM 2.0 AV Cusp Separation MM 1.2 cm DOPPLER AV Peak Velocity 145.0 cm/s LVOT Peak Velocity 51.0 cm/s AV Area Cont Eq vti 0.9 cm squared AV Area Cont Eq pk 0.9 cm squared MV Peak Velocity 101.0 cm/s MV Area PHT 3.4 cm squared Mitral E to A Ratio 0.0 TV Peak Velocity 227.0 cm/s TR Peak Velocity 243.0 cm/s TR Peak Gradient 23.6 mmHg TV Peak E Velocity 60.0 cm/s PV Peak Velocity 53.0 cm/s FINDINGS Left Ventricle Left ventricle is normal in size. LV systolic function is normal with EF of 55-60%. No significant regional wall motion abnormalities. Right Ventricle Normal function Right Atrium Dilated Left Atrium Dilated Mitral Valve Mild mitral annular calcification. Mild to moderate mitral regurgitation. Aortic Valve Aortic valve is thickened and calcified. No significant stenosis or regurgitation. Tricuspid Valve Moderate to severe tricuspid regurgitation. Pulmonary artery systolic pressure is normal. Pulmonic Valve Mild pulmonic regurgitation. Pericardium Normal Aorta Normal in size IVC Appears to be normal CONCLUSIONS LV systolic function is normal with EF of 55 to 60%. Biatrial dilation. Mild to moderate mitral regurgitation. Moderate to severe tricuspid regurgitation. Mild pulmonic regurgitation Compared to prior echocardiogram from 10/2023, no significant changes are seen. Joce Marshall MD (Electronically Signed) Final Date: 30 March 2024 10:11 S
--- NOTE | 2024-03-29 15:10 | PC.SOCIAL ---
IMM Updated. Updated pt on IMM. No questions voiced. Provided pt a copy. Initialed, dated, & timed a copy & placed in chart.
--- NOTE | 2024-03-29 15:59 | PM.PN ---
Subjective Subjective: No new complaints today. Still short of breath with minimal exertion. Net -900 cc last 24 hours. Creatinine is stable. Medications: Reviewed: Yes Medication Review Details: Current Medications Acetaminophen (Acetaminophen 500 Mg Tablet) 500 mg PO Q6H PRN PRN Reason: MILD PAIN OR INCREASE TEMP Last Admin: 03/27/24 02:28 Dose: 500 mg Albuterol/Ipratropium (Ipratropium-Albuterol 3 Ml Neb) 3 ml INHALATION Q6H PRN PRN Reason: SHORTNESS OF BREATH Alprazolam (Alprazolam 0.5 Mg Tablet) 0.25 mg PO TID PRN PRN Reason: ANXIETY Last Admin: 03/27/24 20:09 Dose: 0.25 mg Amiodarone HCl (Amiodarone 200 Mg Tablet) 200 mg PO DAILY [facility] Last Admin: 03/28/24 09:14 Dose: 200 mg Apixaban (Apixaban 5 Mg Tablet) 5 mg PO BID [facility] Last Admin: 03/28/24 09:14 Dose: 5 mg Bumetanide (Bumetanide 0.25 Mg/Ml Sdv 10 Ml) 2 mg IVP Q8H [facility] Last Admin: 03/28/24 09:13 Dose: 2 mg Carvedilol (Carvedilol 3.125 Mg Tablet) 3.125 mg PO BID [facility] Last Admin: 03/28/24 09:14 Dose: 3.125 mg Levothyroxine Sodium (Levothyroxine 100 Mcg Tablet) 100 mcg PO 0630 [facility] Last Admin: 03/28/24 06:07 Dose: 100 mcg Magnesium Oxide (Magnesium Oxide 400 Mg Tablet) 400 mg PO DAILY [facility] Last Admin: 03/28/24 09:14 Dose: 400 mg Ondansetron HCl (Ondansetron 2 Mg/Ml Sdv 2 Ml) 4 mg IVP Q6H PRN PRN Reason: NAUSEA AND VOMITING Potassium Chloride (Potassium Chloride Er 20 Meq Tablet) 40 meq PO Q12H [facility] Last Admin: 03/28/24 13:05 Dose: 40 meq Zolpidem Tartrate (Zolpidem 5 Mg Tablet) 5 mg PO BEDTIME [facility] Last Admin: 03/27/24 21:54 Dose: 5 mg Vitals/I&O/Wt Last Vital Signs Temp 98.0 F 03/29/24 15:41 Pulse 59 L 03/29/24 15:41 Resp 18 03/29/24 15:41 BP 116/79 03/29/24 15:41 Pulse Ox 92 03/29/24 15:41 O2 Del Method Room Air 03/29/24 15:41 03/29/24 03/29/24 03/29/24 06:59 14:59 22:59 Intake Total 360 / 360 Output Total 700 / 1300 1300 / 1300 Balance -700 / -100 -940 / -940 Weight last 48 hrs Weight 81.647 kg Weight 83.143 kg Physical Exam Narrative: General: No acute distress, AO x3 HEENT: PERRLA, pupils bilaterally equal and reactive, pallors not present Chest: Normal vesicular breath sounds, no added sounds, equal good air entry bilaterally CVS: S1-S2 regular, no murmurs, no tachycardia, no gallops, no rubs Abdomen: Soft, nontender, no organomegaly, bowel sounds present Neuro: No focal deficits, no facial deformity, AO x3, power 5/5 in all limbs Extremities: 3+ pitting edema bilaterally Data 03/29/24 05:23 03/29/24 05:23 A&P Assessment and plan (1) Congestive heart failure: (2) Orthopnea: (3) Severe mitral regurgitation: (4) Paroxysmal atrial fibrillation: (5) Cirrhosis of liver: Qualifiers: Hepatic cirrhosis type: unspecified hepatic cirrhosis Ascites presence: with ascites Qualified Code(s): K74.60 - Unspecified cirrhosis of liver; R18.8 - Other ascites (6) Diverticulitis: (7) Dyspnea: Qualifiers: Dyspnea type: shortness of breath Qualified Code(s): R06.02 - Shortness of breath (8) Cough: (9) Insomnia: (10) Edema: Plan Diastolic CHF exacerbation Start IV diuretics if patient is not making good urine then she probably had to switch to diuretic drip Monitor her urine output correlate with creatinine and watch for contraction alkalosis and electrolyte imbalance For now I will put her on Bumex 2 mg 3 times a day, patient is showing inadequate response to Lasix Patient has mitral and tricuspid valve regurgitation, she may benefit from mitral valve surgery, this was mentioned by Dr. Orourke as well in the past, please consult cardiology in the morning patient has not seen anyone at [place] for her mitral valve surgery yet Sleep apnea: Uses 2 L of oxygen at nighttime Insomnia: Takes Ambien A-fib: Continue anticoagulation and AV devin blocking agent monitor blood pressure Full code Cardiac diet March 26, 2024 Patient continues to be on Bumex 2 mg IV every 8 hours. Urine output thus far 500 cc. Cardiology consult for management of acute on chronic CHF, poor response to diuresis. Additionally patient noted to have severe mitral valve regurgitation on most recent JAMES. Will likely require mitral valve intervention procedure, cardiology consult additionally to help decide timing of appropriate referrals. Continue to monitor kidney function creatinine every 12 hours 03/27/2024 net negative 100 cc last 24 hrs. Continue Bumex 2g iv every 8 hrs. appreciate cardiology recommendations. Patient will likely require transfer to higher center for mitral valve surgery Once volume optimized. Lower extremity swelling is slightly improved today. 03/28/2024 Net -100 cc last 24 hours. Continuing Bumex 2 mg IV every 8 hours. Still with bilateral lower extremity edema. Intermittently on 2 L/min supplemental O2. Does get short of breath with exertion still. Awaiting recommendations regarding timing of mitral clipping. 03/29/2024. Net -24 hours. Continuing Bumex 2 mg IV every 8 hours. Continues to be short of breath, however attempting to walk in the hallway today. Per cardiology plan for right and left heart cath here once euvolemic, possibly in the next 1 to 2 days. Thereafter she will follow-up with Dr. Pierre at [facility] in [place] for mitral valve repair. Attestations Medical Necessity Statement*: Continued need for IV diuresis, plan angiogram once euvolemic. Coding Level of Care Code Acute Code for [facility] Fwd Diagnoses Congestive heart failure I50.9 Orthopnea R06.01 Severe mitral regurgitation I34.0 Paroxysmal atrial fibrillation I48.0 Cirrhosis of liver with ascites, unspecified hepatic cirrhosis type K74.60; R18.8 Hepatic cirrhosis type: unspecified hepatic cirrhosis Ascites presence: with ascites Diverticulitis K57.92 Shortness of breath R06.02 Dyspnea type: shortness of breath Cough R05.9 Insomnia G47.00 Edema R60.9
[2024-03-29] MEDS: zolpidem 5 mg Tablet PO (21:45)
[2024-03-30] VITALS (9 sets, daily range): BP systolic 105–134; BP diastolic 67–84; PULSE 62–96; RESP 16–18; TEMP 36.3–36.7; O2SAT 89–98
[2024-03-30] MEDS: bumetanide 0.25 mg/mL SDV 10 mL 2 MG IVP ×3 (01:15→17:45)
[2024-03-30] MEDS: enoxaparin 80 mg/0.8 mL Syringe SUBCUT ×2 (05:38→17:46)
[2024-03-30] MEDS: levothyroxine 100 mcg Tablet PO (05:39)
[2024-03-30] MEDS: potassium chloride ER 20 mEq Tablet 40 MEQ PO ×2 (05:39→17:45)
[2024-03-30] MEDS: ALPRAZolam 0.5 mg Tablet 0.25 MG PO ×2 (05:48→17:45)
[2024-03-30 06:00] LABS: Basophils # 0.1 10^3/uL (0.0-0.1); Basophils % 1.4 %; Eosinophils # 0.2 10^3/uL (0.0-0.8); Eosinophils % 3.4 %; Hematocrit 45.1 % (36-47); Lymphocytes # 1.4 10^3/uL (0.8-4.8); Lymphocytes % 18.9 %; Mean Corpuscular HGB Conc 32.2 g/dL (30-55); Mean Corpuscular Hemoglobin 30.2 pg (27-33); Mean Platelet Volume 9.2 fL (7.4-10.4); Monocytes # 0.9 10^3/uL (0.2-0.9); Monocytes % 11.9 %; Neutrophils # 4.56 10^3/uL (1.8-7.7); Nucleated Red Blood Cells % 0 %; Platelet Count 283 10^3/cmm (157-399); Red Cell Distribution Width 18.7 % (12.1-15.1); White Blood Count 7.13 10^3/uL (3.29-11.43)
[2024-03-30 06:27] LABS: Alanine Aminotransferase 20 U/L (0-33); Albumin Level 4.1 g/dL (3.5-5.2); Alkaline Phosphatase 140 U/L (35-105); Anion Gap 15.1 (5-19); Aspartate Amino Transferase 25 U/L (0-32); Blood Urea Nitrogen 20 mg/dL (8-23); Calcium 9.9 mg/dL (8.5-10.5); Carbon Dioxide 29 mmol/L (22-29); Chloride 101 mmol/L (98-107); Creatinine Clr Calc Pharmacy 34.5645; Glucose 102 mg/dL (65-115); Osmolality Calculated 295 mOsm/kg (285-295); Potassium 4.1 mmol/L (3.5-5.1); Sodium 141 mmol/L (136-145); Total Bilirubin 1.3 mg/dL (0.15-1.2); Total Protein 7.1 g/dL (6.6-8.7)
[2024-03-30] MEDS: losartan 50 mg Tablet 25 MG PO (09:07)
[2024-03-30] MEDS: magnesium oxide 400 mg tablet PO (09:07)
[2024-03-30] MEDS: amiodarone 200 mg Tablet PO (09:08)
[2024-03-30] MEDS: carvedilol 3.125 mg Tablet PO ×2 (09:08→17:45)
--- NOTE | 2024-03-30 11:48 | P.PN_ITS ---
<Statement entered by Petra Villafana MD - 04/01/24 09:37> Patient was evaluated and cared for in conjunction with an advanced practice practitioner. I personally examined the patient and reviewed the chart and all pertinent data including imaging, telemetry, and laboratory results. I discussed the patient in detail with the advanced practice practitioner. Please see their note for complete H&P testing result and agreed upon plan of care for the patient. Continues to be short of breath with atrial fibrillation GENERAL: Patient is alert, awake and oriented x3 but short of. HEART: Irregularly irregular S1 and S2. 2/6 system murmur, no rub or gallop. LUNGS: Basal to mid crackles bilaterally. CENTRAL NERVOUS SYSTEM: Grossly nonfocal. EXTREMITIES: Lower extremities with 1+ edema bilaterally. Assessment and plan Acute decompensated diastolic heart failure Atrial fibrillation Moderate to severe mitral regurg Continue IV diuresis with goal of 1 to 1.5 L negative Optimize medication to control heart rate Assessment of mitral valve for percutaneous clipping procedure as patient may not be a good candidate for valve replacement if needed. Subjective 2 Subjective: Patient is still improving and responding well to the Bumex. Currently on 2 mg IV every 8 hours. She has had about 14 L negative over 24 hours. Still has some edema but this is improving lungs are clear. Denies chest pain or increased shortness of breath this time Medications: Reviewed: Yes Vitals/I&O/Wt Last Vital Signs Temp 97.8 F 03/30/24 04:00 Pulse 68 03/30/24 11:32 Resp 16 03/30/24 11:32 BP 106/76 03/30/24 11:32 Pulse Ox 98 03/30/24 11:32 O2 Del Method Nasal Cannula 03/30/24 11:32 O2 Flow Rate 2 03/30/24 11:32 03/29/24 03/30/24 03/30/24 22:59 06:59 14:59 Intake Total 300 / 660 820 / 1480 Output Total 950 / 2250 700 / 2950 Balance -650 / -1590 120 / -1470 Weight last 48 hrs Weight 183 lb 6.4 oz Weight 180 lb Physical Exam 2 Narrative: General: No apparent distress, healthy appearing, well nourished HENMT: normoceophalic Muskuloskeletal: Full ROM Respiratory: Normal respiratory effort, lung solorzano clear throughout, no use of accessory muscles Cardio: No JVD, regular rate, regular rhythm, S1 S2 normal, no murmurs, peripheral pulses 2+ radial palpated bilateral GI: Normal to inspection, nondistended Extremities: Full ROM, normal, normal capillary refill, no cyanosis 1+ edema bilateral lower extremities Neuro: Alert and oriented x4, no focal motor deficits Psych: Affect normal, denies suicidal ideation, mental status grossly normal Skin: No rashes or lesions noted, no wounds Data 03/30/24 05:04 03/30/24 05:04 A&P Assessment and plan (1) Acute on chronic diastolic (congestive) heart failure: Tolerating medication so far well. Continue on the current medications. She is starting to get a good response from the lasix. Will check in this afternoon to see if this continues. (2) Severe mitral regurgitation: Patient may benefit from minimally invasive mitral valve repair, once the heart failure is properly treated. We have discussed this case with surgeon Dr. Austyn Pierre, who agrees. He recommends coronary angiogram prior. Plan on doing this . (3) Cerebrovascular accident: Possibly from the atrial fibrillation. Patient is on long-term oral anticoagulation. Has not had any recurrence of CVA since being on oral anticoagulant. Currently on lovenox. Qualifiers: CVA mechanism: unspecified Qualified Code(s): I63.9 - Cerebral infarction, unspecified (4) Obstructive sleep apnea: Recently diagnosed. Awaiting treatment with CPAP. (5) Hyperlipidemia: May continue on the current management. Qualifiers: Hyperlipidemia type: mixed hyperlipidemia Qualified Code(s): E78.2 - Mixed hyperlipidemia (6) Hypertension: Currently the blood pressure is in the normal range. May continue on the current medications. Qualifiers: Hypertension type: primary hypertension Qualified Code(s): I10 - Essential (primary) hypertension (7) Carotid artery stenosis, asymptomatic: Patient had a carotid Doppler examination today. He was found to have mild to moderate plaques at the bifurcations. No severe stenosis. Qualifiers: Laterality: left Qualified Code(s): I65.22 - Occlusion and stenosis of left carotid artery Plan At this time patient needs further diuresis. Currently on Bumex 2 mg every 8 hours will continue. Lungs are clearing up. Still has some edema but this is improved. Plan is to continue diuresis and once patient is euvolemic take to the [facility] for an angiogram on around 0830. Echo was done that showed EF is still well preserved at 55-60%. Attestations 2 Medical Necessity Statement*: Continued need for IV diuresis, plan angiogram once euvolemic plan for . Coding Level of Care Code Acute Code for [facility] Fwd Diagnoses Acute on chronic diastolic (congestive) heart failure I50.33 Severe mitral regurgitation I34.0 Cerebrovascular accident (CVA), unspecified mechanism I63.9 CVA mechanism: unspecified Obstructive sleep apnea G47.33 Mixed hyperlipidemia E78.2 Hyperlipidemia type: mixed hyperlipidemia Primary hypertension I10 Hypertension type: primary hypertension Asymptomatic stenosis of left carotid artery I65.22 Laterality: left
--- NOTE | 2024-03-30 14:15 | PM.PN ---
Subjective Subjective: Seen this morning. On 2 L nasal cannula at this time. 1600 urine output overnight. Vitals/I&O/Wt Last Vital Signs Temp 97.8 F 03/30/24 04:00 Pulse 68 03/30/24 11:32 Resp 16 03/30/24 11:32 BP 106/76 03/30/24 11:32 Pulse Ox 98 03/30/24 11:32 O2 Del Method Room Air 03/30/24 12:51 O2 Flow Rate 2 03/30/24 11:32 03/29/24 03/30/24 03/30/24 22:59 06:59 14:59 Intake Total 300 / 660 820 / 1480 Output Total 950 / 2250 700 / 2950 Balance -650 / -1590 120 / -1470 Weight last 48 hrs Weight 83.189 kg Weight 81.647 kg Physical Exam Narrative: General: No acute distress, AO x3 HEENT: PERRLA, pupils bilaterally equal and reactive, pallors not present Chest: Normal vesicular breath sounds, no added sounds, equal good air entry bilaterally CVS: S1-S2 regular, no murmurs, no tachycardia, no gallops, no rubs Abdomen: Soft, nontender, no organomegaly, bowel sounds present Neuro: No focal deficits, no facial deformity, AO x3, Extremities: 2+ pitting edema bilaterally Data 03/30/24 05:04 03/30/24 05:04 A&P Assessment and plan (1) Congestive heart failure: (2) Orthopnea: (3) Severe mitral regurgitation: (4) Paroxysmal atrial fibrillation: (5) Cirrhosis of liver: Qualifiers: Hepatic cirrhosis type: unspecified hepatic cirrhosis Ascites presence: with ascites Qualified Code(s): K74.60 - Unspecified cirrhosis of liver; R18.8 - Other ascites (6) Diverticulitis: (7) Dyspnea: Qualifiers: Dyspnea type: shortness of breath Qualified Code(s): R06.02 - Shortness of breath (8) Cough: (9) Insomnia: (10) Edema: Plan Diastolic CHF exacerbation Start IV diuretics if patient is not making good urine then she probably had to switch to diuretic drip Monitor her urine output correlate with creatinine and watch for contraction alkalosis and electrolyte imbalance For now I will put her on Bumex 2 mg 3 times a day, patient is showing inadequate response to Lasix Patient has mitral and tricuspid valve regurgitation, she may benefit from mitral valve surgery, this was mentioned by Dr. Orourke as well in the past, please consult cardiology in the morning patient has not seen anyone at [facility] for her mitral valve surgery yet Sleep apnea: Uses 2 L of oxygen at nighttime Insomnia: Takes Ambien A-fib: Continue anticoagulation and AV devin blocking agent monitor blood pressure Full code Cardiac diet March 26, 2024 Patient continues to be on Bumex 2 mg IV every 8 hours. Urine output thus far 500 cc. Cardiology consult for management of acute on chronic CHF, poor response to diuresis. Additionally patient noted to have severe mitral valve regurgitation on most recent JAMES. Will likely require mitral valve intervention procedure, cardiology consult additionally to help decide timing of appropriate referrals. Continue to monitor kidney function creatinine every 12 hours 03/27/2024 net negative 100 cc last 24 hrs. Continue Bumex 2g iv every 8 hrs. appreciate cardiology recommendations. Patient will likely require transfer to higher center for mitral valve surgery Once volume optimized. Lower extremity swelling is slightly improved today. 03/28/2024 Net -100 cc last 24 hours. Continuing Bumex 2 mg IV every 8 hours. Still with bilateral lower extremity edema. Intermittently on 2 L/min supplemental O2. Does get short of breath with exertion still. Awaiting recommendations regarding timing of mitral clipping. 03/29/2024. Net -24 hours. Continuing Bumex 2 mg IV every 8 hours. Continues to be short of breath, however attempting to walk in the hallway today. Per cardiology plan for right and left heart cath here once euvolemic, possibly in the next 1 to 2 days. Thereafter she will follow-up with Dr. Pierre at [facility] in [place] for mitral valve repair. 03/30/2024 --1.6 L since admission. Continue IV Bumex every 8 hours ? Plan for left and right heart cath once euvolemic. ? Follow-up at [facility] for mitral valve repair after discharge. ? Continue to replete electrolytes as needed. Attestations Medical Necessity Statement*: Continued need for IV diuresis, plan angiogram once euvolemic plan for Morning. Diagnoses Congestive heart failure I50.9 Orthopnea R06.01 Severe mitral regurgitation I34.0 Paroxysmal atrial fibrillation I48.0 Cirrhosis of liver with ascites, unspecified hepatic cirrhosis type K74.60; R18.8 Hepatic cirrhosis type: unspecified hepatic cirrhosis Ascites presence: with ascites Diverticulitis K57.92 Shortness of breath R06.02 Dyspnea type: shortness of breath Cough R05.9 Insomnia G47.00 Edema R60.9
[2024-03-30] MEDS: zolpidem 5 mg Tablet 10 MG PO (22:11)
[2024-03-31] VITALS (9 sets, daily range): BP systolic 100–158; BP diastolic 66–85; PULSE 63–74; RESP 14–18; TEMP 36.4–36.7; O2SAT 93–99
[2024-03-31] MEDS: bumetanide 0.25 mg/mL SDV 10 mL 2 MG IVP ×3 (02:03→17:49)
[2024-03-31 05:15] LABS: Basophils # 0.1 10^3/uL (0.0-0.1); Basophils % 1.4 %; Eosinophils # 0.2 10^3/uL (0.0-0.8); Eosinophils % 3.1 %; Hematocrit 41.2 % (36-47); Lymphocytes # 1.2 10^3/uL (0.8-4.8); Lymphocytes % 18.1 %; Mean Corpuscular HGB Conc 32.5 g/dL (30-55); Mean Corpuscular Hemoglobin 30.2 pg (27-33); Mean Platelet Volume 9.1 fL (7.4-10.4); Monocytes # 0.7 10^3/uL (0.2-0.9); Monocytes % 10.9 %; Neutrophils # 4.22 10^3/uL (1.8-7.7); Nucleated Red Blood Cells % 0 %; Platelet Count 263 10^3/cmm (157-399); Red Blood Count 4.43 10^6/uL (3.85-5.65); Red Cell Distribution Width 18.4 % (12.1-15.1)
[2024-03-31 05:35] LABS: Anion Gap 13.8 (5-19); Blood Urea Nitrogen 22 mg/dL (8-23); Calcium 9.4 mg/dL (8.5-10.5); Carbon Dioxide 25 mmol/L (22-29); Chloride 103 mmol/L (98-107); Creatinine Clr Calc Pharmacy 37.4695; Glucose 93 mg/dL (65-115); Osmolality Calculated 289 mOsm/kg (285-295); Potassium 3.8 mmol/L (3.5-5.1); Sodium 138 mmol/L (136-145)
[2024-03-31] MEDS: potassium chloride ER 20 mEq Tablet 40 MEQ PO ×2 (05:40→17:51)
[2024-03-31] MEDS: enoxaparin 80 mg/0.8 mL Syringe SUBCUT ×2 (05:40→17:50)
[2024-03-31] MEDS: levothyroxine 100 mcg Tablet PO (05:40)
[2024-03-31] MEDS: amiodarone 200 mg Tablet PO (08:16)
[2024-03-31] MEDS: losartan 50 mg Tablet 25 MG PO (08:17)
[2024-03-31] MEDS: carvedilol 3.125 mg Tablet PO ×2 (08:17→17:50)
[2024-03-31] MEDS: magnesium oxide 400 mg tablet PO (08:17)
--- NOTE | 2024-03-31 11:10 | PM.PN ---
Documented by User: Marina Queen NP 03/31/24 11:12 Subjective Subjective: Patient is doing well this morning. Denies orthopnea or shortness of breath. Denies chest pain. She will be going for heart cath tomorrow. She is down 2 pounds from yesterday. Heart rate is controlled. Medications: Reviewed: Yes Vitals/I&O/Wt Last Vital Signs Temp 98.1 F 03/31/24 09:00 Pulse 70 03/31/24 10:00 Resp 18 03/31/24 10:00 BP 101/66 03/31/24 09:00 Pulse Ox 95 03/31/24 10:00 O2 Del Method Nasal Cannula 03/31/24 10:00 O2 Flow Rate 2 03/31/24 10:00 03/30/24 03/31/24 03/31/24 22:59 06:59 14:59 Intake Total 1110 / 1110 250 / 1360 240 / 240 Output Total 1200 / 1200 300 / 300 Balance 1110 / 1110 -950 / 160 -60 / -60 Weight last 48 hrs Weight 181 lb 4.8 oz Weight 183 lb 6.4 oz Physical Exam Narrative: General: No apparent distress, healthy appearing, well nourished HENMT: normoceophalic Muskuloskeletal: Full ROM Respiratory: Normal respiratory effort, lung solorzano clear throughout, no use of accessory muscles Cardio: No JVD, regular rate, regular rhythm, S1 S2 normal, no murmurs, peripheral pulses 2+ radial palpated bilateral GI: Normal to inspection, nondistended Extremities: Full ROM, normal, normal capillary refill, no cyanosis 1+ edema bilateral lower extremities Neuro: Alert and oriented x4, no focal motor deficits Psych: Affect normal, denies suicidal ideation, mental status grossly normal Skin: No rashes or lesions noted, no wounds Data 04/01/24 04:38 04/01/24 04:38 A&P Assessment and plan (1) Acute on chronic diastolic (congestive) heart failure: Tolerating medication so far well. Continue on the current medications. She is starting to get a good response from the lasix. Will check in this afternoon to see if this continues. (2) Severe mitral regurgitation: Patient may benefit from minimally invasive mitral valve repair, once the heart failure is properly treated. We have discussed this case with surgeon Dr. Austyn Pierre, who agrees. He recommends coronary angiogram prior. Plan on doing this morning. (3) Cerebrovascular accident: Possibly from the atrial fibrillation. Patient is on long-term oral anticoagulation. Has not had any recurrence of CVA since being on oral anticoagulant. Currently on lovenox. Qualifiers: CVA mechanism: unspecified Qualified Code(s): I63.9 - Cerebral infarction, unspecified (4) Obstructive sleep apnea: Recently diagnosed. Awaiting treatment with CPAP. (5) Hyperlipidemia: May continue on the current management. Qualifiers: Hyperlipidemia type: mixed hyperlipidemia Qualified Code(s): E78.2 - Mixed hyperlipidemia (6) Hypertension: Currently the blood pressure is in the normal range. May continue on the current medications. Qualifiers: Hypertension type: primary hypertension Qualified Code(s): I10 - Essential (primary) hypertension (7) Carotid artery stenosis, asymptomatic: Patient had a carotid Doppler examination today. He was found to have mild to moderate plaques at the bifurcations. No severe stenosis. Qualifiers: Laterality: left Qualified Code(s): I65.22 - Occlusion and stenosis of left carotid artery Plan Patient is doing well. Overall lungs are clear still some trace edema but she has underlying venous insufficiency. Plan is heart cath tomorrow morning. She does have a history of what she states is a contrast side effect of chest pain. Will treat pre and post cath with benadryl and steroid. Attestations Medical Necessity Statement*: Continued need for IV diuresis, plan angiogram once euvolemic plan for . Coding Level of Care Code Acute Code for [facility] Fwd Diagnoses Acute on chronic diastolic (congestive) heart failure I50.33 Severe mitral regurgitation I34.0 Cerebrovascular accident (CVA), unspecified mechanism I63.9 CVA mechanism: unspecified Obstructive sleep apnea G47.33 Mixed hyperlipidemia E78.2 Hyperlipidemia type: mixed hyperlipidemia Primary hypertension I10 Hypertension type: primary hypertension Asymptomatic stenosis of left carotid artery I65.22 Laterality: left Documented by User: Petra Villafana MD 04/01/24 09:47 Subjective Subjective: Patient was evaluated and cared for in conjunction with an advanced practice practitioner. I personally examined the patient and reviewed the chart and all pertinent data including imaging, telemetry, and laboratory results. I discussed the patient in detail with the advanced practice practitioner. Please see their note for complete H&P testing result and agreed upon plan of care for the patient. Continues to be short of breath with atrial fibrillation GENERAL: Patient is alert, awake and oriented x3 but short of. HEART: Irregularly irregular S1 and S2. 2/6 system murmur, no rub or gallop. LUNGS: Basal to mid crackles bilaterally. CENTRAL NERVOUS SYSTEM: Grossly nonfocal. EXTREMITIES: Lower extremities with 1+ edema bilaterally. Assessment and plan Acute decompensated diastolic heart failure Atrial fibrillation Moderate to severe mitral regurg Patient is euvolemic able to lay flat. Will proceed with left and right heart catheterization tomorrow morning to rule out ischemia because of the fact of recurrent heart failure and ischemic etiology for mitral valve regurgitation before proceeding with mitral valve clipping assessment. She will be n.p.o. overnight. Patient is doing well this morning. Denies orthopnea or shortness of breath. Denies chest pain. She will be going for heart cath tomorrow. She is down 2 pounds from yesterday. Heart rate is controlled. Data 04/01/24 04:38 04/01/24 04:38 A&P Assessment and plan (1) Acute on chronic diastolic (congestive) heart failure: (2) Severe mitral regurgitation: (3) Cerebrovascular accident: Qualifiers: CVA mechanism: unspecified Qualified Code(s): I63.9 - Cerebral infarction, unspecified (4) Obstructive sleep apnea: (5) Hyperlipidemia: Qualifiers: Hyperlipidemia type: mixed hyperlipidemia Qualified Code(s): E78.2 - Mixed hyperlipidemia (6) Hypertension: Qualifiers: Hypertension type: primary hypertension Qualified Code(s): I10 - Essential (primary) hypertension (7) Carotid artery stenosis, asymptomatic: Qualifiers: Laterality: left Qualified Code(s): I65.22 - Occlusion and stenosis of left carotid artery Coding Level of Care Code Acute Code for [facility] Fwd Diagnoses Acute on chronic diastolic (congestive) heart failure I50.33 Severe mitral regurgitation I34.0 Cerebrovascular accident (CVA), unspecified mechanism I63.9 CVA mechanism: unspecified Obstructive sleep apnea G47.33 Mixed hyperlipidemia E78.2 Hyperlipidemia type: mixed hyperlipidemia Primary hypertension I10 Hypertension type: primary hypertension Asymptomatic stenosis of left carotid artery I65.22 Laterality: left
--- NOTE | 2024-03-31 12:47 | PC.SOCIAL ---
IMM Updated. Updated pt on IMM. No questions voiced. Provided pt a copy. Initialed, dated, & timed copy in chart.
--- NOTE | 2024-03-31 13:56 | PM.PN ---
Subjective Subjective: Patient is -1.5 L. She is on room air at this time. No crackles auscultated at bases of lungs. Plan for cardiac cath in AM. Family member at bedside. Vitals/I&O/Wt Last Vital Signs Temp 98.1 F 03/31/24 09:00 Pulse 70 03/31/24 10:00 Resp 18 03/31/24 10:00 BP 101/66 03/31/24 09:00 Pulse Ox 95 03/31/24 10:00 O2 Del Method Nasal Cannula 03/31/24 10:00 O2 Flow Rate 2 03/31/24 10:00 03/30/24 03/31/24 03/31/24 22:59 06:59 14:59 Intake Total 1110 / 1110 250 / 1360 240 / 240 Output Total 1200 / 1200 300 / 300 Balance 1110 / 1110 -950 / 160 -60 / -60 Weight last 48 hrs Weight 82.236 kg Weight 83.189 kg Physical Exam Narrative: General: No acute distress, AO x3 HEENT: PERRLA, pupils bilaterally equal and reactive, pallors not present Chest: Normal vesicular breath sounds, no added sounds, equal good air entry bilaterally CVS: S1-S2 regular, no murmurs, no tachycardia, no gallops, no rubs Abdomen: Soft, nontender, no organomegaly, bowel sounds present Neuro: No focal deficits, no facial deformity, AO x3, Extremities: 2+ pitting edema bilaterally Data 03/31/24 05:08 03/31/24 05:08 A&P Assessment and plan (1) Congestive heart failure: (2) Orthopnea: (3) Severe mitral regurgitation: (4) Paroxysmal atrial fibrillation: (5) Cirrhosis of liver: Qualifiers: Hepatic cirrhosis type: unspecified hepatic cirrhosis Ascites presence: with ascites Qualified Code(s): K74.60 - Unspecified cirrhosis of liver; R18.8 - Other ascites (6) Diverticulitis: (7) Dyspnea: Qualifiers: Dyspnea type: shortness of breath Qualified Code(s): R06.02 - Shortness of breath (8) Cough: (9) Insomnia: (10) Edema: Plan Diastolic CHF exacerbation Start IV diuretics if patient is not making good urine then she probably had to switch to diuretic drip Monitor her urine output correlate with creatinine and watch for contraction alkalosis and electrolyte imbalance For now I will put her on Bumex 2 mg 3 times a day, patient is showing inadequate response to Lasix Patient has mitral and tricuspid valve regurgitation, she may benefit from mitral valve surgery, this was mentioned by Dr. Orourke as well in the past, please consult cardiology in the morning patient has not seen anyone at [facility] for her mitral valve surgery yet Sleep apnea: Uses 2 L of oxygen at nighttime Insomnia: Takes Ambien A-fib: Continue anticoagulation and AV devin blocking agent monitor blood pressure Full code Cardiac diet March 26, 2024 Patient continues to be on Bumex 2 mg IV every 8 hours. Urine output thus far 500 cc. Cardiology consult for management of acute on chronic CHF, poor response to diuresis. Additionally patient noted to have severe mitral valve regurgitation on most recent JAMES. Will likely require mitral valve intervention procedure, cardiology consult additionally to help decide timing of appropriate referrals. Continue to monitor kidney function creatinine every 12 hours 03/27/2024 net negative 100 cc last 24 hrs. Continue Bumex 2g iv every 8 hrs. appreciate cardiology recommendations. Patient will likely require transfer to higher center for mitral valve surgery Once volume optimized. Lower extremity swelling is slightly improved today. 03/28/2024 Net -100 cc last 24 hours. Continuing Bumex 2 mg IV every 8 hours. Still with bilateral lower extremity edema. Intermittently on 2 L/min supplemental O2. Does get short of breath with exertion still. Awaiting recommendations regarding timing of mitral clipping. 03/29/2024. Net -24 hours. Continuing Bumex 2 mg IV every 8 hours. Continues to be short of breath, however attempting to walk in the hallway today. Per cardiology plan for right and left heart cath here once euvolemic, possibly in the next 1 to 2 days. Thereafter she will follow-up with Dr. Pierre at [facility] in [place] for mitral valve repair. 03/30/2024 --1.6 L since admission. Continue IV Bumex every 8 hours ? Plan for left and right heart cath once euvolemic. ? Follow-up at [facility] for mitral valve repair after discharge. ? Continue to replete electrolytes as needed. 03/31/2024 --1.6 L since admission. Continue IV Bumex every 8 hours ? Plan for left and right heart cath in AM. ? Follow-up at [facility] for mitral valve repair after discharge. ? Continue to replete electrolytes as needed. Attestations Medical Necessity Statement*: Left and right heart cath in AM. Diagnoses Congestive heart failure I50.9 Orthopnea R06.01 Severe mitral regurgitation I34.0 Paroxysmal atrial fibrillation I48.0 Cirrhosis of liver with ascites, unspecified hepatic cirrhosis type K74.60; R18.8 Hepatic cirrhosis type: unspecified hepatic cirrhosis Ascites presence: with ascites Diverticulitis K57.92 Shortness of breath R06.02 Dyspnea type: shortness of breath Cough R05.9 Insomnia G47.00 Edema R60.9
[2024-03-31] MEDS: predniSONE 20 mg Tablet 40 MG PO (17:50)
[2024-03-31] MEDS: ALPRAZolam 0.5 mg Tablet 0.25 MG PO (19:03)
--- NOTE | 2024-03-31 20:07 | PC.NURSE ---
Marina Queen NP ordered to non-admin 6 AM Lovenox due to patient going for heart cath.
[2024-03-31] MEDS: zolpidem 5 mg Tablet 10 MG PO (21:55)
[2024-04-01] VITALS (41 sets, daily range): BP systolic 100–145; BP diastolic 47–87; PULSE 67–96; RESP 13–27; TEMP 36.3–36.9; O2SAT 81–100
[2024-04-01] MEDS: bumetanide 0.25 mg/mL SDV 10 mL 2 MG IVP (00:13)
[2024-04-01] MEDS: predniSONE 20 mg Tablet 40 MG PO ×2 (00:14→08:36)
[2024-04-01] MEDS: potassium chloride ER 20 mEq Tablet 40 MEQ PO (05:25)
[2024-04-01] MEDS: levothyroxine 100 mcg Tablet PO (05:26)
[2024-04-01 05:27] LABS: Basophils % 0.3 %; Hematocrit 43.4 % (36-47); Lymphocytes # 0.6 10^3/uL (0.8-4.8); Lymphocytes % 9.3 %; Mean Corpuscular HGB Conc 32.5 g/dL (30-55); Mean Corpuscular Hemoglobin 30.1 pg (27-33); Mean Corpuscular Volume 92.7 fl (85-98); Mean Platelet Volume 9.3 fL (7.4-10.4); Monocytes # 0.1 10^3/uL (0.2-0.9); Monocytes % 0.8 %; Neutrophils # 5.36 10^3/uL (1.8-7.7); Neutrophils % 89.4 %; Nucleated Red Blood Cells % 0 %; Platelet Count 278 10^3/cmm (157-399); Red Blood Count 4.68 10^6/uL (3.85-5.65); Red Cell Distribution Width 18.3 % (12.1-15.1)
[2024-04-01 05:54] LABS: Anion Gap 12.8 (5-19); Blood Urea Nitrogen 22 mg/dL (8-23); Calcium 9.7 mg/dL (8.5-10.5); Carbon Dioxide 28 mmol/L (22-29); Chloride 101 mmol/L (98-107); Creatinine Clr Calc Pharmacy 41.2337; Glucose 148 mg/dL (65-115); Osmolality Calculated 292 mOsm/kg (285-295); Potassium 3.8 mmol/L (3.5-5.1); Sodium 138 mmol/L (136-145)
[2024-04-01] MEDS: magnesium oxide 400 mg tablet PO (08:36)
[2024-04-01] MEDS: amiodarone 200 mg Tablet PO (08:36)
[2024-04-01] MEDS: carvedilol 3.125 mg Tablet PO ×2 (08:37→17:59)
[2024-04-01] MEDS: aspirin 325 mg Tablet PO (08:37)
[2024-04-01] MEDS: losartan 50 mg Tablet 25 MG PO (08:37)
[2024-04-01] MEDS: diphenhydrAMINE 50 mg Capsule PO (08:37)
--- NOTE | 2024-04-01 09:28 | W.PM.OPSUD ---
Surgery/Procedure H&P Update DATE OF PROCEDURE: April 01, 2024 DATE H&P PERFORMED: 03/26/24 H&P UPDATE INFORMATION: I have reviewed H&P completed within last 30 days, I have examined patient prior to procedure and No changes to prior documentation PREOP DIAGNOSIS: Worsening of heart failure, preop/mitral valve regurgitation PRIMARY INDICATION FOR PROCEDURE: Worsening of heart failure with recurrence Mitral valve regurgitation moderate to severe by JAMES Mitral valve clipping assessment preop PLANNED PROCEDURE: Operation Date: 03/30/24 06:00 Proposed Procedures p Cardiac Catheterization(Left) - Petra Villafana MD PATIENT REASSESSED PRIOR TO SEDATION, WITH NO CHANGE NOTED: Yes PHYSICAL EXAM: alert, oriented x 3, clear to auscultation bilaterally, regular rate & rhythm and operative site marked OTHER PERTINENT EXAM FINDINGS: Patient has been explained all risk-benefit and alternative for the left and right heart catheterization with indication of worsening of heart failure recurrent admission preop mitral valve clipping assessment. She understand risk of stroke major bleed contrast induced nephropathy urgent or emergent surgery hematoma bruising. She would like to proceed with it.
--- NOTE | 2024-04-01 10:02 | PC.NURSE ---
pt to propagator laborer at approx [phone]
[2024-04-01 10:23] LABS: Alveolar-Arterial Oxygen Gradi 7.6 mmHg (5-10); Arterial Blood Gas Hematocrit 42.8 % (37-47); Carboxyhemoglobin 1.2 %THgb (0.4-20.1); HGB O2 Sat 63.6 % (95-100); Methemoglobin 0.4 % (0.4-1.5)
[2024-04-01 10:24] LABS: Arterial Blood Gas Hematocrit 43.4 % (37-47); Blood Gas Allen Test Pos; Blood Gas Sample Type Not specified; Carboxyhemoglobin 1.1 %THgb (0.4-20.1); HGB O2 Sat 61.8 % (95-100); Methemoglobin 0.9 % (0.4-1.5); Total Hemoglobin 14.2 g/dL (12-16)
[2024-04-01 10:25] LABS: Blood Gas Operator Identificat MONRO; Blood Gas Sample Site RA; Blood Gas Sample Type Not specified; Oxygen Device ROOM AIR
[2024-04-01 10:26] LABS: Arterial Blood Gas Hematocrit 42.5 % (37-47); Blood Gas Operator Identificat MONRO; Blood Gas Sample Site AO; Blood Gas Sample Type Not specified; Carboxyhemoglobin 1.1 %THgb (0.4-20.1); HGB O2 Sat 93.3 % (95-100); Methemoglobin 0.3 % (0.4-1.5); Oxygen Device ROOM AIR; Total Hemoglobin 13.9 g/dL (12-16)
[2024-04-01 10:28] LABS: Oxygen Device ROOM AIR
[2024-04-01 10:40] LABS: Arterial Blood Gas Hematocrit 40.1 % (37-47); Blood Gas Operator Identificat MONRO; Blood Gas Sample Site PA; Blood Gas Sample Type Not specified; Carboxyhemoglobin 1.2 %THgb (0.4-20.1); Methemoglobin 0.3 % (0.4-1.5); Oxygen Device ROOM AIR; Total Hemoglobin 13.1 g/dL (12-16)
--- NOTE | 2024-04-01 11:50 | PM.PROC ---
Procedure Note: Date of procedure: 04/01/24 Pre-procedure diagnosis: CHF, mitral regurg,, preop Procedure: Significant proximal circumflex and proximal OM lesion. High calcification. Treated with single drug-eluting stent covering both the lesions from proximal into the obtuse marginal with excellent angiographic result. Significant proximal and mid high-grade calcified RCA lesion treated with 3 overlapping stents due to geographical location of the lesions all lesions were postdilated noncompliant balloon with excellent angiographic result Patient tolerated procedure well and being transferred to recovery. Plan Loaded with 600 mg of Plavix and 325 mg of aspirin today Continue aspirin and statin Continue diuretics from tomorrow will hold diuretics today Give 100 mL of fluid per hour for next 5 hours Wristband as per protocol for radial Full dictated note to follow Complications: None Coding Level of Care Code Acute Code for Amor Alcantara
--- NOTE | 2024-04-01 12:00 | SUR.EXTENDED ---
Received the patient back from the labor employment associate via bed s/p PCI of the CX and RCA. A & 0 x 3. forestry fire aide placed and vital signs obtained. TR band intact to the right wrist. No bleeding or hematoma noted. Palpable radial pulse. Bulky pressure dressing intact to the right brachial vein. No other assessment changes noted from pre cath assessment. Family at bedside. No concerns voiced at this time.
--- NOTE | 2024-04-01 13:45 | P.PN_ITS ---
Subjective 2 Subjective: seen this am patient going for cath today Vitals/I&O/Wt Last Vital Signs Temp 97.4 F L 04/01/24 08:27 Pulse 76 04/01/24 13:30 Resp 20 H 04/01/24 13:30 BP 128/79 04/01/24 13:30 Pulse Ox 97 04/01/24 13:30 O2 Del Method Nasal Cannula 04/01/24 13:30 O2 Flow Rate 2 04/01/24 13:30 03/31/24 04/01/24 04/01/24 22:59 06:59 14:59 Intake Total 360 / 840 Output Total 800 / 1200 200 / 1400 500 / 500 Balance -440 / -360 -200 / -560 -500 / -500 Weight last 48 hrs Weight 82.299 kg Weight 82.236 kg Physical Exam 2 Narrative: General: No acute distress, AO x3, on room air HEENT: PERRLA, pupils bilaterally equal and reactive, pallors not present Chest: Normal vesicular breath sounds, no added sounds, equal good air entry bilaterally CVS: S1-S2 regular, no murmurs, no tachycardia, no gallops, no rubs Abdomen: Soft, nontender, no organomegaly, bowel sounds present Neuro: No focal deficits, no facial deformity, AO x3, Extremities: 1+ pitting edema bilaterally Data 04/01/24 04:38 04/01/24 04:38 A&P Assessment and plan (1) Congestive heart failure: (2) Orthopnea: (3) Severe mitral regurgitation: (4) Paroxysmal atrial fibrillation: (5) Cirrhosis of liver: Qualifiers: Hepatic cirrhosis type: unspecified hepatic cirrhosis Ascites presence: with ascites Qualified Code(s): K74.60 - Unspecified cirrhosis of liver; R18.8 - Other ascites (6) Diverticulitis: (7) Dyspnea: Qualifiers: Dyspnea type: shortness of breath Qualified Code(s): R06.02 - Shortness of breath (8) Cough: (9) Insomnia: (10) Edema: Plan Diastolic CHF exacerbation Start IV diuretics if patient is not making good urine then she probably had to switch to diuretic drip Monitor her urine output correlate with creatinine and watch for contraction alkalosis and electrolyte imbalance For now I will put her on Bumex 2 mg 3 times a day, patient is showing inadequate response to Lasix Patient has mitral and tricuspid valve regurgitation, she may benefit from mitral valve surgery, this was mentioned by Dr. Orourke as well in the past, please consult cardiology in the morning patient has not seen anyone at [place] for her mitral valve surgery yet Sleep apnea: Uses 2 L of oxygen at nighttime Insomnia: Takes Ambien A-fib: Continue anticoagulation and AV devin blocking agent monitor blood pressure Full code Cardiac diet March 26, 2024 Patient continues to be on Bumex 2 mg IV every 8 hours. Urine output thus far 500 cc. Cardiology consult for management of acute on chronic CHF, poor response to diuresis. Additionally patient noted to have severe mitral valve regurgitation on most recent JAMES. Will likely require mitral valve intervention procedure, cardiology consult additionally to help decide timing of appropriate referrals. Continue to monitor kidney function creatinine every 12 hours 03/27/2024 net negative 100 cc last 24 hrs. Continue Bumex 2g iv every 8 hrs. appreciate cardiology recommendations. Patient will likely require transfer to higher center for mitral valve surgery Once volume optimized. Lower extremity swelling is slightly improved today. 03/28/2024 Net -100 cc last 24 hours. Continuing Bumex 2 mg IV every 8 hours. Still with bilateral lower extremity edema. Intermittently on 2 L/min supplemental O2. Does get short of breath with exertion still. Awaiting recommendations regarding timing of mitral clipping. 03/29/2024. Net -24 hours. Continuing Bumex 2 mg IV every 8 hours. Continues to be short of breath, however attempting to walk in the hallway today. Per cardiology plan for right and left heart cath here once euvolemic, possibly in the next 1 to 2 days. Thereafter she will follow-up with Dr. Pierre at [facility] in [place] for mitral valve repair. 03/30/2024 --1.6 L since admission. Continue IV Bumex every 8 hours ? Plan for left and right heart cath once euvolemic. ? Follow-up at [facility] for [facility] valve repair after discharge. ? Continue to replete electrolytes as needed. 03/31/2024 --1.6 L since admission. Continue IV Bumex every 8 hours ? Plan for left and right heart cath in AM. ? Follow-up at [facility] for [facility] valve repair after discharge. ? Continue to replete electrolytes as needed. - awaiting results of cardiac cath - awaiting further cardiac recommendations - patient undergoing coronary angiogram today. Attestations 2 Medical Necessity Statement*: Left and right heart cath today Diagnoses Congestive heart failure I50.9 Orthopnea R06.01 Severe mitral regurgitation I34.0 Paroxysmal atrial fibrillation I48.0 Cirrhosis of liver with ascites, unspecified hepatic cirrhosis type K74.60; R18.8 Hepatic cirrhosis type: unspecified hepatic cirrhosis Ascites presence: with ascites Diverticulitis K57.92 Shortness of breath R06.02 Dyspnea type: shortness of breath Cough R05.9 Insomnia G47.00 Edema R60.9
[2024-04-01] MEDS: zolpidem 5 mg Tablet 10 MG PO (21:57)
[2024-04-02] VITALS (11 sets, daily range): BP systolic 102–136; BP diastolic 62–86; PULSE 66–80; RESP 16–25; TEMP 36.4–37.2; O2SAT 93–98
[2024-04-02] MEDS: levothyroxine 100 mcg Tablet PO (05:17)
[2024-04-02] MEDS: enoxaparin 80 mg/0.8 mL Syringe SUBCUT (05:17)
[2024-04-02] MEDS: potassium chloride ER 20 mEq Tablet 40 MEQ PO ×3 (07:58→17:57)
[2024-04-02] MEDS: losartan 50 mg Tablet 25 MG PO (07:59)
[2024-04-02] MEDS: aspirin 81 mg EC Tablet PO (07:59)
[2024-04-02] MEDS: bumetanide 1 mg Tablet 2 MG PO ×3 (08:00→17:58)
[2024-04-02] MEDS: ALPRAZolam 0.5 mg Tablet 0.25 MG PO (08:00)
[2024-04-02] MEDS: amiodarone 200 mg Tablet PO (08:00)
[2024-04-02] MEDS: magnesium oxide 400 mg tablet PO (08:01)
[2024-04-02] MEDS: clopidogrel 75 mg Tablet PO (08:02)
[2024-04-02] MEDS: carvedilol 3.125 mg Tablet PO ×2 (08:03→17:57)
--- NOTE | 2024-04-02 10:03 | P.PN_ITS ---
Subjective 2 Subjective: seen today has had oozing from right angio radial site, has coband in place at this time she is s/p PCI with 4 ROSA. CBC pending this morning Vitals/I&O/Wt Last Vital Signs Temp 97.7 F 04/02/24 07:44 Pulse 72 04/02/24 07:44 Resp 24 H 04/02/24 07:44 BP 129/79 04/02/24 07:59 Pulse Ox 97 04/02/24 07:44 O2 Del Method Nasal Cannula 04/02/24 07:44 O2 Flow Rate 2 04/02/24 07:44 04/01/24 04/02/24 04/02/24 22:59 06:59 14:59 Intake Total 960 / 960 960 / 1920 Balance 960 / 460 960 / 1420 Weight last 48 hrs Weight 84.414 kg Weight 82.299 kg Physical Exam 2 Narrative: General: No acute distress, AO x3, on room air HEENT: PERRLA, pupils bilaterally equal and reactive, pallors not present Chest: Normal vesicular breath sounds, no added sounds, equal good air entry bilaterally CVS: S1-S2 regular, no murmurs, no tachycardia, no gallops, no rubs Abdomen: Soft, nontender, no organomegaly, bowel sounds present Neuro: No focal deficits, no facial deformity, AO x3, Extremities: right wrist coband in place, capillary refill < 2 sec, states has oozed all night, no bleeding at this time. Data 04/01/24 04:38 04/01/24 04:38 A&P Assessment and plan (1) Congestive heart failure: (2) Orthopnea: (3) Severe mitral regurgitation: (4) Paroxysmal atrial fibrillation: (5) Cirrhosis of liver: Qualifiers: Hepatic cirrhosis type: unspecified hepatic cirrhosis Ascites presence: with ascites Qualified Code(s): K74.60 - Unspecified cirrhosis of liver; R18.8 - Other ascites (6) Diverticulitis: (7) Dyspnea: Qualifiers: Dyspnea type: shortness of breath Qualified Code(s): R06.02 - Shortness of breath (8) Cough: (9) Insomnia: (10) Edema: Plan Diastolic CHF exacerbation Start IV diuretics if patient is not making good urine then she probably had to switch to diuretic drip Monitor her urine output correlate with creatinine and watch for contraction alkalosis and electrolyte imbalance For now I will put her on Bumex 2 mg 3 times a day, patient is showing inadequate response to Lasix Patient has mitral and tricuspid valve regurgitation, she may benefit from mitral valve surgery, this was mentioned by Dr. Orourke as well in the past, please consult cardiology in the morning patient has not seen anyone at [place] for her mitral valve surgery yet Sleep apnea: Uses 2 L of oxygen at nighttime Insomnia: Takes Ambien A-fib: Continue anticoagulation and AV devin blocking agent monitor blood pressure Full code Cardiac diet March 26, 2024 Patient continues to be on Bumex 2 mg IV every 8 hours. Urine output thus far 500 cc. Cardiology consult for management of acute on chronic CHF, poor response to diuresis. Additionally patient noted to have severe mitral valve regurgitation on most recent JAMES. Will likely require mitral valve intervention procedure, cardiology consult additionally to help decide timing of appropriate referrals. Continue to monitor kidney function creatinine every 12 hours 03/27/2024 net negative 100 cc last 24 hrs. Continue Bumex 2g iv every 8 hrs. appreciate cardiology recommendations. Patient will likely require transfer to higher center for mitral valve surgery Once volume optimized. Lower extremity swelling is slightly improved today. 03/28/2024 Net -100 cc last 24 hours. Continuing Bumex 2 mg IV every 8 hours. Still with bilateral lower extremity edema. Intermittently on 2 L/min supplemental O2. Does get short of breath with exertion still. Awaiting recommendations regarding timing of mitral clipping. 03/29/2024. Net -24 hours. Continuing Bumex 2 mg IV every 8 hours. Continues to be short of breath, however attempting to walk in the hallway today. Per cardiology plan for right and left heart cath here once euvolemic, possibly in the next 1 to 2 days. Thereafter she will follow-up with Dr. Pierre at [facility] in [place] for mitral valve repair. 03/30/2024 --1.6 L since admission. Continue IV Bumex every 8 hours ? Plan for left and right heart cath once euvolemic. ? Follow-up at [facility] for mitral valve repair after discharge. ? Continue to replete electrolytes as needed. 03/31/2024 --1.6 L since admission. Continue IV Bumex every 8 hours ? Plan for left and right heart cath in AM. ? Follow-up at [facility] for mitral valve repair after discharge. ? Continue to replete electrolytes as needed. - awaiting results of cardiac cath - awaiting further cardiac recommendations - patient undergoing coronary angiogram today. 04/02/2024 - Cath report: Significant proximal circumflex and proximal OM lesion. High calcification. Treated with single drug-eluting stent covering both the lesions from proximal into the obtuse marginal with excellent angiographic result. Significant proximal and mid high-grade calcified RCA lesion treated with 3 overlapping stents due to geographical location of the lesions all lesions were postdilated noncompliant balloon with excellent angiographic result continue aspirin, plavix, statin, diuretics held yesterday, restart today right wrist bleeding overnight, continue to monitor, coband in place, check cbc today. Attestations 2 Medical Necessity Statement*: continue hospitalization due to wrist bleed, monitor cbc Coding Level of Care Code Acute Code for Chg Fwd Diagnoses Congestive heart failure I50.9 Orthopnea R06.01 Severe mitral regurgitation I34.0 Paroxysmal atrial fibrillation I48.0 Cirrhosis of liver with ascites, unspecified hepatic cirrhosis type K74.60; R18.8 Hepatic cirrhosis type: unspecified hepatic cirrhosis Ascites presence: with ascites Diverticulitis K57.92 Shortness of breath R06.02 Dyspnea type: shortness of breath Cough R05.9 Insomnia G47.00 Edema R60.9
[2024-04-02 11:02] LABS: Basophils % 0.1 %; Hematocrit 37.9 % (36-47); Lymphocytes % 7.6 %; Mean Corpuscular HGB Conc 32.5 g/dL (30-55); Mean Corpuscular Hemoglobin 30.2 pg (27-33); Mean Corpuscular Volume 93.1 fl (85-98); Mean Platelet Volume 9.5 fL (7.4-10.4); Monocytes # 0.8 10^3/uL (0.2-0.9); Monocytes % 5.9 %; Nucleated Red Blood Cells % 0 %; Platelet Count 283 10^3/cmm (157-399); Red Blood Count 4.07 10^6/uL (3.85-5.65); Red Cell Distribution Width 18.4 % (12.1-15.1)
[2024-04-02 11:17] LABS: Anion Gap 16.3 (5-19); Blood Urea Nitrogen 27 mg/dL (8-23); Calcium 9.6 mg/dL (8.5-10.5); Carbon Dioxide 23 mmol/L (22-29); Chloride 100 mmol/L (98-107); Creatinine Clr Calc Pharmacy 34.8441; Glucose 171 mg/dL (65-115); Osmolality Calculated 289 mOsm/kg (285-295); Potassium 4.3 mmol/L (3.5-5.1); Sodium 135 mmol/L (136-145)
--- NOTE | 2024-04-02 11:34 | P.PN_ITS ---
<Statement entered by Joce Marshall M.D - 04/02/24 19:05> Patient was evaluated and cared for in conjunction with an advanced practice practitioner. I personally examined the patient and reviewed the chart and all pertinent data including imaging, telemetry, and laboratory results. I discussed the patient in detail with the advanced practice practitioner. Please see their note for complete progress note, results and agreed upon plan of care for the patient. Has some shortness of breath. No chest pain. Bruising at radial access site. No significant hematoma. GENERAL: Patient is alert and oriented HEART: Regular S1 and S2 LUNGS: Diminished air entry bilaterally EXTREMITIES: Lower extremities with 1+ edema Assesment and Plan 1) Acute on chronic diastolic (congestive) heart failure (2) Severe mitral regurgitation (3) Cerebrovascular accident (4) Obstructive sleep apnea: (5) Hyperlipidemia: (6) Hypertension: (7) Carotid artery stenosis, asymptomatic: Patient underwent PCI of Left circumflex artery and RCA yesterday. At time of discharge, will go on eliquis and plavix Switch IV bumex to PO. Monitor renal function. Close I and Os. Will need reassessment of mitral regurgitation and further intervention if severe as outpatient. Thank you for involving us with care of this patient. We will continue to follow. Please call with questions. Subjective 2 Subjective: Patient states she was up last night due to she had some bleeding from her IV site. She states she had some oozing from her cath site. Currently it is wrapped. Good radial pulse present. No signs or symptoms of active bleeding at this time. Patient would like another day to recover in the hospital. She had been getting IV diuretics. We will transition her to PO today. She is not requiring oxygen at this time. She has not got up to walk much so we will have her get up and move around today. Denies complaints of chest pain or shortness of breath. Has received aspirin and Plavix today. Has a history of A-fib and is chronically anticoagulated on Eliquis at home. Rates are controlled on amiodarone and carvediolol. Creatinine stable at 1.2, which is around patient's baseline. Medications: Reviewed: Yes Vitals/I&O/Wt Last Vital Signs Temp 97.7 F 04/02/24 07:44 Pulse 69 04/02/24 09:00 Resp 18 04/02/24 09:00 BP 129/79 04/02/24 07:59 Pulse Ox 93 04/02/24 09:00 O2 Del Method Room Air 04/02/24 09:00 O2 Flow Rate 2 04/02/24 07:44 04/01/24 04/02/24 04/02/24 22:59 06:59 14:59 Intake Total 960 / 960 960 / 1920 360 / 360 Balance 960 / 460 960 / 1420 360 / 360 Weight last 48 hrs Weight 186 lb 1.6 oz Weight 181 lb 7 oz Physical Exam 2 Narrative: General: No apparent distress, healthy appearing, well nourished HENMT: normoceophalic Muskuloskeletal: Full ROM Respiratory: Normal respiratory effort, fine crackles bilateral lower lobes, no use of accessory muscles Cardio: No JVD, regular rate, regular rhythm, S1 S2 normal, no murmurs, peripheral pulses 2+ radial palpated bilateral GI: abdomen nondistended Extremities: Full ROM, normal, normal capillary refill, no cyanosis, trace edema bilateral lower extremities Neuro: Alert and oriented x4, no focal motor deficits Psych: Affect normal, denies suicidal ideation, mental status grossly normal Skin: No rashes or lesions noted, no wounds Data 04/02/24 10:31 04/02/24 10:31 A&P Assessment and plan (1) Acute on chronic diastolic (congestive) heart failure: Patient has previously had a good response to diuresis. Diuretics were held yesterday due to contrast from the coronary angiogram. Will restart oral diuretic therapy today and see how she responds to this. Heart function is preserved. Hopefully after her stenting of the RCA and circumflex her valve dysfunction will improve and decrease her exacerbations. (2) Severe mitral regurgitation: At this point we have discussed the case with Dr. Pierre in the past. Now that patient has received PCI to the circumflex and RCA will see how she responds and evaluate if she needs possible repair of her mitral valve in the future. Continue with diuretic therapy. Will start patient on Bumex 2 mg p.o. twice daily today. Will closely watch creatinine. It is stable at this point. (3) Cerebrovascular accident: History of A-fib. 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 She has done well with Eliquis. Will start Eliquis tonight and then continue with Eliquis and Plavix with a PPI. Qualifiers: CVA mechanism: unspecified Qualified Code(s): I63.9 - Cerebral infarction, unspecified (4) Obstructive sleep apnea: Patient may get CPAP in the future. (5) Hyperlipidemia: May continue on the current management. Qualifiers: Hyperlipidemia type: mixed hyperlipidemia Qualified Code(s): E78.2 - Mixed hyperlipidemia (6) Hypertension: Currently the blood pressure is in the normal range. May continue on the current medications. Qualifiers: Hypertension type: primary hypertension Qualified Code(s): I10 - Essential (primary) hypertension (7) Carotid artery stenosis, asymptomatic: Follow-up on an annual basis with ultrasounds Qualifiers: Laterality: left Qualified Code(s): I65.22 - Occlusion and stenosis of left carotid artery Plan Patient overall doing okay today. Patient will need 1 more day of diuresis. Patient will be getting Bumex 2 mg p.o. every 12 hours. Will titrate to patient's response. Will continue to monitor creatinine. Patient will need to get up and work with physical therapy today. If she does well today may be discharged tomorrow. On discharge she will need Eliquis with Plavix and PPI. Continue amiodarone and beta andrew for rate control. Attestations 2 Medical Necessity Statement*: As stated above. Coding Level of Care Code Acute Code for Chg Fwd Diagnoses Acute on chronic diastolic (congestive) heart failure I50.33 Severe mitral regurgitation I34.0 Cerebrovascular accident (CVA), unspecified mechanism I63.9 CVA mechanism: unspecified Obstructive sleep apnea G47.33 Mixed hyperlipidemia E78.2 Hyperlipidemia type: mixed hyperlipidemia Primary hypertension I10 Hypertension type: primary hypertension Asymptomatic stenosis of left carotid artery I65.22 Laterality: left
[2024-04-02] MEDS: pantoprazole DR 40 mg Tablet PO (20:14)
[2024-04-02] MEDS: apixaban 5 mg Tablet PO (20:14)
[2024-04-02] MEDS: zolpidem 5 mg Tablet 10 MG PO (22:07)
[2024-04-03] VITALS (7 sets, daily range): BP systolic 97–171; BP diastolic 65–116; PULSE 65–78; RESP 17–30; TEMP 36.5–36.8; O2SAT 90–99
[2024-04-03] MEDS: ALPRAZolam 0.5 mg Tablet 0.25 MG PO (02:13)
[2024-04-03 04:51] LABS: Basophils % 0.4 %; Eosinophils # 0.1 10^3/uL (0.0-0.8); Eosinophils % 1.1 %; Hematocrit 38.2 % (36-47); Lymphocytes # 1.3 10^3/uL (0.8-4.8); Mean Corpuscular HGB Conc 32.5 g/dL (30-55); Mean Corpuscular Hemoglobin 30.1 pg (27-33); Mean Corpuscular Volume 92.7 fl (85-98); Monocytes # 0.8 10^3/uL (0.2-0.9); Monocytes % 9.5 %; Neutrophils # 6.01 10^3/uL (1.8-7.7); Neutrophils % 72.4 %; Nucleated Red Blood Cells % 0 %; Platelet Count 278 10^3/cmm (157-399); Red Blood Count 4.12 10^6/uL (3.85-5.65); Red Cell Distribution Width 18.6 % (12.1-15.1)
[2024-04-03 05:14] LABS: Blood Urea Nitrogen 28 mg/dL (8-23); Calcium 9.4 mg/dL (8.5-10.5); Carbon Dioxide 29 mmol/L (22-29); Chloride 102 mmol/L (98-107); Creatinine Clr Calc Pharmacy 38.0118; Glucose 102 mg/dL (65-115); Magnesium 2.4 mg/dL (1.7-2.3); Osmolality Calculated 292 mOsm/kg (285-295); Sodium 138 mmol/L (136-145)
[2024-04-03] MEDS: levothyroxine 100 mcg Tablet PO (06:11)
--- NOTE | 2024-04-03 08:50 | USR_ITS ---
PROCEDURE INFORMATION: Exam: US Duplex Right Upper Extremity Arteries Exam date and time: 04/03/2024 9:43 AM Age: 83 years old Clinical indication: Swelling (edema) of limb; Upper extremity, right; Prior surgery; Surgery date: Post-operative (0-2 days); Surgery type: cath radial access; Additional info: Right arm swelling S/P cardiac cath radial access TECHNIQUE: Imaging protocol: Right Real-time ultrasound scan of the arteries of the right upper extremity with 2-D hendrix scale, color Doppler flow and spectral waveform analysis. COMPARISON: CT angio chest PE protcl [id number] 03/07/2024 3:16 PM FINDINGS: Right subclavian artery: No occlusion or significant stenosis. Normal waveform. Right axillary artery: No occlusion or significant stenosis. Normal waveform. Right brachial artery: No occlusion or significant stenosis. Normal waveform. Right radial artery: No occlusion or significant stenosis. Normal waveform. Right ulnar artery: No occlusion or significant stenosis. Normal waveform in the proximal ulnar artery with monophasic flow in the distal ulnar artery. Soft tissues: There are 2 fluid collections noted in the right arm, with no increased flow on color Doppler; 1 is inferior to the clavicle and the 2nd is just inferior the 1st, in the axilla. US/[place] [id number] IMPRESSION: No significant stenosis of the arteries or occlusion.
[2024-04-03] MEDS: aspirin 325 mg Tablet PO (09:23)
[2024-04-03] MEDS: bumetanide 1 mg Tablet 2 MG PO (09:23)
[2024-04-03] MEDS: carvedilol 3.125 mg Tablet PO (09:23)
[2024-04-03] MEDS: losartan 50 mg Tablet 25 MG PO (09:23)
[2024-04-03] MEDS: pantoprazole DR 40 mg Tablet PO (09:23)
[2024-04-03] MEDS: clopidogrel 75 mg Tablet PO (09:24)
[2024-04-03] MEDS: magnesium oxide 400 mg tablet PO (09:24)
[2024-04-03] MEDS: potassium chloride ER 20 mEq Tablet 40 MEQ PO (09:24)
[2024-04-03] MEDS: amiodarone 200 mg Tablet PO (09:24)
--- NOTE | 2024-04-03 09:40 | P.PN_ITS ---
Subjective 2 Subjective: Patient is doing well. no chest pain. Vitals/I&O/Wt Last Vital Signs Temp 97.7 F 04/03/24 07:20 Pulse 70 04/03/24 08:25 Resp 18 04/03/24 08:25 BP 145/81 04/03/24 09:23 Pulse Ox 95 04/03/24 08:25 O2 Del Method Room Air 04/03/24 08:25 O2 Flow Rate 2 04/02/24 18:08 04/02/24 04/03/24 04/03/24 22:59 06:59 14:59 Intake Total 440 / 1160 300 / 1460 360 / 360 Balance 440 / 1160 300 / 1460 360 / 360 Weight last 48 hrs Weight 186 lb 1.6 oz Weight 186 lb 1.6 oz Physical Exam 2 Narrative: GENERAL: Patient is alert, awake and oriented x3. [] NECK: No jugular vein distension. [] HEENT: No cyanosis. No icterus. No pallor. [] HEART: Regular S1 and S2. No murmur, rub or gallop. [] LUNGS: Clear to auscultate bilaterally. [] CENTRAL NERVOUS SYSTEM: Grossly nonfocal. [] EXTREMITIES: Lower extremities with no edema bilaterally. Right upper extremity has bruising with no significant hematoma. Data 04/03/24 04:23 04/03/24 04:23 A&P Assessment and plan (1) Acute on chronic diastolic (congestive) heart failure: (2) Severe mitral regurgitation: (3) Cerebrovascular accident: Qualifiers: CVA mechanism: unspecified Qualified Code(s): I63.9 - Cerebral infarction, unspecified (4) Obstructive sleep apnea: (5) Hyperlipidemia: Qualifiers: Hyperlipidemia type: mixed hyperlipidemia Qualified Code(s): E78.2 - Mixed hyperlipidemia (6) Hypertension: Qualifiers: Hypertension type: primary hypertension Qualified Code(s): I10 - Essential (primary) hypertension (7) Carotid artery stenosis, asymptomatic: Qualifiers: Laterality: left Qualified Code(s): I65.22 - Occlusion and stenosis of left carotid artery Plan Patient is stable. Continue Eliquis and Plavix. Has bruising of her right arm and she is very concerned about it. No visible hematoma. We will obtain arterial duplex. If normal, patient is stable to be dicharged from cardiology standpoint with close cardiology follow up. Attestations 2 Medical Necessity Statement*: Care expected to cross 2 midnights. Coding Level of Care Code Acute Code for Chg Fwd Diagnoses Acute on chronic diastolic (congestive) heart failure I50.33 Severe mitral regurgitation I34.0 Cerebrovascular accident (CVA), unspecified mechanism I63.9 CVA mechanism: unspecified Obstructive sleep apnea G47.33 Mixed hyperlipidemia E78.2 Hyperlipidemia type: mixed hyperlipidemia Primary hypertension I10 Hypertension type: primary hypertension Asymptomatic stenosis of left carotid artery I65.22 Laterality: left
--- NOTE | 2024-04-03 10:43 | P.DS_ITS ---
Discharge Providers Date of Admission: 03/26/24 14:06 Date of Discharge: April 03, 2024 Attending Provider at Admission: Petra Correia MD Attending Provider at Discharge: Delia Mason MD Primary Care Provider: Gio Soto MD Diagnoses at Discharge Discharge Diagnosis (1) Acute on chronic diastolic (congestive) heart failure: Status: Resolved (2) Severe mitral regurgitation: Status: Acute (3) Cerebrovascular accident: Status: Acute Qualifiers: CVA mechanism: unspecified Qualified Code(s): I63.9 - Cerebral infarction, unspecified (4) Obstructive sleep apnea: Status: Acute (5) Hyperlipidemia: Status: Acute Qualifiers: Hyperlipidemia type: mixed hyperlipidemia Qualified Code(s): E78.2 - Mixed hyperlipidemia (6) Hypertension: Status: Acute Qualifiers: Hypertension type: primary hypertension Qualified Code(s): I10 - Essential (primary) hypertension (7) Carotid artery stenosis, asymptomatic: Status: Acute Qualifiers: Laterality: left Qualified Code(s): I65.22 - Occlusion and stenosis of left carotid artery Reason for Visit Reason for Visit: CHF full of fluid Hospital Course Hospital Course Patient presented with diastolic CHF exacerbation and does have a history of mitral and tricuspid valve regurgitation. Eventually she was to go for mitral valve surgery. She was diuresed with IV Bumex and once optimized from fluid standpoint underwent a left and right heart cath. Found to have coronary artery disease and it was treated with drug-eluting stent x 3. She was discharged home on aspirin Plavix statin and to follow-up with cardiology as an outpatient. Did experience right wrist bleeding which was coronary angiogram catheter insertion site however capillary refill less than 2 seconds and patient stable. Continued to ooze. Was asked to restart Eliquis on nighttime dose and hold morning dose. Asked to follow-up with cardiology as an outpatient. Stable at discharge. Physical Exam Narrative: General: No acute distress, AO x3, on room air HEENT: PERRLA, pupils bilaterally equal and reactive, pallors not present Chest: Normal vesicular breath sounds, no added sounds, equal good air entry bilaterally CVS: S1-S2 regular, no murmurs, no tachycardia, no gallops, no rubs Abdomen: Soft, nontender, no organomegaly, bowel sounds present Neuro: No focal deficits, no facial deformity, AO x3, Extremities: right wrist coband in place, capillary refill < 2 sec, , no bleeding at this time. Discharge Data Studies Completed and Pending Completed Studies During Hospitalization Category Date Time Status XR chest 1V portable [id number] Stat Exams 03/25/24 18:12 [place] [id number] Urgent Ultrasound 04/03/24 08:50 Completed CV carotid duplex BI* [id number] Routine Ultrasound 03/27/24 17:29 Completed CV. 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 Small right pleural effusion. 2. Right lower lobe atelectasis versus infiltrate. 3. Cardiomegaly. Duplex Scan Upper Extremity Artery 04/03/24 08:50 IMPRESSION: No significant stenosis of the arteries or occlusion. Laboratory Results WBC 8.30 10^3/uL (3.29-11.43) 04/03/24 04:23 RBC 4.12 10^6/uL (3.85-5.65) 04/03/24 04:23 Hgb 12.40 g/dL (11.27-16.99) 04/03/24 04:23 Hct 38.2 % (36-47) 04/03/24 04:23 MCV 92.7 fl (85-98) 04/03/24 04:23 MCH 30.1 pg (27-33) 04/03/24 04:23 MCHC 32.5 g/dL (30-55) 04/03/24 04:23 RDW 18.6 % (12.1-15.1) H 04/03/24 04:23 Plt Count 278 10^3/cmm (157-399) 04/03/24 04:23 MPV 9.0 fL (7.4-10.4) 04/03/24 04:23 Neut % (Auto) 72.4 % 04/03/24 04:23 Lymph % (Auto) 16.0 % 04/03/24 04:23 [place] % (Auto) 9.5 % 04/03/24 04:23 Eos % (Auto) 1.1 % 04/03/24 04:23 Baso % (Auto) 0.4 % 04/03/24 04:23 Neut # (Auto) 6.01 10^3/uL (1.8-7.7) 04/03/24 04:23 Lymph # (Auto) 1.3 10^3/uL (0.8-4.8) 04/03/24 04:23 [place] # (Auto) 0.8 10^3/uL (0.2-0.9) 04/03/24 04:23 Eos # (Auto) 0.1 10^3/uL (0.0-0.8) 04/03/24 04:23 Baso # (Auto) 0.0 10^3/uL (0.0-0.1) 04/03/24 04:23 Nucleated RBC % (auto) 0 % 04/03/24 04:23 Nucleated RBCs # 0.0 /100WBC 04/03/24 04:23 Specimen Type Not specified 04/01/24 10:22 Sample Site Pa 04/01/24 10:22 Robbie Test N/a 04/01/24 10:22 A-a O2 Gradient Not Reportable 04/01/24 10:22 Hematocrit 40.1 % (37-47) 04/01/24 10:22 Hgb O2 Saturation 63.0 % (95-100) L 04/01/24 10:22 Carboxyhemoglobin 1.2 %THgb (0.4-20.1) 04/01/24 10:22 Methemoglobin 0.3 % (0.4-1.5) L 04/01/24 10:22 Total Hemoglobin 13.1 g/dL (12-16) 04/01/24 10:22 O2 Delivery Device Room air 04/01/24 10:22 FiO2 21.0 % 04/01/24 10:22 Commissary Steward ID [place] 04/01/24 10:22 Sodium 138 mmol/L (136-145) 04/03/24 04:23 Potassium 4.0 mmol/L (3.5-5.1) 04/03/24 04:23 Chloride 102 mmol/L (98-107) 04/03/24 04:23 Carbon Dioxide 29 mmol/L (22-29) 04/03/24 04:23 Anion Gap 11.0 (5-19) 04/03/24 04:23 BUN 28 mg/dL (8-23) H 04/03/24 04:23 Creatinine 1.1 mg/dL (0.5-0.9) H 04/03/24 04:23 GFR Calculation Not Reportable 04/03/24 04:23 Glucose 102 mg/dL (65-115) 04/03/24 04:23 Calculated Osmolality 292 mOsm/kg (285-295) 04/03/24 04:23 Calcium 9.4 mg/dL (8.5-10.5) 04/03/24 04:23 Magnesium 2.4 mg/dL (1.7-2.3) H 04/03/24 04:23 Total Bilirubin 1.3 mg/dL (0.15-1.2) H 03/30/24 05:04 AST 25 U/L (0-32) 03/30/24 05:04 ALT 20 U/L (0-33) 03/30/24 05:04 Alkaline Phosphatase 140 U/L (35-105) H 03/30/24 05:04 Troponin T Baseline 22 ng/L (0-10) H 03/25/24 20:00 Troponin T 120 Minute 19.68 ng/L (0-10) H 03/25/24 22:16 Delta Troponin T -2.32 ABS# (0-10) L 03/25/24 22:16 Troponin T Hi Sens 6Hr 22.46 ng/L (0-10) H 03/26/24 02:17 Troponin T Hi Sens 6Hr Delta 0.46 ng/L (0-12) 03/26/24 02:17 NT-Pro-B Natriuret Pep 2673 pg/mL (0-450) H 03/25/24 20:00 Total Protein 7.1 g/dL (6.6-8.7) 03/30/24 05:04 Albumin 4.1 g/dL (3.5-5.2) 03/30/24 05:04 Globulin 3.0 g/dL (1.3-4.6) 03/30/24 05:04 Vitamin B12 1571 pg/mL (232-1245) H 03/26/24 02:17 Vitals Last Vital Signs Temp 97.7 F 04/03/24 07:20 Pulse 70 04/03/24 08:25 Resp 18 04/03/24 08:25 BP 145/81 04/03/24 09:23 Pulse Ox 95 04/03/24 08:25 O2 Del Method Room Air 04/03/24 08:25 O2 Flow Rate 2 04/02/24 18:08 Discharge Plan Discharge Patient Disposition: Home Condition: Stable Prescriptions: New clopidogrel 75 mg Tablet 75 mg PO DAILY Qty: 30 0RF Continued multivitamin Tablet 1 tab PO DAILY mecobalamin (vitamin B12) 1,000 mcg lozenge 1,000 mcg PO DAILY Rx Instructions: allow to dissolve in mouth OR may chew lightly before swallowing (DME) C-pap auto titrating 6-12 See Rx Instructions .Route .MEDSUPPLY Qty: 1 0RF Rx Instructions: mask and supplies as needed zolpidem 10 mg tablet 10 mg PO .QHS Qty: 30 5RF potassium chloride 20 mEq/15 mL liquid 20 meq PO DAILY Qty: 450 11RF cyclobenzaprine 5 mg tablet See Rx Instructions .ROUTE .COMPLEX Qty: 30 11RF Dose Instruction: TAKE 1 TABLET BY MOUTH THREE TIMES A DAY NEEDED FOR MUSCLE PAIN Rx Instructions: TAKE 1 TABLET BY MOUTH THREE TIMES A DAY NEEDED FOR MUSCLE PAIN amlodipine 10 mg tablet See Rx Instructions .ROUTE .COMPLEX Qty: 90 3RF Dose Instruction: TAKE 1 TABLET DAILY Rx Instructions: TAKE 1 TABLET DAILY Eliquis 5 mg tablet See Rx Instructions .ROUTE .COMPLEX Qty: 180 3RF Dose Instruction: TAKE 1 TABLET BY MOUTH TWICE DAILY Rx Instructions: TAKE 1 TABLET BY MOUTH TWICE DAILY alprazolam [Xanax] 0.25 mg tablet 0.25 mg PO TID PRN (Reason: anxiety) Qty: 60 5RF levothyroxine 100 mcg tablet See Rx Instructions .ROUTE .COMPLEX Qty: 90 11RF Dose Instruction: TAKE 1 TABLET BY MOUTH EVERY DAY Rx Instructions: TAKE 1 TABLET BY MOUTH EVERY DAY Combivent Respimat 20-100 mcg/actuation mist 1 puff INHALATION Q6H PRN (Reason: Shortness Of Breath) Qty: 4 3RF (DME) wheelchair with leg rests See Rx Instructions .Route .MEDSUPPLY Qty: 1 0RF Rx Instructions: As directed cholecalciferol (vitamin D3) [Vitamin D3] 25 mcg (1,000 unit) Capsule 25 mcg PO DAILY omega 0-gox-fqd-fish oil [Fish Oil] 1,000 (120-180) mg Capsule 1 cap PO DAILY amiodarone [Pacerone] 200 mg Tablet 200 mg PO DAILY Qty: 30 3RF carvedilol 3.125 mg tablet 3.125 mg PO BID Qty: 60 6RF Rx Instructions: must administer with a meal/food Held spironolactone 25 mg tablet See Rx Instructions .ROUTE .COMPLEX Qty: 90 3RF Hold Instructions: hold till seen by cardiology Dose Instruction: TAKE 1 TABLET BY MOUTH DAILY Rx Instructions: TAKE 1 TABLET BY MOUTH DAILY No Action furosemide [Lasix] 40 mg tablet 40 mg PO BID Qty: 120 11RF Discharge Orders: Discharge Order (Routine); Ordered 04/03/24 Ordered By: Delia Mason Referrals: Aida Spicer FNP [Nurse Practitioner] - 04/12/24 8:30 am (We have notified your physician's clinic of the need for a follow-up appointment to be scheduled. If you have not heard from them within the next 2 business days, please call them directly. Please follow up with Dr. Broderick elias.) Gio Soto MD [Primary Care Provider] - (We have notified your physician's clinic of the need for a follow-up appointment to be scheduled. If you have not heard from them within the next 2 business days, please call them directly. ) Discharge Diet: Cardiac Discharge Activity: Limit activity as instructed Patient Instructions: Clopidogrel (By mouth) (Plavix), Coronary Intravascular Stent Placement (DC), CHF Stoplight, Post Angiogram Home Care Instructions Discharge Attestations Time Spent in Discharge Care*: greater than 30 min Quality Metrics Clinical Quality Measures [ No reported AMI, CVA or VTE this stay] Coding Level of Care Code Acute Code for Chg Fwd Diagnoses Acute on chronic diastolic (congestive) heart failure I50.33 Severe mitral regurgitation I34.0 Cerebrovascular accident (CVA), unspecified mechanism I63.9 CVA mechanism: unspecified Obstructive sleep apnea G47.33 Mixed hyperlipidemia E78.2 Hyperlipidemia type: mixed hyperlipidemia Primary hypertension I10 Hypertension type: primary hypertension Asymptomatic stenosis of left carotid artery I65.22 Laterality: left
--- NOTE | 2024-04-03 12:51 | PC.NURSE ---
Discharge to home pt stated her has Plavix at home and will take the dose tomorrow. Instructed pt to take her Eliquis starting tonight. post angiogram wound care and activity restrictions discuss to pt. Discharge papers and instructions provided to pt. all belongings sent to pt.
== END 2024-04-03 12:51 | disposition home or self-care (01) | DRG 321 ==
LOC: ER 20:54 → ER IP 21:01 → MEDSURG 03-26 00:50 → CSU 04-01 16:36
PROVIDERS: Emergency Medicine; Internal Medicine Cardiovascular Disease; Nurse Practitioner Family; Student in an Organized Health Care Education/Training Program; Admitting Provider Internal Medicine; Emergency Provider Emergency Medicine; PCP Family Medicine; Visit Provider Internal Medicine
PROC: 027137Z Dilation of Coronary Artery, Two Arteries with Four or More Drug-eluting Intraluminal Devices, Percutaneous Approach (ICD-10-PCS; principal; 2024-04-01 08:30)
PROC: 027137Z Dilation of Coronary Artery, Two Arteries with Four or More Drug-eluting Intraluminal Devices, Percutaneous Approach (ICD-10-PCS; 2024-04-01 08:30)
DX: I11.0 Hypertensive heart disease with heart failure (principal); I50.33 Acute on chronic diastolic (congestive) heart failure; R18.8 Other ascites; I08.1 Rheumatic disorders of both mitral and tricuspid valves; I65.29 Occlusion and stenosis of unspecified carotid artery; G47.33 Obstructive sleep apnea (adult) (pediatric); E78.2 Mixed hyperlipidemia; I25.10 Atherosclerotic heart disease of native coronary artery without angina pectoris; I48.0 Paroxysmal atrial fibrillation; K74.60 Unspecified cirrhosis of liver; G47.00 Insomnia, unspecified; K44.9 Diaphragmatic hernia without obstruction or gangrene; Z96.641 Presence of right artificial hip joint; E03.9 Hypothyroidism, unspecified; Z79.01 Long term (current) use of anticoagulants; Z86.73 Personal history of transient ischemic attack (TIA), and cerebral infarction without residual deficits; Z80.1 Family history of malignant neoplasm of trachea, bronchus and lung; Z82.3 Family history of stroke
CPT/HCPCS: 36415; 71045; 80048; 80053; 82607; 82810; 83735; 83880; 84484; 85025; 85347; 92920; 93005; 93306; 93460; 93880; 93931; 94760; 96372; 96374; 96375; 96376; 97110; 97116; 97161; 99152; 99153; 99285; C1725; C1751; C1769; C1874; C1887; C1894; C9600; G0378; J1644; J1650; J2250; J3010; J3490; J7030; J7512; Q0163; Q9967

== ENCOUNTER → 2024-04-12 08:30 | Outpatient (BNVA) | payer MEDICARE, SELFPAY | PROVIDERS: PCP Family Medicine; Visit Provider Nurse Practitioner Family | DX: I48.0 Paroxysmal atrial fibrillation (principal); I25.10 Atherosclerotic heart disease of native coronary artery without angina pectoris; R79.89 Other specified abnormal findings of blood chemistry; I34.0 Nonrheumatic mitral (valve) insufficiency; I50.32 Chronic diastolic (congestive) heart failure; E78.5 Hyperlipidemia, unspecified; I11.0 Hypertensive heart disease with heart failure; Z87.891 Personal history of nicotine dependence | CPT/HCPCS: 36415; 80048; 83880; 99214 ==

== ENCOUNTER → 2024-04-26 13:02 | Outpatient (BNVA) | payer MEDICARE, SELFPAY | PROVIDERS: PCP Family Medicine; Visit Provider Family Medicine | DX: M19.90 Unspecified osteoarthritis, unspecified site (principal) | CPT/HCPCS: 80053; 84550; 85025; 85651; 86140 ==

== ENCOUNTER → 2024-04-27 08:50 | Outpatient (BNVA) | payer MEDICARE, SELFPAY | PROVIDERS: PCP Family Medicine; Visit Provider Family Medicine | DX: M19.90 Unspecified osteoarthritis, unspecified site (principal) | CPT/HCPCS: 85025 ==

== ENCOUNTER 2024-06-08 13:52 | Outpatient (CLI) | payer MEDICARE, SELFPAY ==
[2024-06-08 14:48] LABS: Basophils # 0.1 10^3/uL (0.0-0.1); Basophils % 0.5 %; Eosinophils # 0.2 10^3/uL (0.0-0.8); Eosinophils % 2.3 %; Hematocrit 40.8 % (36-47); Lymphocytes % 9.7 %; Mean Corpuscular HGB Conc 33.3 g/dL (30-55); Mean Corpuscular Hemoglobin 30.6 pg (27-33); Mean Corpuscular Volume 91.9 fl (85-98); Mean Platelet Volume 9.6 fL (7.4-10.4); Monocytes # 0.9 10^3/uL (0.2-0.9); Monocytes % 8.8 %; Neutrophils # 7.92 10^3/uL (1.8-7.7); Neutrophils % 78.4 %; Nucleated Red Blood Cells % 0 %; Platelet Count 383 10^3/cmm (157-399); Red Blood Count 4.44 10^6/uL (3.85-5.65); Red Cell Distribution Width 15.9 % (12.1-15.1)
[2024-06-08 15:07] LABS: Immunoglobulin IGA 339 mg/dL (70-400); Immunoglobulin IGG 888 mg/dL (700-1600); Immunoglobulin IGM 32 mg/dL (40-230)
[2024-06-08 15:15] LABS: Tumor Marker Alpha Fetoprotein 5.2 ng/mL (0-8.3)
[2024-06-08 15:26] LABS: Alanine Aminotransferase 17 U/L (0-33); Albumin Level 3.9 g/dL (3.5-5.2); Alkaline Phosphatase 95 U/L (35-105); Aspartate Amino Transferase 19 U/L (0-32); Total Bilirubin 0.4 mg/dL (0.15-1.2); Total Protein 6.9 g/dL (6.6-8.7)
== END 2024-06-08 13:53 | disposition home or self-care (01) ==
PROVIDERS: PCP Family Medicine; Visit Provider Nurse Practitioner Adult Health
DX: K74.60 Unspecified cirrhosis of liver (principal); R18.8 Other ascites
CPT/HCPCS: 36415; 80076; 82105; 82784; 85025

== ENCOUNTER 2024-06-11 10:40 | Outpatient (RCR) | payer MEDICARE, SELFPAY | END 2024-06-11 23:59 | disposition home or self-care (01) | LOC: SPT 10:40 | PROVIDERS: PCP Family Medicine; Visit Provider Family Medicine | DX: M25.551 Pain in right hip (principal) | CPT/HCPCS: 97161 ==

== ENCOUNTER 2024-06-12 06:00 | Outpatient (RCR) | payer MEDICARE, SELFPAY | END 2024-07-12 23:59 | disposition home or self-care (01) | LOC: SPT 06:00 | PROVIDERS: PCP Family Medicine; Visit Provider Family Medicine | DX: M25.551 Pain in right hip (principal) | CPT/HCPCS: 97110 ==

== ENCOUNTER → 2024-06-29 08:27 | Outpatient (BNVA) | payer MEDICARE, SELFPAY | PROVIDERS: PCP Family Medicine; Visit Provider Internal Medicine Cardiovascular Disease | DX: I25.10 Atherosclerotic heart disease of native coronary artery without angina pectoris (principal); I48.20 Chronic atrial fibrillation, unspecified; Z79.01 Long term (current) use of anticoagulants; I11.0 Hypertensive heart disease with heart failure; I50.84 End stage heart failure; E78.2 Mixed hyperlipidemia; I08.1 Rheumatic disorders of both mitral and tricuspid valves; Z95.5 Presence of coronary angioplasty implant and graft | CPT/HCPCS: 99214 ==

== ENCOUNTER 2024-07-12 15:25 | Outpatient (CLI) | payer MEDICARE, SELFPAY ==
--- NOTE | 2024-07-12 15:26 | XR_ITS ---
WS: [id number] XR hip RT 2-3V wo/w pel* [id number] REASON FOR EXAM: hip pain FINDINGS: Total right hip arthroplasty. The components of the arthroplasty are intact and in proper position and alignment unchanged compared to 08/28/2015. There is significantly increased lucency around the proximal portion of the femoral component compared to the examination of 09/28/2015. This could indicate progressive osteolysis/loosening. No fracture identified. Severe osteoarthritis of the left hip with probable [id number] articulation. XR/XR hip RT 2-3V wo/w pel* [id number] IMPRESSION: Possible osteolysis/loosening of the total right hip arthroplasty as above.
--- NOTE | 2024-07-12 16:00 | USR_ITS ---
PROCEDURE INFORMATION: Exam: US Duplex Right Lower Extremity Veins, Limited Exam date and time: 07/12/2024 3:50 PM Age: 83 years old Clinical indication: Pain; Leg, lower; Right; Additional info: Leg swelling TECHNIQUE: Imaging protocol: Real-time duplex ultrasound of the right extremity with 2-D hendrix scale, color Doppler flow and spectral waveform analysis including responses to compression and other maneuvers (when performed) with image documentation. Limited exam was focused on the right lower extremity veins. COMPARISON: CT abdomen pelvis wo con [id number] 01/05/2024 10:04 AM FINDINGS: Right deep veins: Unremarkable. The common femoral, femoral, proximal profunda femoral and popliteal veins are patent without thrombus. Normal Doppler waveforms. Normal compressibility and/or augmentation response. Superficial veins: Greater saphenous vein at the saphenofemoral junction is patent without thrombus. Soft tissues: Unremarkable. US/[place] [id number] IMPRESSION: No evidence of deep vein thrombosis.
== END 2024-07-12 15:26 | disposition home or self-care (01) ==
LOC: RAD 15:25
PROVIDERS: PCP Family Medicine; Visit Provider Family Medicine
DX: M16.11 Unilateral primary osteoarthritis, right hip (principal); R60.0 Localized edema; M79.89 Other specified soft tissue disorders; Z96.641 Presence of right artificial hip joint; R93.89 Abnormal findings on diagnostic imaging of other specified body structures
CPT/HCPCS: 73502; 93971

== ENCOUNTER 2024-07-13 05:37 | Outpatient (RCR) | payer MEDICARE, SELFPAY | END 2024-08-11 23:59 | disposition home or self-care (01) | LOC: SPT 05:37 | PROVIDERS: Visit Provider Family Medicine | DX: M25.551 Pain in right hip (principal) | CPT/HCPCS: 97110; 97140 ==

== ENCOUNTER → 2024-07-21 13:25 | Outpatient (BNVA) | payer MEDICARE, SELFPAY | PROVIDERS: PCP Family Medicine; Referring Provider Family Medicine; Visit Provider Specialist | DX: M25.551 Pain in right hip (principal); M79.604 Pain in right leg; M79.89 Other specified soft tissue disorders; Z96.641 Presence of right artificial hip joint | CPT/HCPCS: 73502; 99204 ==

== ENCOUNTER 2024-07-22 13:17 | Outpatient (CLI) | payer MEDICARE, SELFPAY ==
--- NOTE | 2024-07-22 13:45 | USR_ITS ---
PROCEDURE INFORMATION: Exam: US Duplex Right Lower Extremity Arteries Or Arterial Bypass Grafts Exam date and time: 07/22/2024 1:52 PM Age: 83 years old Clinical indication: Pain; Leg, lower; Right; Additional info: Right leg pain/ swelling TECHNIQUE: Imaging protocol: Right Real-time duplex scan of the arteries or arterial bypass grafts of the right lower extremity with 2-D hendrix scale, color Doppler flow and spectral waveform analysis. Images documented and saved. COMPARISON: [place] [id number] 07/12/2024 3:50 PM FINDINGS: Right common iliac artery: 102 cm/s. Triphasic waveform Right common femoral artery: 111cm/s triphasic waveform. Right superficial femoral artery: 99-141 cm/s. biphasic and triphasic waveform Right popliteal artery: 74 cm/s. biphasic waveform Right calf/foot arteries: No occlusion or significant stenosis in the visualized posterior tibial artery. Biphasic waveform. Dorsalis pedis artery is patent. TIM 1.2 US/[place] [id number] IMPRESSION: No stenosis or occlusion.
== END 2024-07-22 13:18 | disposition home or self-care (01) ==
LOC: RAD 13:18
PROVIDERS: PCP Family Medicine; Visit Provider Family Medicine
DX: M79.604 Pain in right leg (principal); M79.89 Other specified soft tissue disorders
CPT/HCPCS: 93926

== ENCOUNTER 2024-08-05 12:27 | Outpatient (CLI) | payer MEDICARE, SELFPAY ==
--- NOTE | 2024-08-05 12:45 | USCV_ITS ---
Zee Vaca Age: 84 Gender: F : 1940 Exam Date: 08/05/2024 12:53 Ordering Phys: Petra Villafana MD ([email or web address]) Technologist: Exam Location: [facility] [place] Indication: mr BP: 120 / 70 HR: 56 Rhythm: Sinus Technical Quality: Adequate MEASUREMENTS (Male / Female) Normal Values 2D ECHO LV Diastolic Diameter PLAX 4.4 cm 4.2 - 5.9 / 3.9 - 5.3 cm IVS Diastolic Thickness 1.0 cm 0.6 - 1.0 / 0.6 - 0.9 cm IVS Systolic Thickness 1.5 cm LVPW Diastolic Thickness 1.3 cm 0.6 - 1.0 / 0.6 - 0.9 cm LVPW Systolic Thickness 1.6 cm LVOT Diameter 2.0 cm LV Ejection Fraction 2D Teich 68.6 % LV Ejection Fraction MOD 4C 82.7 % LV Ejection Fraction MOD 2C 67.2 % LV Ejection Fraction 2C AL 68.9 % LA Diameter 3.8 cm RA Systolic Volume 4C AL 48.8 ml RA Systolic Volume 4C MOD 48.0 ml Aorta at Sinotubular Diameter 2.9 cm M-MODE LA Ao Ratio MM 1.2 AV Cusp Separation MM 1.6 cm DOPPLER AV Peak Velocity 174.0 cm/s LVOT Peak Velocity 67.0 cm/s AV Area Cont Eq vti 1.5 cm squared AV Area Cont Eq pk 1.3 cm squared MV Peak Velocity 553.5 cm/s TV Peak Velocity 324.5 cm/s TR Peak Velocity 335.0 cm/s TR Peak Gradient 44.9 mmHg TV Peak E Velocity 77.0 cm/s PV Peak Velocity 127.0 cm/s FINDINGS Left Ventricle Normal left ventricular size, systolic function and wall thickness, with no regional wall motion abnormalities. Left ventricular ejection fraction is estimated at 60 %. Grade I/IV diastolic dysfunction (abnormal relaxation filling pattern), normal to mildly elevated filling pressures. Right Ventricle The right ventricle is normal in size and function. Right Atrium Moderately increased right atrial size. Left Atrium Moderately increased left atrial size. Mitral Valve Mildly thickened mitral valve. No mitral valve stenosis. mild mitral valve regurgitation. Aortic Valve Mild aortic valve calcification. No aortic valve stenosis. Trace aortic valve regurgitation. Tricuspid Valve Mild tricuspid valve regurgitation. Pulmonic Valve Mild to moderate pulmonary valve regurgitation. Pericardium Normal pericardium without effusion. Aorta Normal ascending aorta dimension. IVC The inferior vena cava appears normal. CONCLUSIONS Normal left ventricular size, systolic function and wall thickness, with no regional wall motion abnormalities. Left ventricular ejection fraction is estimated at 60 %. Grade I/IV diastolic dysfunction (abnormal relaxation filling pattern), normal to mildly elevated filling pressures. Moderately increased left atrial size. Mildly thickened mitral valve. No mitral valve stenosis. mild mitral valve regurgitation. Mild tricuspid valve regurgitation. There is no pericardial effusion. Right atrial pressure is around 5 mm of mercury. Petra Villafana MD (Electronically Signed) Final Date: 29 Aug 2024 16:52 S
== END 2024-08-05 12:28 | disposition home or self-care (01) ==
LOC: RAD 12:31
PROVIDERS: PCP Family Medicine; Visit Provider Internal Medicine Cardiovascular Disease
DX: I50.32 Chronic diastolic (congestive) heart failure (principal); I34.0 Nonrheumatic mitral (valve) insufficiency; R06.02 Shortness of breath; R93.1 Abnormal findings on diagnostic imaging of heart and coronary circulation; I35.8 Other nonrheumatic aortic valve disorders; I07.1 Rheumatic tricuspid insufficiency; I37.1 Nonrheumatic pulmonary valve insufficiency
CPT/HCPCS: 93306

== ENCOUNTER 2024-08-09 08:35 | Outpatient (CLI) | payer MEDICARE, SELFPAY ==
--- NOTE | 2024-08-09 08:45 | NM_ITS ---
WS: [id number] THREE-PHASE BONE SCAN HISTORY: pain, RIGHT leg pain COMPARISON: 08/28/2015 bone scan, RIGHT hip radiograph 07/21/2024 Patient is is injected with 25.2 mCi Tc99m HDP intravenously. Immediate angiographic phase imaging is performed over the area of concern. Static blood pool imaging also performed. Two-hour whole-body scintigrams performed in anterior and posterior projections. Additional large field of view imaging sub mitted as necessary. 3 phase bone scan centered over the pelvis. Normal uptake on arterial and blood pool phase imaging. On the 2-hour delayed imaging there is very minimal increased uptake involving the RIGHT greater trochanter. Photopenic defect noted at the RIGHT hip from the arthroplasty. There is additional mild increased uptake at the LEFT hip joint from osteoarthritis described on recent radiographs. Advanced bilateral glenohumeral joint and AC joint arthritis. Additional areas of increased uptake at the ankles, LEFT greater than RIGHT. There is a focal area of increased uptake involving the distal LEFT tibia. Mild degenerative changes at the knees. Mild curvature lower lumbar spine. Intermediate uptake involving 2 consecutive ribs in the anterior LEFT thorax, probably eighth and ninth ribs. Appearance of the rib abnormalities suggest healing fractures. Normal soft tissue and renal uptake. NM/NM bone 3 phase [id number] IMPRESSION: 1. Minimal increased uptake over the RIGHT greater trochanter. No significant pathology noted at the RIGHT hip prosthesis. 2. Mild degenerative changes involving the LEFT hip joint. 3. More advanced osteoarthritis involving the ankles and AC joints. 4. Mild lower lumbar spine scoliosis.
== END 2024-08-09 08:36 | disposition home or self-care (01) ==
LOC: RAD 08:36
PROVIDERS: PCP Family Medicine; Visit Provider Specialist
DX: M19.071 Primary osteoarthritis, right ankle and foot (principal); M16.12 Unilateral primary osteoarthritis, left hip; M19.012 Primary osteoarthritis, left shoulder; M19.011 Primary osteoarthritis, right shoulder; M19.072 Primary osteoarthritis, left ankle and foot; M41.86 Other forms of scoliosis, lumbar region; M17.0 Bilateral primary osteoarthritis of knee; M43.8X6 Other specified deforming dorsopathies, lumbar region; R93.7 Abnormal findings on diagnostic imaging of other parts of musculoskeletal system; Z96.89 Presence of other specified functional implants
CPT/HCPCS: 78315; A9561

== ENCOUNTER 2024-08-12 06:30 | Outpatient (RCR) | payer MEDICARE, SELFPAY | END 2024-08-20 08:49 | disposition home or self-care (01) | LOC: SPT 06:30 | PROVIDERS: PCP Family Medicine; Visit Provider Family Medicine | DX: M25.551 Pain in right hip (principal) | CPT/HCPCS: 97110 ==

== ENCOUNTER 2024-08-18 11:50 | Outpatient (CLI) | payer MEDICARE, SELFPAY ==
--- NOTE | 2024-08-18 12:45 | CTR_ITS ---
PROCEDURE INFORMATION: Exam: CT Abdomen And Pelvis Without Contrast Exam date and time: 08/18/2024 12:52 PM Age: 84 years old Clinical indication: Other: Right leg edema; Prior surgery; Surgery date: 6+ months; Surgery type: RT hip, hyst; Right leg swelling in june/july, getting better, HX of breast cancer TECHNIQUE: Imaging protocol: Computed tomography of the abdomen and pelvis without contrast. Radiation optimization: All CT scans at this facility use at least one of these dose optimization techniques: automated exposure control; mA and/or kV adjustment per patient size (includes targeted exams where dose is matched to clinical indication); or iterative reconstruction. COMPARISON: CT abdomen pelvis wo con [id number] 01/05/2024 10:04 AM RADIATION DOSE METRICS: Total DLP (mGy-cm): 525.76 FINDINGS: Liver: No evident mass. Gallbladder and biliary ducts: Normal. No calcified stones. No ductal dilation. Pancreas: Normal. No ductal dilation. Spleen: Normal. No splenomegaly. Adrenal glands: Normal. No mass. Kidneys and ureters: Normal. No hydronephrosis. Stomach and bowel: Colonic diverticulosis. No obstruction. No mucosal thickening. Appendix: No evidence of appendicitis. Intraperitoneal space: Unremarkable. No free air. No significant fluid collection. Vasculature: Unremarkable. No abdominal aortic aneurysm. Lymph nodes: Unremarkable. No enlarged lymph nodes. Urinary bladder: Unremarkable as visualized. Reproductive: Hysterectomy. Bones/joints: No acute fracture. Mild levoscoliosis of the lumbar spine. Right hip arthroplasty noted. Soft tissues: Unremarkable. CT/CT abdomen pelvis wo con [id number] IMPRESSION: No acute findings.
[2024-08-18] MEDS: barium sulfate 450 mL Oral Susp PO (12:46)
== END 2024-08-18 11:51 | disposition home or self-care (01) ==
PROVIDERS: PCP Family Medicine; Visit Provider Family Medicine
DX: K74.60 Unspecified cirrhosis of liver (principal); R18.8 Other ascites; K57.30 Diverticulosis of large intestine without perforation or abscess without bleeding; Z90.710 Acquired absence of both cervix and uterus; M41.86 Other forms of scoliosis, lumbar region; Z96.641 Presence of right artificial hip joint
CPT/HCPCS: 74176

== ENCOUNTER → 2024-08-24 09:48 | Outpatient (BNVA) | payer MEDICARE, SELFPAY | PROVIDERS: PCP Family Medicine; Visit Provider Family Medicine | DX: E03.9 Hypothyroidism, unspecified (principal); I63.9 Cerebral infarction, unspecified; I10 Essential (primary) hypertension; I50.32 Chronic diastolic (congestive) heart failure; I48.20 Chronic atrial fibrillation, unspecified | CPT/HCPCS: 80053; 80061; 84443; 85025 ==

== ENCOUNTER → 2024-12-09 09:29 | Outpatient (BNVA) | payer MEDICARE, SELFPAY | PROVIDERS: PCP Family Medicine; Visit Provider Dermatology | DX: D48.5 Neoplasm of uncertain behavior of skin (principal); L71.8 Other rosacea; L72.0 Epidermal cyst; L57.8 Other skin changes due to chronic exposure to nonionizing radiation | CPT/HCPCS: 11102; 99204 ==

== ENCOUNTER → 2024-12-23 14:34 | Outpatient (BNVA) | payer MEDICARE, SELFPAY | PROVIDERS: PCP Family Medicine; Visit Provider Internal Medicine Cardiovascular Disease | DX: I25.10 Atherosclerotic heart disease of native coronary artery without angina pectoris (principal); I48.20 Chronic atrial fibrillation, unspecified; G47.33 Obstructive sleep apnea (adult) (pediatric); I08.1 Rheumatic disorders of both mitral and tricuspid valves; Z87.891 Personal history of nicotine dependence; I11.0 Hypertensive heart disease with heart failure; I50.9 Heart failure, unspecified; Z79.01 Long term (current) use of anticoagulants | CPT/HCPCS: 99214 ==

== ENCOUNTER 2025-01-12 11:00 | Emergency (ER) | payer MEDICARE, SELFPAY ==
--- OUTSIDE RECORDS SUMMARY | 2025-01-12 11:05 | XMS_ITS | Encounter Summary ---
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); Sinus tarsi syndrome of right foot; Foot pain, bilateral Social History Tobacco Use Types Packs/Day Years Used Date Smoking Tobacco: Never Assessed Comments Unknown Sex and Gender Information Value Date Recorded Sex Assigned at Not on file Legal Sex Female 3:14 PM CDT Gender Identity Not on file Sexual Orientation Not on file documented as of this encounter Plan of Treatment Not on file documented as of this encounter Results * XR FOOT 3+ VW BILAT (01/13/2015 3:57 PM CDT) Anatomical Region Laterality Modality Ankle / Foot Computed Radiogr aphy 01/13/2015 3:33 PM CDT Narrative 01/14/2015 10:58 AM CDT PROCEDURE XR LATERAL FOOT, 3 views x2, 13 January 2015 DESCRIPTION AP, oblique, and lateral views of each foot show left hallux valgus and postoperative change of the first metatarsal with two metallic screws inserted from the anterior aspect of the metatarsal with the tips near midshaft. There is deformity of the metatarsal-phalangeal joint of the second ray as well. There is erosion of the second proximal interphalangeal joint predominately involving the base of the middle phalanx laterally. On the right there is medial deflection of the great toe in hallux varus with associated degenerative change. No acute fracture is seen. Lateral views show flattening of the plantar arch, more so on the right. IMPRESSION postoperative changes and deformities as described Procedure Note David Wolf MD - 01/14/2015 PROCEDURE XR LATERAL FOOT, 3 views x2, 13 January 2015 DESCRIPTION AP, oblique, and lateral views of each foot show left hallux valgus and postoperative change of the first metatarsal with two metallic screws inserted from the anterior aspect of the metatarsal with the tips near midshaft. There is deformity of the metatarsal-phalangeal joint of the second ray as well. There is erosion of the second proximal interphalangeal joint predominately involving the base of the middle phalanx laterally. On the right there is medial deflection of the great toe in hallux varus with associated degenerative change. No acute fracture is seen. Lateral views show flattening of the plantar arch, more so on the right. 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
--- OUTSIDE RECORDS SUMMARY | 2025-01-12 11:05 | XMS_ITS | Clinical Summary ---
Author Organization [facility] Address [address] [place] [address] Phone Care Team Providers Care Brazer Electronic Name Role Phone Gio Soto MD Primary Care Provider Allergies Active Allergy Reactions Criticality Noted Date Comments Dye Other (See Comments) 02/19/2016 Sob and chest pain Medications amoxicillin-cla vulanate (AUGMENTIN) 875-125 mg tablet 6 Active metroNIDAZOLE (FLAGYL) 500 mg tablet 6 Active temazepam (RESTORIL) 15 mg capsule 6 Active ciclopirox (LOPROX) 1 % Shampoo 6 Active COMBIVENT RESPIMAT 20-100 mcg/actuation Mist 6 Active FLOVENT HFA 110 mcg/actuation HFA Aerosol Inhaler 6 Active triamterene-hyd roCHLOROthiazid e (DYAZIDE) 37.5-25 mg capsule 6 Active doxepin (SINEquan) 10 mg capsule 6 Active letrozole (FEMARA) 2.5 mg Tablet 6 Active amLODIPine (NORVASC) 10 mg tablet 6 Active ALPRAZolam (XANAX) 0.25 mg tablet 6 Active spironolactone (ALDACTONE) 25 mg tablet 6 Active SYNTHROID 100 mcg tablet 6 Active Miscellaneous Medical SupplyIndicatio ns: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 1 Each 6 Active diazePAM (VALIUM) 5 mg tablet Take 1 Tablet (5 mg) by mouth one time for 1 dose Take 1 tab 1 hour prior to procedure and take 2nd tab 15min prior to procedure.. 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 02/19/2016 Left foot pain 02/19/2016 Family History Medical History Relation Name Comments Cancer Father Diabetes Mother Hypertension Mother Stroke Mother Relation Name Status Comments Father Mother Social History Tobacco Use Types Packs/Day Years Used Date Smoking Tobacco: Former Smokeless Tobacco: Former Alcohol Use Standard Drinks/Week Comments No 0 (1 standard drink = 0.6 oz pur e alcohol) Comments Unknown Sex and Gender Information Value Date Recorded Sex Assigned at Not on file Legal Sex Female 3:14 PM CDT Gender Identity Not on file Sexual Orientation Not on file Last Filed Vital Signs Vital Sign Reading Time Taken Comments Blood Pressure 133/74 03/16/2018 2: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 Pulse 91 03/16/2018 2: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 Temperature - - Respiratory Rate - - Oxygen Saturation - - Inhaled Oxygen Concentration - - Weight 72.6 kg (160 lb) 03/16/2018 2: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 Height 152.4 cm (5') 03/16/2018 2: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 Body Mass Index 31.25 03/16/2018 2: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 Plan of Treatment Health Maintenance Due Date Last Done Comments DTAP/TDAP/TD VACCINES (1 - Tdap) 1959 PNEUMOCOCCAL VACCINE 50+ YEARS (1 of 1 - PCV) 07/29/18 92 ZOSTER VACCINE (1 of 2) 07/30/1991 OSTEOPOROSIS SCREENING 2006 RSV VACCINE (60+ or ) (1 - 1-dose 75+ series) 2016 INFLUENZA VACCINE (#1) 2024 Insurance [id number] [place] [address] [employer] Care Teams Brazer Electronic Relationship Specialty Start Date End Date Gio Soto MD [address] [place] [address] PCP - General Family Practice 01/13/15
--- OUTSIDE RECORDS SUMMARY | 2025-01-12 11:05 | XMS_ITS | Clinical Summary ---
Author Organization [facility] Address [address] [facility] Attn: [place] [id number] Care Team Providers Care Advanced Practice Rn Name Role Phone Gio Soto MD Primary Care Provider Allergies Active Allergy Reactions Criticality Noted Date Comments Dye Other (See Comments) 02/19/2016 Sob and chest pain Medications diazePAM (VALIUM) 5 mg tablet Take 1 Tablet (5 mg) by mouth one time for 1 dose Take 1 tab 1 hour prior to procedure and take 2nd tab 15min prior to procedure.. 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 1 Each 0 6 Active ipratropium-alb uteroL (Combivent Respimat) 20-100 mcg/actuation Mist 6 Active amoxicillin-cla vulanate (AUGMENTIN) 875-125 mg tablet 6 Active letrozole (FEMARA) 2.5 mg tablet 6 Active temazepam (RESTORIL) 15 mg capsule 6 Active metroNIDAZOLE (FLAGYL) 500 mg tablet 6 Active fluticasone propionate (Flovent HFA) 110 mcg/actuation HFA Aerosol Inhaler 6 Active doxepin (SINEquan) 10 mg capsule 6 Active ciclopirox (LOPROX) 1 % Shampoo 6 Active spironolactone (ALDACTONE) 25 mg tablet 6 Active amLODIPine (NORVASC) 10 mg tablet 6 Active ALPRAZolam (XANAX) 0.25 mg tablet 6 Active Miscellaneous Medical SupplyIndicatio ns: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 02/19/2016 Encounters Date Type Department Care Team Description 12/21/2024 External Device Data [facility] ABSTRACTION Provider, Abstract 12/20/2024 Orders Only [facility] [address] [place] [address] Provider, Abstract 12/14/2024 External Device Data [facility]STRACTION Provider, Abstract 12/03/2024 10:51 AM CDT - 12/03/2024 11:59 PM CDT Hospital Encounter [facility] [address] [facility] [address] [place] [address] Gio Soto MD Discharge Disposition: Home or Self Care 12/01/2024 External Device Data [facility] ABSTRACTION Provider, Abstract 11/09/2024 External Device Data [facility]STRACTION Provider, Abstract 11/09/2024 External Device Data [facility]STRACTION Provider, Abstract 11/09/2024 External Device Data [facility]STRACTION Provider, Abstract from Last 3 Months Family History Medical History Relation Name Comments [...] at Not on file 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 Gender Identity Not on file Sexual Orientation Not on file Last Filed Vital Signs Vital Sign Reading Time Taken Comments Blood Pressure 133/74 03/16/2018 2:26 PM TEA PLANTATION WORKER Pulse 91 03/16/2018 2:26 PM TEA PLANTATION WORKER Temperature - - Respiratory Rate - - Oxygen Saturation - - Inhaled Oxygen Concentration - - Weight 72.6 kg (160 lb) 03/16/2018 2:26 PM TEA PLANTATION WORKER Height 152.4 cm (5') 03/16/2018 2:26 PM TEA PLANTATION WORKER Body Mass Index 31.25 03/16/2018 2:26 PM TEA PLANTATION WORKER Plan of Treatment Health Maintenance Due Date Last Done Comments DTAP/TDAP/TD VACCINES (1 - Tdap) 1960 PNEUMOCOCCAL VACCINE 50+ YEA RS (1 of 1 - PCV) 07/30/1991 ZOSTER VACCINE (1 of 2) 07/30/1991 OSTEOPOROSIS SCREENING 2006 RSV VACCINE (60+ or ) (1 - 1-dose 75+ series) 2016 INFLUENZA VACCINE (#1) 2024 01/15/2023, 2021 COVID-19 Vaccine (2023-2 5 season) 2024 01/13/2024, 02/04/2023, 08/21/2021, Additional history exists Procedures Procedure Name Priority Date/Time Associated Diagnosis Comments MAMMO 3D DARYL SCREEN BILAT W OR WO CAD Routine 12/03/2024 11:24 AM CDT Screening mammogram, encounter for from Last 3 Months Results * MAMMO 3D DARYL SCREEN BILAT W OR WO CAD (12/03/2024 11:24 AM CDT) Anatomical Region Laterality Modality Breast Bilateral Mammography Impressions 12/04/2024 4:05 AM CDT : No mammographic evidence of malignancy. BI-RADS ASSESSMENT: 1 - Negative RECOMMENDATION: Routine annual screening mammography. Narrative 12/04/2024 4:05 AM CDT EXAM: MAMMO SCRN BILAT 3D DARYL W OR WO CAD INDICATION: Screening COMPARISON: 12/03/2023 MAMMO PRIOR STUDY, 11/09/2021 MAMMO PRIOR STUDY, 10/10/2020 MAMMO PRIOR STUDY, 10/02/2020 MAMMO PRIOR STUDY, and 09/30/2019 MAMMO PRIOR STUDY BREAST COMPOSITION: There are scattered areas of fibroglandular density. FINDINGS: RIGHT BREAST: There are no suspicious masses, calcifications, or areas of architectural distortion. LEFT BREAST: There are no suspicious masses, calcifications, or areas of architectural distortion. us Gio Soto MD MAMMO ORDERABLES Final Resul t from Last 3 Months Insurance [id number] [place] [address] [facility] MEDICARE Care Teams Advanced Practice Rn Relationship Specialty Start Date End Date Gio Soto MD [address] [place] [id number] PCP - General Family Practice 01/13/15
[2025-01-12 11:19] VITALS: BP 158/73; PULSE 62; TEMP 36.7; O2SAT 96
--- NOTE | 2025-01-12 11:39 | CT_ITS ---
WS: [id number] CT ABDOMEN AND PELVIS WITH CONTRAST HISTORY: gi bleed TECHNIQUE: Imaging performed of the abdomen and pelvis with IV contrast. Single phase imaging of the abdomen. Coronal and sagittal reformats are submitted. All CT scans at [facility] use at least one of these dose optimization techniques: automated exposure control; mA and/or kV adjustment per patient size (includes targeted exams where dose is matched to clinical indication); or iterative reconstruction. IV CONTRAST: Omnipaque 350; 100 mL IV. Oral contrast: No DLP: 678.75 mGy.cm COMPARISON: 08/18/2024 Lower thorax: Lung bases are clear. Heart is normal size. No hiatal hernia. Liver/biliary system: Normal size with no intrahepatic dilatation. Gallbladder: Normal. No gallstones or wall thickening. No pericholecystic fluid. Pancreas: Normal size pancreas and pancreatic duct. No adjacent inflammation. Spleen: Normal size spleen. No mass or infarct. Adrenal glands: Normal. Right kidney: Normal. Left kidney: Mild cortical thinning. No mass or obstruction. Aorta: Moderate atherosclerosis aorta. Lymphadenopathy: None. Free fluid: None. GI tract: Stomach is not distended. No small bowel obstruction. Moderate diffuse constipation. Pandiverticulosis with increasing diverticular burden in the descending and sigmoid colon. No acute diverticulitis. Large like area of increased density in the sigmoid colon best seen on image 56 and 57 of series 3 could potentially be an area of active bleeding. Abdominal wall: Fat containing umbilical hernia. Asymmetric atrophy RIGHT psoas muscle. Pelvis: No free fluid or adenopathy within the pelvis. Urinary bladder is not distended. Artifact of the pelvis from the RIGHT hip arthroplasty. Prior hysterectomy. Bones: Bone upon bone LEFT hip joint. Advanced degenerative disc disease and spondylosis with scoliosis in the lumbar spine. CT/CT abdomen pelvis w con* [id number] IMPRESSION: 1. Pandiverticulosis without acute diverticulitis. Most significant diverticul ar burden in the sigmoid colon. 2. Subtle area of enhancement involving the sigmoid colon could potentially re present an area of active bleeding. 3. Diffuse constipation. 4. No ascites or adenopathy. 5. No renal obstruction.
--- NOTE | 2025-01-12 11:48 | ED_ITS ---
HPI - GI Bleed 2 General: Chief complaint: GI Bleed Stated complaint: dr panda, rectal bleeding Time Seen by Provider: 01/12/25 11:27 Source: patient Mode of arrival: ambulatory Limitations: no limitations History of Present Illness: 84-year-old female states that she has b een having bright red blood in her stool since this morning. States she is passed a few clots. Patient is on blood thinners she states she has had some mild abdominal cramping she rates a 1-2 out of 10. She denies any fevers she denies any vomiting no history of GI bleeding in the past. Denies any dark stools. Related Data Home Medications ?Medication ?Instructions ?Recorded ?Confirmed cholecalciferol (vitamin D3) 25 25 mcg PO DAILY 01/12/25 mcg (1,000 unit) capsule (Vitamin D3) mecobalamin (vitamin B12) 1,000 1,000 mcg PO DAILY 01/12/25 mcg lozenges multivitamin 1 tab PO DAILY 02/09/2405/08 Previous Rx's ?Medication ?Instructions ?Recorded cyclobenzaprine 5 mg tablet See Rx Instructions .Route 04/04/23 .COMPLEX #30 tabs C-pap auto titrating 6-12 #1 ea 02/19/24 potassium chloride 20 mEq/15 mL 20 meq (15 mL) PO REBECA Y #450 mL 03/15/24 oral liquid ipratropium 20 mcg-albuterol 100 1 puff inhalation Q6H PRN 03/16/24 mcg/actuation mist for inhalation Shortness Of Breath #4 grams (Combivent Respimat) wheelchair with leg rests #1 ea 03/18/24 discontinue Oxygen #1 ea 04/15/24 clopidogrel 75 mg tablet 75 mg PO DAILY #30 tabs 01/06 levothyroxine 100 mcg tablet See Rx Instructions .Rout e 04/29/24 .COMPLEX #90 tabs furosemide 40 mg tablet (Lasix) 40 mg PO BID #120 tabs 06/16/24 zolpidem 10 mg tablet 10 mg PO .QHS #30 tabs 08/09 amlodipine 10 mg tablet See Rx Instructions .Route 0 10/18/24 .COMPLEX #90 tabs carvedilol 3.125 mg tablet 3.125 mg PO BID #180 tabs 0 11/04/24 apixaban 5 mg tablet (Eliquis) See Rx Instructions .Ro [place] 11/11/24 .COMPLEX #180 tabs atorvastatin 40 mg tablet 20 mg (1/2 x 40 mg) PO BEDTI ME #90 12/14/24 tabs amiodarone 100 mg tablet 100 mg PO DAILY #90 tabs 03/08 spironolactone 25 mg tablet See Rx Instructions .Route 01/03/25 .COMPLEX #90 tabs alprazolam 0.25 mg tablet (Xanax) 0.25 mg PO TID PRN a nxiety #60 tabs 01/10/25 Allergies Allergy/AdvReac Type Severity Reaction Status Date / Time Iodinated Contrast Media Allergy Mild possibly Verified 01/12/25 11:26 had chest pain with it but not sure hydrocodone (From Vicodin) Allergy Unknown Verified 01/12/25 11:26 levofloxacin (From Levaquin) Allergy Unknown Verified 01/12/25 11:26 oxycodone (From Percocet) Allergy Unknown Verified 01/12/25 11:26 simvastatin Allergy Unknown Verified 01/12/25 11:26 sulfamethoxazole (From Allergy Unknown Verified 01/12/25 11:26 Bactrim) trimethoprim (From Bactrim) Allergy Unknown Verified 01/12/25 11:26 Review of Systems 2 GI: Reports: hematochezia PFSH ED 2 PFSH: Medical History (Updated 01/12/25 @ 14:45 by Juliano Bolviar MD) Tricuspid valve regurgitation Mitral regurgitation Coronary artery disease Atrial fibrillation, chronic Hypertension Hyperlipidemia Severe mitral regurgitation Hypertension Atrial fibrillation CHF (NYHA class IV, ACC/AHA stage D) Insomnia temazepam not effective, ambien caused side effects, trazodone caused dizziness, Risperdal kept her awake Diverticulitis Fibromyalgia Hypothyroid Hypoglycemia History of left breast cancer 2010 Hiatal hernia Surgical History History of right hip replacement done 2006 History of tonsillectomy Family History Father Lung cancer Mother Stroke Social History Smoking and tobacco/nicotine status: former use of tobacco/nicotine Alcohol intake: never Substance/Drug Use: never Marital status: Physical Exam 2 Const: COMMON NORMALS: no acute distress, patient oriented x3 and healthy appearing HENMT: COMMON NORMALS: normocephalic and atraumatic HEAD & SCALP: n ormocephalic and atraumatic Eye: COMMON NORMALS: conjunctivae normal CONJUNCTIVA: Yes conjunctivae normal Neck/C-Spine: COMMON NORMALS: full ROM and supple Chest: COMMONS NORMALS: normal inspection of the chest Resp: COMMON NORMALS: normal respiratory effort, No retractions, No use of accessory muscles and clear to auscultation bilaterally AUSCULTATION: clear to auscultation bilaterally Cardio: COMMON NORMALS: regular rate, regular rhythm and No murmurs present (Cardio) RATE: regular rate RHYTHM: regular rhythm GI: COMMON NORMALS: Normal to inspection, nondistended, normoactive bowel sounds present, Soft to palpation, non-tender and no masses PALPATION: Yes Soft to palpation Extremity: COMMON NORMALS: normal to inspection and full ROM Neuro: COMMON NORMALS: patient oriented x3, moves all extremities and no focal motor deficits Psych: COMMON NORMALS: mental status grossly normal, Normal thought process present and cooperative THOUGHT PROCESS: Normal thought process present Skin: COMMON NORMALS: no rashes or lesions noted and no wounds GENERAL SKIN EXAM: no rashes or lesions noted Course 2 Vital Signs: Vital signs: Vital Signs Temperature 98.1 F 01/12/25 11:19 Pulse Rate 59 L 01/12/25 13:53 Blood Pressure 143/59 01/12/25 13:53 Pulse Oximetry 96 01/12/25 13:53 Oxygen Delivery Me thod Room Air 01/12/25 13:53 MDM - GI Bleed Medical Decision Making Patient presents here with active bright red blood per rectum differential includes hemorrhoids upper and lower GI bleed or anal fissure. Based on history exam and workup it appears she is having an active diverticular bleed. CT does show pandiverticulosis with an area of possible enhancement. Over 3 hours her hemoglobin did drop 2 points she has been hemodynamically stable here. I did speak to hospitalist Dr. Al along with surgeon Dr. Ball who had seen patient and recommended transfer for higher level of care for possible IR or GI. Patient was given Kcentra to reverse her Eliquis along with TXA. She is a [employer] and does not want any blood products she was given IV fluids blood pressures been normal here though. I did speak to emergency physician at [facility] Dr. Van and will transfer ER to ER at this time for her active diverticular bleed. Patient has multiple comorbidities as well with CHF A-fib is on the Eliquis and regurg. I discussed her findings with her and with the need for transfer Medical Records I reviewed the patient's medical records. Lab Data I reviewed the patient's lab results. 01/12/25 14:30 01/12/25 12:17 Radiology Impressions Abdomen/Pelvis CT 01/12/25 11:39 IMPRESSION: 1. Pandiverticulosis without acute diverticulitis. Most significant diverticular burden in the sigmoid colon. 2. Subtle area of enhancement involving the sigmoid colon could potentially represent an area of active bleeding. 3. Diffuse constipation. 4. No ascites or adenopathy. 5. No renal obstruction. Laboratory Results WBC 13.38 10^3/uL (3.29-11.43) H 01/12/25 11:43 RBC 5.13 10^6/uL (3.85-5.65) 01/12/25 11:43 Hgb 13.50 g/dL (11.27-16.99) 01/12/25 14:30 Hct 41.5 % (36-47) 01/12/25 14:30 MCV 92.4 fl (85-98) 01/12/25 11:43 MCH 30.6 pg (27-33) 01/12/25 11:43 MCHC 33.1 g/dL (30-55) 01/12/25 11:43 RDW 14.7 % (12.1-15.1) 01/12/25 11:43 Plt Count 374 10^3/cmm (157-399) 01/12/25 11:43 MPV 10.1 fL (7.4-10.4) 01/12/25 11:43 Neut % (Auto) 80.3 % 01/12/25 11:43 Lymph % (Auto) 9.2 % 01/12/25 11:43 Rhea % (Auto) 7.5 % 01/12/25 11:43 Eos % (Auto) 1.8 % 01/12/25 11:43 Baso % (Auto) 0.8 % 01/12/25 11:43 Neut # (Auto) 10.75 10^3/uL (1.8-7.7) H 01/12/25 11:43 Lymph # (Auto) 1.2 10^3/uL (0.8-4.8) 01/12/25 11:43 Rhea # (Auto) 1.0 10^3/uL (0.2-0.9) H 01/12/25 11:43 Eos # (Auto) 0.2 10^3/uL (0.0-0.8) 01/12/25 11:43 Baso # (Auto) 0.1 10^3/uL (0.0-0.1) 01/12/25 11:43 Nucleated RBC % (auto) 0 % 01/12/25 11:43 Nucleated RBCs # 0.0 /100WBC 01/12/25 11:43 PT 15.60 SECONDS (12.1-14.9) H 01/12/25 11:43 INR 1.16 (0.8-1.2) 01/12/25 11:43 Sodium 137 mmol/L (136-145) 01/12/25 12:17 Potassium 3.9 mmol/L (3.5-5.1) 01/12/25 12:17 Chloride 100 mmol/L (98-107) 01/12/25 12:17 Carbon Dioxide 25 mmol/L (22-29) 01/12/25 12:17 Anion Gap 15.9 (5-19) 01/12/25 12:17 BUN 26 mg/dL (8-23) H 01/12/25 12:17 Creatinine 0.8 mg/dL (0.5-0.9) 01/12/25 12:17 GFR Calculation Not Reportable 01/12/25 12:17 Glucose 129 mg/dL (65-115) H 01/12/25 12:17 Calculated Osmolality 290 mOsm/kg (285-295) 01/12/25 12:17 Calcium 9.5 mg/dL (8.5-10.5) 01/12/25 12:17 Total Bilirubin 0.5 mg/dL (0.15-1.2) 01/12/25 12:17 AST 20 U/L (0-32) 01/12/25 12:17 ALT 21 U/L (0-33) 01/12/25 12:17 Alkaline Phosphatase 93 U/L (35-105) 01/12/25 12:17 Total Protein 7.7 g/dL (6.6-8.7) 01/12/25 12:17 Albumin 4.4 g/dL (3.5-5.2) 01/12/25 12:17 Globulin 3.3 g/dL (1.3-4.6) 01/12/25 12:17 Lipase 38 U/L (13-60) 01/12/25 12:17 All radiology interpretation(s) finalized by discharge Critical Care Time 2 Critical Care Time: Critical Care Time: Yes Total Critical Care Time: 45 Attestation: The high probability of a clinically significant, sudden or life threatening deterioration of the patient's cv system(s) required my full and direct attention, intervention and personal management. The critical care time is as shown. This time is in addition to time spent performing any reported procedures but includes the following: [x] Data and vital sign review and interpretation [x] Patient assessment, examination and intervention [x] Documentation [x] Medication orders and management Discharge Plan Discharge Patient Disposition: Xfer Short-Term Hosp Clinical Impression: Diverticular hemorrhage, Atrial fibrillation, chronic Condition: Stable Referrals: Gio Soto MD [Primary Care Provider, [facility]] Print Language: Taiwanese Coding Level of Care Code ED Floor Steward/Stewardess for Amor Alcantara
[2025-01-12 11:50] LABS: Hematocrit 47.4 % (36-47); Hemoglobin 15.70 g/dL (11.27-16.99); Mean Corpuscular HGB Conc 33.1 g/dL (30-55); Mean Corpuscular Hemoglobin 30.6 pg (27-33); Mean Corpuscular Volume 92.4 fl (85-98); Nucleated Red Blood Cells % 0 %; Platelet Count 374 10^3/cmm (157-399); Red Blood Count 5.13 10^6/uL (3.85-5.65); White Blood Count 13.38 10^3/uL (3.29-11.43)
[2025-01-12 12:20] LABS: INR 1.16 (0.8-1.2); Prothrombin Time 15.60 SECONDS (12.1-14.9)
[2025-01-12 12:30] VITALS: BP 179/96; PULSE 59; O2SAT 95
[2025-01-12 12:45] LABS: Alanine Aminotransferase 21 U/L (0-33); Albumin Level 4.4 g/dL (3.5-5.2); Alkaline Phosphatase 93 U/L (35-105); Anion Gap 15.9 (5-19); Aspartate Amino Transferase 20 U/L (0-32); Blood Urea Nitrogen 26 mg/dL (8-23); Calcium 9.5 mg/dL (8.5-10.5); Carbon Dioxide 25 mmol/L (22-29); Chloride 100 mmol/L (98-107); Creatinine Clr Calc Pharmacy 48.7552; Globulin 3.3 g/dL (1.3-4.6); Glucose 129 mg/dL (65-115); Lipase 38 U/L (13-60); Osmolality Calculated 290 mOsm/kg (285-295); Potassium 3.9 mmol/L (3.5-5.1); Sodium 137 mmol/L (136-145); Total Protein 7.7 g/dL (6.6-8.7)
[2025-01-12] MEDS: diphenhydrAMINE 50 mg/mL SDV 1mL 25 MG IVP (12:51)
[2025-01-12] MEDS: methylPREDNISolone sod succ 40 mg/mL INJ IVP (12:52)
[2025-01-12] MEDS: iohexol 350 mg/mL 500 mL Btl (per mL) IV (13:12)
[2025-01-12 13:53] VITALS: BP 143/59; PULSE 59; O2SAT 96
--- NOTE | 2025-01-12 14:35 | P.CONIM_ITS ---
Providers/Reason For Consult 2 Consulting Physician/Specialty*: ER provider Reason for Consult*: , Diverticular bleed Primary Care Provider: Gio Soto MD History of Present Illness History of Present Illness Zee Vaca is a 84 year old female who is a [employer], declines blood products including blood/platelet/FFP, has a history of diverticulitis, diverticulosis, atrial fibrillation on Eliquis, she took her dose this morning, history of CAD on Plavix, who presents to [facility] for bright red blood per rectum. Currently patient is alert oriented x 3, following commands, normotensive, on room air does report abdominal pain, her last episode of bright red blood per rectum was about an hour ago just before she went to's CT scan. She reports that she woke up this morning and had some abdominal discomfort, she had an episode of bright red blood per rectum, with stool, subsequent episodes had clots in it, she presented to her primary care provider who advised her to come to the emergency room. She tells that she has had about 5-6 episodes of bright red blood per rectum. On examination, rectal exam, she does have bright red blood per rectum with oozing from her rectum. Discussed her CT scan CT/CT abdomen pelvis w con* [id number] IMPRESSION: 1. Pandiverticulosis without acute diverticulitis. Most significant diverticular burden in the sigmoid colon. 2. Subtle area of enhancement involving the sigmoid colon could potentially represent an area of active bleeding. 3. Diffuse constipation. 4. No ascites or adenopathy. 5. No renal obstruction. -Discussed with Zee and her friend at bedside -Given that she is a [employer], she does not want to have any blood products -The question is is that if she does bleed what can we do for her extremity give her fluids, pressors, -But in the case of a life-threatening bleed we would likely have to transfer her urgently to tertiary center for IR embolization -Given that she is taking Eliquis and Plavix this morning this makes me really worried especially with her 5 episodes of bright red blood, bloody stools, that this diverticular bleed is persisting, especially with her CT scan findings -We could certainly watch her here at [facility] watch her hemoglobin, but if she were to bleed that would be associated significant morbidity and mortality -Certainly colonoscopy could be an option when she is more stable, but if she were to bleed during the colonoscopy or if she would need clipping, it would be associate with bleeding we do not have IR backup -I have discussed the case with general surgery Dr. Ham, given that she has taken Plavix, Eliquis, CT scan findings, and that she is a [employer] given that complex situation, it would be best for the patient to be sent to tertiary level center for IR evaluation sooner rather than later, given that her risk of hemorrhagic bleeding, and morbidity and mortality is increased given her comorbidities, and complicating factors, I agree with general surgery -I spoke to patient about this, discussed the risks and benefits of transfer, shared decision making, she voiced understanding, all questions answered, agreed to proceed -She is agreeable to try [facility] in [place] if not other hospitals in the surrounding area depending on beds -Spoke to ER provider will work on transferring shortly I can help with the transfer process -I have recommended for her to stay in bed, place Gates catheter, repeat hemoglobin is pending -If her hemoglobin drops, or if she has active bleeding, and starts developing hemorrhagic shock then we should proceed with giving her Andexxa, TXA, fluid resuscitation, pressors -Which I certainly can help with Review of Systems 2 Card: Denies: chest pain Resp: Denies: dyspnea GI: Reports: abdominal pain and hematochezia Medications/Allergies Home Medications ?Medication ?Instructions ?Recorded ?Confirmed ?Last Taken ?Type cholecalciferol (vitamin D3) 25 25 mcg PO DAILY 01/12/25 01/11/25 History mcg (1,000 unit) capsule (Vitamin D3) cyclobenzaprine 5 mg tablet See Rx Instructions .Route 04/04/23 01/12/25 Unknown Rx .COMPLEX #30 tabs mecobalamin (vitamin B12) 1,000 1,000 mcg PO DAILY 01/12/25 01/11/25 History mcg lozenges multivitamin 1 tab PO DAILY 02/09/24 10/05/0801/11/25 History C-pap auto titrating 6-12 #1 ea 02/19/24 01/12/25 Unkn own Rx potassium chloride 20 mEq/15 mL 20 meq (15 mL) PO REBECA Y #450 mL 03/15/24 01/12/25 01/11/25 Rx oral liquid ipratropium 20 mcg-albuterol 100 1 puff inhalation Q6H PRN 03/16/24 01/12/25 Unknown Rx mcg/actuation mist for inhalation Shortness Of Breath #4 grams (Combivent Respimat) wheelchair with leg rests #1 ea 03/18/24 01/12/25 Unkn own Rx discontinue Oxygen #1 ea 04/15/24 01/12/25 Unkn own Rx clopidogrel 75 mg tablet 75 mg PO DAILY #30 tabs 01/0601/12/25 01/11/25 Rx levothyroxine 100 mcg tablet See Rx Instructions .Rout e 04/29/24 01/12/25 01/12/25 07:00 Rx .COMPLEX #90 tabs furosemide 40 mg tablet (Lasix) 40 mg PO BID #120 tabs 06/16/24 01/12/25 01/12/25 08:00 Rx zolpidem 10 mg tablet 10 mg PO .QHS #30 tabs 08/0901/12/25 01/11/25 20:00 Rx amlodipine 10 mg tablet See Rx Instructions .Route 0 10/18/24 01/12/25 01/12/25 08:30 Rx .COMPLEX #90 tabs carvedilol 3.125 mg tablet 3.125 mg PO BID #180 tabs 0 11/04/24 01/12/25 01/12/25 08:00 Rx apixaban 5 mg tablet (Eliquis) See Rx Instructions .Ro anali 11/11/24 01/12/25 01/12/25 08:00 Rx .COMPLEX #180 tabs atorvastatin 40 mg tablet 20 mg (1/2 x 40 mg) PO BEDTI ME #90 12/14/24 01/12/25 01/11/25 20:00 Rx tabs amiodarone 100 mg tablet 100 mg PO DAILY #90 tabs 03/0801/12/25 01/12/25 Rx spironolactone 25 mg tablet See Rx Instructions .Route 01/03/25 01/12/25 01/12/25 Rx .COMPLEX #90 tabs alprazolam 0.25 mg tablet (Xanax) 0.25 mg PO TID PRN a nxiety #60 tabs 01/10/25 01/12/25 01/12/25 03:30 Rx Allergies Allergy/AdvReac Type Severity Reaction Status Date / Time Iodinated Contrast Media Allergy Mild possibly Verified 01/12/25 11:26 had chest pain with it but not sure hydrocodone (From Vicodin) Allergy Unknown Verified 01/12/25 11:26 levofloxacin (From Levaquin) Allergy Unknown Verified 01/12/25 11:26 oxycodone (From Percocet) Allergy Unknown Verified 01/12/25 11:26 simvastatin Allergy Unknown Verified 01/12/25 11:26 sulfamethoxazole (From Allergy Unknown Verified 01/12/25 11:26 Bactrim) trimethoprim (From Bactrim) Allergy Unknown Verified 01/12/25 11:26 Current Medications Generic Name Dose Route Start Last Admin Trade Name Freq PRN Reason Stop Dose Admin Sodium Chloride 1,000 mls @ 999 mls/hr 01/12/25 14:00 01/12/25 14:05 Sodium Chloride 0.9% IV 01/12/25 15:00 999 mls/hr .Q1H1M ONE Administration PFSH Acute 2 PFSH: Medical History Tricuspid valve regurgitation Mitral regurgitation Coronary artery disease Atrial fibrillation, chronic Hypertension Hyperlipidemia Severe mitral regurgitation Hypertension Atrial fibrillation CHF (NYHA class IV, ACC/AHA stage D) Insomnia temazepam not effective, ambien caused side effects, trazodone caused dizziness, Risperdal kept her awake Diverticulitis Fibromyalgia Hypothyroid Hypoglycemia History of left breast cancer 2010 Hiatal hernia Surgical History History of right hip replacement done 2006 History of tonsillectomy Family History Father Lung cancer Mother Stroke Social History Smoking and tobacco/nicotine status: former use of tobacco/nicotine Alcohol intake: never Substance/Drug Use: never Marital status: Vitals/I&O/Wt Last Vital Signs Temp 98.1 F 01/12/25 11:19 Pulse 59 L 01/12/25 13:53 BP 143/59 01/12/25 13:53 Pulse Ox 96 01/12/25 13:53 O2 Del Method Room Air 01/12/25 13:53 Weight last 48 hrs Weight 76.657 kg Physical Exam 2 Const: COMMON NORMALS: no acute distress and patient oriented x3 Eye: COMMON NORMALS: Equal, round and reactive pupils present and EOMs intact bilaterally PUPIL: Yes Equal, round and reactive pupils present Resp: COMMON NORMALS: normal respiratory effort, No retractions, No use of accessory muscles and clear to auscultation bilaterally AUSCULTATION: clear to auscultation bilaterally Cardio: COMMON NORMALS: regular rate, regular rhythm, S1 normal heart sound present and S2 normal heart sound present RATE: regular rate RHYTHM: r egular rhythm HEART SOUNDS: S1 normal heart sound present and S2 normal heart sound present GI: COMMON NORMALS: Normal to inspection, nondistended, normoactive bowel sounds present and non-tender OTHER: rectal exam bright red blood per rectum Extremity: COMMON NORMALS: no calf tenderness and no pedal edema Neuro: COMMON NORMALS: patient oriented x3 Psych: COMMON NORMALS: mental status grossly normal Data 01/12/25 11:43 01/12/25 12:17 A&P Assessment and plan 1. Diverticular hemorrhage: - Currently being transferred to a tertiary level center PDMP PDMP Reviewed: Not Reviewed Consult Attestations 2 Medical Necessity Statement: Patient is being transferred to tertiary level center Diagnoses Diverticular hemorrhage K57.31
[2025-01-12 14:36] LABS: Hematocrit 41.5 % (36-47); Hemoglobin 13.50 g/dL (11.27-16.99)
[2025-01-12 14:54] LABS: Lactic Sepsis W/Reflex 0.9 mmol/L (0.5-2.2)
[2025-01-12] MEDS: tranexamic acid 1,000 MG/100 ML PREMIX 600 MG IV (14:54)
[2025-01-12 15:00] VITALS: BP 156/64; PULSE 65; O2SAT 94
--- NOTE | 2025-01-12 15:06 | PC.NURSE ---
REPORT CALLED TO JUN Phelps RN AT [facility] IN [place]. ACCEPTING NURSE VERBALIZED UNDERSTANDING OF REPORT AND REQUESTED THAT IF PT HAS A CHANGE IN STATUS TO LET THEM KNOW AT [phone].
[2025-01-12] MEDS: hum prothrombin cplx(pcc)4fact 1,000 UNIT, hum prothrombin cplx(pcc)4fact 500 UNIT in e... 504 UNIT IV (15:16)
[2025-01-12 16:24] VITALS: BP 127/67; PULSE 67; O2SAT 95
== END 2025-01-12 16:33 | disposition short-term general hospital (02) ==
PROVIDERS: Emergency Provider Emergency Medicine; PCP Family Medicine
DX: K92.2 Gastrointestinal hemorrhage, unspecified (principal); I48.20 Chronic atrial fibrillation, unspecified; Z87.891 Personal history of nicotine dependence; I25.10 Atherosclerotic heart disease of native coronary artery without angina pectoris; E78.5 Hyperlipidemia, unspecified; I11.0 Hypertensive heart disease with heart failure; I50.9 Heart failure, unspecified; Z85.3 Personal history of malignant neoplasm of breast
CPT/HCPCS: 36415; 51702; 74177; 80053; 83605; 83690; 85014; 85018; 85025; 85610; 96365; 96367; 96375; 99285; J1200; J2919; J7030; J7168; J9999

== ENCOUNTER → 2025-01-19 09:41 | Outpatient (BNVA) | payer MEDICARE, SELFPAY | PROVIDERS: PCP Family Medicine; Visit Provider Family Medicine | DX: K57.31 Diverticulosis of large intestine without perforation or abscess with bleeding (principal) | CPT/HCPCS: 80048; 85025 ==

== ENCOUNTER → 2025-02-08 12:52 | Outpatient (BNVA) | payer MEDICARE, SELFPAY | PROVIDERS: PCP Family Medicine; Visit Provider Family Medicine | DX: D64.9 Anemia, unspecified (principal) | CPT/HCPCS: 80048; 85025 ==

== ENCOUNTER → 2025-04-05 14:30 | Outpatient (BNVA) | payer MEDICARE, SELFPAY | PROVIDERS: PCP Family Medicine; Visit Provider Podiatrist Foot & Ankle Surgery | DX: M20.31 Hallux varus (acquired), right foot (principal); M20.41 Other hammer toe(s) (acquired), right foot; M20.42 Other hammer toe(s) (acquired), left foot; M20.12 Hallux valgus (acquired), left foot; L60.3 Nail dystrophy | CPT/HCPCS: 99214 ==